=== PATIENT | male | born 1945 | race Caucasian/White ===

== ENCOUNTER 2019-07-27 07:00 | Inpatient (IN) ==
--- NOTE | 2019-07-12 10:50 | Anesthesiology Consultation ---
Date of Service July 12, 2019 Assessment & Plan (1) Encounter for pre-operative examination: Chart Review Chart Review: Acceptable Risk for Surgery (pending surgeon-ordered pcp clearance) and Patient seen in Pre Admission Testing Consults Requested medical Note sent to PCP for them to address patient's cardiac status and possible up dated testing prior to surgery at surgeon-ordered PCP clearance. Teaching & Discussion Instructed NPO after midnight before surgery, except medications with 15 cc of water. Medication instructions provided according to the PAT guidelines. History Surgery Operation Date: 07/27/19 07:45 Proposed Procedures p T11-L2, L4-S1 Decompression; T11-S1 Fusion; Possible Iliac Bolts, Spinal Cord Monitoring - Fidencio Christopher, Height/Weight Height: 5 ft 9 in Weight: 88 kg Allergies Allergy/AdvReac Type Severity Reaction Status Date / Time No Known Allergies Allergy Verified 07/07/19 08:57 Medications Home Medications Medication Instructions Recorded Confirmed Last Taken ascorbic acid (vitamin C) [Vitamin 500 mg PO QAM 07/07/19 07/07/19 Unknown C] aspirin [Aspirin Low Dose] 81 mg PO QPM 07/07/19 07/07/19 Unknown atenolol 25 mg PO QAM 07/07/19 07/07/19 Unknown cholecalciferol (vitamin D3) 400 unit PO QAM 07/07/19 07/07/19 Unknown [Vitamin D3] citalopram 20 mg PO QPM 07/07/19 07/07/19 Unknown hydrocodone-acetaminophen 1 tab PO Q6H PRN 07/07/19 07/07/19 Unknown ibuprofen 400 mg PO Q6H PRN 07/07/19 07/07/19 Unknown lutein 6 mg PO QAM 07/07/19 07/07/19 Unknown magnesium 250 mg PO QAM 07/07/19 07/07/19 Unknown omega 7-jdy-fwv-fish oil [Fish Oil] 1 cap PO QPM 07/07/19 07/07/19 Unknown omeprazole 20 mg PO QAM 07/07/19 07/07/19 Unknown simvastatin 20 mg PO PM 07/07/19 07/07/19 Unknown vitamin B complex 1 tab PO QAM 07/07/19 07/07/19 Unknown Past Medical History Medical History (Updated 07/15/19 @ 09:33 by Gael Myles) Anxiety CAD (coronary artery disease) [place] 1995 Depression GERD (gastroesophageal reflux disease) History of prostate cancer 2004, S/P PROSTATECTOMY 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 Hx of myocardial infarction 1995 - [facility] -ANGIOPLASTY. NO STENTS. NO FURTHER CARDIAC INTERVENTIONS. Hyperlipidemia Sleep apnea DOES NOT USE CPAP ANY LONGER, DID USE FOR MANY YEARS. PATIENT'S STATES HE DOES NOT SNORE AT ALL ANYMORE. Exercise / Class Metabolic Activity II 4-5 Yardwork/Stairs/Walk up hill (ACTIVELY WORKS AROUND HOME AND IN COMMUNITY, UP AND DOWN STAIRS MANY TIMES DAILY WITH NO CARDIOPULMONARY SYMPTOMS) Past Family History Family History Brother Family history of diabetes mellitus Sister Family history of diabetes mellitus Sister Family history of diabetes mellitus Mother Family history of diabetes mellitus Past Surgical History Surgical History History of back surgery X3 History of colonoscopy Hx of cervical spine surgery Hx of left cataract extraction Hx of prostatectomy Hx of right cataract extraction Past Anesthesia History No Hx of Anesthesia Complications and No Family Hx of Anesthesia Complications History of PONV No Hx of PONV and No Hx of Motion Sickness Social History Smoking Status: Former smoker Do You Dip or Chew Tobacco: Yes (1 CAN EVERY 2 DAYS. ADVISED NONE AM DOS.) Smoking End Date: QUIT 50YRS AGO Hx Alcohol Use: No Hx Substance Use: No Review of Systems Pt denies any recent chest pain, shortness of breath, palpitations, cough, fever or URI. Physical Exam Vital Signs BP: 145/71 P: 59bpm SPO2: 95% RA T: 98.2 F R: 12 ENMT Mouth: + dentures (upper and lower) and + edentulous Thyromental Distance: > or= 3.5 Finger Breadths (3.5) Mallampati Class: I Neck normal visual inspection; neck extension not limited Respiratory normal respiratory effort Auscultation: lungs clear to auscultation bilaterally Cardiovascular Rate/Rhythm: regular rate and regular rhythm Heart Sounds: no murmur Vessels: no carotid bruit Extremities: no edema Testing Laboratory Results 07/12/19 11:02 07/12/19 11:02 PT 10.7 Seconds (9.0-12.0) 07/12/19 11:02 INR 1.0 (0.9-1.1) 07/12/19 11:02 APTT 23.3 Seconds (21.0-31.0) 07/12/19 11:02 Urine Color Dark Yellow 07/12/19 Unknown Urine Appearance Clear (Clear) 07/12/19 Unknown Urine pH 5.5 (4.5-7.5) 07/12/19 Unknown Ur Specific [place] 1.027 (1.000-1.030) 07/12/19 Unknown Urine Protein Negative (Negative) 07/12/19 Unknown Urine Glucose (UA) Negative (Negative) 07/12/19 Unknown Urine Ketones Negative (Negative) 07/12/19 Unknown Urine Nitrite Negative (Negative) 07/12/19 Unknown Ur Leukocyte Esterase Negative (Negative) 07/12/19 Unknown Blood Type B Positive 07/12/19 11:02 Antibody Screen NEGATIVE 07/12/19 11:02 Electrocardiogram Date: 07/12/19 Findings: + SB @ (58bpm) ST elevation, consider early repolarization. *Pt had no cardiopulmonary complaints at [facility] and is very active on a daily basis without cardiopulmonary complaints. Chest X-Ray Date: 07/12/19 Findings: + NAD
--- NOTE | 2019-07-12 11:11 | PAT Medication Instructions ---
Medication Instructions Date of Service July 12, 2019 Home Medications ascorbic acid (vitamin C) 500 mg PO QAM aspirin [Aspirin Low Dose] 81 mg PO QPM atenolol 25 mg PO QAM cholecalciferol (vitamin D3) 400 unit PO QAM citalopram 20 mg PO QPM hydrocodone-acetaminophen 1 tab PO Q6H PRN ibuprofen 400 mg PO Q6H PRN lutein 6 mg PO QAM magnesium 250 mg PO QAM omega 7-jyj-wlj-fish oil [Fish Oil] 1 cap PO QPM omeprazole 20 mg PO QAM simvastatin 20 mg PO PM vitamin B complex 1 tab PO QAM ASK your surgeon for instructions aspirin [Aspirin Low Dose] 81 mg PO QPM ibuprofen 400 mg PO Q6H PRN STOP taking 2 weeks before surgery lutein 6 mg PO QAM omega 2-xqg-fhy-fish oil [Fish Oil] 1 cap PO QPM DO NOT take the morning of surgery ascorbic acid (vitamin C) 500 mg PO QAM cholecalciferol (vitamin D3) 400 unit PO QAM magnesium 250 mg PO QAM vitamin B complex 1 tab PO QAM Take morning of surgery With a small sip of water, OTHERWISE NOTHING TO EAT OR DRINK AFTER MIDNIGHT: atenolol 25 mg PO QAM hydrocodone-acetaminophen 1 tab PO Q6H PRN (if needed, may be taken up to four hours before surgery) omeprazole 20 mg PO QAM Take evening before surgery citalopram 20 mg PO QPM hydrocodone-acetaminophen 1 tab PO Q6H PRN (if needed) simvastatin 20 mg PO PM Other Notes If you have any questions please call us at [phone] or [phone] or [phone] or [phone]
--- NOTE | 2019-07-12 11:38 | XRay Report ---
XR chest Pre-admission PA/Lat CLINICAL HISTORY: 73 years-old Male presenting with preoperative assessment. TECHNIQUE: PA and lateral views of the chest were obtained. COMPARISON: 06/26/2015. FINDINGS: Cardiomediastinal silhouette normal. Lungs and pleural spaces clear. Anterior cervical fusion hardwar e, new from prior. Posterior lumbar fusion hardware, as on prior. Upper abdomen normal. IMPRESSION: 1. No acute cardiopulmonary disease. ACT 112: Negative or not required by law. Electronically signed by: Ba Flores M.D. 07/12/2019 11:36 AM
[2019-07-12 13:24] LABS: Basophils # (auto) 0.02 K/uL (0-0.2); Basophils % (auto) 0.4 %; Eosinophils # (auto) 0.11 K/uL (0-0.5); Hematocrit (blood only) 44.7 % (42-52); Hemoglobin 15.6 g/dL (14.0-18.0); Immature Granulocytes # (auto) 0.02 K/uL (0.00-0.02); Immature Granulocytes % (auto) 0.4 %; Lymphocytes # (auto) 1.65 K/uL (1.2-3.4); Lymphocytes % (auto) 30.2 %; Mean Corpuscular Hemoglobin 33.3 pg (25-34); Mean Corpuscular Hgb Conc 34.9 g/dL (32-36); Mean Corpuscular Volume 95.5 fL (80-100); Mean Platelet Volume 11.7 fL (7.4-10.4); Monocytes # (auto) 0.64 K/uL (0.11-0.59); Monocytes % (auto) 11.7 %; Neutrophils # (auto) 3.03 K/uL (1.4-6.5); Neutrophils % (auto) 55.3 %; Platelet Count 177 K/uL (130-400); RDW Coefficient of Variation 13.3 % (11.5-14.5); RDW Standard Deviation 45.5 fL (36.4-46.3); Red Blood Count 4.68 M/uL (4.7-6.1); White Blood Count 5.47 K/uL (4.8-10.8)
[2019-07-12 13:36] LABS: Appearance Urine Clear (Clear); Bilirubin Urine Negative (Negative); Blood Urine Negative (Negative); Color Urine Dark Yellow; Glucose Urine UA Negative (Negative); Ketones Urine Negative (Negative); Leukocyte Esterase Urine Negative (Negative); Nitrite Urine Negative (Negative); Protein Urine Negative (Negative); Specific Gravity Urine 1.027 (1.000-1.030); Urobilinogen Urine Negative (Negative); pH Urine 5.5 (4.5-7.5)
[2019-07-12 13:41] LABS: Calcium 9.3 mg/dl (8.5-10.1); Creatinine Clr Calc Pharmacy 78.2 ml/min; Est GFR (African American) 95.9; Est GFR (Non-African American) 82.7; Partial Thromboplastin Ratio 0.9; Partial Thromboplastin Time 23.3 Seconds (21.0-31.0); Potassium 4.9 mmol/L (3.5-5.1); Prothrombin Time 10.7 Seconds (9.0-12.0)
[~2019-07-27 07:00] MED LIST: ACETAMINOPHEN 500 MG TAB PO SCH; CEFAZOLIN 2000MG 2,000 MG/15 ML SYR IV SCH; CeleBREX 200 MG CAP PO SCH; GABAPENTIN 300 MG CAP PO SCH; LR 15ML/HR IV SCH
[2019-07-27] MEDS ORDERED: PROPOFOL IV EMULSION 10 MG/ML 20 ML VIAL IV ONE (08:48)
[2019-07-27] MEDS ORDERED: DEXAMETHASONE SOD INJ 4 MG/ML VIAL ONE (08:48)
[2019-07-27] MEDS ORDERED: ONDANSETRON INJ 2 MG/ML 2 ML VIAL ONE (08:48)
[2019-07-27] MEDS ORDERED: LIDOCAINE HCL 2% 2 ML VIAL/AMP(20MG/ML) INFIL ONE (08:48)
[2019-07-27] MEDS ORDERED: HYDROmorphone INJ 2 MG/ML SYR/VIAL ONE (08:49)
[2019-07-27] MEDS ORDERED: MIDAZOLAM HCL 1 MG/ML 2ML VIAL ONE (08:49)
[2019-07-27] MEDS ORDERED: fentaNYL citrate 100 MCG/2 ML VIAL ONE (08:49)
[2019-07-27] MEDS ORDERED: ATROPINE SULFATE 0.1 MG/ML 10ML SYR IV PRN (09:14)
[2019-07-27] MEDS ORDERED: PROMETHAZINE HCL 6.25 MG in SODIUM CHLORIDE 0.9% 50 ML IV PRN (09:14)
[2019-07-27] MEDS ORDERED: fentaNYL citrate 100 MCG/2 ML VIAL IV PRN (09:14)
[2019-07-27] MEDS ORDERED: ONDANSETRON INJ 2 MG/ML 2 ML VIAL IV PRN ×2 (09:14→14:19)
[2019-07-27] MEDS ORDERED: ePHEDrine sulfate 50 MG/ML AMP IV PRN (09:14)
[2019-07-27] MEDS ORDERED: HYDROmorphone INJ 2 MG/ML SYR/VIAL IV PRN (09:14)
--- NOTE | 2019-07-27 09:53 | History & Physical Bridge Note ---
Date of Service July 27, 2019 History & Physical Bridge Note I have examined the patient, reviewed the History & Physical and in the interval since the performance of the History & Physical I have noted the following changes of clinical significance: no changes noted
--- NOTE | 2019-07-27 09:54 | History & Physical Report ---
Date of Service July 27, 2019 Assessment & Plan (1) Spinal stenosis, lumbar region with neurogenic claudication: Decompression T11-L2, L4-S1, fusion T11-S1, possible iliac bolts. Present on Admission?: Yes History of Present Illness Chief Complaint: Back and leg pain Primary Care Provider: Leonardo Layton This is a 73-year-old male who presents with chronic persistent back and bilateral leg symptoms. After failing stents course of nonoperative care is here for surgical intervention. Allergies Allergy/AdvReac Type Severity Reaction Status Date / Time No Known Allergies Allergy Verified 07/27/19 07:52 Home Medications Home Medications Medication Instructions Recorded Confirmed Type ascorbic acid (vitamin C) [Vitamin 500 mg PO QAM 07/07/19 07/27/19 History C] aspirin [Aspirin Low Dose] 81 mg PO QPM 07/07/19 07/27/19 History atenolol 25 mg PO QAM 07/07/19 07/27/19 History cholecalciferol (vitamin D3) 400 unit PO QAM 07/07/19 07/27/19 History [Vitamin D3] citalopram 20 mg PO QPM 07/07/19 07/27/19 History hydrocodone-acetaminophen 1 tab PO Q6H PRN 07/07/19 07/27/19 History ibuprofen 400 mg PO Q6H PRN 07/07/19 07/27/19 History lutein 6 mg PO QAM 07/07/19 07/27/19 History magnesium 250 mg PO QAM 07/07/19 07/27/19 History omega 6-ofv-ouh-fish oil [Fish Oil] 1 cap PO QPM 07/07/19 07/27/19 History omeprazole 20 mg PO QAM 07/07/19 07/27/19 History simvastatin 20 mg PO PM 07/07/19 07/27/19 History vitamin B complex 1 tab PO QAM 07/07/19 07/27/19 History Past Med/Surg History Family History Brother Family history of diabetes mellitus Sister Family history of diabetes mellitus Sister Family history of diabetes mellitus Mother Family history of diabetes mellitus Social History Preferred Language: Stateless Communication Ability: Effective Beliefs That Will Affect Care: None Current Living Situation: Spouse Feels Safe at Home: Yes Safety Concerns: Feels Safe At This Time Smoking Status: Former smoker Do You Dip or Chew Tobacco: Yes (1 CAN EVERY 2 DAYS. ADVISED NONE AM DOS.) ; Smoking End Date: QUIT 50YRS AGO ; Second Hand Exposure: No ; Hx Alcohol Use: No Hx Substance Use: No Physical Exam Physical Exam: Patient is alert and oriented neurologically intact. Results & Data Vital Signs (Past 12 Hours) Vital Signs Temp Pulse Resp BP Pulse Ox 07/27/19 07:49 36.5 C 58 L 18 140/80 97
[2019-07-27] MEDS ORDERED: BACITRACIN INJ 50,000 UNIT VIAL ONE (10:10)
[2019-07-27] MEDS ORDERED: BUPIVACAINE/EPINEPHRINE 0.5% MPF 1:200,000 10 ML VIAL ONE (10:11)
[2019-07-27] MEDS ORDERED: ROCURONIUM BROMIDE 10 MG/ML 5 ML VIAL ONE (11:11)
[2019-07-27] MEDS ORDERED: GLYCOPYRROLATE 0.2 MG/ML VIAL ONE (11:11)
[2019-07-27] MEDS ORDERED: NEOSTIGMINE METHYLSULFATE 1 MG/ML 10ML VIAL ONE (11:11)
[2019-07-27] MEDS ORDERED: FLOSEAL HEMOSTATIC MATRIX 10ML TOP ONE (12:31)
--- NOTE | 2019-07-27 12:47 | Operative Report ---
Post Operative Report Pre & Post Diagnosis Operation Date: 07/27/19 09:35 Pre-Op Diagnosis: Lumbar spinal stenosis with neurogenic claudication. Post-Op Diagnosis: Lumbar spinal stenosis with neurogenic claudication. I identified the patient and participated in the time-out.: Yes Procedure Operation Date: 07/27/19 09:35 Actual Procedures #1 removal instrumentation L2-3. #2 expiration of fusion L2-3. #3 lumbar decompression with bilateral medial facetectomies foraminotomies T12-L1 L1-L2. #4 posterior spinal fusion T11-L2. #5 placed posterior segmental instrumentation T11-L3. #6 interbody fusion L1-2. #7 placement of peek cage 8 x 26 mm at L1-2. #8 placement locally harvested morselized autograft in the posterior lateral gutters. #9 placement infuse collagen sponge, master graft in the posterior gutters and ostial amp and interbody space. Surgeon Fidencio Christopher, Globe Changer Radha Milton Estimated Blood Loss 100 Findings Consistent with Post-Op Diagnosis Specimens None Indications This is a 73-year-old male the presents above-mentioned diagnosis after failing extensive course of nonoperative care is here for surgical intervention. Description of Procedure Patient was met with identified informed consent obtained. Patient was then taken to the operative suite underwent ablation placed in prone position on Jose table on top Samir frame. All bony prominences well-padded eyes inspected to ensure no external pressure placed upon the peer at this point the thoracolumbar spine was prepped and draped in a sterile fashion. Sharp dissection the assistance pericardial form down to and exposing the lamina and transverse processes of T11-T12 L1-L2 2 and L3 including instrumentation L2-L3 was performed. Then referred proceeded to move the hardware at L2 and L3 bilaterally explore the fusion mass noting it to be intact. Then performed complete laminectomy of L1 and L2 including bilateral medial facetectomies and foraminotomies from a caudal cephalad fashion addressing severe spinal stenosis. Pedicle screws were then placed in T11-T12 L1-L2 and L3 bilaterally with assistance of fluoroscopy the process margot placed. By way to transfer approach on the right complete discectomy of L1-2 was performed endplates curetted to subcortical bleeding bone and a 8 x 26 mm peek cage filled with osteo-bone graft tapped in position. The rods were then locked in final position bilaterally. This included a cross-link. The transverse processes of T11 T12-L1 and L2 were then burred to subcortical being bone. Infuse collagen sponge master graft and local autograft was placed in the posterior gutters. 15 round RESHMA drain inserted. The incision was then closed with 1 Vicryl in the fascia 2-0 Vicryl subcutaneously and 4 Monocryl for final skin closure. Steri-Strips dressings placed. Patient will continue to PACU stable disc. Please note Radha Milton present at the entire procedure involved the patient positioning complex portions of the surgery and final skin closure. Lastly spinal cord monitoring was utilized that procedure no changes noted. I attest to the content of the Intraoperative Record and any orders documented therein. Any exceptions are noted below.
--- NOTE | 2019-07-27 13:05 | Fluoroscopy Report ---
FL lumbar spine 2-3V CLINICAL HISTORY: 73 years-old Male presenting with T11-L2 L4-S1 DECOMPRESSION T11-S1 FUSION. TECHNIQUE: 4 fluoroscopic image(s) recorded as part of an intraoperative procedure. COMPARISON: None. FINDINGS/IMPRESSION: Posterior bilateral transpedicular screw and margot fixation of T11-L3 with interbody spacer at L1-2. No rmal anatomic alignment. Please see surgical report for further details. Fluoroscopy dosage (mGy): 13.25. Fluoroscopy time: 28.3 seconds. Number or time of high level fluoroscopy (HLF), digital spot, or digital subtraction images: 0. ACT 112: Negative or not required by law. Electronically signed by: Ba Flores M.D. 07/27/2019 1:03 PM
--- NOTE | 2019-07-27 13:45 | Anesthesiology Progress Note ---
Date of Service July 27, 2019 Anesthesia Post Procedure Vital Signs Vital Signs: Temp Pulse Pulse Resp BP Pulse Ox 07/27/19 13:35 59 L 12 109/65 96 07/27/19 13:25 60 14 115/65 94 07/27/19 13:15 63 14 117/72 96 07/27/19 13:06 36.3 C L 64 12 116/66 96 07/27/19 07:49 36.5 C 58 L 18 140/80 97 Transfer of Care Handoff Completed per policy Notes Mental Status: alert / awake / arousable Patient Amnestic to Procedure: Yes Nausea / Vomiting: adequately controlled Pain: adequately controlled Airway Patency, RR, SpO2: stable & adequate BP & HR: stable & adequate Hydration State: stable & adequate Anesthetic Complications: no major complications apparent
[2019-07-27] MEDS ORDERED: ONDANSETRON 4 MG OD TAB PO PRN (14:19)
[2019-07-27] MEDS ORDERED: NALOXONE HCL 0.4 MG/1 ML VIAL/CARP IV PRN (14:19)
[2019-07-27] MEDS ORDERED: SOD PHOSPHATE/SOD BIPHOSPHATE ENEMA 132 ML BTL PR PRN (14:19)
[2019-07-27] MEDS ORDERED: DO NOT ADMINISTER PNEUMOCOCCAL VACCINE PRN (14:19)
[2019-07-27] MEDS ORDERED: HYDROmorphone INJ 1 MG/ML SYRINGE IV PRN (14:19)
[2019-07-27] MEDS ORDERED: ACETAMINOPHEN 1,000 MG/100 ML VIAL IV PRN (14:19)
[2019-07-27] MEDS ORDERED: FAMOTIDINE 20 MG TAB PO PRN (14:19)
[2019-07-27] MEDS ORDERED: bisacodyL 10 MG SUPP PR PRN (14:19)
[2019-07-27] MEDS ORDERED: LORazepam 0.5 MG TAB PO PRN (14:19)
[2019-07-27] MEDS ORDERED: DO NOT ADMINISTER FLU VACCINE PRN (14:19)
[2019-07-27] MEDS ORDERED: METOCLOPRAMIDE HCL INJ 5 MG/ML 2 ML VIAL IV PRN (14:19)
[2019-07-27] MEDS ORDERED: ACETAMINOPHEN 500 MG TAB PO PRN (14:19)
[2019-07-27] MEDS ORDERED: OXYCODONE HCL IR 5 MG TAB (IMMEDIATE RELEASE) PO PRN (14:19)
[2019-07-27] MEDS ORDERED: LORazepam 0.5 MG/1 ML VIAL IV PRN (14:19)
[2019-07-27] MEDS ORDERED: HYDROmorphone INJ 0.5 MG/0.5 ML SYR IV PRN (14:19)
[2019-07-27] MEDS ORDERED: PROMETHAZINE HCL 12.5 MG in SODIUM CHLORIDE 0.9% 50 ML IV PRN (14:19)
[2019-07-27] MEDS ORDERED: TRAMADOL HCL 50 MG TABLET PO PRN (14:19)
[2019-07-27] MEDS ORDERED: MAGNESIUM HYDROXIDE SUSP 30 ML UDC PO PRN (14:19)
[2019-07-27] MEDS ORDERED: ALUMINUM/MAGNESIUM SUSP 30 ML UDC PO PRN (14:19)
--- NOTE | 2019-07-27 14:51 | History & Physical Report ---
Date of Service July 27, 2019 Assessment & Plan (1) Spinal stenosis, lumbar region with neurogenic claudication: S/P removal of hardware, lumbar decompression and fusion T11-L2 POD #0 Dr. Christopher EBL 100ml; RESHMA drain in place tolerated procedure well Pain/wound management per Ortho Activity and therapy as directed by Ortho Incentive spirometry encouraged and demonstrated, wean oxygen as able DVT prophylaxis per Ortho Monitor H&H (2) CAD (coronary artery disease): No active chest pain or shortness of breath Previous EKG and echo reviewed Continue ASA, statin, atenolol (3) Hyperlipidemia: Continue statin (4) History of prostate cancer: hx of prostatectomy Remission (5) GERD (gastroesophageal reflux disease): continue PPI (6) DVT prophylaxis: SCD/TEDS Disposition: per primary Follow up: PCP Dr. Layton at discharge Pt was seen and examined in collaboration with Dr. Ayala, please see addendum Starting 07/28/2019 pt will be under the care of Dr. Mckeon Thank you for this consultation. We will follow the patient with you during their hospital stay. You can reach a member of the [facility] [facility] Hospitalist Team 09/02 via pager @ [phone]. History of Present Illness Chief Complaint: Postop medical management Primary Care Provider: Leonardo Layton Mr. Marrero is a 73 yr old M who has significant PMH of CAD with history of angioplasty in , history of Guillan Colvin syndrome with residual left hand and leg weakness, depression, GERD, HLD, history of prostate cancer status post prostatectomy, RACHEL no longer on CPAP who presents to [facility] secondary to elective lumbar procedure by Dr. Christopher. He has had 3 prior lumbar surgeries and has again failed outpatient conservative management. Prior to surgery he had significant low back pain as well as radiation of pain to bilateral lower extremities, "causing my knee to buckle." Postoperatively he has been doing well and requesting food. Currently on oxygen and has been using incentive spirometer. Multiple family members at bedside including 2 sisters, [id number] and . Denies fever, chills, sweats, lightheadedness, dizzin ess, syncope, chest pain, shortness of breath, palpitations, cough, hemoptysis, nausea, vomiting, abdominal pain. Had bowel movement yesterday. No difficulty with urination prior to surgery. Of significance he does have CAD which is currently stable without angina. History of angioplasty back in the 90s. Currently on regimen of aspirin, atenolol and statin. History of Guillan Colvin syndrome approximately 4 years ago with residual left-sided weakness, but does not alter functional capacity. Depression is stable on citalopram. PCP is Dr. Layton and outpt records reviewed. Due to prior hx of CAD preop echocardiogram was performed which revealed normal EF. Allergies Allergy/AdvReac Type Severity Reaction Status Date / Time No Known Allergies Allergy Verified 07/27/19 07:52 Home Medications Home Medications Medication Instructions Recorded Confirmed Type ascorbic acid (vitamin C) [Vitamin 500 mg PO QAM 07/07/19 07/27/19 History C] aspirin [Aspirin Low Dose] 81 mg PO QPM 07/07/19 07/27/19 History atenolol 25 mg PO QAM 07/07/19 07/27/19 History cholecalciferol (vitamin D3) 400 unit PO QAM 07/07/19 07/27/19 History [Vitamin D3] citalopram 20 mg PO QPM 07/07/19 07/27/19 History hydrocodone-acetaminophen 1 tab PO Q6H PRN 07/07/19 07/27/19 History ibuprofen 400 mg PO Q6H PRN 07/07/19 07/27/19 History lutein 6 mg PO QAM 07/07/19 07/27/19 History magnesium 250 mg PO QAM 07/07/19 07/27/19 History omega 1-vld-scm-fish oil [Fish Oil] 1 cap PO QPM 07/07/19 07/27/19 History omeprazole 20 mg PO QAM 07/07/19 07/27/19 History simvastatin 20 mg PO PM 07/07/19 07/27/19 History vitamin B complex 1 tab PO QAM 07/07/19 07/27/19 History Past Med/Surg History Medical History Anxiety CAD (coronary artery disease) [place] 1995 Depression GERD (gastroesophageal reflux disease) History of prostate cancer 2004, S/P PROSTATECTOMY 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 MUCSLE WEAKNESS IN ARMS AND LEGS SINCE EPISODE. Hx of myocardial infarction 1995 - [facility] -ANGIOPLASTY. NO STENTS. NO FURTHER CARDIAC INTERVENTIONS. Hyperlipidemia Sleep apnea DOES NOT USE CPAP ANY LONGER, DID USE FOR MANY YEARS. PATIENT'S STATES HE DOES NOT SNORE AT ALL ANYMORE. Surgical History History of back surgery X3 History of colonoscopy Hx of cervical spine surgery Hx of left cataract extraction Hx of prostatectomy Hx of right cataract extraction Family History Brother Family history of diabetes mellitus Sister Family history of diabetes mellitus Sister Family history of diabetes mellitus Mother Family history of diabetes mellitus Social History Preferred Language: Luxembourgish Communication Ability: Effective Beliefs That Will Affect Care: None Current Living Situation: Spouse Feels Safe at Home: Yes Safety Concerns: Feels Safe At This Time Smoking Status: Former smoker Do You Dip or Chew Tobacco: Yes (1 CAN EVERY 2 DAYS. ADVISED NONE AM DOS.) ; Smoking End Date: QUIT 50YRS AGO ; Second Hand Exposure: No ; Hx Alcohol Use: No Hx Substance Use: No Review of Systems Review of Systems: All systems reviewed & are unremarkable except as noted in HPI & below Physical Exam Physical Exam: Constitutional: WD/WN, male, vitals as above, NAD, sitting up in bed, pleasant, conversing easily Head: Normocephalic, Atraumatic Eyes: PERRL, conjunctivae normal, anicteric sclerae ENMT: external ear and nose normal, oropharynx normal Neck: trachea midline, no thyromegaly normal visual inspection Respiratory: On O2 via NC, normal respiratory effort, lungs clear to auscultation, no wheeze, rales, rhonchi. Normal insp/exp effort, no accessory muscle use Cardiovascular: RRR, no murmur, no edema Vessels: no JVD or carotid bruit Chest: normal inspection of chest Abdomen: normal bowel sounds, soft, nontender, no hepatosplenomegaly Musculoskeletal: no cyanosis or clubbing, lumbar dressing CDI RESHMA drain in place Skin: no rashes, warm and dry normal turgor Neurologic: PERRL, EOMI, accommodation nl, no face palsy, no dysarthria CN's II-XI intact bilaterally and moves all extremities Psychiatric: A+Ox3, euthymic affect Lymphatic: no cervical or axillary lymphadenopathy : deferred Results & Data Vital Signs (Past 12 Hours) Vital Signs Temp Pulse Pulse Pulse Resp BP Pulse Ox 07/27/19 14:40 67 16 104/70 94 07/27/19 14:00 64 16 103/68 95 07/27/19 13:45 36.2 C L 64 12 113/70 95 07/27/19 13:35 59 L 12 109/65 96 07/27/19 13:25 60 14 115/65 94 07/27/19 13:15 63 14 117/72 96 07/27/19 13:06 36.3 C L 64 12 116/66 96 07/27/19 07:49 36.5 C 58 L 18 140/80 97 Laboratory Results Preop lab work revealed H&H 15.6 and 44.7, platelet 177, WBC 5K, sodium 142, K4.9, BUN 18, creatinine 1.91 Urinalysis negative Diagnostic Findings CXR: IMPRESSION: 1. No acute cardiopulmonary disease. Lumbar Spine Xray: FINDINGS/IMPRESSION: Posterior bilateral transpedicular screw and margot fixation of T11-L3 with interbody spacer at L1-2. Normal anatomic alignment. Medications Administered Ketorolac Tromethamine (Toradol) 15 mg IV Q6H KARLIE Stop: 07/28/19 09:01 Last Admin: 07/27/19 14:56 Dose: 15 mg Documented by: [id number] Discontinued Medications Acetaminophen (Tylenol) 1,000 mg PO PREOP KARLIE Stop: 07/27/19 18:00 Last Admin: 07/27/19 08:12 Dose: 1,000 mg Documented by: [id number] Bacitracin (Bacitracin) Confirm Administered Dose 50,000 units .ROUTE .STK-MED ONE Stop: 07/27/19 10:11 Last Admin: 07/27/19 12:31 Dose: 50,000 units Documented by: [id number] Bupivacaine HCl/Epinephrine Bitart (Sensorcaine/Epinephrine 0.5% Mpf 1:200,000) Confirm Administered Dose 30 ml .ROUTE .STK-MED ONE Stop: 07/27/19 10:12 Last Admin: 07/27/19 12:30 Dose: 30 ml Documented by: [id number] Celecoxib (Celebrex) 200 mg PO PREOP KARLIE Stop: 07/27/19 18:00 Last Admin: 07/27/19 08:12 Dose: 200 mg Documented by: [id number] Gabapentin (Neurontin) 300 mg PO PREOP KARLIE Stop: 07/27/19 18:00 Last Admin: 07/27/19 08:12 Dose: 300 mg Documented by: [id number] Lactated Ringer's (Lr) 1,000 mls @ 15 mls/hr IV .Q24H KARLIE Stop: 07/28/19 05:59 Last Infusion: 07/27/19 10:20 Dose: 0 mls/hr Documented by: [id number] Admin: 07/27/19 08:05 Dose: 15 mls/hr Documented by: [id number] Cefazolin Sodium (Ancef 2000mg) 2,000 mg in 15 mls @ 3.75 mls/min IV PREOP KARLIE; Protocol Stop: 07/27/19 18:00 Last Admin: 07/27/19 10:20 Dose: 3.75 mls/min Documented by: [id number] Miscellaneous (Floseal Hemostatic Matrix 10ml) 7 ml TOP ONCE ONE Stop: 07/27/19 12:32 Last Admin: 07/27/19 12:31 Dose: 7 ml Documented by: [id number] ECG Rate (beats per minute): 58 Rhythm: sinus bradycardia Code Status & VTE Plan Code Status Full Code VTE Prophylaxis Plan VTE Prophylaxis will be ordered: Yes Supervising Physician Co-Signing Physician Notes H&P template inadvertently used instead of Consultation template. Please refer to Consultation note for full documentation.
[2019-07-27] MEDS: KETOROLAC TROMETHAMINE 15 MG/ML VIAL IV SCH ×2 (14:56→20:30)
--- NOTE | 2019-07-27 15:32 | Consultation ---
Date of Consultation July 27, 2019 Assessment & Plan (1) Spinal stenosis, lumbar region with neurogenic claudication: S/P removal of hardware, lumbar decompression and fusion T11-L2 POD #0 Dr. Christopher EBL 100ml; RESHMA drain in place tolerated procedure well Pain/wound management per Ortho Activity and therapy as directed by Ortho Incentive spirometry encouraged and demonstrated, wean oxygen as able DVT prophylaxis per Ortho Monitor H&H (2) CAD (coronary artery disease): No active chest pain or shortness of breath Previous EKG and echo reviewed Continue ASA, statin, atenolol (3) Hyperlipidemia: Continue statin (4) History of prostate cancer: hx of prostatectomy Remission (5) GERD (gastroesophageal reflux disease): continue PPI (6) DVT prophylaxis: SCD/TEDS Disposition: per primary Follow up: PCP Dr. Layton at discharge Pt was seen and examined in collaboration with Dr. Ayala, please see addendum Starting 07/28/2019 pt will be under the care of Dr. Mckeon Thank you for this consultation. We will follow the patient with you during their hospital stay. You can reach a member of the [facility] Hospitalist Team 09/02 via pager @ [phone]. Supervising Physician Co-Signing Physician Notes HISTORY: Record reviewed. Patient interviewed and examined in their room. Care coordinated with Delmis Kearney PA-C. Please refer to her documentation for complete history. Briefly, 73 YO M with history of coronary artery disease, dyslipidemia, GERD, and other problems. Lumbar decompression/fusion performed today by Dr. Christopher. Doing well postoperatively. No chest pain, cough, SOB, nausea, vomiting. Pain well-controlled. EXAM: General- no distress Lungs- clear to auscultation; no respiratory distress Cardiovascular- RRR; no JVD; no pretibial edema Abdomen- + bowel sounds, soft, nontender Extremities- no cyanosis; no calf tenderness ; TEDS and SCDs applied Neuro- alert, oriented Skin- warm & dry DATA: Preop labs on 07/12/2019 unremarkable. Chest x-ray did not show any acute cardiopulmonary disease. EKG performed on 07/12/2019 demonstrated sinus bradycardia at 58/minute, early polarization, no acute changes. ASSESSMENT AND PLAN: Doing well after lumbar decompression/fusion. Cardiac status stable. Continue atenolol and statin. Resume aspirin postoperatively when okay from surgical perspective. Please refer to DENISE Kearney's documentation for discussion of other issues. Thank you for this consultation. We will follow the patient with you during their hospital stay. My cell # is [phone]. You can reach a member of the [facility] Medicine Team 09/02 via pager @ [phone]. History of Present Illness Requesting Physician: Dr. Christopher Reason for Consultation: Post op medical management Attending Physician: Fidencio Christopher, DO History of Present Illness Mr. 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 Christopher. He has had 3 prior lumbar surgeries and has again failed outpatient conservative management. Prior to surgery he had significant low back pain as well as radiation of pain to bilateral lower extremities, "causing my knee to buckle." Postoperatively he has been doing well and requesting food. Currently on oxygen and has been using incentive spirometer. Multiple family members at bedside including 2 sisters, [id number] and . Denies fever, chills, sweats, lightheadedness, dizziness, syncope, chest pain, shortness of breath, palpitations, cough, hemoptysis, nausea, vomiting, abdominal pain. Had bowel movement yesterday. No difficulty with urination prior to surgery. Of significance he does have CAD which is currently stable without angina. History of angioplasty back in the s. Currently on regimen of aspirin, atenolol and statin. History of Guillan Colvin syndrome approximately 4 years ago with residual left-sided weakness, but does not alter functional capacity. Depression is stable on citalopram. PCP is Dr. Layton and outpt records reviewed. Due to prior hx of CAD preop echocardiogram was performed which revealed normal EF. Allergies Allergy/AdvReac Type Severity Reaction Status Date / Time No Known Allergies Allergy Verified 07/27/19 07:52 Home Medications Home Medications Medication Instructions Recorded Confirmed Type ascorbic acid (vitamin C) [Vitamin 500 mg PO QAM 07/07/19 07/27/19 History C] aspirin [Aspirin Low Dose] 81 mg PO QPM 07/07/19 07/27/19 History atenolol 25 mg PO QAM 07/07/19 07/27/19 History cholecalciferol (vitamin D3) 400 unit PO QAM 07/07/19 07/27/19 History [Vitamin D3] citalopram 20 mg PO QPM 07/07/19 07/27/19 History hydrocodone-acetaminophen 1 tab PO Q6H PRN 07/07/19 07/27/19 History ibuprofen 400 mg PO Q6H PRN 07/07/19 07/27/19 History lutein 6 mg PO QAM 07/07/19 07/27/19 History magnesium 250 mg PO QAM 07/07/19 07/27/19 History omega 5-lqs-hje-fish oil [Fish Oil] 1 cap PO QPM 07/07/19 07/27/19 History omeprazole 20 mg PO QAM 07/07/19 07/27/19 History simvastatin 20 mg PO PM 07/07/19 07/27/19 History vitamin B complex 1 tab PO QAM 07/07/19 07/27/19 History Patient History Medical History Anxiety CAD (coronary artery disease) [place] 1995 Depression GERD (gastroesophageal reflux disease) History of prostate cancer 2004, S/P PROSTATECTOMY 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 MUCSLE WEAKNESS IN ARMS AND LEGS SINCE EPISODE. Hx of myocardial infarction 1995 - [facility] -ANGIOPLASTY. NO STENTS. NO FURTHER CARDIAC INTERVENTIONS. Hyperlipidemia Sleep apnea DOES NOT USE CPAP ANY LONGER, DID USE FOR MANY YEARS. PATIENT'S STATES HE DOES NOT SNORE AT ALL ANYMORE. Surgical History History of back surgery X3 History of colonoscopy Hx of cervical spine surgery Hx of left cataract extraction Hx of prostatectomy Hx of right cataract extraction Family History Brother Family history of diabetes mellitus Sister Family history of diabetes mellitus Sister Family history of diabetes mellitus Mother Family history of diabetes mellitus Social History Preferred Language: Chinese Communication Ability: Effective Beliefs That Will Affect Care: None Current Living Situation: Spouse Feels Safe at Home: Yes Safety Concerns: Feels Safe At This Time Smoking Status: Former smoker Do You Dip or Chew Tobacco: Yes (1 CAN EVERY 2 DAYS. ADVISED NONE AM DOS.) ; Smoking End Date: QUIT 50YRS AGO ; Second Hand Exposure: No ; Hx Alcohol Use: No Hx Substance Use: No Review of Systems Review of Systems: All systems reviewed & are unremarkable except as noted in HPI & below Physical Exam Physical Exam: Constitutional: WD/WN, male, vitals as above, NAD, sitting up in bed, pleasant, conversing easily Head: Normocephalic, Atraumatic Eyes: PERRL, conjunctivae normal, anicteric sclerae ENMT: external ear and nose normal, oropharynx normal Neck: trachea midline, no thyromegaly normal visual inspection Respiratory: On O2 via NC, normal respiratory effort, lungs clear to auscultation, no wheeze, rales, rhonchi. Normal insp/exp effort, no accessory muscle use Cardiovascular: RRR, no murmur, no edema Vessels: no JVD or carotid bruit Chest: normal inspection of chest Abdomen: normal bowel sounds, soft, nontender, no hepatosplenomegaly Musculoskeletal: no cyanosis or clubbing, lumbar dressing CDI RESHMA drain in place Skin: no rashes, warm and dry normal turgor Neurologic: PERRL, EOMI, accommodation nl, no face palsy, no dysarthria CN's II-XI intact bilaterally and moves all extremities Psychiatric: A+Ox3, euthymic affect Lymphatic: no cervical or axillary lymphadenopathy : deferred Results & Data Vital Signs (Past 12 Hours) Vital Signs Temp Pulse Pulse Pulse Resp BP Pulse Ox 07/27/19 15:15 36.8 C 68 16 116/67 96 07/27/19 14:40 67 16 104/70 94 07/27/19 14:00 64 16 103/68 95 07/27/19 13:45 36.2 C L 64 12 113/70 95 07/27/19 13:35 59 L 12 109/65 96 07/27/19 13:25 60 14 115/65 94 07/27/19 13:15 63 14 117/72 96 07/27/19 13:06 36.3 C L 64 12 116/66 96 07/27/19 07:49 36.5 C 58 L 18 140/80 97 Laboratory Results Preop lab work revealed H&H 15.6 and 44.7, platelet 177, WBC 5K, sodium 142, K4.9, BUN 18, creatinine 1.91 Urinalysis negative Diagnostic Findings CXR: IMPRESSION: 1. No acute cardiopulmonary disease. Lumbar Spine Xray: FINDINGS/IMPRESSION: Posterior bilateral transpedicular screw and margot fixation of T11-L3 with interbody spacer at L1-2. Normal anatomic alignment. Medications Administered Ketorolac Tromethamine (Toradol) 15 mg IV Q6H KARLIE Stop: 07/28/19 09:01 Last Admin: 07/27/19 14:56 Dose: 15 mg Documented by: [id number] Discontinued Medications Acetaminophen (Tylenol) 1,000 mg PO PREOP KARLIE Stop: 07/27/19 18:00 Last Admin: 07/27/19 08:12 Dose: 1,000 mg Documented by: [id number] Bacitracin (Bacitracin) Confirm Administered Dose 50,000 units .ROUTE .STK-MED ONE Stop: 07/27/19 10:11 Last Admin: 07/27/19 12:31 Dose: 50,000 units Documented by: [id number] Bupivacaine HCl/Epinephrine Bitart (Sensorcaine/Epinephrine 0.5% Mpf 1:200,000) Confirm Administered Dose 30 ml .ROUTE .STK-MED ONE Stop: 07/27/19 10:12 Last Admin: 07/27/19 12:30 Dose: 30 ml Documented by: [id number] Celecoxib (Celebrex) 200 mg PO PREOP KARLIE Stop: 07/27/19 18:00 Last Admin: 07/27/19 08:12 Dose: 200 mg Documented by: [id number] Gabapentin (Neurontin) 300 mg PO PREOP KARLIE Stop: 07/27/19 18:00 Last Admin: 07/27/19 08:12 Dose: 300 mg Documented by: [id number] Lactated Ringer's (Lr) 1,000 mls @ 15 mls/hr IV .Q24H KARLIE Stop: 07/28/19 05:59 Last Infusion: 07/27/19 10:20 Dose: 0 mls/hr Documented by: [id number] Admin: 07/27/19 08:05 Dose: 15 mls/hr Documented by: [id number] Cefazolin Sodium (Ancef 2000mg) 2,000 mg in 15 mls @ 3.75 mls/min IV PREOP KARLIE; Protocol Stop: 07/27/19 18:00 Last Admin: 07/27/19 10:20 Dose: 3.75 mls/min Documented by: [id number] Miscellaneous (Floseal Hemostatic Matrix 10ml) 7 ml TOP ONCE ONE Stop: 07/27/19 12:32 Last Admin: 07/27/19 12:31 Dose: 7 ml Documented by: [id number] ECG Rate (beats per minute): 58 Rhythm: sinus bradycardia
[2019-07-27] MEDS: CEFAZOLIN 2000MG 2,000 MG/15 ML SYR IV SCH (17:55)
[2019-07-27] MEDS: SODIUM CHLORIDE 0.9% 1000ML 1,000 ML IV SCH (19:45)
[2019-07-27] MEDS: DOCUSATE SODIUM/SENNA 50/8.6MG TAB PO SCH (20:29)
[2019-07-27] MEDS: ASPIRIN 81 MG ECTAB PO SCH (20:29)
[2019-07-27] MEDS: SIMVASTATIN 20 MG TAB PO SCH (20:29)
[2019-07-27] MEDS: CITALOPRAM 20 MG TAB PO SCH (20:29)
[2019-07-28] MEDS: KETOROLAC TROMETHAMINE 15 MG/ML VIAL IV SCH ×2 (01:58→07:56)
[2019-07-28] MEDS: CEFAZOLIN 2000MG 2,000 MG/15 ML SYR IV SCH (01:58)
[2019-07-28] MEDS: SODIUM CHLORIDE 0.9% 1000ML 1,000 ML IV SCH (03:39)
[2019-07-28] MEDS: POLYETHYLENE (MIRALAX) 17 GM PACK PO SCH ×4 (05:08→23:31)
[2019-07-28 05:52] LABS: Basophils # (auto) 0.01 K/uL (0-0.2); Basophils % (auto) 0.1 %; Eosinophils # (auto) 0.01 K/uL (0-0.5); Eosinophils % (auto) 0.1 %; Hemoglobin 12.7 g/dL (14.0-18.0); Immature Granulocytes # (auto) 0.04 K/uL (0.00-0.02); Immature Granulocytes % (auto) 0.3 %; Lymphocytes # (auto) 1.76 K/uL (1.2-3.4); Lymphocytes % (auto) 13.3 %; Mean Corpuscular Hemoglobin 33.2 pg (25-34); Mean Corpuscular Hgb Conc 34.3 g/dL (32-36); Mean Corpuscular Volume 96.6 fL (80-100); Mean Platelet Volume 11.3 fL (7.4-10.4); Monocytes # (auto) 1.14 K/uL (0.11-0.59); Monocytes % (auto) 8.6 %; Neutrophils % (auto) 77.6 %; Platelet Count 156 K/uL (130-400); RDW Coefficient of Variation 13.1 % (11.5-14.5); RDW Standard Deviation 45.3 fL (36.4-46.3); Red Blood Count 3.83 M/uL (4.7-6.1); White Blood Count 13.26 K/uL (4.8-10.8)
[2019-07-28 06:09] LABS: BUN Creatinine Ratio 14.1 (10-20); Calcium 8.3 mg/dl (8.5-10.1); Creatinine Clr Calc Pharmacy 61.4 ml/min; Est GFR (African American) 72.3; Est GFR (Non-African American) 62.3; Potassium 4.5 mmol/L (3.5-5.1)
[2019-07-28] MEDS: ATENOLOL 25 MG TABLET PO SCH (07:55)
[2019-07-28] MEDS: PANTOprazole 40 MG TAB PO SCH (07:55)
[2019-07-28] MEDS: VITAMIN B COMPLEX TAB PO SCH (07:56)
[2019-07-28] MEDS: ASCORBIC ACID 500 MG TAB PO SCH (07:56)
--- NOTE | 2019-07-28 08:45 | Hospitalist Progress Note ---
Date of Service July 28, 2019 Assessment & Plan (1) Spinal stenosis, lumbar region with neurogenic claudication: S/P removal of hardware, lumbar decompression and fusion T11-L2 POD #1 Dr. Christopher EBL 100ml; RESHMA drain 425ml output to date tolerated procedure well Pain/wound management per Ortho Activity and therapy as directed by Ortho Incentive spirometry encouraged and demonstrated, wean oxygen as able DVT prophylaxis per Ortho Monitor H&H (2) Hypotension: BP on lower side since 1900 last evening, ~90s/50s Asymptomatic. States his BP normally is on lower side. Atenolol held this morning 2/2 parameters Continue to monitor (3) CAD (coronary artery disease): No active chest pain or shortness of breath Previous EKG and echo reviewed Continue ASA, statin, atenolol (4) Hyperlipidemia: Continue statin (5) History of prostate cancer: Hx of prostatectomy Remission (6) GERD (gastroesophageal reflux disease): Continue PPI (7) DVT prophylaxis: SCD/TEDS Disposition: per primary Follow up: PCP Dr. Layton at discharge Patient seen in collaboration with Dr. Mckeon. Please see addendum. Thank you for this consultation. We will follow the patient with you during their hospital stay. You [facility] via pager @ [phone]. Supervising Physician Co-Signing Physician Notes I have examined the pt myself and coordinated care with Jud Landis PA-C, please refer to her note above for more details. Pt is a 73 y/o male well known to Dr. Christopher, [facility] as above who is s/p removal of hardware, lumbar decompression and fusion T11-L2 yesterday. Tolerated procedure well. Currently laying in bed, but w/o difficulty sits up and swings his legs over the edge of the bed and lets me examine him. Denies any pain, says previously he would have bilateral leg pain that has now resolved. RESHMA drain visualized, clean dressings applied to lower back. Lungs are clear to auscultation b/l w/o any wheezes, rhonchi, crackles. Heart sounds regular, no LE edema. Moves extremities spontaneously and w/o difficulty. Speech fluent, no facial asymmetry. Hgb decr., mild anemia, expected post. surg. blood loss anemia. Mildly hypotensive overnight and this AM, however seems to be completely asymptomatic. States that lower BP is not unusual for him. Denies any chest pain, headache, lightheadedness, shortness of breath, fatigue. As a matter of fact says that he is ready to go home. Denies any nausea, abd. pain, eats w/o diff., had BM this evening. Recommend to monitor BP, RESHMA output and H&H overnight. Brianne Mckeon MD Subjective Seen and examined in 305-1. Denies surgical site pain. Was ambulating the halls this morning without issue. Denies any distal pain or paresthesias to bilateral lower extremities. Tolerating diet well without any nausea, vomiting or abdominal pain. No chest pain or shortness of breath. Urinating on his own without issue. BP on lower side since last evening ~ 90s/50s but patient states this is close to his baseline. Denies lightheadedness, visual changes, chest pain or palpitations. Review of Systems Review of Systems: At least ten systems reviewed and negative except as noted in the HPI. Physical Exam Physical Exam: Physical Exam: General Appearance: WD/WN, vitals as above, NAD, lying in bed watching TV, pleasant, conversing easily Head: normocephalic, atraumatic Eyes: normal inspection, PERRL, conjunctivae normal, anicteric sclerae ENT: external ear and nose normal, oropharynx normal Neck: trachea midline, no thyromegaly, normal visual inspection Respiratory: lungs clear to auscultation, no wheeze, rales, rhonchi. Normal insp/exp effort, no accessory muscle use Cardiovascular: regular rate, rhythm, no murmur appreciated, normal peripheral pulses Chest: normal inspection of chest Abdomen/GI: normal bowel sounds, soft, nontender, no hepatosplenomegaly Extremities/Musculoskelatal: Spinal dressing clean, dry, intact. RESHMA drain visualized. No cyanosis or clubbing, extremities motor strength 5/5 Neurologic: PERRL, EOMI, accommodation nl, no face palsy, no dysarthria, CN's II-XI intact bilaterally and moves all extremities Psychiatric: A+Ox3, euthymic affect Skin: no rashes, normal color, warm/dry Results & Data Vital Signs (Past 12 Hours) Vital Signs Temp Pulse Resp BP Pulse Ox 07/28/19 06:56 36.8 C 65 18 95/55 L 95 07/28/19 03:18 36.8 C 66 18 90/49 L 93 07/27/19 23:10 36.9 C 66 17 94/55 L 93 Laboratory Results Short CBC 07/28/19 Range/Units 05:20 WBC 13.26 H (4.8-10.8) K/uL Hgb 12.7 L (14.0-18.0) g/dL Hct 37.0 L (42-52) % Plt Count 156 (130-400) K/uL BMP 07/28/19 05:20 Sodium 141 Potassium 4.5 Chloride 109 H Carbon Dioxide 29 BUN 16 Creatinine 1.15 Glucose 146 H Calcium 8.3 L
[2019-07-28] MEDS ORDERED: NON-FORMULARY MEDICATION (Magnesium 250 MG) PO SCH (09:00)
[2019-07-28] MEDS ORDERED: NON-FORMULARY MEDICATION (Lutein 6 MG) PO SCH (09:00)
--- NOTE | 2019-07-28 12:18 | Orthopedic Progress Note ---
Date of Service July 28, 2019 Assessment & Plan (1) Spinal stenosis, lumbar region with neurogenic claudication: At this time we will continue physical therapy advance his bowel regiment and hopefully discharge home in the next few days. Present on Admission?: Yes Subjective Back pain is controlled leg symptoms markedly improved. Physical Exam 2 Physical Exam: Patient has good strength testing appears comfortable. Results & Data Vital Signs (Past 12 Hours) Vital Signs Temp Pulse Resp BP Pulse Ox 07/28/19 11:49 36.7 C 67 16 103/66 93 07/28/19 06:56 36.8 C 65 18 95/55 L 95 07/28/19 03:18 36.8 C 66 18 90/49 L 93
[2019-07-28] MEDS: CITALOPRAM 20 MG TAB PO SCH (21:48)
[2019-07-28] MEDS: ASPIRIN 81 MG ECTAB PO SCH (21:48)
[2019-07-28] MEDS: DOCUSATE SODIUM/SENNA 50/8.6MG TAB PO SCH (21:48)
[2019-07-28] MEDS: SIMVASTATIN 20 MG TAB PO SCH (21:48)
[2019-07-29 05:41] LABS: Hematocrit (blood only) 38.3 % (42-52); Hemoglobin 13.5 g/dL (14.0-18.0); Mean Corpuscular Hemoglobin 33.9 pg (25-34); Mean Corpuscular Hgb Conc 35.2 g/dL (32-36); Mean Corpuscular Volume 96.2 fL (80-100); Platelet Count 146 K/uL (130-400); RDW Coefficient of Variation 13.2 % (11.5-14.5); RDW Standard Deviation 45.6 fL (36.4-46.3); Red Blood Count 3.98 M/uL (4.7-6.1); White Blood Count 10.75 K/uL (4.8-10.8)
[2019-07-29] MEDS: POLYETHYLENE (MIRALAX) 17 GM PACK PO SCH ×2 (05:48→12:44)
[2019-07-29 06:24] LABS: BUN Creatinine Ratio 16.2 (10-20); Calcium 8.4 mg/dl (8.5-10.1); Creatinine Clr Calc Pharmacy 77.5 ml/min; Est GFR (African American) 95.9; Est GFR (Non-African American) 82.7; Potassium 3.8 mmol/L (3.5-5.1)
[2019-07-29] MEDS: VITAMIN B COMPLEX TAB PO SCH (08:27)
[2019-07-29] MEDS: PANTOprazole 40 MG TAB PO SCH (08:27)
[2019-07-29] MEDS: ASCORBIC ACID 500 MG TAB PO SCH (08:27)
[2019-07-29] MEDS: ATENOLOL 25 MG TABLET PO SCH (09:03)
--- NOTE | 2019-08-01 09:25 | Discharge Summary ---
Date of Service August 01, 2019 Admission HPI Per Admitting Provider This is a 73 year old gentleman who presents with thoracolumbar stenosis. He has failed conservative treatment and presents for surgical intervention. Admission Exam (Per Admitting) Constitutional WD/WN, vitals as above Eyes normal visual martinez by confrontation ENMT external ear and nose normal, oropharynx normal Neck normal visual inspection Respiratory normal respiratory effort Cardiovascular Extremities: normal capillary refill Gastrointestinal (Abdomen) Inspection/Auscultation: abdomen normal to inspection Musculoskeletal no cyanosis or clubbing, extremities motor strength 5/5 Extremities: extremities normal to inspection and strength 5/5 throughout Skin no rashes, warm and dry Neurologic patellar DTR's 2+ bilat, sensation intact normal touch/pain/proprioception and moves all extremities Psychiatric A+Ox3, euthymic affect Discharge Data Consultations 07/27/19 14:19 Consult Case Management - Discharge Planning Routine Consult Hospitalist Routine Procedures Performed Operation Date: 07/27/19 09:35 Actual Procedures p T11-L2, L4-S1 Decompression; T11-S1 Fusion; use of Infuse, use of Osteoamp, peek cage at L1-L2, Spinal Cord Monitoring(Not Applicable) - Fidencio Christopher DO s hardware removal L2-L3(Not Applicable) - Fidencio Christopher DO Hospital Course (1) Spinal stenosis, lumbar region with neurogenic claudication: pt had an uncomplicated post operative course. Pain was well controlled. He made progress with physical therapy daily. lab values stable. He was discharged home on POD #2. Discharge Instructions ACTIVITY RECOMMENDATIONS: SELF CARE INSTRUCTIONS AFTER THORACIC/LUMBAR FUSIONS 1. You may walk to your tolerance. It is good exercise for your legs and back. Expect some back and intermittent leg aches and pains. 2. You may perform "counter-top" level activities (make a sandwich, elliott with a project, etc.). 3. No bending or lifting of more than 10 pounds or back twisting of any nature (roll like a log when turning in bed). 4. You may ride in a car for 20-30 minutes at a time. No driving until after your first visit with your doctor. 5. Frequent changes of position and restricting sitting to 30 minutes at a time will help limit the amount of back spasms and stiffness you may experience. 6. You may discontinue the use of ambulatory aids (cane, crutches, etc.) once your strength and confidence allow. 7. You may first officer and flight instructor the shower and let water strike your incision when you arrive home at least once daily. Do not take a tub bath, sit in a hot tub or go into a swimming pool until after your first recheck in the office. SPECIAL CARE INSTRUCTIONS: VERY IMPORTANT TO READ AND REVIEW A. Your surgical incision has been closed with a cosmetic suture under the skin that will dissolve in about 6 weeks. In 14 days, you can use a pair of clean scissors and cut the suture that is left outside of the skin at the ends of your incision. 1. The small skin tapes can be removed 7 days after surgery if they have not fallen off by that point. 2. You may keep the wound open to air as much as possible to promote healing after post-op day number 5 unless told otherwise by your doctor. 3. If you think the wound looks like it is becoming infected (redness or worsening drainage) and/or you are experiencing fever, chill or worsening back pain and muscle spasms, contact the office so that we may evaluate you as soon as possible. B. Complications are uncommon, but please contact us if you have any signs or symptoms of: 1. wound infection (fever higher than 102.5 degrees F, redness, separation of wound, drainage, or increasing pain from the incision) 2. blood clots in legs (pain, swelling, redness and warmth in legs) 3. urinary tract infection (fever higher than 102.5 degrees F, burning upon urination or increased frequency of urination) 4. nerve problems (inability to walk on your toes or heels, numbness, loss of bowel or bladder control) 5. any other symptoms that concern you C. Please call the office at if you have any concerns or questions about your operation or recovery. D. No smoking! Smoking drastically decreases the chance of a solid fusion. E. Do not take any anti-inflammatory medications (Indocin, Advil, Motrin, Aspirin, Naprosyn, etc.) as these may inhibit the chance of a solid fusion. Tylenol is okay to take for pain. MANAGING PAIN AFTER SPINAL SURGERY 1. Narcotic medication is intended for short-term use and will be provided for surgical pain. Surgical pain usually lasts for a period of 4-6 weeks. Narcotic medication includes Percocet, Vicodin, Darvocet, Tylenol #3 or Lortab. 2. Longer-term pain is more appropriately treated with non-narcotic medication such as Tylenol ES. 3. Muscle spasm is not appropriately treated with narcotics. Muscle relaxers such as Soma, Flexeril or Skelaxin can be used along with Tylenol ES. 4. Remember that we all live with some "aches and pains". This is not unusual or uncommon after an injury or as we get older. a. Back pain is expected and may include muscle spasms for 4 to 6 weeks after surgery. The pain should gradually improve. If the pain worsens for no apparent reason, please contact the office. b. Intermittent leg pain may also be experienced and should not be concerned about unless it worsens for no apparent reason. If so, please contact the office. 5. We will provide appropriate medication within the normal guidelines of their prescribed use. We will also be very cautious and aware of potential abuse and extended duration of patients' medication needs. a. Pain medications are for your comfort and to assist with sleep and rest so that the tissue can heal. They are not provided in order to return to normal activity and should not be used through the day. To do so or worsening pain at night can result from ongoing tissue damage and development of tolerance to the prescribed medicine. 6. Please allow 2-3 days to process refills. Prescriptions will not be mailed but must be picked up at the office. FOLLOW UP VISIT: Keep your scheduled follow-up appointment. Any questions, please call the office at . Supervising Physician Co-Signing Physician Notes Dr. Fidencio Christopher
== END 2019-07-29 12:55 | disposition home health service (06) | DRG 454 ==
LOC: ASU 07:00 → SUATTDRO 13:32 → 3E 13:32

== ENCOUNTER 2025-03-01 09:43 | Inpatient (IN) ==
--- NOTE | 2025-01-31 10:39 | PAT Medication Instructions ---
Medication Instructions Date of Service January 31, 2025 Home Medications ascorbic acid (vitamin C) 500 mg tablet (Vitamin C) 500 mg PO QAM aspirin 81 mg tablet,delayed release (Gen Low Dose Aspirin) 81 mg PO QPM atenolol 25 mg tablet 25 mg PO QAM citalopram 20 mg tablet 20 mg PO QPM magnesium 250 mg tablet 250 mg PO BID omega 5-myr-vgm-fish oil 1,000 mg (120 mg-180 mg) capsule (Fish Oil) 1 cap PO QPM omeprazole 20 mg tablet,delayed release 20 mg PO QAM simvastatin 20 mg tablet 20 mg PO QPM vitamin B complex 1 tab PO WK acetaminophen 500 mg tablet 1,000 mg PO TID PRN calcium 600 mg (as carbonate)-vitamin D3 5 mcg (200 unit) tablet 1 tab PO BID cholecalciferol (vitamin D3) 25 mcg (1,000 unit) tablet (Vitamin D3) 25 mcg PO QAM fluticasone propionate 50 mcg/actuation nasal spray,suspension 1 spray intranasal QAM ibandronate 150 mg tablet 150 mg PO MONTHLY lutein 20 mg tablet 20 mg PO QAM meloxicam 15 mg tablet 15 mg PO QAM ASK your surgeon for instructions meloxicam 15 mg tablet 15 mg PO QAM ASK your prescriber and surgeon aspirin 81 mg tablet,delayed release (Gen Low Dose Aspirin) 81 mg PO QPM STOP taking 2 weeks before surgery (or as soon as possible if surgery is within 2 weeks) omega 2-pqa-dxd-fish oil 1,000 mg (120 mg-180 mg) capsule (Fish Oil) 1 cap PO QPM lutein 20 mg tablet 20 mg PO QAM DO NOT take the morning of surgery ascorbic acid (vitamin C) 500 mg tablet (Vitamin C) 500 mg PO QAM magnesium 250 mg tablet 250 mg PO BID vitamin B complex 1 tab PO WK calcium 600 mg (as carbonate)-vitamin D3 5 mcg (200 unit) tablet 1 tab PO BID cholecalciferol (vitamin D3) 25 mcg (1,000 unit) tablet (Vitamin D3) 25 mcg PO QAM ibandronate 150 mg tablet 150 mg PO MONTHLY Take morning of surgery With a small sip of water, OTHERWISE NOTHING TO EAT OR DRINK AFTER MIDNIGHT: atenolol 25 mg tablet 25 mg PO QAM omeprazole 20 mg tablet,delayed release 20 mg PO QAM acetaminophen 500 mg tablet 1,000 mg PO TID PRN(if needed) fluticasone propionate 50 mcg/actuation nasal spray,suspension 1 spray intranasal QAM Take evening before surgery citalopram 20 mg tablet 20 mg PO QPM magnesium 250 mg tablet 250 mg PO BID simvastatin 20 mg tablet 20 mg PO QPM acetaminophen 500 mg tablet 1,000 mg PO TID PRN(if needed) calcium 600 mg (as carbonate)-vitamin D3 5 mcg (200 unit) tablet 1 tab PO BID Other Notes If you have any questions please call us at [phone] or [phone] or [phone] or [phone]
--- NOTE | 2025-02-06 13:13 | Anesthesiology Consultation ---
Date of Service February 06, 2025 Assessment & Plan (1) Encounter for pre-operative examination: Chart Review Chart Review: Acceptable Risk for Surgery (pending unconfirmed EKG and surgeon ordered PCP clearance ) and Patient seen in Pre Admission Testing - Awaiting confirmed EKG - Awaiting PCP clearance 02/10/25 (Dr Leonardo Almonte)- please fax preop testing - Discussed with Dr. Parnell- patient with remote hx of [place] with angioplasty in - no further cardiac issues. Had decent functional status up until two months ago (activity now limited due to back pain). Has PCP preop evaluation- no additional evaluation/testing needed as this time Per PAT appt on 02/06/25, no recent illness/disease exposures, illness related symptoms, or recent illness/disease positive tests. Will leave to surgeon's discretion if preop Covid testing needed T11-12, L4-S1 decompression, T11-S1 fusion with spinal cord monitoring 07/27/19= Done under [facility] with Grade 1 view with MAC #4. ETT #7.5. Atraumatic intubation with minimal extension. History Surgery Operation Date: 03/01/25 10:05 Proposed Procedures p L3-S1 Decompression and Fusion, Possible Hardware Removal T11-L3, with Spinal Cord Monitoring - Fidencio Christopher, Height/Weight Height: 5 ft 9 in Weight: 86.1 kg Allergies Allergy/AdvReac Type Severity Reaction Status Date / Time No Known Allergies Allergy Verified 01/30/25 09:01 Medications Home Medications Medication Instructions Recorded Confirmed Last Taken ascorbic acid (vitamin C) 500 mg 500 mg PO QAM 07/07/19 01/30/25 07/26/19 08:00 tablet (Vitamin C) aspirin 81 mg tablet,delayed 81 mg PO QPM 07/07/19 01/30/25 07/26/19 22:30 release (Gen Low Dose Aspirin) atenolol 25 mg tablet 25 mg PO QAM 07/07/19 01/30/25 07/27/19 05:30 citalopram 20 mg tablet 20 mg PO QPM 07/07/19 01/30/25 07/26/19 22:30 magnesium 250 mg tablet 250 mg PO BID 07/07/19 01/30/25 07/26/19 08:00 omega 5-apt-lxt-fish oil 1,000 mg 1 cap PO QPM 07/07/19 01/30/25 07/13/19 08:00 (120 mg-180 mg) capsule (Fish Oil) omeprazole 20 mg tablet,delayed 20 mg PO QAM 07/07/19 01/30/25 07/26/19 08:00 release simvastatin 20 mg tablet 20 mg PO QPM 07/07/19 01/30/25 07/26/19 22:30 vitamin B complex 1 tab PO WK 07/07/19 01/30/25 07/26/19 08:00 acetaminophen 500 mg tablet 1,000 mg PO TID PRN Pain 01/30/25 01/30/25 Unknown calcium 600 mg (as 1 tab PO BID 01/30/25 01/30/25 Unknown carbonate)-vitamin D3 5 mcg (200 unit) tablet cholecalciferol (vitamin D3) 25 25 mcg PO QAM 01/30/25 01/30/25 Unknown mcg (1,000 unit) tablet (Vitamin D3) fluticasone propionate 50 1 spray intranasal QAM 01/30/25 01/30/25 Unknown mcg/actuation nasal spray,suspension ibandronate 150 mg tablet 150 mg PO MONTHLY 01/30/25 01/30/25 Unknown lutein 20 mg tablet 20 mg PO QAM 01/30/25 01/30/25 Unknown meloxicam 15 mg tablet 15 mg PO QAM 01/30/25 01/30/25 Unknown Past Medical History Medical History (Updated 02/06/25 @ 16:21 by Dianne Rodriguez PA-C) Anxiety CAD (coronary artery disease) s/p angioplasty 1995 Depression GERD (gastroesophageal reflux disease) well controlled and stable History of prostate cancer (2004) s/p prostatectomy- no chemo or XRT [place] (hard of hearing) Bilateral hearing aids Hx of Guillain-[place] syndrome 2014, 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 Hx of myocardial infarction 1995 at [facility], angioplasty, no stents - no longer follows with Cardiology. *started on Atenolol after [place] - denies having hypertension* Hyperlipidemia Osteoporosis Sleep apnea no longer uses cpap ( reports patient does not snore anymore, has a bed that raises the head of bed and does well now) Spinal stenosis Exercise / Class Metabolic Activity III < 4 Walking/Shop/Light housework (no chest pain or SOB - with short distance/flat surface ambulation- uses walker due to increased back pain (x 2 months)) Past Family History Family History Brother Family history of diabetes mellitus Sister Family history of diabetes mellitus Sister Family history of diabetes mellitus Mother Family history of diabetes mellitus Other No family history of adverse response to anesthesia Past Surgical History Surgical History History of appendectomy History of cardiac cath 1995 at [facility], angioplasty, no stents - no longer follows with Cardiology. History of colonoscopy History of lumbar surgery 1985 [facility] Lumbar surgery 2001 in [place] (unsure of levels) 2003 in [place] (unsure of levels) 07/27/[address] Christopher T11-L2, L4-S1 Decompression, T11-S1 Fusion with peek cage at L1-L2 at [facility] Hx of cervical spine surgery ~2015 Dr. Christopher at [facility] -- ACDF (unsure of levels) reports having full ROM Hx of left cataract extraction Hx of prostatectomy (2004) s/p prostate cancer Hx of right cataract extraction Past Anesthesia History No Hx of Anesthesia Complications and No Family Hx of Anesthesia Complications History of PONV No Hx of PONV and No Hx of Motion Sickness Social History Smoking Status: Former smoker Do You Dip or Chew Tobacco: Yes (1 can/2 days (advised on npo policy)) Smoking End Date: ~ Hx Alcohol Use: No Hx Substance Use: No Review of Systems - Possible blood transfusion 2002 with back surgery in [place] (used own blood) Patient denies chest pain, shortness of breath, dyspnea on exertion, reflux, cough, wheezing, palpitations. No hx of seizures, stroke. No hx of blood clots. Physical Exam Vital Signs VITALS BP 127/80 P 62 TEMP 97.6 SP02 95% RESP 16 Constitutional no acute distress ENMT Mouth: + small oral opening; no TMJ clicking Thyromental Distance: > or= 3.5 Finger Breadths (3.5) Mallampati Class: I Top and bottom full dentures Neck + limited neck extension Respiratory normal respiratory effort; no respiratory distress Auscultation: lungs clear to auscultation bilaterally; no wheezes Cardiovascular Rate/Rhythm: regular rate and regular rhythm Heart Sounds: no murmur Vessels: no carotid bruit Musculoskeletal Spine: no pain with cervical ROM Extremities: extremities normal to inspection Psychiatric Orientation: alert Lab Results Anesthesia Preop Results Results Anesthesia Widget: WBC 7.37 K/ul (4.8-10.8) 02/06/25 Hgb 16.9 g/dl (14.0-18.0) 02/06/25 Hct 47.7 % (42.0-52.0) 02/06/25 Plt 227 K/uL (130-400) 02/06/25 Na 142 mmol/L (136-145) 02/06/25 K 4.5 mmol/L (3.5-5.1) 02/06/25 Cl 104 mmol/L (98-107) 02/06/25 CO2 34 mmol/L (21-32) H 02/06/25 BUN 16 mg/dl (6-23) 02/06/25 Creat 0.85 mg/dl (0.6-1.4) 02/06/25 Glucose Level 70 mg/dl (70-99(Fasting)) 02/06/25 PT 10.3 Seconds (9.0-12.0) 02/06/25 PTT 24 Seconds (21-31) 02/06/25 INR 0.9 (0.9-1.1) 02/06/25 Urine Color Dark Yellow 02/06/25 Urine Appearance Clear (Clear) 02/06/25 Urine pH 7.5 (4.5-7.5) 02/06/25 Urine Specific [place] 1.023 (1.000-1.030) 02/06/25 Urine Protein Negative (Negative) 02/06/25 Urine Glucose (UA) Negative (Negative) 02/06/25 Urine Ketones Trace (Negative) H 02/06/25 Urine Blood Negative (Negative) 02/06/25 Urine Nitrite Negative (Negative) 02/06/25 Urine Bilirubin Negative (Negative) 02/06/25 Urine Urobilinogen Negative (Negative) 02/06/25 Urine Leukocyte Esterase Negative (Negative) 02/06/25 Blood Type B Positive 02/06/25 Antibody Screen NEGATIVE 02/06/25 Testing Electrocardiogram Date: 02/06/25 SR with marked sinus arrhythmia at 61bpm unconfirmed Chest X-Ray Date: 02/06/25 Findings: + NAD Echocardiogram Date: 07/21/19 EF: 55-60% LV Function: normal RWMA: + none Other Findings: no LVH Valvular Disease: + no significant valvular disease
[2025-03-01] MEDS: ACETAMINOPHEN 500 MG TAB PO SCH (10:17)
[2025-03-01] MEDS: CeleBREX 200 MG CAP PO SCH (10:17)
[2025-03-01] MEDS: LR 60ML/HR IV SCH (10:17)
[2025-03-01] MEDS: LR 15ML/HR IV SCH (10:17)
[2025-03-01] MEDS: GABAPENTIN 300 MG CAP PO SCH (10:18)
[2025-03-01] MEDS ORDERED: ONDANSETRON INJ 2 MG/ML 2 ML VIAL ONE (10:56)
[2025-03-01] MEDS ORDERED: DEXAMETHASONE SOD INJ 4 MG/ML VIAL ONE (10:56)
[2025-03-01] MEDS ORDERED: PROPOFOL IV EMULSION 10 MG/ML 20 ML VIAL IV ONE (10:56)
[2025-03-01] MEDS ORDERED: LIDOCAINE 2% 2 ML VIAL/AMP(20MG/ML) INFIL ONE (10:56)
[2025-03-01] MEDS ORDERED: MIDAZOLAM HCL 1 MG/ML 2ML VIAL ONE (10:56)
[2025-03-01] MEDS ORDERED: HYDROmorphone INJ 1 MG/ML SYRINGE IV PRN ×2 (11:23→16:34)
[2025-03-01] MEDS ORDERED: ONDANSETRON INJ 2 MG/ML 2 ML VIAL IV PRN ×2 (11:23→16:34)
[2025-03-01] MEDS ORDERED: ATROPINE SULFATE 0.1 MG/ML 10ML SYR IV PRN (11:23)
--- NOTE | 2025-03-01 11:35 | History & Physical Bridge Note ---
Date of Service March 01, 2025 History & Physical Bridge Note I have examined the patient, reviewed the History & Physical and in the interval since the performance of the History & Physical I have noted the following changes of clinical significance: no changes noted
--- NOTE | 2025-03-01 11:36 | History & Physical Report ---
Date of Service March 01, 2025 Assessment & Plan (1) Multilevel lumbosacral spondylosis with radiculopathy: Plan: L3-S1 decompression and fusion, possible hardware removal T11-L3 History of Present Illness Chief Complaint: Back and bilateral leg pain Primary Care Provider: Leonardo Layton This is an 79-year-old male who presents with worsening back and bilateral leg pain after failing course of nonoperative care is here for surgical invention. Allergies Allergy/AdvReac Type Severity Reaction Status Date / Time No Known Allergies Allergy Verified 03/01/25 10:06 Home Medications Medication Instructions Recorded Confirmed Type ascorbic acid (vitamin C) 500 mg 500 mg PO QAM 07/07/19 03/01/25 History tablet (Vitamin C) aspirin 81 mg tablet,delayed 81 mg PO QPM 07/07/19 03/01/25 History release (Gen Low Dose Aspirin) atenolol 25 mg tablet 25 mg PO QAM 07/07/19 03/01/25 History citalopram 20 mg tablet 20 mg PO QPM 07/07/19 03/01/25 History magnesium 250 mg tablet 250 mg PO BID 07/07/19 03/01/25 History omega 8-pbd-jac-fish oil 1,000 mg 1 cap PO QPM 07/07/19 03/01/25 History (120 mg-180 mg) capsule (Fish Oil) omeprazole 20 mg tablet,delayed 20 mg PO QAM 07/07/19 03/01/25 History release simvastatin 20 mg tablet 20 mg PO QPM 07/07/19 03/01/25 History vitamin B complex 1 tab PO WK 07/07/19 03/01/25 History acetaminophen 500 mg tablet 1,000 mg PO TID PRN Pain 01/30/25 01/30/25 History calcium 600 mg (as 1 tab PO BID 01/30/25 03/01/25 History carbonate)-vitamin D3 5 mcg (200 unit) tablet cholecalciferol (vitamin D3) 25 25 mcg PO QAM 01/30/25 03/01/25 History mcg (1,000 unit) tablet (Vitamin D3) fluticasone propionate 50 1 spray intranasal QAM 01/30/25 03/01/25 History mcg/actuation nasal spray,suspension ibandronate 150 mg tablet 150 mg PO MONTHLY 01/30/25 03/01/25 History lutein 20 mg tablet 20 mg PO QAM 01/30/25 03/01/25 History meloxicam 15 mg tablet 15 mg PO QAM 01/30/25 03/01/25 History Past Med/Surg History Problem List (Updated 03/01/25 @ 11:36 by Fidencio Christopher DO) Multilevel lumbosacral spondylosis with radiculopathy Spinal stenosis, lumbar region with neurogenic claudication Encounter for pre-operative examination CAD (coronary artery disease) [place] 1996 History of prostate cancer 2004, S/P PROSTATECTOMY GERD (gastroesophageal reflux disease) Hyperlipidemia Prostate cancer (Acute) Cervical stenosis of spinal canal Medical History (Updated 03/01/25 @ 11:36 by Fidencio Christopher DO) HTN (hypertension) Per PCP records [place] (hard of hearing) Bilateral hearing aids Osteoporosis History of prostate cancer (2004) s/p prostatectomy- no chemo or XRT Hyperlipidemia Spinal stenosis CAD (coronary artery disease) s/p angioplasty 1995 GERD (gastroesophageal reflux disease) well controlled and stable Depression Anxiety Hx of Guillain-[place] syndrome 2014, 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 Hx of myocardial infarction 1995 at [facility], angioplasty, no stents - no longer follows with Cardiology. *started on Atenolol after [place] - denies having hypertension* Sleep apnea no longer uses cpap ( reports patient does not snore anymore, has a bed that raises the head of bed and does well now) Surgical History History of appendectomy History of cardiac cath 1995 at [facility], angioplasty, no stents - no longer follows with Cardiology. History of lumbar surgery 1985 [facility] Lumbar surgery 2001 in [place] (unsure of levels) 2003 in [place] (unsure of levels) 07/27/[address] Christopher T11-L2, L4-S1 Decompression, T11-S1 Fusion with peek cage at L1-L2 at [facility] Hx of prostatectomy (2004) s/p prostate cancer History of colonoscopy Hx of left cataract extraction Hx of right cataract extraction Hx of cervical spine surgery ~2015 Dr. Christopher at [facility] -- ACDF (unsure of levels) reports having full ROM Family History Brother Family history of diabetes mellitus Sister Family history of diabetes mellitus Sister Family history of diabetes mellitus Mother Family history of diabetes mellitus Other No family history of adverse response to anesthesia Social History Smoking Status: Former smoker Tobacco Type: Cigarettes and Smokeless Tobacco (Dip or Chew) Smoking End Date: ~; Second Hand Exposure: No; Do You Dip or Chew Tobacco: Yes (1 can/2 days (advised on npo policy)); Tobacco Cessation Education Requested by Patient: No Hx Alcohol Use: No Hx Substance Use: No Preferred Language: Chinese Communication Ability: Effective Pharmacy Associate Required: No Beliefs That Will Affect Care: None marital status: Current Living Situation: Spouse Other Information That Helps Us Care for You: No Feels Safe at Home: Yes Safety Concerns: Feels Safe At This Time Assistive Devices: Denture - Upper, Denture - Lower, Glasses, Hearing Aid - Bilateral, Raised Toilet Seat and Walker Assistive Devices Comment: shower chair Physical Exam Physical Exam: Patient is alert and oriented Heart regular rhythm Lungs clear Results & Data Results & Data Vital Signs (Past 12 Hours) Vital Signs Pulse Resp BP Pulse Ox O2 Del Method 03/01/25 10:13 57 L 18 145/79 H 98 Room Air
[2025-03-01] MEDS ORDERED: ROCURONIUM BROMIDE 10 MG/ML 5 ML VIAL IV ONE ×2 (12:26)
[2025-03-01] MEDS: BUPIVACAINE/EPINEPHRINE 0.25% 1:200,000 30 ML VIAL ONE (12:42)
[2025-03-01] MEDS ORDERED: HYDROmorphone INJ 2 MG/ML SYR/VIAL ONE (12:54)
[2025-03-01] MEDS ORDERED: SUGAMMADEX SODIUM 200 MG/2 ML VIAL IV ONE (13:04)
[2025-03-01] MEDS ORDERED: ePHEDrine sulfate 50 MG/5 ML SYR ONE (13:04)
[2025-03-01] MEDS ORDERED: GLYCOPYRROLATE 0.2 MG/ML VIAL ONE (13:38)
[2025-03-01] MEDS: FLOSEAL HEMOSTATIC MATRIX 10ML TOP ONE (14:59)
[2025-03-01] MEDS: ceFAZolin 330 MG/ML 1 GM VIAL ONE ×2 (15:00→16:36)
--- NOTE | 2025-03-01 15:14 | Fluoroscopy Report ---
FL lumbar spine 2-3V CLINICAL HISTORY: L3-S1 DECOMPRESSION/FUSION COMPARISON STUDY: None FLUOROSCOPY TIME: 28 seconds FLUOROSCOPY IMAGES: 3 EXPOSURE DOSE: 13 mGy FINDINGS: Fluoroscopy was provided for lower lumbar fusion. IMPRESSION: Intraoperative fluoroscopy. ACT 112: Negative or not required by law. Electronically signed by: Heath Westbrook M.D. 03/01/2025 3:13 PM
--- NOTE | 2025-03-01 15:23 | Operative Report ---
Post Operative Report Pre & Post Diagnosis Operation Date: 03/01/25 11:25 Pre-Op Diagnosis: #1 multilevel Lumbosacral Spondylosis with Radiculopathy #2 lumbar spondylolisthesis Post-Op Diagnosis: Same with failed fusion L2-L3 I identified the patient and participated in the time-out.: Yes Procedure Operation Date: 03/01/25 11:25 Actual Procedures #1 removal of L3 pedicle screw and margot. #2 revision decompression with bilateral medial facetectomies and foraminotomies L3-L4, L4-L5 and L5-S1. #3 posterior spinal fusion L2-S1. #4 placement of posterior instrumentation L4-S1 with connectors at L2. #5 interbody fusion L4-L5 L5-S1. #6 placement Spira 14 x 26 mm x 2 at L4-5 and 16 x 26 mm x 2 at L5-S1. #7 placement locally harvested morselized autograft and posterior gutters. #8 placement of Proteus combined with Koros in the posterior lateral gutters and os design in the interbody cages. #9 application of versa wrap over the exposed dura. Surgeon Fidencio Christopher, DO [employer] Machine Operator Radha Milton Estimated Blood Loss 350 Findings See Below Patient had evidence of failed fusion L2-L3. Specimens None none Indications This is an 79-year-old male who presents with above-mentioned diagnosis significantly course of nonoperative care is here for surgical invention. Description of Procedure Patient met with identified informed consent obtained. Patient was then taken to the operative suite underwent the patient placed in a prone position on the Jose table on top of the Samir frame. All bony prominences well-padded eyes inspected to ensure no external pressure placed upon them. This point the lumbar spine was prepped and draped in normal sterile fashion. Sharp dissection with the assistance of Bovie cautery from down to and exposing the instrumentation at L4-L3 and the remaining lamina and transverse processes of L4-5 and the sacral ala bilaterally. I then proceeded to remove the end Of the L3 pedicle screw and then using a cutting bur cut the distal aspect of the margot just above the pedicle screw of L3. The screws were obviously loose and removed without difficulty. Testing of the segment at L2-3 demonstrated instability and subsequently failed fusion. I then performed a revision complete laminectomy of L5 with bilateral male facetectomies and foraminotomies followed by complete revision laminectomy of L4 with bilateral medial facetectomies and foraminotomies and partial decompression of L3 with bilateral medial facet ectomies. Pedicle screws then placed in the L4-L5 and S1 levels bilaterally with the assistance of fluoroscopy and barrel connectors attached to the distal aspect of the existing margot below the L2 pedicle screw. Proper size rods were then contoured and placed. By way the transforaminal approach on the left discectomy of L5-S1 was performed endplates guided to subcortically bone and a 16 x 26 mm Spira cage tapped in position. Then proceeded to the right transforaminal region at L5-S1. Again the discectomy performed. Endplates guided to subcortically bone and a second 16 x 26 mm spiral cage tapped in position. Then proceeded L4-[address] of transfer approach on the right discectomy was performed endplates guided to subcortical bleeding bone and a 14 x 26 mm spiral cage tapped in position. Then proceeded to the left transforaminal region at L4-L5. Again discectomy performed. Endplates guided to subcortical bleeding bone and a second 14 x 26 mm spiral cage tapped into position. Please note all cages were packed with os design bone graft. The rods were then compressed locked in final position bilaterally. The transverse processes of L2 L3-L4-L5 and the sacral ala burred to subcortical bleeding bone. Proteus combined with Koros and local autograft placed in posterolateral gutters. First wrap placed of exposed dura. 15 round RESHMA drain inserted. The incision was then closed with 1 Vicryl the fascia 2-0 Vicryl subcutaneously and 4 Monocryl for final skin closure. Steri-Strips and sterile dressing placed. Patient waken taken to PACU stable condition. Please note Radha Milton was present at the entire procedure about the patient positioning complex portion of the surgery and final skin closure. I attest to the content of the Intraoperative Record and any orders documented therein. Any exceptions are noted below.
[2025-03-01] MEDS ORDERED: PHENYLEPHRINE HCL 10 MG/ML VIAL ONE (15:30)
--- NOTE | 2025-03-01 15:50 | Anesthesiology Progress Note ---
Date of Service March 01, 2025 Anesthesia Post Procedure Vital Signs Vital Signs: Temp Pulse Resp BP BP Pulse Ox O2 Del Method 03/01/25 15:45 14 120/61 97 Oxymask 03/01/25 15:35 16 122/77 100 Oxymask 03/01/25 15:25 36.6 C 18 117/65 97 Oxymask 03/01/25 10:13 57 L 18 145/79 H 98 Room Air O2 Flow Rate 03/01/25 15:45 9 03/01/25 15:35 9 03/01/25 15:25 9 03/01/25 10:13 Pain Intensity Lower Back: Pain Intensity: 5 Transfer of Care Handoff Completed per policy Notes Mental Status: alert / awake / arousable and participated in evaluation Patient Amnestic to Procedure: Yes Nausea / Vomiting: adequately controlled Pain: adequately controlled Airway Patency, RR, SpO2: stable & adequate BP & HR: stable & adequate Hydration State: stable & adequate Anesthetic Complications: no major complications apparent
[2025-03-01] MEDS ORDERED: NON-FORMULARY MEDICATION (Ibandronate 150 mg Tablet) PO SCH (16:34)
[2025-03-01] MEDS ORDERED: SOD PHOSPHATE/SOD BIPHOSPHATE ENEMA 132 ML BTL PR PRN (16:34)
[2025-03-01] MEDS ORDERED: ALUMINUM/MAGNESIUM SUSP 30 ML UDC PO PRN (16:34)
[2025-03-01] MEDS ORDERED: NALOXONE HCL 0.4 MG/1 ML VIAL/CARP IV PRN (16:34)
[2025-03-01] MEDS ORDERED: FAMOTIDINE 20 MG TAB PO PRN (16:34)
[2025-03-01] MEDS ORDERED: DO NOT ADMINISTER PNEUMOCOCCAL VACCINE PRN (16:34)
[2025-03-01] MEDS ORDERED: PROMETHAZINE 12.5 MG/50.5 ML BAG IV PRN (16:34)
[2025-03-01] MEDS ORDERED: ACETAMINOPHEN 1,000 MG/100 ML VIAL IV PRN (16:34)
[2025-03-01] MEDS ORDERED: MAGNESIUM HYDROXIDE SUSP 30 ML UDC PO PRN (16:34)
[2025-03-01] MEDS ORDERED: METOCLOPRAMIDE HCL INJ 5 MG/ML 2 ML VIAL IV PRN (16:34)
[2025-03-01] MEDS ORDERED: HYDROmorphone INJ 0.5 MG/0.5 ML SYR IV PRN (16:34)
[2025-03-01] MEDS ORDERED: ONDANSETRON 4 MG OD TAB PO PRN (16:34)
[2025-03-01] MEDS ORDERED: diphenhydrAMINE Capsule 25 MG CAP PO PRN (16:34)
[2025-03-01] MEDS ORDERED: LORazepam 0.5 MG TAB PO PRN (16:34)
[2025-03-01] MEDS ORDERED: DO NOT ADMINISTER FLU VACCINE PRN (16:34)
--- NOTE | 2025-03-01 17:25 | Consultation ---
Date of Consultation March 01, 2025 Assessment & Plan (1) Multilevel lumbosacral spondylosis with radiculopathy: (2) Spinal stenosis, lumbar region with neurogenic claudication: (3) CAD (coronary artery disease): (4) History of prostate cancer: (5) GERD (gastroesophageal reflux disease): (6) Hyperlipidemia: (7) Cervical stenosis of spinal canal: (8) Hx of Guillain-Pittsfield syndrome: (9) Sleep apnea: Plan 79 yo male with pmhx of CAD (in 1995), GERD, HLD, prostate cancer (dx 2005), hx of GBS who presents for lumbar revision, decompression, and other lumbar procedures. #Lumbar Spinal Decompression/Revision -POD day 0, technically complex procedure -350cc blood loss per op report -patient with no pain post op Plan: -incentive spirometer ordered -pain control per ortho, simplified meds to reduce polypharmacy -monitor creatinine, Hgb, leukocytosis post op -monitor for constipation, post op medical complications #GERD -continue protonix #HLD -continue statin I spent a total of 50 minutes in direct patient care, including [id number] time with the patient and/or family, reviewing medical records, ordering and reviewing diagnostic tests, and coordinating care with other healthcare providers. This time includes: history taking, physical examination, medical decision making, counseling, ECG interpretation, imaging interpretation, lab interpretation, orders, and education, excluding time spent in the performance of separately billed services. History of Present Illness Requesting Physician: Fidencio Christopher DO Reason for Consultation: -post operative management Attending Physician: Fidencio Christopher, DO History of Present Illness 79 yo male with pmhx of CAD (in 1995), GERD, HLD, prostate cancer (dx 2005), hx of GBS who presents for lumbar revision, decompression, and other lumbar procedures. OR course technically difficult per operative note, involved removal of screws, revisions and decompressions of prior fusion. Patient seen and examined at bedside. and sister present as well. Patient doing well post op, no pain. RESHMA drain with blood in it. Allergies Allergy/AdvReac Type Severity Reaction Status Date / Time No Known Allergies Allergy Verified 03/01/25 10:06 Home Medications Medication Instructions Recorded Confirmed Type ascorbic acid (vitamin C) 500 mg 500 mg PO QAM 07/07/19 03/01/25 History tablet (Vitamin C) aspirin 81 mg tablet,delayed 81 mg PO QPM 07/07/19 03/01/25 History release (Gen Low Dose Aspirin) atenolol 25 mg tablet 25 mg PO QAM 07/07/19 03/01/25 History citalopram 20 mg tablet 20 mg PO QPM 07/07/19 03/01/25 History magnesium 250 mg tablet 250 mg PO BID 07/07/19 03/01/25 History omega 8-ghz-fmv-fish oil 1,000 mg 1 cap PO QPM 07/07/19 03/01/25 History (120 mg-180 mg) capsule (Fish Oil) omeprazole 20 mg tablet,delayed 20 mg PO QAM 07/07/19 03/01/25 History release simvastatin 20 mg tablet 20 mg PO QPM 07/07/19 03/01/25 History vitamin B complex 1 tab PO WK 07/07/19 03/01/25 History acetaminophen 500 mg tablet 1,000 mg PO TID PRN Pain 01/30/25 01/30/25 History calcium 600 mg (as 1 tab PO BID 01/30/25 03/01/25 History carbonate)-vitamin D3 5 mcg (200 unit) tablet cholecalciferol (vitamin D3) 25 25 mcg PO QAM 01/30/25 03/01/25 History mcg (1,000 unit) tablet (Vitamin D3) fluticasone propionate 50 1 spray intranasal QAM 01/30/25 03/01/25 History mcg/actuation nasal spray,suspension ibandronate 150 mg tablet 150 mg PO MONTHLY 01/30/25 03/01/25 History lutein 20 mg tablet 20 mg PO QAM 01/30/25 03/01/25 History meloxicam 15 mg tablet 15 mg PO QAM 01/30/25 03/01/25 History Patient History Medical History (Updated 03/01/25 @ 11:36 by Fidencio Christopher DO) HTN (hypertension) Per PCP records [place] (hard of hearing) Bilateral hearing aids Osteoporosis History of prostate cancer (2004) s/p prostatectomy- no chemo or XRT Hyperlipidemia Spinal stenosis CAD (coronary artery disease) s/p angioplasty 1995 GERD (gastroesophageal reflux disease) well controlled and stable Depression Anxiety Hx of Guillain-Pittsfield syndrome 2014, muscle weakness in bilateral arms and legs, treated at [facility] (on life support for 4-5 days) then transferred to [facility] for rehab (~1-2 months) - at home currently and was doing well until most recent back injury. Hx of myocardial infarction 1995 at [facility] [place], angioplasty, no stents - no longer follows with Cardiology. *started on Atenolol after [place] - denies having hypertension* Sleep apnea no longer uses cpap ( reports patient does not snore anymore, has a bed that raises the head of bed and does well now) Surgical History History of appendectomy History of cardiac cath 1995 at [facility] [place] [place], angioplasty, no stents - no longer follows with Cardiology. History of lumbar surgery 1985 [facility] Lumbar surgery 2001 in [facility] (unsure of levels) 2003 in [facility] (unsure of levels) 07/27/[address] Chrsitopher T11-L2, L4-S1 Decompression, T11-S1 Fusion with peek cage at L1-L2 at [facility] Hx of prostatectomy (2004) s/p prostate cancer History of colonoscopy Hx of left cataract extraction Hx of right cataract extraction Hx of cervical spine surgery ~2015 Dr. Christopher at [facility] -- [facility] (unsure of levels) reports having full ROM Family History Brother Family history of diabetes mellitus Sister Family history of diabetes mellitus Sister Family history of diabetes mellitus Mother Family history of diabetes mellitus Other No family history of adverse response to anesthesia Social History Smoking Status: Former smoker Tobacco Type: Cigarettes and Smokeless Tobacco (Dip or Chew) Smoking End Date: ~; Second Hand Exposure: No; Do You Dip or Chew Tobacco: Yes (1 can/2 days (advised on npo policy)); Tobacco Cessation Education Requested by Patient: No Hx Alcohol Use: No Hx Substance Use: No Preferred Language: Malagasy Communication Ability: Effective Typesetting Supervisor Required: No Beliefs That Will Affect Care: None marital status: Current Living Situation: Spouse Other Information That Helps Us Care for You: No Feels Safe at Home: Yes Safety Concerns: Feels Safe At This Time Assistive Devices: Denture - Upper, Denture - Lower, Glasses, Hearing Aid - Bilateral, Raised Toilet Seat and Walker Assistive Devices Comment: shower chair Review of Systems Review of Systems: -negative unless listed above Physical Exam Physical Exam: Gen: A&O 3 NAD HEENT: NCAT, EOMI, not icteric. External ears normal. No rhinorrhea. Moist mucous membranes. Neck: Supple, full range of motion, no observable masses, No meningeal sign. Lungs: No Respiratory distress. CV: RRR, no edema. Abdomen: Soft, nondistended, No rebound tenderness. MSK: No joint swelling, no redness. RESHMA drain placed with blood as expected Skin: No rashes, petechiae, lesions. Normal color per patient. Neuro: Normal Gait, Grossly intact. Psych: Appropriate for situation. Results & Data Vital Signs (Past 12 Hours) Vital Signs Temp Pulse Pulse Resp BP BP Pulse Ox 03/01/25 17:04 36.3 C L 63 17 113/72 95 03/01/25 16:30 36.3 C L 80 18 115/72 92 03/01/25 16:15 13 115/76 93 03/01/25 16:00 10 L 107/74 93 03/01/25 15:55 36.6 C 11 L 118/68 99 03/01/25 15:45 14 120/61 97 03/01/25 15:35 16 122/77 100 03/01/25 15:25 36.6 C 18 117/65 97 03/01/25 10:13 57 L 18 145/79 H 98 O2 Del Method O2 Flow Rate 03/01/25 17:04 Room Air 03/01/25 16:30 Room Air 03/01/25 16:15 Room Air 03/01/25 16:00 Room Air 03/01/25 15:55 Oxymask 5 03/01/25 15:45 Oxymask 9 03/01/25 15:35 Oxymask 9 03/01/25 15:25 Oxymask 9 03/01/25 10:13 Room Air Medications Administered Acetaminophen (Acetaminophen 500 Mg Tab) 1,000 mg PO PREOP KARLIE Stop: 03/01/25 18:00 Last Admin: 03/01/25 10:17 Dose: 1,000 mg Documented By: KATRIN Celecoxib (Celebrex 200 Mg Cap) 200 mg PO PREOP KARLIE Stop: 03/01/25 18:00 Last Admin: 03/01/25 10:17 Dose: 200 mg Documented By: KATRIN Gabapentin (Gabapentin 300 Mg Cap) 300 mg PO PREOP KARLIE Stop: 03/01/25 18:00 Last Admin: 03/01/25 10:18 Dose: 300 mg Documented By: KATRIN Lactated Ringer's (Lr) 1,000 mls @ 15 mls/hr IV .Q24H KARLIE Stop: 03/02/25 05:59 Last Infusion: 03/01/25 11:55 Dose: Infused Documented By: Admin: 03/01/25 10:17 Dose: 15 mls/hr Documented By: KATRIN Lactated Ringer's (Lr) 1,000 mls @ 60 mls/hr IV .[id number] KARLIE Stop: 03/01/25 22:39 Last Admin: 03/01/25 10:17 Dose: Not Given Documented By: KATRIN Cefazolin Sodium (Ancef 2000mg) 2,000 mg in 15 mls @ 3.75 mls/min IV PREOP KARLIE; Protocol Stop: 03/01/25 18:00 Last Admin: 03/01/25 12:03 Dose: 3.75 mls/min Documented By: JAMAAL
[2025-03-01] MEDS: CALCIUM 600MG + VIT D 400 IU TAB PO SCH (21:00)
[2025-03-01] MEDS ORDERED: MAGNESIUM OXIDE 400 MG TAB PO SCH (21:00)
[2025-03-01] MEDS ORDERED: OMEGA-3 (PURIFIED FISH OIL) 1 GM CAP PO SCH (21:00)
[2025-03-01] MEDS: SIMVASTATIN 20 MG TAB PO SCH (21:00)
[2025-03-01] MEDS: ASPIRIN 81 MG ECTAB PO SCH (21:00)
[2025-03-01] MEDS: CITALOPRAM 20 MG TAB PO SCH (21:00)
[2025-03-01] MEDS: DOCUSATE SODIUM/SENNA 50/8.6MG TAB PO SCH (21:02)
[2025-03-02] MEDS: LACTATED RINGER'S 1,000 ML IV ONE ×2 (01:17→01:37)
[2025-03-02 02:09] LABS: Hematocrit (blood only) 35.4 % (42.0-52.0); Hemoglobin 12.4 g/dl (14.0-18.0); Immature Granulocytes # (auto) 0.08 K/uL (0.01-0.20); Immature Granulocytes % (auto) 0.6 %; Mean Corpuscular Hemoglobin 32.9 pg (25.0-34.0); Mean Corpuscular Volume 93.9 fL (80.0-100.0); Platelet Count 178 K/uL (130-400); RDW Standard Deviation 44.3 fL (36.4-46.3); Red Blood Count 3.77 M/uL (4.70-6.10); White Blood Count 14.27 K/ul (4.8-10.8)
[2025-03-02 02:27] LABS: Anion Gap 4.0 (3-11); Blood Urea Nitrogen 20.0 mg/dl (6-23); Calcium 8.2 mg/dl (8.6-10.3); Carbon Dioxide 28.0 mmol/L (21-32); Chloride 105.0 mmol/L (98-107); Creatinine Clr Calc Pharmacy 60.7 ml/min; Glucose 213.0 mg/dl (70-99(Fasting)); Potassium 4.3 mmol/L (3.5-5.1); Sodium 137.0 mmol/L (136-145)
[2025-03-02] MEDS: POLYETHYLENE (MIRALAX) 17 GM PACK PO SCH (06:23)
[2025-03-02] MEDS: dexAMETHasone 6 MG in SYRINGE 0 ML IV SCH (08:40)
[2025-03-02] MEDS: ACETAMINOPHEN 500 MG TAB PO PRN (08:40)
[2025-03-02] MEDS: CHOLECALCIFEROL 25 MCG (1000 UNITS) TAB PO SCH (08:41)
[2025-03-02] MEDS: ATENOLOL 25 MG TABLET PO SCH (08:41)
[2025-03-02] MEDS: FLUTICASONE PROPIONATE NA SPR 16 GM BTL SCH (08:41)
[2025-03-02] MEDS ORDERED: ASCORBIC ACID 500 MG TAB PO SCH (09:00)
--- NOTE | 2025-03-02 10:17 | Orthopedic Progress Note ---
Date of Service March 02, 2025 Assessment & Plan (1) Multilevel lumbosacral spondylosis with radiculopathy: Plan: Patient is can continue with physical therapy monitor his RESHMA output anticipate discharge to [facility] in the next day or so. Admission and Anticipated Discharge Date Admission Date: March 01, 2025 Subjective Back pain controlled leg pain improved Physical Exam Physical Exam: Patient is in the chair at the bedside. Is comfortable. Dissection strength testing. Results & Data Vital Signs (Past 12 Hours) Vital Signs Temp Pulse Resp BP Pulse Ox O2 Del Method O2 Flow Rate 03/02/25 07:46 36.7 C 75 18 129/74 97 Room Air 03/02/25 03:00 36.7 C 74 18 112/63 95 Nasal Cannula 2 03/01/25 23:00 36.8 C 69 18 96/53 L 93 Nasal Cannula 2
--- NOTE | 2025-03-02 11:40 | Hospitalist Progress Note ---
Date of Service March 02, 2025 Assessment & Plan (1) Multilevel lumbosacral spondylosis with radiculopathy: (2) Acute blood loss anemia: (3) HTN (hypertension): (4) Hyperlipidemia: (5) Hx of myocardial infarction: (6) GERD (gastroesophageal reflux disease): (7) Depression: Plan 79 year old male with PMH significant for history of guillain-barre syndrome, history of prostate cancer, history of [place], and multilevel lumbosacral spondylosis with radiculopathy who underwent L3-S1 decompression and fusion on 03/01/[address] Christopher. We have been consulted for post operative medical management. Multilevel lumbosacral spondylosis with radiculopathy POD#1 L3-S1 decompression and fusion on 03/01/[address] Christopher Activity level, pain control, DVT prophylaxis, bowel regimen, wound/drain care per primary team Encourage incentive spirometer PT/OT today Plan for dc to [facility] in 1-2 days Acute blood loss anemia Expected finding post-operatively EBL 350cc and RESHMA drain with 640cc output so far Preop Hgb 16.9-> 12.4 today Patient asymptomatic Monitor CBC Leukocytosis WBC 14K today Likely secondary to steroids Low suspicion of infection with no s/s Monitor CBC Hyperglycemia Glucose 213 today Likely steroid induced hyperglycemia Check BSG HS Monitor BMP If persistently elevated, consider SSI Hypertension Continue atenolol Hyperlipidemia Continue statin History of [place] Continue baby aspirin per Dr Christopher GERD Continue PPI Depression Continue citalopram DVT Prophylaxis: TEDs/SCDs per primary team Code Status: FULL CODE PCP: Leonardo Layton MD ([facility]) Disposition: anticipate dc to [facility] in 1-2 days Patient seen in collaboration with Dr Mckeon. Please see addendum. I spent a total of 50 minutes coordinating, documenting and providing care for this patient excluding time spent in the performance of separately billed services or time spent by another provider/QHP. Admission and Anticipated Discharge Date Admission Date: March 01, 2025 Supervising Physician Co-Signing Physician Notes Pt seen and examined by me, care coordinated w/ OSVALDO Recinos, pls refer to her note above for further detail. Pt seen sitting in chair in NAD. Reports feeling well, denies any significant pain, reports he has been ambulating in hallway, Wood removed and pt is voiding. Denies fever, chills, chest pain, shortness of breath. Denies abd. pain, n/v. Hgb 12.4 , down from 16.9. Cont. to monitor H&H and hemodynamic status. MD Linda Subjective Patient seen sitting in the chair Reports no pain or leg symptoms Walked with PT and had no pain Denies dizziness, chest pain, SOB, abdominal pain, N/V Review of Systems Review of Systems: All systems reviewed & are unremarkable except as noted in Subjective Physical Exam Physical Exam: General/Psych: WD/WN, sitting up in chair, NAD, conversing easily Head: normocephalic, atraumatic Eyes: normal inspection, PERRL, conjunctivae pink ENT: external ear and nose normal, oropharynx normal Neck: normal visual inspection, trachea midline Respiratory: normal respiratory effort, lungs clear to auscultation, no wheeze/rales/rhonchi, no accessory muscle use Cardiovascular: regular rate and rhythm, no murmur/rub/gallop, no JVD Extremities: no cyanosis or clubbing, normal peripheral pulses, no BLE edema, sensation intact BLE Abdomen/GI: normal bowel sounds, soft, nontender Neurologic/MSK: A+Ox3, motor strength 5/5, moves all extremities Skin: no rashes, normal color, warm and dry; island dressing c/d/i; RESHMA drain with sanguinous output Results & Data Results & Data Vital Signs (Past 12 Hours) Vital Signs Temp Pulse Resp BP Pulse Ox O2 Del Method O2 Flow Rate 03/02/25 07:46 36.7 C 75 18 129/74 97 Room Air 03/02/25 03:00 36.7 C 74 18 112/63 95 Nasal Cannula 2 Laboratory Results Short CBC 03/02/25 Range/Units 01:56 WBC 14.27 H (4.8-10.8) K/ul Hgb 12.4 L (14.0-18.0) g/dl Hct 35.4 L (42.0-52.0) % Plt Count 178 (130-400) K/uL BMP 03/02/25 01:56 Sodium 137 Potassium 4.3 Chloride 105 Carbon Dioxide 28 BUN 20 Creatinine 0.97 Glucose 213 H Calcium 8.2 L I have independently reviewed and interpreted patient's labs including CBC, BMP. Medications Administered Current Inpatient Medications Acetaminophen (Acetaminophen 500 Mg Tab) 1,000 mg PO Q8H PRN PRN Reason: MILD Pain (1,2,3) & Pre PT Stop: 03/31/25 16:33 Last Admin: 03/02/25 08:40 Dose: 1,000 mg Al Hydrox/Mg Hydrox/Simethicone (Aluminum/Magnesium Susp 30 Ml Udc) 30 ml PO Q6H PRN PRN Reason: Dyspepsia Stop: 03/31/25 16:33 Aspirin (Aspirin 81 Mg Ectab) 81 mg PO QPM [facility] Stop: 03/31/25 20:59 Last Admin: 03/01/25 21:00 Dose: 81 mg Atenolol (Atenolol 25 Mg Tablet) 25 mg PO [facility] Stop: 04/01/25 08:59 Last Admin: 03/02/25 08:41 Dose: 25 mg Bisacodyl (Bisacodyl 10 Mg Supp) 10 mg [place] DAILY PRN PRN Reason: Constipation Stop: 03/31/25 16:33 Calcium/Vitamin D (Calcium 600mg + Vit D 400 Iu Tab) 1 tab PO BID [facility] Stop: 03/31/25 20:59 Last Admin: 03/02/25 08:41 Dose: 1 tab Citalopram Hydrobromide (Citalopram 20 Mg Tab) 20 mg PO QPM [facility] Stop: 03/31/25 20:59 Last Admin: 03/01/25 21:00 Dose: 20 mg Famotidine (Famotidine 20 Mg Tab) 20 mg PO Q12H PRN PRN Reason: Dyspepsia Stop: 03/31/25 16:33 Fluticasone Propionate (Fluticasone Propionate Na Spr 16 Gm Btl) 1 sprays NA QAM [facility] Stop: 04/01/25 08:59 Last Admin: 03/02/25 08:41 Dose: 1 sprays Hydromorphone HCl (Hydromorphone Inj 0.5 Mg/0.5 Ml Syr) 0.5 mg IV Q3H PRN PRN Reason: MODERATE Pain(4,5,6)/Pre PT Stop: 03/15/25 16:33 Hydromorphone HCl (Hydromorphone Inj 1 Mg/Ml Syringe) 1 mg IV Q3H PRN PRN Reason: SEVERE Pain (7,8,9,10) Stop: 03/15/25 16:33 Hydroxyzine HCl (Hydroxyzine Hcl 25 Mg Tab) 25 mg PO Q8H PRN PRN Reason: Anxiety Stop: 03/31/25 16:33 Acetaminophen (Ofirmev) 1,000 mg in 100 mls @ 400 mls/hr IV Q8H PRN PRN Reason: MILD Pain (1,2,3) & Pre PT Stop: 03/02/25 16:34 Dexamethasone 6 mg/ Syringe 1.5 mls @ 1 mls/min IV DAILY KARLIE Stop: 03/04/25 09:02 Last Admin: 03/02/25 08:40 Dose: 1 mls/min Lactated Ringer's (Lr) 1,000 mls @ 75 mls/hr IV .[id number] ONE Stop: 03/02/25 14:36 Last Admin: 03/02/25 01:17 Dose: 75 mls/hr Influenza Virus Vaccine Quadrival (Do Not Administer Flu Vaccine) 1 each N/A PRN PRN PRN Reason: Notification Stop: 03/31/25 16:33 Naloxone HCl (Naloxone Hcl 0.4 Mg/1 Ml Vial/Carp) 0.1 mg IV Q5M PRN PRN Reason: Oversedation/Resp depression Stop: 03/31/25 16:33 Ondansetron HCl (Ondansetron Inj 2 Mg/Ml 2 Ml Vial) 4 mg IV Q6H PRN PRN Reason: Nausea &/or Vomiting Stop: 03/31/25 16:33 Ondansetron HCl (Ondansetron 4 Mg Od Tab) 4 mg PO Q6H PRN PRN Reason: Nausea Stop: 03/31/25 16:33 Oxycodone HCl (Oxycodone Hcl Ir 5 Mg Tab (Immediate Release)) 5 - 10 mg PO Q4H PRN PRN Reason: MOD/SEV Pain & Pre PT Stop: 03/15/25 16:33 Pantoprazole Sodium (Pantoprazole 40 Mg Tab) 40 mg PO QAM KARLIE Stop: 04/01/25 08:59 Last Admin: 03/02/25 08:41 Dose: 40 mg Pneumococcal Polyvalent Vaccine (Do Not Administer Pneumococcal Vaccine) 1 each N/A PRN PRN PRN Reason: Notification Stop: 03/31/25 16:33 Polyethylene Glycol (Polyethylene (Miralax) 17 Gm Pack) 17 gm PO Q6 KARLIE Stop: 04/01/25 05:59 Last Admin: 03/02/25 06:23 Dose: 17 gm Senna/Docusate Sodium (Docusate Sodium/Senna 50/8.6mg Tab) 2 tab PO HS KARLIE Stop: 03/31/25 20:59 Last Admin: 03/01/25 21:02 Dose: 2 tab Simvastatin (Simvastatin 20 Mg Tab) 20 mg PO QPM KARLIE Stop: 03/31/25 20:59 Last Admin: 03/01/25 21:00 Dose: 20 mg Vitamin D (Cholecalciferol 25 Mcg (1000 Units) Tab) 25 mcg PO QAM KARLIE Stop: 04/01/25 08:59 Last Admin: 03/02/25 08:41 Dose: 25 mcg
[2025-03-02 13:59] VITALS: O2SAT 94
[2025-03-03 07:13] LABS: Hematocrit (blood only) 31.9 % (42.0-52.0); Hemoglobin 11.2 g/dl (14.0-18.0); Mean Corpuscular Hemoglobin 33.2 pg (25.0-34.0); Mean Corpuscular Volume 94.7 fL (80.0-100.0); Platelet Count 153 K/uL (130-400); RDW Standard Deviation 44.8 fL (36.4-46.3); Red Blood Count 3.37 M/uL (4.70-6.10); White Blood Count 13.32 K/ul (4.8-10.8)
[2025-03-03 07:17] VITALS: BP 125/74; PULSE 63; RESP 16; TEMP 97.9
[2025-03-03 07:37] LABS: Anion Gap 4.0 (3-11); Blood Urea Nitrogen 19.0 mg/dl (6-23); Calcium 8.5 mg/dl (8.6-10.3); Carbon Dioxide 31.0 mmol/L (21-32); Chloride 107.0 mmol/L (98-107); Creatinine Clr Calc Pharmacy 64.0 ml/min; Glucose 136.0 mg/dl (70-99(Fasting)); Magnesium 2.0 mg/dl (1.7-2.4); Potassium 4.1 mmol/L (3.5-5.1); Sodium 142.0 mmol/L (136-145)
--- NOTE | 2025-03-03 09:43 | Hospitalist Progress Note ---
Date of Service March 03, 2025 Assessment & Plan (1) Multilevel lumbosacral spondylosis with radiculopathy: Plan: 79 year old male with PMH significant for history of guillain-barre syndrome, history of prostate cancer, history of [place], and multilevel lumbosacral spondylosis with radiculopathy who underwent L3-S1 decompression and fusion on 03/01/[address] Christopher. We have been consulted for post operative medical management. Multilevel lumbosacral spondylosis with radiculopathy POD#2 s/p L3-S1 decompression and fusion on 03/01/[address] Christopher Activity level, Pain controlled, rating 4-5/10 with acetaminophen only Continue DVT prophylaxis, bowel regimen-> Miralax Q6H, Colace/Senna HS Wound/drain care per primary team Encourage incentive spirometer- adherent to use while awake, clear and full breath sounds BL PT/OT today- safe to return home with HH assist/spouse assist; multiple admissions for rehab following back surgeries in past-> [facility] can accept patient if need be Acute blood loss anemia Expected finding post-operatively EBL 350cc and RESHMA drain, now with serosang drainage and output decreasing Preop Hgb 16.9-> 11.2 today; asymptomatic. Will continue to trend CBC as no indication for transfusion at this time; will need to follow labs OP Leukocytosis WBC trending down , now 13 today Likely secondary to steroids Low suspicion of infection with no s/s Continue to trend CBC Hyperglycemia Glucose trending down, now 136 today No need for SSI while inpatient at this time No history of diabetes; Likely steroid induced hyperglycemia Check BSG HS Monitor BMP Hypertension BP stable, 125/74 this morning Continue atenolol per home routine Hyperlipidemia Continue statin per home routine History of [place] Continue baby aspirin per Dr Christopher GERD Continue PPI Depression Continue citalopram DVT Prophylaxis: TEDs/SCDs per primary team Code Status: FULL CODE PCP: Leonardo Layton MD ([facility]) Disposition: anticipate dc to [facility] in 1-2 days Patient seen in collaboration with Dr Mckeon. Please see addendum. I spent a total of 30 minutes coordinating, documenting and providing care for this patient excluding time spent in the performance of separately billed services or time spent by another provider/QHP. (2) Acute blood loss anemia: (3) HTN (hypertension): (4) Hyperlipidemia: (5) Hx of myocardial infarction: (6) GERD (gastroesophageal reflux disease): (7) Depression: Admission and Anticipated Discharge Date Admission Date: March 01, 2025 Supervising Physician Co-Signing Physician Notes Pt seen and examined by me, care coordinated w/ OSVALDO William, pls refer to her note above for further detail. Pt seen sitting in chair in NAD. Reports feeling well, denies any significant pain, reports he has been ambulating in hallway, Wood removed and pt is voiding. Denies fever, chills, chest pain, shortness of breath. Denies abd. pain, n/v. Hgb 12.4 yesterday and 11.2 today , pre-op 16.9. Pt is hemodynamically stable, doing well. Likely to be discharged from the hospital today. MD Linda Subjective Patient seen and examined at bedside. He was lying in bed, in good spirits, and reporting feeling well and ready to go home. Reporting 4-5/10 lower back pain with no radicular symptoms. He says acetaminophen is helping to control his pain and comfortable with current pain threshold. Tolerating diet, oral fluids, and urinating well. No bowel movement since surgery. He reports using IS as directed. Denies lightheadedness, dizziness, numbness, tingling, headache, nausea, vomiting. Review of Systems Review of Systems: All systems reviewed & are unremarkable except as noted in Subjective Physical Exam Physical Exam: VITALS: Reviewed. WEIGHT/BMI reviewed. GEN: Healthy appearing, well-developed, NAD. PSYCH: Good Judgment. AOx3. Normal memory, mood, and affect. HEENT -Head: NC/AT; -Eyes: PERRL, EOMI. No discharge or redn ess; -Ears: External ears are normal. Normal TMs. -Nose: Normal nares. -Mouth and throat: MMM. Normal gums, muc jeremy, palate,. Good dentition. NECK: Supple, with no masses. CV: RRR, no m/r/g. LUNGS: CTAB, no w/r/c. ABD: Soft, NT/ND, Hyperactive BS, no masses or organomegaly. : N/A SKIN: Warm, well perfused. No skin rashes or abnormal lesions. Lumbar dressing C/D/I MSK: No deformities, DANIELS extremities against resistance EXT: No clubbing, cyanosis, or edema. NEURO: CN II-XII grossly intact. 4/5 muscle strength BLE and normal tone. No focal deficits. Results & Data Results & Data Vital Signs (Past 12 Hours) Vital Signs Temp Pulse Resp BP Pulse Ox O2 Del Method 03/03/25 07:16 36.6 C 63 16 125/74 94 Room Air 03/02/25 22:52 36.5 C 62 18 126/67 94 Room Air Laboratory Results Short CBC 03/03/25 Range/Units 06:51 WBC 13.32 H (4.8-10.8) K/ul Hgb 11.2 L (14.0-18.0) g/dl Hct 31.9 L (42.0-52.0) % Plt Count 153 (130-400) K/uL BMP 03/03/25 06:51 Sodium 142 Potassium 4.1 Chloride 107 Carbon Dioxide 31 BUN 19 Creatinine 0.92 Glucose 136 H Calcium 8.5 L
--- NOTE | 2025-03-03 09:59 | Discharge Summary ---
Date of Service March 03, 2025 Admission HPI Per Admitting Provider This is an 79-year-old male who presents with worsening back and bilateral leg pain after failing course of nonoperative care is here for surgical invention. Principal Diagnosis Lumbar spondylosis with radiculopathy Discharge Data Allergies Allergy/AdvReac Type Severity Reaction Status Date / Time No Known Allergies Allergy Verified 03/01/25 10:06 Consultations 03/01/25 16:34 Consult Hospitalist Routine Procedures Performed Operation Date: 03/01/25 11:25 Actual Procedures p L3-S1 Decompression and Fusion, (Not Applicable) - Fidencio Christopher DO s Hardware Removal L3(Not Applicable) - Fidencio Christopher DO Ordered Studies 03/01/25 11:25 FL lumbar spine 2-3V Routine Hospital Course (1) Multilevel lumbosacral spondylosis with radiculopathy: Patient underwent multilevel lumbar depression fusion tolerated as well as taken to orthopedic for postoperative. Postop day progressed appropriate. Marked improvement of his leg pain. Strength improved. Tolerating physical therapy. Subsidy discharged to rehab. Discharge orders instructions found the chart for further review. We will maintain his RESHMA drain today for removal Thursday. Total Time Total Time Spent Total Time Spent (In Minutes): 20 minutes Discharge Plan Discharge Items Patient Disposition: Transfer Inpatient Rehab Fac Reason For Visit: Spondylolisthesis Lumbar Region, Spinal Stenosis o Discharge Diagnosis: Lumbar spondylosis with radiculopathy Activity: As commented below Non-emergency contact: Primary Care Provider Call non-emergency contact if: you have any medication questions Follow-up/Referrals: Leonardo Layton [Primary Care Provider] - Diet: Regular Addtl Attending Provider Instructions: ACTIVITY RECOMMENDATIONS: SELF CARE INSTRUCTIONS AFTER THORACIC/LUMBAR FUSIONS 1. You may walk to your tolerance. It is good exercise for your legs and back. Expect some back and intermittent leg aches and pains. 2. You may perform "counter-top" level activities (make a sandwich, elliott with a project, etc.). 3. No bending or lifting of more than 10 pounds or back twisting of any nature (roll like a log when turning in bed). 4. You may ride in a car for 20-30 minutes at a time. No driving until after your first visit with your doctor. 5. Frequent changes of position and restricting sitting to 30 minutes at a time will help limit the amount of back spasms and stiffness you may experience. 6. You may discontinue the use of ambulatory aids (cane, crutches, etc.) once your strength and confidence allow. 7. You may custom home installer the shower and let water strike your incision when you arrive home at least once daily. Do not take a tub bath, sit in a hot tub or go into a swimming pool until after your first recheck in the office. 8. You may resume previous diet. SPECIAL CARE INSTRUCTIONS: VERY IMPORTANT TO READ AND REVIEW A. Your surgical incision has been closed with a cosmetic suture under the skin that will dissolve in about 6 weeks. In 14 days, you can use a pair of clean scissors and cut the suture that is left outside of the skin at the ends of your incision. 1. The small skin tapes can be removed 7 days after surgery if they have not fallen off by that point. 2. You may keep the wound open to air as much as possible to promote healing after post-op day number 5 unless told otherwise by your doctor. 3. If you think the wound looks like it is becoming infected (redness or worsening drainage) and/or you are experiencing fever, chill or worsening back pain and muscle spasms, contact the office so that we may evaluate you as soon as possible. B. Complications are uncommon, but please contact us if you have any signs or symptoms of: 1. wound infection (fever higher than 102.5 degrees F, redness, separation of wound, drainage, or increasing pain from the incision) 2. blood clots in legs (pain, swelling, redness and warmth in legs) 3. urinary tract infection (fever higher than 102.5 degrees F, burning upon urination or increased frequency of urination) 4. nerve problems (inability to walk on your toes or heels, numbness, loss of bowel or bladder control) 5. any other symptoms that concern you C. Please call the office at if you have any concerns or questions about your operation or recovery. D. No smoking! Smoking drastically decreases the chance of a solid fusion. E. Do not take any anti-inflammatory medications (Indocin, Advil, Motrin, Aspirin, Naprosyn, etc.) as these may inhibit the chance of a solid fusion. Tylenol is okay to take for pain. MANAGING PAIN AFTER SPINAL SURGERY 1. Narcotic medication is intended for short-term use and will be provided for surgical pain. Surgical pain usually lasts for a period of 4-6 weeks. Narcotic medication includes Percocet, Vicodin, Darvocet, Tylenol #3 or Lortab. 2. Longer-term pain is more appropriately treated with non-narcotic medication such as Tylenol ES. 3. Muscle spasm is not appropriately treated with narcotics. Muscle relaxers such as Soma, Flexeril or Skelaxin can be used along with Tylenol ES. 4. Remember that we all live with some "aches and pains". This is not unusual or uncommon after an injury or as we get older. a. Back pain is expected and may include muscle spasms for 4 to 6 weeks after surgery. The pain should gradually improve. If the pain worsens for no apparent reason, please contact the office. b. Intermittent leg pain may also be experienced and should not be concerned about unless it worsens for no apparent reason. If so, please contact the office. 5. We will provide appropriate medication within the normal guidelines of their prescribed use. We will also be very cautious and aware of potential abuse and extended duration of patients' medication needs. a. Pain medications are for your comfort and to assist with sleep and rest so that the tissue can heal. They are not provided in order to return to normal activity and should not be used through the day. To do so or worsening pain at night can result from ongoing tissue damage and development of tolerance to the prescribed medicine. 6. Please allow 2-3 days to process refills. Prescriptions will not be mailed but must be picked up at the office. FOLLOW UP VISIT: Keep your scheduled follow-up appointment. Any questions, please call the office at . Addtl Interventional Physician Provider Instructions: Please change dressing discontinue drain tomorrow. Pending Studies at Discharge: No Stand-Alone Forms: My [facility] Skilled Items Patient informed of condition?: Yes DNR: No Discharge Level of Care: Acute rehab Communicable Disease: No Discharge Prognosis: Improving Lines: None Urinary Catheter: No Medications and DC Order Prescriptions: New tramadol 50 mg tablet 50 mg PO Q6H PRN (Reason: pain, moderate) Qty: 30 0RF oxycodone 5 mg tablet 5 mg PO Q6H PRN (Reason: pain) Qty: 30 0RF Continued atenolol 25 mg Tablet 25 mg PO QAM aspirin [Gen Low Dose Aspirin] 81 mg Tablet,Delayed Release (Dr/Ec) 81 mg PO QPM citalopram 20 mg Tablet 20 mg PO QPM ascorbic acid (vitamin C) [Vitamin C] 500 mg Tablet 500 mg PO QAM simvastatin 20 mg Tablet 20 mg PO QPM vitamin B complex Tablet 1 tab PO WK magnesium 250 mg Tablet 250 mg PO BID omeprazole 20 mg Tablet,Delayed Release (Dr/Ec) 20 mg PO QAM omega [id number] oil [Fish Oil] 1,000 mg (120 mg-180 mg) Capsule 1 cap PO QPM cholecalciferol (vitamin D3) [Vitamin D3] 25 mcg (1,000 unit) Tablet 25 mcg PO QAM lutein 20 mg Tablet 20 mg PO QAM calcium carbonate-vitamin D3 [Calcium + D] 600 mg-5 mcg (200 unit) Tablet 1 tab PO BID meloxicam 15 mg Tablet 15 mg PO QAM ibandronate 150 mg Tablet 150 mg PO MONTHLY Patient Comments: takes the last Thursday in the month fluticasone propionate 50 mcg/actuation [place],Suspension 1 spray INTRANASAL QAM Rx Instructions: administer into each nostril acetaminophen 500 mg Tablet 1,000 mg PO TID PRN (Reason: Pain) Patient Comments: has not taken cetirizine 10 mg Tablet 10 mg PO DAILY PRN (Reason: allergies) Discharge Orders: Discharge Order (Routine); Ordered 03/03/25 Ordered By: Fidencio Christopher Admission Data Admit Date/Time: 03/01/25 15:27 Attending Provider: Fidencio Christopher Admit Provider: Fidencio Christopher Primary Care Provider: Leonardo Layton Other Providers: Josee Harrell; [facility]
[2025-03-08] MEDS ORDERED: VITAMIN B COMPLEX TAB PO SCH (09:00)
== END 2025-03-03 13:10 | DRG 427 ==
LOC: ASU 09:43 → 3E 15:27

== ENCOUNTER 2025-03-10 16:15 | Inpatient (IN) ==
[2025-03-10 16:44] LABS: Hematocrit (blood only) 28.5 % (42.0-52.0); Hemoglobin 9.8 g/dl (14.0-18.0); Immature Granulocytes # (auto) 0.15 K/uL (0.01-0.20); Immature Granulocytes % (auto) 1.5 %; Mean Corpuscular Hemoglobin 32.7 pg (25.0-34.0); Mean Corpuscular Volume 95.0 fL (80.0-100.0); Platelet Count 136 K/uL (130-400); RDW Standard Deviation 47.5 fL (36.4-46.3); Red Blood Count 3.00 M/uL (4.70-6.10); White Blood Count 10.12 K/ul (4.8-10.8)
--- NOTE | 2025-03-10 16:45 | Emergency Department Note ---
Impression & Plan Sepsis, Hypotension, Confusion, Fever, Fall, Fracture of lumbar spine, Anemia, History of lumbar surgery ED Provider Note NAME: HARSH LUU AGE: 79 SEX: M : 1945 ARRIVES VIA: Ambulance INFORMANT: [Patient][EMS, ] ED PROVIDER(S): [Sriram Amador MD] Patient first seen by me at 1631 CHIEF COMPLAINT: Fever, fall HISTORY OF PRESENT ILLNESS: The patient is an 79-year-old male who had lumbar surgery with fusion performed last week. He left the hospital 1 week ago. He has been in [facility]. He was doing well up until yesterday morning when he fell. He had a fever yesterday and today, was complaining of back pain and leg pain. He had a fever, he was confused. He was sent for evaluation. Patient did have an outpatient chest x-ray done yesterday, as per his , this did not show pneumonia. Today, he had a lumbar spine CT that showed some new fractures from his fall as well as a fluid collection in the surgical bed. Because of the confusion, the fever, the fall, he was sent for evaluation. En route, he was given IV Tylenol. The patient currently has no complaints. He only has pain in his back and legs when he tries to stand. He has not had cough, no urinary complaints, no abdominal pain. No rash. PMHx/PSHx/Social Hx: See Below PHYSICAL EXAM: Primary Survey Airway: Intact Breathing: Breath sounds equal bilaterally. No respiratory distress Circulation: Skin warm, capillary refill less than 2 seconds Disability: Pupils equal and reactive to light Motor Function: Moves all extremities. Sensory: No deficits Secondary Survey GEN: Well developed and well-nourished HEAD: Normocephalic, atraumatic EYES: Pupils round and reactive to light, conjunctiva clear, extraocular movements intact ENT: No fluid in external acoustic canals, nares patent, oropharynx clear NECK: Midline trachea, no cervical spine tenderness HEART: Mildly tachycardic, regular rhythm. LUNGS: Clear to auscultation bilaterally CHEST: Chest wall non-tender, no bruising/deformity ABD: No contusions, soft, non-tender, no distention PELVIS: Stable to rock BACK: No step offs or deformities, T-L spine non tender. The patient's surgical wound appears without signs of infection. There is no erythema or discharge. There is some older appearing contusion seen. EXT: Moving all extremities well, no gross deformities NEURO: No focal motor deficits, no sensory deficits. Some confusion noted. DIFFERENTIAL DIAGNOSIS: Sepsis or bacteremia, UTI, viral illness, pneumonia, surgical site infection, intracranial injury, spinal injury, among others. EMERGENCY DEPARTMENT PROCEDURES: C-spine was cleared clinically at 1635, during my initial evaluation. MEDICAL DECISION MAKING: There is no leukocytosis. Anemia is seen with a hemoglobin of 9.8. There is a normal platelet count. No bandemia. INR slightly high at 1.2. Sodium and magnesium are both slightly low. No renal failure. Urinalysis does not show findings of infection. Respiratory bio fire was negative. There is no concerning liver enzyme elevation. Chest x-ray does not show pneumonia or CHF. Brain CT shows no acute bleed or mass effect. CT imaging of the lumbar spine performed earlier today does show some subtle fractures, none appear acutely surgical. These fractures should heal with conservative management. There was a fluid collection seen at the surgical site. On exam, the patient was somewhat confused, he was awake, he was maintaining his own airway. He was febrile but had received Tylenol just prior to arrival. He was hypotensive. The patient was aggressively managed. He did meet criteria for sepsis. Patient received 2750 cc of IV saline. This should meet criteria for 30 cc/kg of saline per sepsis protocol based on the actual body weight. He received IV cefepime and IV vancomycin. He was given IV magnesium. With the IV saline hydration, the patient's blood pressure improved. He was not in need of pressor therapy. At this point, the patient likely has a surgical site infection given the lack of any other source for his fever and hypotension. I did speak with Dr. Christopher of spinal surgery. I spoke with the on-call hospitalist. The patient is going to be admitted for IV hydration, IV antibiotic therapy and likely, surgical intervention tomorrow morning. I spoke with the patient and the . I did speak with case management. Prior/Outside records/notes reviewed: Today's EMS notes describing his presentation and transport to this hospital. ECG per my interpretation: Indication was possible sepsis. The ECG shows a normal sinus rhythm with a rate of 90. There is no ST elevation, no PVCs. QTc is 437. Continuous Cardiac Monitoring per my interpretation: An order was placed for continuous cardiac monitoring. The monitor shows a rate of 88 with normal sinus rhythm. Imaging/x-ray results per my interpretation: Chest x-ray shows a poor inspiratory effort, no pneumonia or CHF. Chronic Medical/Social conditions affecting care: Advanced age, recent lumbar surgery, currently at [facility]. Care/Management discussed with: Spinal surgery-Dr. Christopher. The on-call hospitalist. Level of care consideration(s): After review of the information above and other included data: --I believe the patient requires escalation of care to admission Critical Care Note: I have personally spent 41 minutes of critical care time in the direct management of this patient. This includes bedside care, interpretation of diagnostic studies, and testing, discussion with consultants, patient, and family members, and other required patient management activities. This 41 minutes is in excess of all separately billable procedures. DISPOSITION: Admission Past Med/Surg History Problem List (Updated 03/11/25 @ 12:40 by Sriram Amador MD) History of lumbar surgery (Acute) Anemia (Acute) Fracture of lumbar spine (Acute) Fall (Acute) Fever (Acute) Confusion (Acute) Hypotension (Acute) Sepsis (Acute) Sepsis Acute blood loss anemia Multilevel lumbosacral spondylosis with radiculopathy Medical History Hyperlipidemia GERD (gastroesophageal reflux disease) Cervical stenosis of spinal canal Prostate cancer History of prostate cancer 2004, S/P PROSTATECTOMY CAD (coronary artery disease) MS 1995 Encounter for pre-operative examination Spinal stenosis, lumbar region with neurogenic claudication HTN (hypertension) Per PCP records [facility] [place] (hard of hearing) Bilateral hearing aids Osteoporosis History of prostate cancer (2004) s/p prostatectomy- no chemo or XRT Hyperlipidemia Spinal stenosis CAD (coronary artery disease) s/p angioplasty 1995 GERD (gastroesophageal reflux disease) well controlled and stable Depression Anxiety Hx of Guillain-Phoenix syndrome 2014, 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 Hx of myocardial infarction 1995 at [facility], angioplasty, no stents - no longer follows with Cardiology. *started on Atenolol after MS - denies having hypertension* Sleep apnea no longer uses cpap ( reports patient does not snore anymore, has a bed that raises the head of bed and does well now) Surgical History History of appendectomy History of cardiac cath 1995 at [facility], angioplasty, no stents - no longer follows with Cardiology. History of lumbar surgery 1985 [facility] Lumbar surgery 2001 in [place] (unsure of levels) 2003 in [place] (unsure of levels) 07/27/[address] Christopher T11-L2, L4-S1 Decompression, T11-S1 Fusion with peek cage at L1-L2 at [facility] Hx of prostatectomy (2004) s/p prostate cancer History of colonoscopy Hx of left cataract extraction Hx of right cataract extraction Hx of cervical spine surgery ~2015 Dr. Christopher at [facility] -- ACDF (unsure of levels) reports having full ROM Family History Brother Family history of diabetes mellitus Sister Family history of diabetes mellitus Sister Family history of diabetes mellitus Mother Family history of diabetes mellitus Other No family history of adverse response to anesthesia Social History Smoking Status: Former smoker Tobacco Type: Smokeless Tobacco (Dip or Chew) Second Hand Exposure: No; Do You Dip or Chew Tobacco: Yes (1 can/2 days.); Tobacco Cessation Education Requested by Patient: No Hx Alcohol Use: No Hx Substance Use: No Preferred Language: Singaporean Communication Ability: Effective [place] Required: No Beliefs That Will Affect Care: None marital status: Current Living Situation: Spouse Other Information That Helps Us Care for You: No Feels Safe at Home: Yes Safety Concerns: Feels Safe At This Time Assistive Devices: Denture - Upper, Denture - Lower, Glasses, Hearing Aid - Bilateral, Raised Toilet Seat and Walker Allergies Allergies Allergy/AdvReac Type Severity Reaction Status Date / Time No Known Allergies Allergy Verified 03/10/25 20:17 Home Meds Home Medications Medication Instructions Recorded Confirmed ascorbic acid (vitamin C) 500 mg 500 mg PO QAM 07/07/19 03/10/25 tablet (Vitamin C) aspirin 81 mg tablet,delayed 81 mg PO QPM 07/07/19 03/10/25 release (Gen Low Dose Aspirin) atenolol 25 mg tablet 25 mg PO QAM 07/07/19 03/10/25 citalopram 20 mg tablet 20 mg PO QPM 07/07/19 03/10/25 magnesium 250 mg tablet 250 mg PO BID 07/07/19 03/10/25 omega 9-gli-cda-fish oil 1,000 mg 1 cap PO QPM 07/07/19 03/10/25 (120 mg-180 mg) capsule (Fish Oil) omeprazole 20 mg tablet,delayed 20 mg PO QAM 07/07/19 03/10/25 release simvastatin 20 mg tablet 20 mg PO QPM 07/07/19 03/10/25 vitamin B complex 1 tab PO WK 07/07/19 03/10/25 acetaminophen 500 mg tablet 1,000 mg PO TID PRN Pain 01/30/25 03/10/25 calcium 600 mg (as 1 tab PO BID 01/30/25 03/10/25 carbonate)-vitamin D3 5 mcg (200 unit) tablet cholecalciferol (vitamin D3) 25 25 mcg PO QAM 01/30/25 03/10/25 mcg (1,000 unit) tablet (Vitamin D3) fluticasone propionate 50 1 spray intranasal QAM 01/30/25 03/10/25 mcg/actuation nasal spray,suspension ibandronate 150 mg tablet 150 mg PO MONTHLY 01/30/25 03/10/25 lutein 20 mg tablet 20 mg PO QAM 01/30/25 03/10/25 meloxicam 15 mg tablet 15 mg PO QAM 01/30/25 03/10/25 cetirizine 10 mg tablet 10 mg PO DAILY PRN allergies 03/02/25 03/10/25 Previous Rx's Medication Instructions Recorded oxycodone 5 mg tablet 5 mg PO Q6H PRN pain #30 tabs 03/02/25 tramadol 50 mg tablet 50 mg PO Q6H PRN pain, moderate 03/02/25 #30 tabs Results & Data (ED) Vital Signs Vital Signs - 24 hr 03/10/25 16:41 03/10/25 16:54 03/10/25 17:10 Temperature 39.6 C H Temperature Source Oral Pulse Rate 92 H 90 86 Pulse Rate from SpO2 Sensor 90 Respiratory Rate 20 19 Blood Pressure 97/53 L Blood Pressure Mean 67 Pulse Oximetry 93 94 Oxygen Delivery Method Room Air Sepsis Recent Fever Within 48 Hours Yes Sepsis New/Unexplained Change in Mental Status Yes Sepsis Action Taken by Nursing Physician Notified 03/10/25 17:15 Temperature Temperature Source Pulse Rate 86 Pulse Rate from SpO2 Sensor 86 Respiratory Rate 19 Blood Pressure Blood Pressure Mean Pulse Oximetry 94 Oxygen Delivery Method Sepsis Recent Fever Within 48 Hours Sepsis New/Unexplained Change in Mental Status Sepsis Action Taken by Alf Medications Current Medication List: was personally reviewed by me Laboratory Data Attestation: I reviewed the patient's lab results. 03/11/25 11:52 03/11/25 11:52 Lab Results 03/10/25 03/10/25 Range/Units 16:32 16:45 WBC 10.12 (4.8-10.8) K/ul RBC 3.00 L (4.70-6.10) M/uL Hgb 9.8 L (14.0-18.0) g/dl Hct 28.5 L (42.0-52.0) % MCV 95.0 (80.0-100.0) fL MCH 32.7 (25.0-34.0) pg MCHC 34.4 (32.0-36.0) g/dL RDW Std Deviation 47.5 H (36.4-46.3) fL RDW Coeff of Loretta 13.5 (11.5-14.5) % Plt Count 136 (130-400) K/uL MPV 11.2 (9.4-12.4) fL Immature Gran % (Auto) 1.5 % Neut % (Auto) 82.2 % Lymph % (Auto) 7.3 % [place] % (Auto) 8.2 % Eos % (Auto) 0.4 % Baso % (Auto) 0.4 % Neut # (Auto) 8.32 H (1.40-6.50) K/uL Lymph # (Auto) 0.74 L (1.20-3.40) K/uL [place] # (Auto) 0.83 H (0.11-0.59) K/uL Eos # (Auto) 0.04 (0.00-0.50) K/uL Baso # (Auto) 0.04 (0.00-0.20) K/uL Immature Gran # (Auto) 0.15 (0.01-0.20) K/uL PT 12.4 H (9.0-12.0) Seconds INR 1.2 H (0.9-1.1) APTT 27 (21-31) Seconds PTT Ratio 1.0 Sodium 131 L (136-145) mmol/L Potassium 4.2 (3.5-5.1) mmol/L Chloride 102 (98-107) mmol/L Carbon Dioxide 24 (21-32) mmol/L Anion Gap 5 (3-11) BUN 23 (6-23) mg/dl Creatinine 1.11 (0.6-1.4) mg/dl Est Cr Clr Drug Dosing 59.2 ml/min eGFR 67.13 BUN/Creatinine Ratio 20.7 H (10-20) Glucose 132 H (70-99(Fasting)) mg/dl Lactate 1.2 (0.4-2.0) mmol/L Calcium 8.2 L (8.6-10.3) mg/dl Magnesium 1.5 L (1.7-2.4) mg/dl Total Bilirubin 0.4 (0.2-1.0) mg/dl Direct Bilirubin 0.1 (0-0.2) mg/dl AST 23 (13-39) U/L ALT 17 (7-52) U/L Alkaline Phosphatase 52 (34-104) U/L Troponin I High Sens 12.7 (0-20) pg/ml Total Protein 5.3 L (6.0-8.3) gm/dl Albumin 2.8 L (3.4-5.0) gm/dl Procalcitonin 5.52 H (0-0.5) ng/ml Administered Medications Citalopram Hydrobromide (Citalopram 20 Mg Tab) 20 mg PO QPM [facility] Stop: 04/09/25 20:59 Last Admin: 03/10/25 21:58 Dose: 20 mg Documented By: RES Fluticasone Propionate (Fluticasone Propionate Na Spr 16 Gm Btl) 1 sprays NA QAM [facility] Stop: 04/10/25 08:59 Last Admin: 03/11/25 11:32 Dose: Not Given Documented By: wnt Cefepime HCl (Maxipime 2000mg) 2,000 mg in 20 mls @ 5 mls/min IV Q12H KARLIE; Protocol Stop: 03/13/25 05:59 Last Admin: 03/11/25 05:37 Dose: 5 mls/min Documented By: JULIA Vancomycin HCl 750 mg/ Sodium (Chloride) 265 mls @ 200 mls/hr IV Q12H [facility] Stop: 04/22/25 08:29 Last Admin: 03/11/25 11:31 Dose: 200 mls/hr Documented By: diana Magnesium Oxide (Magnesium Oxide 400 Mg Tab) 400 mg PO DAILY [facility] Stop: 04/10/25 08:59 Last Admin: 03/11/25 11:32 Dose: Not Given Documented By: diana Multivitamins/Minerals (Cerovite Adv Formula Tab) 1 tab PO QAM [facility] Stop: 04/10/25 08:59 Last Admin: 03/11/25 11:32 Dose: Not Given Documented By: diana Oxycodone HCl (Oxycodone Hcl Ir 5 Mg Tab (Immediate Release)) 5 - 10 mg PO Q4H PRN PRN Reason: mod to severe pain Stop: 03/24/25 20:53 Last Admin: 03/11/25 07:25 Dose: 10 mg Documented By: ADAM Pantoprazole Sodium (Pantoprazole 40 Mg Tab) 40 mg PO DAILY [facility] Stop: 04/10/25 08:59 Last Admin: 03/11/25 11:32 Dose: Not Given Documented By: diana Simvastatin (Simvastatin 20 Mg Tab) 20 mg PO QPM [facility] Stop: 04/09/25 20:59 Last Admin: 03/10/25 21:58 Dose: 20 mg Documented By: JULIA Discontinued Medications Albuterol (Albut/Ipratrop 3mg/0.5mg Neb 3 Ml Vial) 3 ml NEB NOW STA; Protocol Stop: 03/11/25 10:16 Last Admin: 03/11/25 10:17 Dose: 3 ml Documented By: KEVIN Albuterol (Albut/Ipratrop 3mg/0.5mg Neb 3 Ml Vial) 3 ml NEB NOW STA; Protocol Stop: 03/11/25 10:07 Last Admin: 03/11/25 10:53 Dose: Not Given Documented By: ELIF Bupivacaine HCl/Epinephrine Bitart (Bupivacaine/Epinephrine 0.25% 1:200,000 30 Ml Vial) Confirm Administered Dose 30 ml .ROUTE .STK-MED ONE Stop: 03/11/25 08:18 Last Admin: 03/11/25 09:02 Dose: 20 ml Documented By: GMB Cefazolin Sodium (Cefazolin 330 Mg/Ml 1 Gm Vial) Confirm Administered Dose 990 mg .ROUTE .STK-MED ONE Stop: 03/11/25 08:18 Last Admin: 03/11/25 09:02 Dose: 990 mg Documented By: GMB Gentamicin Sulfate (Gentamicin Sulfate 40 Mg/Ml 2 Ml Vial) Confirm Administered Dose 240 mg .ROUTE .STK-MED ONE Stop: 03/11/25 08:17 Last Admin: 03/11/25 09:02 Dose: 240 mg Documented By: GMB Sodium Chloride (Nss) 1,000 mls @ 999 mls/hr IV .Q1H1M KARLIE Stop: 03/10/25 17:30 Last Infusion: 03/10/25 19:57 Dose: Infused Documented By: Admin: 03/10/25 17:41 Dose: 999 mls/hr Documented By: NRB Cefepime HCl (Maxipime 2000mg) 2,000 mg in 20 mls @ 5 mls/min IV NOW STA; Protocol Stop: 03/10/25 16:31 Last Admin: 03/10/25 17:39 Dose: 5 mls/min Documented By: NRB Magnesium Sulfate/Dextrose (Magnesium Sulfate / D5w) 1 gm in 100 mls @ 100 mls/hr IV NOW STA Stop: 03/10/25 18:04 Last Infusion: 03/10/25 19:56 Dose: Infused Documented By: Admin: 03/10/25 17:40 Dose: 100 mls/hr Documented By: NRB Sodium Chloride (Nss) 1,000 mls @ 999 mls/hr IV .Q1H1M ONE Stop: 03/10/25 18:15 Last Infusion: 03/10/25 19:56 Dose: Infused Documented By: Admin: 03/10/25 17:39 Dose: 999 mls/hr Documented By: NRB Vancomycin HCl 2,250 mg/ (Sodium Chloride) 545 mls @ 200 mls/hr IV NOW STA Stop: 03/10/25 20:00 Last Infusion: 03/10/25 21:14 Dose: Infused Documented By: Admin: 03/10/25 18:05 Dose: 200 mls/hr Documented By: NRB Sodium Chloride (Nss) 500 mls @ 999 mls/hr IV .Q31M ONE Stop: 03/10/25 18:58 Last Infusion: 03/10/25 21:14 Dose: Infused Documented By: Admin: 03/10/25 18:44 Dose: 999 mls/hr Documented By: NURIA Sodium Chloride (Nss) 250 mls @ 999 mls/hr IV .Q16M ONE Stop: 03/10/25 18:43 Last Infusion: 03/10/25 21:14 Dose: Infused Documented By: Admin: 03/10/25 19:56 Dose: 999 mls/hr Documented By: NURIA Lactated Ringer's (Lr) 1,000 mls @ 75 mls/hr IV .[id number] KARLIE Stop: 03/11/25 08:00 Last Infusion: 03/11/25 11:01 Dose: Infused Documented By: Admin: 03/10/25 20:54 Dose: 75 mls/hr Documented By: JULIA Imaging Data Radiologist's Impression: Chest X-Ray 03/10/25 16:28 Chest radiograph, one view History: Sepsis Comparison: 01/07/2025 Findings: Single AP view of the chest performed. No focal consolidation or pleural effusion. No pneumothorax. The cardiomediastinal silhouette is within normal limits. Normal pulmonary vascularity. No evidence for lymphadenopathy. No visualized bony or soft tissue abnormality. Impression: Normal chest radiograph Electronically signed by Alfonso Ray 03-10-2025 5:[address] 03/10/25 16:42 CT head without contrast History: Trauma Comparison: None Technique: Using multidetector thin collimation helical acquisition technique, axial, coronal and sagittal CT images from the skull base to the vertex were obtained without intravenous contrast. Dose reduction techniques were achieved by using automatic exposure control and/or adjustment of mA and/or kV according to patient size and/or use of iterative reconstruction technique. Findings: No intracranial hemorrhage, mass-effect, or midline shift. The ventricles are proportionate to the cerebral sulci. The hebert to white matter differentiation of the cerebral hemispheres is preserved. The basal cisterns are patent. The visualized paranasal sinuses are clear. Mastoid air cells are clear. Impression: No acute intracranial pathology. Electronically signed by Alfonso Ray 03-10-2025 5:14 PM Patient: HARSH LUU Admit Date: 03/10/25 MR#: [id number] Address1: [address] Acct ID:[id number] Address2: [address] Date: 1945 [facility] Zip: [place] [address] Age: 79 Location: CT Sex: M Room/Bed: Att Phy: Gadiel Marte, Diagnosis: FALL, FEVER, POST SURGERY Yara Phy: Leonardo Layton M.D. Service Date: 03/10/25 [facility] Phy: Interpreting Phy: Rajinder Siddiqi MDAdmit Phy: Ordering Phy: Gadiel Marte DO cc: ~ LUMBAR SPINE CT WITH CONTRAST CLINICAL HISTORY: FALL, FEVER, POST SURGERY COMPARISON STUDY: Lumbar spine fluoroscopic images March 01, 2025. TECHNIQUE: Axial images of the lumbar spine were obtained following intravenous injection of 93 cc of Optiray 320 IV. Sagittal and coronal reformats were viewed as well as maximal intensity projections on an independent 3-D workstation. A dose lowering technique was utilized adhering to the principles of ALARA. FINDINGS: For purposes of numbering on this exam, the L5-S1 disc space is assigned to axial image 345 of 424. Extensive postoperative findings within the spine are noted. A fusion extends from T11 through S1. There are bilateral pedicle screws at the T11, T12, L1, L2, L4, L5 and S1 levels with interconnecting rods. The L3 screws have been removed. Discectomies and interbody spacer placement at the L1-L2, L4-L5 and L5-S1 levels is noted. There is an acute appearing mildly displaced fracture along the superior endplate of S1. Fracture adjacent to the bilateral S1 screws is noted. There is also an acute appearing fracture of the left transverse process and pedicle of L5. No additional fractures are identified. Mild paravertebral stranding is noted. Evaluation of the central canal and neural foramen is significantly compromised given CT technique and artifact from the surgical hardware. A gas and fluid containing laminectomy bed fluid collection extends from the L2-L3 to through L5 levels and measures approximately 7.4 x 4.2 x 3.7 cm. IMPRESSION: 1. Extensive postoperative findings within the spine, as described above. Hardware intact. No unexpected radiopaque foreign bodies. 2. Acute appearing fractures along the superior endplate of S1. Fractures are adjacent to the bilateral S1 pedicle screws with lucency adjacent to the screws. 3. Acute appearing nondisplaced fracture of the left transverse process and left pedicle of L5. 4. Gas and fluid collection within the laminectomy bed fluid collection which extends from the L2-L3-L5 levels, measuring approximately 7.4 x 4.2 x 3.7 cm. This is indeterminate although not unexpected in the early postoperative setting and favors a seroma. However, sterility cannot be assessed by CT. Nondiagnostic evaluation of the central canal and neural foramen given CT technique and artifact from hardware. Discharge Plan Visit Data Chief Complaint: Fall Stated Complaint: Fall ED Provider: Sriram Amador Discharge Problem: Sepsis, Hypotension, Confusion, Fever, Fall, Fracture of lumbar spine, Anemia, History of lumbar surgery Patient Disposition: Admitted As Inpatient Condition: Serious Discharge Instructions Interventions: ED Discharge Assessment Last Done: 03/10/25 20:17 Discharge Problem: Sepsis Qualifiers: Sepsis type: sepsis due to unspecified organism Sepsis acute organ dysfunction status: without acute organ dysfunction Qualified Code(s): A41.9 - Sepsis, unspecified organism Hypotension Qualifiers: Hypotension type: unspecified hypotension type Qualified Code(s): I95.9 - Hypotension, unspecified Fever Qualifiers: Fever type: unspecified Qualified Code(s): R50.9 - Fever, unspecified Fall Qualifiers: Encounter type: initial encounter Qualified Code(s): W19.XXXA - Unspecified fall, initial encounter Fracture of lumbar spine Qualifiers: Encounter type: initial encounter Lumbar vertebra fracture level: unspecified lumbar vertebra Fracture type: closed Fracture morphology: unspecified fracture morphology Qualified Code(s): S32.009A - Unspecified fracture of unspecified lumbar vertebra, initial encounter for closed fracture Anemia Qualifiers: Anemia type: unspecified type Qualified Code(s): D64.9 - Anemia, unspecified
[2025-03-10 17:02] LABS: Alanine Aminotransferase 17.0 U/L (7-52); Alkaline Phosphatase 52.0 U/L (34-104); Anion Gap 5.0 (3-11); Bilirubin,Total 0.4 mg/dl (0.2-1.0); Blood Urea Nitrogen 23.0 mg/dl (6-23); Calcium 8.2 mg/dl (8.6-10.3); Carbon Dioxide 24.0 mmol/L (21-32); Chloride 102.0 mmol/L (98-107); Creatinine Clr Calc Pharmacy 59.2 ml/min; Glucose 132.0 mg/dl (70-99(Fasting)); Magnesium 1.5 mg/dl (1.7-2.4); Potassium 4.2 mmol/L (3.5-5.1); Sodium 131.0 mmol/L (136-145); Total Protein 5.3 gm/dl (6.0-8.3)
--- NOTE | 2025-03-10 17:04 | XRay Report ---
Chest radiograph, one view History: Sepsis Comparison: 01/07/2025 Findings: Single AP view of the chest performed. No focal consolidation or pleural effusion. No pneumothorax. The cardiomediastinal silhouette is within normal limits. Normal pulmonary vascularity. No evidence for lymphadenopathy. No visualized bony or soft tissue abnormality. Impression: Normal chest radiograph Electronically signed by Alfonso Ray 03-10-2025 5:04 PM
[2025-03-10 17:11] LABS: INR 1.2 (0.9-1.1); Partial Thromboplastin Time 27 Seconds (21-31); Prothrombin Time 12.4 Seconds (9.0-12.0)
--- NOTE | 2025-03-10 17:15 | CT Scan Report ---
CT head without contrast History: Trauma Comparison: None Technique: Using multidetector thin collimation helical acquisition technique, axial, coronal and sagittal CT images from the skull base to the vertex were obtained without intravenous contrast. Dose reduction techniques were achieved by using automatic exposure control and/or adjustment of mA and/or kV according to patient size and/or use of iterative reconstruction technique. Findings: No intracranial hemorrhage, mass-effect, or midline shift. The ventricles are proportionate to the cerebral sulci. The hebert to white matter differentiation of the cerebral hemispheres is preserved. The basal cisterns are patent. The visualized paranasal sinuses are clear. Mastoid air cells are clear. Impression: No acute intracranial pathology. Electronically signed by Alfonso Ray 03-10-2025 5:14 PM
--- NOTE | 2025-03-10 17:28 | History & Physical Report ---
Date of Service March 10, 2025 Assessment & Plan (1) Multilevel lumbosacral spondylosis with radiculopathy: Plan: CAT scan lumbar spine does demonstrate evidence of a sacral fracture and fluid collection lumbar spine. In light of his fever and no other obvious source I would like to perform an irrigation by my lumbar spine first thing in the morning. We may also have to address the sacral fracture with further surgery including iliac bolts. This most likely would be timed at a later date until we have eradicated any evidence of infection. History of Present Illness Chief Complaint: Back pain status post fall with fevers Primary Care Provider: Leonardo Calin This is a 79-year-old male well-known to the status post revision decompression and fusion. He had been doing very well at rehab. Unfortunately he had a fall yesterday. Since that time he has had fevers. He is somewhat disoriented. He has worsening back pain with ambulation. He is comfortable at rest. This is a marked dramatic change from his previous status. At this time he denies any back pain numbness or tingling. Allergies Allergy/AdvReac Type Severity Reaction Status Date / Time No Known Allergies Allergy Verified 03/01/25 10:06 Home Medications Medication Instructions Recorded Confirmed Type ascorbic acid (vitamin C) 500 mg 500 mg PO QAM 07/07/19 03/01/25 History tablet (Vitamin C) aspirin 81 mg tablet,delayed 81 mg PO QPM 07/07/19 03/01/25 History release (Gen Low Dose Aspirin) atenolol 25 mg tablet 25 mg PO QAM 07/07/19 03/01/25 History citalopram 20 mg tablet 20 mg PO QPM 07/07/19 03/01/25 History magnesium 250 mg tablet 250 mg PO BID 07/07/19 03/01/25 History omega 2-ftw-foo-fish oil 1,000 mg 1 cap PO QPM 07/07/19 03/01/25 History (120 mg-180 mg) capsule (Fish Oil) omeprazole 20 mg tablet,delayed 20 mg PO QAM 07/07/19 03/01/25 History release simvastatin 20 mg tablet 20 mg PO QPM 07/07/19 03/01/25 History vitamin B complex 1 tab PO WK 07/07/19 03/01/25 History acetaminophen 500 mg tablet 1,000 mg PO TID PRN Pain 01/30/25 01/30/25 History calcium 600 mg (as 1 tab PO BID 01/30/25 03/01/25 History carbonate)-vitamin D3 5 mcg (200 unit) tablet cholecalciferol (vitamin D3) 25 25 mcg PO QAM 01/30/25 03/01/25 History mcg (1,000 unit) tablet (Vitamin D3) fluticasone propionate 50 1 spray intranasal QAM 01/30/25 03/01/25 History mcg/actuation nasal spray,suspension ibandronate 150 mg tablet 150 mg PO MONTHLY 01/30/25 03/01/25 History lutein 20 mg tablet 20 mg PO QAM 01/30/25 03/01/25 History meloxicam 15 mg tablet 15 mg PO QAM 01/30/25 03/01/25 History cetirizine 10 mg tablet 10 mg PO DAILY PRN allergies 03/02/25 03/02/25 History oxycodone 5 mg tablet 5 mg PO Q6H PRN pain #30 tabs 03/02/25 Rx tramadol 50 mg tablet 50 mg PO Q6H PRN pain, moderate 03/02/25 Rx #30 tabs Past Med/Surg History Problem List (Updated 03/09/25 @ 00:07 by Background Daemon) Acute blood loss anemia Multilevel lumbosacral spondylosis with radiculopathy Medical History (Updated 03/09/25 @ 00:07 by Background Daemon) Hyperlipidemia GERD (gastroesophageal reflux disease) Cervical stenosis of spinal canal Prostate cancer History of prostate cancer 2004, S/P PROSTATECTOMY CAD (coronary artery disease) [place] 1995 Encounter for pre-operative examination Spinal stenosis, lumbar region with neurogenic claudication HTN (hypertension) Per PCP records [place] (hard of hearing) Bilateral hearing aids Osteoporosis History of prostate cancer (2004) s/p prostatectomy- no chemo or XRT Hyperlipidemia Spinal stenosis CAD (coronary artery disease) s/p angioplasty 1995 GERD (gastroesophageal reflux disease) well controlled and stable Depression Anxiety Hx of Guillain-[place] syndrome 2014, 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 Hx of myocardial infarction [address] [facility], angioplasty, no stents - no longer follows with Cardiology. *started on Atenolol after [place] - denies having hypertension* Sleep apnea no longer uses cpap ( reports patient does not snore anymore, has a bed that raises the head of bed and does well now) Surgical History History of appendectomy History of cardiac cath [address] [facility], angioplasty, no stents - no longer follows with Cardiology. History of lumbar surgery 1985 [facility] Lumbar surgery 2001 in [place] (unsure of levels) 2003 in [place] (unsure of levels) 07/27/[address] Christopher T11-L2, L4-S1 Decompression, T11-S1 Fusion with peek cage at L1-L2 at [facility] Hx of prostatectomy (2004) s/p prostate cancer History of colonoscopy Hx of left cataract extraction Hx of right cataract extraction Hx of cervical spine surgery ~2015 Dr. Christopher at [facility] -- ACDF (unsure of levels) reports having full ROM Family History Brother Family history of diabetes mellitus Sister Family history of diabetes mellitus Sister Family history of diabetes mellitus Mother Family history of diabetes mellitus Other No family history of adverse response to anesthesia Social History Smoking Status: Never smoker Tobacco Type: Cigarettes and Smokeless Tobacco (Dip or Chew) Second Hand Exposure: No; Do You Dip or Chew Tobacco: Yes (1 can/2 days (advised on npo policy)); Hx Alcohol Use: No Hx Substance Use: No Preferred Language: Somali Communication Ability: Effective Dopster Required: No Beliefs That Will Affect Care: None marital status: Current Living Situation: Spouse Feels Safe at Home: Yes Assistive Devices: Cane, Raised Toilet Seat and Walker Physical Exam Physical Exam: On exam incision is intact. No erythema no drainage. He has excellent strength detailed testing beneficial dorsiflexion quadriceps. Sensory is intact. He is somewhat disoriented. He is cooperative. Results & Data Results & Data Vital Signs (Past 12 Hours) Vital Signs Temp Pulse Resp BP Pulse Ox O2 Del Method 03/10/25 17:10 86 03/10/25 16:41 39.6 C H 92 H 20 97/53 L 93 Room Air Code Status & VTE Plan VTE Prophylaxis Plan VTE Prophylaxis will be ordered: Yes
[2025-03-10] MEDS: CEFEPIME 2000MG 2,000 MG/20 ML SYR IV STA (17:39)
[2025-03-10] MEDS: SODIUM CHLORIDE 0.9% 1,000 ML IV ONE (17:39)
[2025-03-10] MEDS: MAGNESIUM SULFATE / D5W 1 GM/100 ML BAG IV STA (17:40)
[2025-03-10] MEDS: SODIUM CHLORIDE 0.9% 1,000 ML IV SCH (17:41)
[2025-03-10] MEDS: VANCOMYCIN HCL 2,250 MG in SODIUM CHLORIDE 0.9% 500 ML IV STA (18:05)
[2025-03-10 18:11] LABS: Chlamydia pneumoniae PCR Not Detected (NotDetected); Coronavirus 229E PCR Not Detected (NotDetected); Coronavirus CoV-2 (COVID19)PCR Not Detected (NotDetected); Coronavirus HKU1 PCR Not Detected (NotDetected); Coronavirus NL63 PCR Not Detected (NotDetected); Coronavirus OC43PCR Not Detected (NotDetected); Human Metapneumovirus PCR Not Detected (NotDetected); Parainfluenza Virus 1 PCR Not Detected (NotDetected); Parainfluenza Virus 2 PCR Not Detected (NotDetected); Parainfluenza Virus 3 PCR Not Detected (NotDetected); Parainfluenza Virus 4 PCR Not Detected (NotDetected); Respiratory Syncytial VirusPCR Not Detected (NotDetected); Rhinovirus/Enterovirus PCR Not Detected (NotDetected)
--- NOTE | 2025-03-10 18:11 | Consultation ---
Date of Consultation March 10, 2025 Assessment & Plan (1) Sepsis: Plan 79M s/p L3-S1 decompression and fusion on 03/01/[address] Christopher who presents with fever and a fall yesterday #Sepsis -Qualifies as sepsis with hypotension, fever, AMS -qSOFA 2, making sepsis likely -Source likely abscess at laminectomy bed of L2-L5 -No other nidus of infection identified with ROS, labs or imaging Plan -Continue empiric abx with vanc/cefepime -Hold home atenolol -For OR tomorrow -F/u on blood and OR cultures -May need to involve ID pending results #Anemia -Post op course c/b acute blood loss anemia last admission -Hgb 9.8 today, was 11.2 -No s/s acute blood loss at this time -Recheck Hgb in AM #HTN -Hold BB #CAD -Hold ASA #HLD -Statin #Depression -Continue SSRI thank for you this interesting consult History of Present Illness Requesting Physician: Dr Christopher Reason for Consultation: medical management History of Present Illness Mr. Marrero is a pleasant 79M s/p L3-S1 decompression and fusion on 03/01/[address] Christopher. His post op course was complicated by acute blood loss anemia. he was not transfused. He was discharged to [facility] on 03/03. He was doing well with therapy until he fell yesterday. He has been febrile since yesterday as well. Temp as high as 103. He was brought in for evaluation by facility. In the ED BP was low at 97/53. sepsis protocol was initiated and was given IVF boluses and cefepime and vanc. lacate was normal. BP normalized with IVF. Currently patient feels well and has no complaints. Denies CP palp dyspnea cough wheezing abd pain nvd dysuria polyuria skin lesions CT in ED showed acute S1 and L5 fractures along with new fluid collection at L2- L5 Allergies Allergy/AdvReac Type Severity Reaction Status Date / Time No Known Allergies Allergy Verified 03/01/25 10:06 Home Medications Medication Instructions Recorded Confirmed Type ascorbic acid (vitamin C) 500 mg 500 mg PO QAM 07/07/19 03/01/25 History tablet (Vitamin C) aspirin 81 mg tablet,delayed 81 mg PO QPM 07/07/19 03/01/25 History release (Gen Low Dose Aspirin) atenolol 25 mg tablet 25 mg PO QAM 07/07/19 03/01/25 History citalopram 20 mg tablet 20 mg PO QPM 07/07/19 03/01/25 History magnesium 250 mg tablet 250 mg PO BID 07/07/19 03/01/25 History omega 0-drc-bth-fish oil 1,000 mg 1 cap PO QPM 07/07/19 03/01/25 History (120 mg-180 mg) capsule (Fish Oil) omeprazole 20 mg tablet,delayed 20 mg PO QAM 07/07/19 03/01/25 History release simvastatin 20 mg tablet 20 mg PO QPM 07/07/19 03/01/25 History vitamin B complex 1 tab PO WK 07/07/19 03/01/25 History acetaminophen 500 mg tablet 1,000 mg PO TID PRN Pain 01/30/25 01/30/25 History calcium 600 mg (as 1 tab PO BID 01/30/25 03/01/25 History carbonate)-vitamin D3 5 mcg (200 unit) tablet cholecalciferol (vitamin D3) 25 25 mcg PO QAM 01/30/25 03/01/25 History mcg (1,000 unit) tablet (Vitamin D3) fluticasone propionate 50 1 spray intranasal QAM 01/30/25 03/01/25 History mcg/actuation nasal spray,suspension ibandronate 150 mg tablet 150 mg PO MONTHLY 01/30/25 03/01/25 History lutein 20 mg tablet 20 mg PO QAM 01/30/25 03/01/25 History meloxicam 15 mg tablet 15 mg PO QAM 01/30/25 03/01/25 History cetirizine 10 mg tablet 10 mg PO DAILY PRN allergies 03/02/25 03/02/25 History oxycodone 5 mg tablet 5 mg PO Q6H PRN pain #30 tabs 03/02/25 Rx tramadol 50 mg tablet 50 mg PO Q6H PRN pain, moderate 03/02/25 Rx #30 tabs Patient History Medical History Hyperlipidemia GERD (gastroesophageal reflux disease) Cervical stenosis of spinal canal Prostate cancer History of prostate cancer 2004, S/P PROSTATECTOMY CAD (coronary artery disease) [place] 1995 Encounter for pre-operative examination Spinal stenosis, lumbar region with neurogenic claudication HTN (hypertension) Per PCP records [place] (hard of hearing) Bilateral hearing aids Osteoporosis History of prostate cancer (2004) s/p prostatectomy- no chemo or XRT Hyperlipidemia Spinal stenosis CAD (coronary artery disease) s/p angioplasty 1995 GERD (gastroesophageal reflux disease) well controlled and stable Depression Anxiety Hx of Guillain-[place] syndrome 2014, 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 Hx of myocardial infarction 1995 at [facility], angioplasty, no stents - no longer follows with Cardiology. *started on Atenolol after [place] - denies having hypertension* Sleep apnea no longer uses cpap ( reports patient does not snore anymore, has a bed that raises the head of bed and does well now) Surgical History History of appendectomy History of cardiac cath 1995 at [facility], angioplasty, no stents - no longer follows with Cardiology. History of lumbar surgery 1985 [facility] Lumbar surgery 2001 in [place] (unsure of levels) 2004 in [place] (unsure of levels) 07/27/[address] Christopher T11-L2, L4-S1 Decompression, T11-S1 Fusion with peek cage at L1-L2 at [facility] Hx of prostatectomy (2004) s/p prostate cancer History of colonoscopy Hx of left cataract extraction Hx of right cataract extraction Hx of cervical spine surgery ~2015 Dr. Chirstopher at [facility] -- ACDF (unsure of levels) reports having full ROM Family History Brother Family history of diabetes mellitus Sister Family history of diabetes mellitus Sister Family history of diabetes mellitus Mother Family history of diabetes mellitus Other No family history of adverse response to anesthesia Social History Smoking Status: Never smoker Tobacco Type: Cigarettes and Smokeless Tobacco (Dip or Chew) Second Hand Exposure: No; Do You Dip or Chew Tobacco: Yes (1 can/2 days (advised on npo policy)); Hx Alcohol Use: No Hx Substance Use: No Preferred Language: Palestinian Communication Ability: Effective Residential Worker Required: No Beliefs That Will Affect Care: None marital status: Current Living Situation: Spouse Feels Safe at Home: Yes Assistive Devices: Cane, Raised Toilet Seat and Walker Review of Systems Review of Systems: 14 point ROS negative unless stated in H PI Physical Exam Physical Exam: Vitals and labs reviewed General: Well appearing, NAD HEENT: EOMI, PERRLA Neck: Supple Cardiac: RRR no rubs gallops or murmurs Lungs: CTA no rhonchi wheezing or rales Abd: S NT ND BS positive : Deffered MSK: Full ROM. No obvious deformities Ext: No Edema cyanosis Skin: Warm, Dry Neuro: AOx3 No focal deficits. Psych: Normal Mood Results & Data Vital Signs (Past 12 Hours) Vital Signs Temp Pulse Resp BP Pulse Ox O2 Del Method 03/10/25 17:48 89 23 110/53 L 03/10/25 17:15 86 19 94 03/10/25 17:10 86 03/10/25 16:54 90 19 94 03/10/25 16:41 39.6 C H 92 H 20 97/53 L 93 Room Air Laboratory Results Abnormal lab results 03/10/25 Range/Units 16:32 RBC 3.00 L (4.70-6.10) M/uL Hgb 9.8 L (14.0-18.0) g/dl Hct 28.5 L (42.0-52.0) % RDW Std Deviation 47.5 H (36.4-46.3) fL Neut # (Auto) 8.32 H (1.40-6.50) K/uL Lymph # (Auto) 0.74 L (1.20-3.40) K/uL [place] # (Auto) 0.83 H (0.11-0.59) K/uL PT 12.4 H (9.0-12.0) Seconds INR 1.2 H (0.9-1.1) Sodium 131 L (136-145) mmol/L BUN/Creatinine Ratio 20.7 H (10-20) Glucose 132 H (70-99(Fasting)) mg/dl Calcium 8.2 L (8.6-10.3) mg/dl Magnesium 1.5 L (1.7-2.4) mg/dl Total Protein 5.3 L (6.0-8.3) gm/dl Albumin 2.8 L (3.4-5.0) gm/dl Procalcitonin 5.52 H (0-0.5) ng/ml Diagnostic Findings Chest X-Ray 03/10/25 16:28 Chest radiograph, one view History: Sepsis Comparison: 01/07/2025 Findings: Single AP view of the chest performed. No focal consolidation or pleural effusion. No pneumothorax. The cardiomediastinal silhouette is within normal limits. Normal pulmonary vascularity. No evidence for lymphadenopathy. No visualized bony or soft tissue abnormality. Impression: Normal chest radiograph Electronically signed by Alfonso Ray 03-10-2025 5:[address] 03/10/25 16:42 CT head without contrast History: Trauma Comparison: None Technique: Using multidetector thin collimation helical acquisition technique, axial, coronal and sagittal CT images from the skull base to the vertex were obtained without intravenous contrast. Dose reduction techniques were achieved by using automatic exposure control and/or adjustment of mA and/or kV according to patient size and/or use of iterative reconstruction technique. Findings: No intracranial hemorrhage, mass-effect, or midline shift. The ventricles are proportionate to the cerebral sulci. The hebert to white matter differentiation of the cerebral hemispheres is preserved. The basal cisterns are patent. The visualized paranasal sinuses are clear. Mastoid air cells are clear. Impression: No acute intracranial pathology. Electronically signed by Alfonso Ray 03-10-2025 5:14 PM
[2025-03-10 18:39] LABS: Appearance Urine Clear (Clear); Glucose Urine UA Negative (Negative)
[2025-03-10] MEDS: SODIUM CHLORIDE 0.9% 500 ML IV ONE (18:44)
[2025-03-10] MEDS: SODIUM CHLORIDE 0.9% 250 ML IV ONE (19:56)
[2025-03-10] MEDS ORDERED: NALOXONE HCL 0.4 MG/1 ML VIAL/CARP IV PRN (20:54)
[2025-03-10] MEDS: LACTATED RINGER'S 1,000 ML IV SCH (20:54)
[2025-03-10] MEDS ORDERED: ONDANSETRON INJ 2 MG/ML 2 ML VIAL IV PRN (20:54)
[2025-03-10] MEDS ORDERED: HYDROmorphone INJ 0.5 MG/0.5 ML SYR IV PRN (20:54)
[2025-03-10] MEDS ORDERED: PROMETHAZINE 12.5 MG/50.5 ML BAG IV PRN (20:54)
[2025-03-10] MEDS ORDERED: ACETAMINOPHEN 1,000 MG/100 ML VIAL IV PRN (20:54)
[2025-03-10] MEDS ORDERED: ONDANSETRON 4 MG OD TAB PO PRN (20:54)
[2025-03-10] MEDS ORDERED: METOCLOPRAMIDE HCL INJ 5 MG/ML 2 ML VIAL IV PRN (20:54)
[2025-03-10] MEDS ORDERED: HYDROmorphone INJ 1 MG/ML SYRINGE IV PRN (20:54)
[2025-03-10] MEDS: SIMVASTATIN 20 MG TAB PO SCH (21:58)
[2025-03-10] MEDS: CITALOPRAM 20 MG TAB PO SCH (21:58)
[2025-03-11] MEDS: CEFEPIME 2000MG 2,000 MG/20 ML SYR IV SCH (05:37)
--- NOTE | 2025-03-11 06:19 | Electrocardiogram Report ---
Test Reason : Blood Pressure : */* mmHG Vent. Rate : 90 BPM Atrial Rate : 90 BPM P-R Int : 130 ms QRS Dur : 76 ms QT Int : 358 ms P-R-T Axes : -9 40 32 degrees QTcB Int : 437 ms Normal sinus rhythm Normal ECG When compared with ECG of 06-Feb-2025 13:50, No significant change was found Confirmed by Mikal Hearn ([id number]) on 03/11/2025 6:19:22 AM Referred By: [facility] Confirmed By: Mikal Hearn
[2025-03-11] MEDS ORDERED: ONDANSETRON INJ 2 MG/ML 2 ML VIAL ONE (07:23)
[2025-03-11] MEDS ORDERED: DEXAMETHASONE SOD INJ 4 MG/ML VIAL ONE (07:23)
[2025-03-11] MEDS ORDERED: MIDAZOLAM HCL 1 MG/ML 2ML VIAL ONE (07:23)
[2025-03-11] MEDS ORDERED: GLYCOPYRROLATE 0.2 MG/ML VIAL ONE (07:23)
[2025-03-11] MEDS ORDERED: ROCURONIUM BROMIDE 10 MG/ML 5 ML VIAL IV ONE ×2 (07:23→08:56)
[2025-03-11] MEDS ORDERED: PROPOFOL IV EMULSION 10 MG/ML 20 ML VIAL IV ONE (07:23)
[2025-03-11] MEDS ORDERED: NEOSTIGMINE METHYLSULFATE 1 MG/ML 10ML VIAL ONE (07:23)
[2025-03-11] MEDS ORDERED: LIDOCAINE 2% 2 ML VIAL/AMP(20MG/ML) INFIL ONE (07:23)
--- NOTE | 2025-03-11 07:59 | Anesthesiology Consultation ---
Date of Service March 11, 2025 Assessment & Plan ASA ASA3 Proposed Anesthesia Anesthesia Type: General Risk / Benefits Reviewed With: PT / POA / Parent / Guardian, Accepts Plan and Informed Consent Obtained History Surgery Operation Date: 03/11/25 11:00 Proposed Procedures p Incision and Drainage Lumbar - Fidencio Christopher DO Height/Weight Height: 5 ft 9 in Weight: 89.7 kg Allergies Allergy/AdvReac Type Severity Reaction Status Date / Time No Known Allergies Allergy Verified 03/10/25 20:17 Medications Home Medications Medication Instructions Recorded Confirmed Last Taken ascorbic acid (vitamin C) 500 mg 500 mg PO QAM 07/07/19 03/10/25 03/10/25 08:00 tablet (Vitamin C) aspirin 81 mg tablet,delayed 81 mg PO QPM 07/07/19 03/10/25 03/09/25 20:00 release (Gen Low Dose Aspirin) atenolol 25 mg tablet 25 mg PO QAM 07/07/19 03/10/25 03/10/25 08:00 citalopram 20 mg tablet 20 mg PO QPM 07/07/19 03/10/25 03/09/25 20:00 magnesium 250 mg tablet 250 mg PO BID 07/07/19 03/10/25 03/09/25 20:00 omega 5-rgk-gxq-fish oil 1,000 mg 1 cap PO QPM 07/07/19 03/10/25 02/20/25 08:00 (120 mg-180 mg) capsule (Fish Oil) omeprazole 20 mg tablet,delayed 20 mg PO QAM 07/07/19 03/10/25 03/09/25 08:00 release simvastatin 20 mg tablet 20 mg PO QPM 07/07/19 03/10/25 03/09/25 20:00 vitamin B complex 1 tab PO WK 07/07/19 03/10/25 02/24/25 08:00 acetaminophen 500 mg tablet 1,000 mg PO TID PRN Pain 01/30/25 03/10/25 Unknown calcium 600 mg (as 1 tab PO BID 01/30/25 03/10/25 03/10/25 20:00 carbonate)-vitamin D3 5 mcg (200 unit) tablet cholecalciferol (vitamin D3) 25 25 mcg PO QAM 01/30/25 03/10/25 03/10/25 08:00 mcg (1,000 unit) tablet (Vitamin D3) fluticasone propionate 50 1 spray intranasal QA 01/30/25 03/10/25 03/09/25 09:00 mcg/actuation nasal spray,suspension ibandronate 150 mg tablet 150 mg PO MONTHLY 01/30/25 03/10/25 02/11/25 08:00 lutein 20 mg tablet 20 mg PO [facility] 01/30/25 03/10/25 03/10/25 08:00 meloxicam 15 mg tablet 15 mg PO QA 01/30/25 03/10/25 03/10/25 08:00 cetirizine 10 mg tablet 10 mg PO DAILY PRN allergies 03/02/25 03/10/25 Unknown oxycodone 5 mg tablet 5 mg PO Q6H PRN pain #30 tabs 03/02/25 03/10/25 Unknown tramadol 50 mg tablet 50 mg PO Q6H PRN pain, moderate 03/02/25 03/10/25 Unknown #30 tabs Active Medications Generic Name Dose Route Start Last Admin Trade Name Freq PRN Reason Stop Dose Admin Citalopram Hydrobromide 20 mg 03/10/25 21:00 03/10/25 21:58 Citalopram 20 Mg Tab PO 04/09/25 20:59 20 mg QPM KARLIE Administration Lactated Ringer's 1,000 mls @ 75 mls/hr 03/10/25 20:54 03/10/25 20:54 Lr IV 03/11/25 08:00 75 mls/hr .[id number] KARLIE Administration Cefepime HCl 2,000 mg in 20 mls @ 5 mls/min 03/11/25 06:00 03/11/25 05:37 Maxipime 2000mg IV 03/13/25 05:59 5 mls/min Q12H KARLIE Administration Protocol Oxycodone HCl 5 - 10 mg 03/10/25 20:54 03/11/25 07:25 Oxycodone Hcl Ir 5 Mg Tab (Immediate Release) PO 03/24/25 20:53 10 mg Q4H PRN Administration mod to severe pain Simvastatin 20 mg 03/10/25 21:00 03/10/25 21:58 Simvastatin 20 Mg Tab PO 04/09/25 20:59 20 mg QPM KARLIE Administration NPO Date Last Intake of Fluids: 03/10/25 Time Last Intake of Fluids: 23:59 Date Last Intake of Solids: 03/10/25 Time Last Intake of Solids: 23:59 Past Medical History Medical History Hyperlipidemia GERD (gastroesophageal reflux disease) Cervical stenosis of spinal canal Prostate cancer History of prostate cancer 2004, S/P PROSTATECTOMY CAD (coronary artery disease) [place] 1995 Encounter for pre-operative examination Spinal stenosis, lumbar region with neurogenic claudication HTN (hypertension) Per PCP records [place] (hard of hearing) Bilateral hearing aids Osteoporosis History of prostate cancer (2004) s/p prostatectomy- no chemo or XRT Hyperlipidemia Spinal stenosis CAD (coronary artery disease) s/p angioplasty 1995 GERD (gastroesophageal reflux disease) well controlled and stable Depression Anxiety Hx of Guillain-[place] syndrome 2014, 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 Hx of myocardial infarction 1995 at [facility], angioplasty, no stents - no longer follows with Cardiology. *started on Atenolol after OR - denies having hypertension* Sleep apnea no longer uses cpap ( reports patient does not snore anymore, has a bed that raises the head of bed and does well now) Exercise / Class Metabolic Activity II 4-5 Yardwork/Stairs/Walk up hill Past Family History Family History Brother Family history of diabetes mellitus Sister Family history of diabetes mellitus Sister Family history of diabetes mellitus Mother Family history of diabetes mellitus Other No family history of adverse response to anesthesia Past Surgical History Surgical History History of appendectomy History of cardiac cath 1995 at [facility], angioplasty, no stents - no longer follows with Cardiology. History of lumbar surgery 1985 [facility] Lumbar surgery 2001 in [place] (unsure of levels) 2003 in [place] (unsure of levels) 07/27/[address] Christopher T11-L2, L4-S1 Decompression, T11-S1 Fusion with peek cage at L1-L2 at [facility] Hx of prostatectomy (2005) s/p prostate cancer History of colonoscopy Hx of left cataract extraction Hx of right cataract extraction Hx of cervical spine surgery ~2016 Dr. Christopher at [facility] -- ACDF (unsure of levels) reports having full ROM Past Anesthesia History No Hx of Anesthesia Complications and No Family Hx of Anesthesia Complications History of PONV No Hx of PONV and No Hx of Motion Sickness Social History Smoking Status: Former smoker Do You Dip or Chew Tobacco: Yes (1 can/2 days.) Hx Alcohol Use: No Hx Substance Use: No substance use type: does not use Review of Systems denies fever/cough/ colds/ chest pain/ SOB/ RACHEL denies RACHEL Physical Exam Vital Signs Last Vital Signs Temp 37.2 C 03/11/25 07:18 Pulse 91 H 03/11/25 07:18 Resp 18 03/11/25 07:18 BP 111/57 L 03/11/25 07:18 Pulse Ox 94 03/11/25 07:18 O2 Del Method Room Air 03/11/25 07:18 ENMT Mouth: + edentulous; no TMJ abnormality and no dentition abnormality Thyromental Distance: > or= 3.5 Finger Breadths Mallampati Class: III Neck neck extension not limited Respiratory normal respiratory effort; no respiratory distress Auscultation: lungs clear to auscultation bilaterally Cardiovascular Rate/Rhythm: regular rate and regular rhythm Neurologic moves all extremities Psychiatric Orientation: alert and oriented x 3 Testing Laboratory Results 03/10/25 16:32 03/10/25 16:32 PT 12.4 Seconds (9.0-12.0) H 03/10/25 16:32 INR 1.2 (0.9-1.1) H 03/10/25 16:32 APTT 27 Seconds (21-31) 03/10/25 16:32 Urine Color Yellow 03/10/25 18:21 Urine Appearance Clear (Clear) 03/10/25 18:21 Urine pH 6.0 (4.5-7.5) 03/10/25 18:21 Ur Specific [place] 1.034 (1.000-1.030) H 03/10/25 18:21 Urine Protein Negative (Negative) 03/10/25 18:21 Urine Glucose (UA) Negative (Negative) 03/10/25 18:21 Urine Ketones Negative (Negative) 03/10/25 18:21 Urine Nitrite Negative (Negative) 03/10/25 18:21 Ur Leukocyte Esterase Negative (Negative) 03/10/25 18:21
[2025-03-11] MEDS ORDERED: VANCOMYCIN CONSULT ACTIVE PRN (08:00)
--- NOTE | 2025-03-11 08:18 | History & Physical Bridge Note ---
Date of Service March 11, 2025 History & Physical Bridge Note I have examined the patient, reviewed the History & Physical and in the interval since the performance of the History & Physical I have noted the following changes of clinical significance: no changes noted Irrigation debridement lumbar spine
[2025-03-11] MEDS ORDERED: SUGAMMADEX SODIUM 200 MG/2 ML VIAL IV ONE (08:40)
[2025-03-11] MEDS ORDERED: ALBUTEROL HFA 8 GM INHALER INH ONE (09:00)
[2025-03-11] MEDS: ceFAZolin 330 MG/ML 1 GM VIAL ONE (09:02)
[2025-03-11] MEDS: BUPIVACAINE/EPINEPHRINE 0.25% 1:200,000 30 ML VIAL ONE (09:02)
[2025-03-11] MEDS: GENTAMICIN SULFATE 40 MG/ML 2 ML VIAL ONE (09:02)
--- NOTE | 2025-03-11 09:05 | Operative Report ---
Post Operative Report Pre & Post Diagnosis Operation Date: 03/11/25 11:00 Pre-Op Diagnosis: Lumbar seroma Post-Op Diagnosis: Lumbar epidural abscess I identified the patient and participated in the time-out.: Yes Procedure Operation Date: 03/11/25 11:00 Actual Procedures #1 irrigation debridement lumbar spine. #2 placement of Stimulan beads impregna beatriz with vancomycin and gentamicin Surgeon Fidencio Christopher, Channel Marketing Program Manager Yovanny Godwin Estimated Blood Loss 50 Findings Consistent with Post-Op Diagnosis Specimens Cultures of the epidural space Indications This is an 79-year-old male well-known to ok status post revision decompression fusion. He presents with fevers and increased back pain. CAT scan demonstrates evidence of a new sacral fracture. Subsequent recommended urgent irrigation about the lumbar spine. Description of Procedure Patient was met with identified informed consent obtained. Patient was then taken to the operative suite underwent the patient placed in a prone position just table atop the Samir frame. All bony prominences well-padded eyes in spected to ensure no external precipice spinal. This point lumbar spine is prepped and draped in sterile fashion. Utilizing the previous incision site sharp dissection was performed down to and exposing the fascial layer. The fascia was released and evidence of significant cloudy fluid in the epidural space was noted. Combination of breakdown products of blood and evidence of purulence. Several liters of antibiotic solution were then irrigated throughout the incision. Debridement of any tissue that was compromised. I then placed 10 cc of Stimulan beads impregnated with gentamicin and vancomycin. 2 RESHMA drains were inserted. The incision was then closed with subcutaneous Vicryl and 4 Monocryl for final closure. Steri-Strips and sterile dressing placed. Patient waken taken to PACU stable condition. Please note Yovanny florentino was present at the entire procedure and on the patient positioning complex course of the surgery and final skin closure. I attest to the content of the Intraoperative Record and any orders documented therein. Any exceptions are noted below.
--- NOTE | 2025-03-11 10:03 | Pharmacy Report ---
Pharmacy PK ABX Note - Date of Service March 11, 2025 - Assessment and Plan Assessment 79 year old M receiving Vancomycin and Cefepime for treatment of epidural abscess. * Day #2 of antimicrobial therapy. * Fever improved. Updated labs pending for today. * OR back and blood cultures pending. Plan Vancomycin * Loading dose: 2250 mg IV x 1 * Maintenance dose: 750 mg IV every 12 hours * Regimen is predicted to achieve target AUC/MAIA of 400-600 mg/L.hr * Random level ordered for: 03/12/25 Pharmacy will continue to follow and will adjust dose/frequency as necessary. Thank you. Pharmacy has transitioned to AUC monitoring for vancomycin. AUC/MAIA is the p referred PK/PD target and is associated with decreased risk of nephrotoxicity compared to traditional trough targets.
[2025-03-11] MEDS: ALBUT/IPRATROP 3MG/0.5MG NEB 3 ML VIAL NEB STA ×2 (10:17→10:53)
--- NOTE | 2025-03-11 10:25 | Anesthesiology Progress Note ---
Date of Service March 11, 2025 Anesthesia Post Procedure Vital Signs Vital Signs: Temp Pulse Pulse Pulse Resp BP BP 03/11/25 10:14 80 20 03/11/25 10:05 80 18 127/80 03/11/25 09:55 84 24 131/73 03/11/25 09:45 82 20 126/80 03/11/25 09:35 36.4 C L 89 14 106/66 03/11/25 07:18 37.2 C 91 H 18 03/10/25 20:25 36.8 C 89 16 03/10/25 20:25 03/10/25 18:51 86 27 H 03/10/25 18:41 86 19 03/10/25 18:30 03/10/25 18:27 107/59 L 03/10/25 18:27 107/59 L 03/10/25 18:22 03/10/25 18:22 87 20 03/10/25 18:21 88 21 03/10/25 18:19 85/59 L 03/10/25 18:19 85/59 L 03/10/25 18:18 86 25 H 03/10/25 18:00 37.3 C 89 18 03/10/25 17:48 89 23 110/53 L 03/10/25 17:15 86 19 03/10/25 17:10 86 03/10/25 16:54 90 19 03/10/25 16:41 39.6 C H 92 H 20 97/53 L BP Pulse Ox Pulse Ox O2 Del Method O2 Del Method O2 Flow Rate 03/11/25 10:14 99 Oxymask 10 03/11/25 10:05 98 Oxymask 6 03/11/25 09:55 99 Oxymask 6 03/11/25 09:45 98 Oxymask 8 03/11/25 09:35 94 Oxymask 10 03/11/25 07:18 111/57 L 94 Room Air 03/10/25 20:25 104/63 96 Room Air 03/10/25 20:25 96 Room Air 03/10/25 18:51 94 03/10/25 18:41 119/69 96 Room Air 03/10/25 18:30 107/59 L 03/10/25 18:27 03/10/25 18:27 03/10/25 18:22 96 Room Air 03/10/25 18:22 85/59 L 96 Room Air 03/10/25 18:21 97 03/10/25 18:19 03/10/25 18:19 03/10/25 18:18 96 03/10/25 18:00 85 L 03/10/25 17:48 03/10/25 17:15 94 03/10/25 17:10 03/10/25 16:54 94 03/10/25 16:41 93 Room Air Pain Intensity Bilateral Lower Back: Pain Intensity: 7 Transfer of Care Handoff Completed per policy Notes Mental Status: alert / awake / arousable and participated in evaluation Patient Amnestic to Procedure: Yes Nausea / Vomiting: adequately controlled Pain: adequately controlled Airway Patency, RR, SpO2: stable & adequate BP & HR: stable & adequate Hydration State: stable & adequate Anesthetic Complications: no major complications apparent and Pt Satisfied with anesthetic care Notes: pt was wheezing post op so given duoneb
[2025-03-11] MEDS: VANCOMYCIN 750 MG in SODIUM CHLORIDE 0.9% 250 ML IV SCH (11:31)
[2025-03-11] MEDS: CEROVITE ADV FORMULA TAB PO SCH (11:32)
[2025-03-11] MEDS: MAGNESIUM OXIDE 400 MG TAB PO SCH (11:32)
[2025-03-11] MEDS: FLUTICASONE PROPIONATE NA SPR 16 GM BTL SCH (11:32)
[2025-03-11 12:13] LABS: Hematocrit (blood only) 24.7 % (42.0-52.0); Hemoglobin 8.8 g/dl (14.0-18.0); Immature Granulocytes # (auto) 0.08 K/uL (0.01-0.20); Immature Granulocytes % (auto) 0.8 %; Mean Corpuscular Hemoglobin 34.1 pg (25.0-34.0); Mean Corpuscular Volume 95.7 fL (80.0-100.0); Platelet Count 132 K/uL (130-400); RDW Standard Deviation 47.2 fL (36.4-46.3); Red Blood Count 2.58 M/uL (4.70-6.10); White Blood Count 10.63 K/ul (4.8-10.8)
[2025-03-11 12:24] LABS: Alanine Aminotransferase 16.0 U/L (7-52); Albumin Globulin Ratio 1.0 (0.9-2); Alkaline Phosphatase 49.0 U/L (34-104); Anion Gap 4.0 (3-11); Bilirubin,Total 0.5 mg/dl (0.2-1.0); Blood Urea Nitrogen 16.0 mg/dl (6-23); Calcium 7.9 mg/dl (8.6-10.3); Carbon Dioxide 24.0 mmol/L (21-32); Chloride 105.0 mmol/L (98-107); Creatinine Clr Calc Pharmacy 76.8 ml/min; Globulin 2.5 gm/dl (2.5-4.0); Glucose 135.0 mg/dl (70-99(Fasting)); Magnesium 1.9 mg/dl (1.7-2.4); Potassium 4.0 mmol/L (3.5-5.1); Sodium 133.0 mmol/L (136-145); Total Protein 5.1 gm/dl (6.0-8.3)
--- NOTE | 2025-03-11 15:14 | Hospitalist Progress Note ---
Date of Service March 11, 2025 Assessment & Plan (1) Sepsis: Plan 79M s/p L3-S1 decompression and fusion on 03/01/[address] Christopher who presents with fever and a fall yesterday #Sepsis possible infected fluid collection L2-L5 Status post L3-S1 decompression fusion 03/01/2025 -Qualifies as sepsis with hypotension, fever, AMS -qSOFA 2, making sepsis likely -Source likely abscess at laminectomy bed of L2-L5 -No other nidus of infection identified with ROS, labs or imaging 03/11 Afebrile, no leukocytosis status post irrigation debridement lumbar spine, placement of stimulant beads with vancomycin and gentamicin today by Dr. Christopher - Stable overall postoperatively Blood pressure on the lower side, continue IV fluids - drainage culture: Pending continue with empiric vancomycin plus cefepime Plan -Continue empiric abx with vanc/cefepime -Hold home atenolol -For OR tomorrow -F/u on blood and OR cultures -May need to involve ID pending results #Anemia -Post op course c/b acute blood loss anemia last admission -Hgb 9.8 today, was 11.2 -No s/s acute blood loss at this time -Recheck Hgb in AM 03/11 Hemoglobin 9.8, currently 8.8 Repeat hemoglobin at 1800 #HTN - resume atenolol but decrease dose to 12.5 mg p.o. daily Continue IV fluids #CAD -Hold ASA Until hemostasis stable per orthopedic service #HLD -Statin #Depression -Continue SSRI plan of care discussed with patient and his son, in detail and at length all questions answered they are understanding, agreeable, comfortable with the plan of care Admission and Anticipated Discharge Date Admission Date: March 10, 2025 Subjective seen resting in bed, sitting up, patient's son and grandson at the bedside visiting Awake and alert, oriented x 3, not in distress States he feels fine overall Minimal discomfort over the surgical site No chest pain, shortness of breath, palpitations, dizziness denies cough, abdominal pain, problems with urination No other new symptoms Review of Systems Review of Systems: all noted and negative except for above Physical Exam Physical Exam: General- oriented x 3, not in distress, speaks in sentences with no effort or accessory muscle use Eyes- anicteric Neck- no JVD Lungs- clear breath sounds bilaterally, no rales/wheezes Heart- normal rate, regular rhythm; no murmurs Abdomen- normal bowel sounds, nondistended, soft, nontender Extremities- no pretibial edema, no calf tenderness Neuro- alert, oriented x 3; no gross focal neurologic deficits Skin- warm & dry Results & Data Results & Data Vital Signs (Past 12 Hours) Vital Signs Temp Pulse Pulse Pulse Resp BP BP 03/11/25 13:45 36.3 C L 76 18 113/66 03/11/25 11:39 37.4 C 72 18 102/68 03/11/25 11:24 36.3 C L 75 18 98/63 L 03/11/25 10:40 36.6 C 83 18 100/64 03/11/25 10:25 75 16 115/65 03/11/25 10:15 37.1 C 81 20 101/60 03/11/25 10:14 80 20 03/11/25 10:05 80 18 127/80 03/11/25 09:55 84 24 131/73 03/11/25 09:45 82 20 126/80 03/11/25 09:35 36.4 C L 89 14 106/66 03/11/25 07:18 37.2 C 91 H 18 111/57 L Pulse Ox O2 Del Method O2 Flow Rate 03/11/25 13:45 97 Nasal Cannula 3 03/11/25 11:39 97 Nasal Cannula 03/11/25 11:24 97 Nasal Cannula 3 03/11/25 10:40 97 Nasal Cannula 3 03/11/25 10:25 96 Nasal Cannula 3 03/11/25 10:15 98 Nasal Cannula 3 03/11/25 10:14 99 Oxymask 10 03/11/25 10:05 98 Oxymask 6 03/11/25 09:55 99 Oxymask 6 03/11/25 09:45 98 Oxymask 8 03/11/25 09:35 94 Oxymask 10 03/11/25 07:18 94 Room Air all noted and reviewed including below
[2025-03-11] MEDS: SODIUM CHLORIDE 0.9% 1,000 ML IV SCH (16:17)
[2025-03-11] MEDS: ADVANCED PROBIOTIC 625 MG CAPSULE PO SCH (16:59)
[2025-03-11] MEDS ORDERED: MAGNESIUM HYDROXIDE SUSP 30 ML UDC PO PRN (18:57)
[2025-03-11 19:34] LABS: Hematocrit (blood only) 26.0 % (42.0-52.0); Hemoglobin 9.0 g/dl (14.0-18.0)
[2025-03-12] MEDS: ACETAMINOPHEN 500 MG TAB PO PRN (02:23)
[2025-03-12 05:10] LABS: Hematocrit (blood only) 25.4 % (42.0-52.0); Hemoglobin 8.6 g/dl (14.0-18.0); Immature Granulocytes # (auto) 0.08 K/uL (0.01-0.20); Immature Granulocytes % (auto) 0.9 %; Mean Corpuscular Hemoglobin 32.2 pg (25.0-34.0); Mean Corpuscular Volume 95.1 fL (80.0-100.0); Platelet Count 136 K/uL (130-400); RDW Standard Deviation 46.7 fL (36.4-46.3); Red Blood Count 2.67 M/uL (4.70-6.10); White Blood Count 8.47 K/ul (4.8-10.8)
[2025-03-12 05:24] LABS: Alanine Aminotransferase 17.0 U/L (7-52); Albumin Globulin Ratio 1.2 (0.9-2); Alkaline Phosphatase 52.0 U/L (34-104); Anion Gap 4.0 (3-11); Bilirubin,Total 0.4 mg/dl (0.2-1.0); Blood Urea Nitrogen 14.0 mg/dl (6-23); Calcium 7.8 mg/dl (8.6-10.3); Carbon Dioxide 23.0 mmol/L (21-32); Chloride 107.0 mmol/L (98-107); Creatinine Clr Calc Pharmacy 79.6 ml/min; Globulin 2.2 gm/dl (2.5-4.0); Glucose 118.0 mg/dl (70-99(Fasting)); Magnesium 1.9 mg/dl (1.7-2.4); Potassium 3.9 mmol/L (3.5-5.1); Sodium 134.0 mmol/L (136-145); Total Protein 4.8 gm/dl (6.0-8.3)
--- NOTE | 2025-03-12 08:36 | Orthopedic Progress Note ---
Date of Service March 12, 2025 Assessment & Plan (1) Fracture of lumbar spine: Plan: Patient is stable postop day #1 status post I&D of the seroma but she may have been infected. Continue to await for culture results. Continue empiric antibiotics at this time as well. Will continue with GI DVT prophylaxis and pain control measures. He does realize there may be a second procedure for either another washout and/or adjustment of the hardware. Admission and Anticipated Discharge Date Admission Date: March 10, 2025 Subjective Patient was seen bedside in room 384. His son was with him this morning. He states he is doing pretty well. His pain is well-controlled. He is not having any pain going down the legs. He is tolerating p.o. He denies any other numbness, tingling, or paresthesias. Physical Exam Physical Exam: On exam he moves his extremities to gravity. His abdomen soft nontender his calves are supple and nontender. Both RESHMA drains are in place and holding suction. RESHMA drain 1 is placed out 30 cc on the last recording and 30 on the previous. RESHMA tube was placed out 70 cc on last recording and 60 on the previous. His dressing is clean dry and intact. Results & Data Vital Signs (Past 12 Hours) Vital Signs Temp Pulse Resp BP Pulse Ox O2 Del Method 03/12/25 07:44 36.6 C 104 H 18 103/64 96 Room Air 03/12/25 06:04 108/69 03/12/25 04:10 36.8 C 78 18 96/58 L 94 Room Air 03/11/25 22:42 37.1 C 82 18 105/62 96 Room Air 03/11/25 21:02 Room Air (1) Fracture of lumbar spine Encounter type: initial encounter Fracture morphology: unspecified fracture morphology Fracture type: closed Lumbar vertebra fracture level: unspecified lumbar vertebra Qualified Code(s): S32.009A - Unspecified fracture of unspecified lumbar vertebra, initial encounter for closed fracture
[2025-03-12] MEDS: ATENOLOL 25 MG TABLET PO SCH (09:07)
[2025-03-12] MEDS: POLYETHYLENE (MIRALAX) 17 GM PACK PO SCH (09:22)
--- NOTE | 2025-03-12 10:20 | Pharmacy Report ---
Pharmacy PK ABX Note - Date of Service March 12, 2025 - Assessment and Plan Assessment 03/12: * Day #3 of Vancomycin and Cefepime for treatment of lumbar spine abscess. * Vanc level is low today so will increase dose. * Afebrile x 24 hours. No leukocytosis. SCr improving toward baseline. * Lower back OR cultures are growing Strep dysgalactiae, sensitivities pending. ID consulted. 03/11: 79 year old M receiving Vancomycin and Cefepime for treatment of epidural abscess. * Day #2 of antimicrobial therapy. * Fever improved. Updated labs pending for today. * OR back and blood cultures pending. Plan Vancomycin * Current regimen: 750 mg IV every 12 hours * Random level obtained 03/12/25 resulted as 10.2 mcg/mL. This is subtherapeutic. * Change to 1000 mg IV every 12 hours. Predicted AUC at steady state: 473 mg/L.hr * Will repeat level in the next 48-72 hours if therapy is continued and/or change in patient clinical status Pharmacy will continue to follow and will adjust dose/frequency as necessary. Thank you. Pharmacy has transitioned to AUC monitoring for vancomycin. AUC/MAIA is the preferred PK/PD target and is associated with decreased risk of nephrotoxicity compared to traditional trough targets.
--- NOTE | 2025-03-12 12:22 | XRay Report ---
SINGLE VIEW CHEST CLINICAL HISTORY: Wheezing. Cough FINDINGS: An AP, portable, upright chest radiograph is compared to study dated 03/10/2025. The heart i s enlarged. There is pulmonary vascular congestion. Mild scarring/atelectasis is noted at the lung ba ses. Airspace opacities are noted at the left lung base. No large pleural effusion or pneumothorax is seen. The skeletal structures are osteopenic. The bony thorax is grossly intact. Fusion hardware is seen in the lower cervical spine. There is also fusion hardware at the thoracolumbar junction. IMPRESSION: 1. Cardiomegaly with pulmonary vascular congestion. Radiographic follow-up to resolution is recommend ed. 2. Mild left basilar opacities likely represent atelectasis. Correlate clinically. ACT 112: Negative or not required by law. Electronically signed by: Sriram Jones M.D. 03/12/2025 12:20 PM
[2025-03-12] MEDS: 4.5GM X1 IV STA (12:49)
[2025-03-12] MEDS: ACETAMINOPHEN 500 MG TAB PO SCH (13:01)
--- NOTE | 2025-03-12 17:23 | Hospitalist Progress Note ---
Date of Service March 12, 2025 Assessment & Plan (1) Sepsis: Plan 79M s/p L3-S1 decompression and fusion on 03/01/[address] Christopher who presents with fever and a fall yesterday #Sepsis possible infected fluid collection L2-L5 Status post L3-S1 decompression fusion 03/01/2025 -Qualifies as sepsis with hypotension, fever, AMS -qSOFA 2, making sepsis likely -Source likely abscess at laminectomy bed of L2-L5 -No other nidus of infection identified with ROS, labs or imaging 03/11 Afebrile, no leukocytosis status post irrigation debridement lumbar spine, placement of stimulant beads with vancomycin and gentamicin today by Dr. Christopher - Stable overall postoperatively Blood pressure on the lower side, continue IV fluids - drainage culture: Pending continue with empiric vancomycin plus cefepime 03/12 patient reporting cough today Chest x-ray showing possible pulmonary vascular congestion, no signs of pneumonia Currently on room air, no signs of distress, blood pressure on the lower side Will hold off on Lasix for now and reevaluate DC IV fluids Check echocardiogram Patient seems to be having confusion today Add Tylenol 1 g every 8 hours in hopes of reducing narcotic requirements For pain control Change cefepime to Zosyn continue delirium prevention strategies Plan -Continue empiric abx with vanc/cefepime ID consulted = #Anemia -Post op course c/b acute blood loss anemia last admission -Hgb 9.8 today, was 11.2 -No s/s acute blood loss at this time Hg 8.6 monitor closely #HTN - resume atenolol but decrease dose to 12.5 mg p.o. daily Continue IV fluids #CAD - Hold ASA until hemostasis stable per orthopedic service #HLD - Statin #Depression -Continue SSRI plan of care discussed with patient and his son, in detail and at length all questions answered they are understanding, agreeable, comfortable with the plan of care Admission and Anticipated Discharge Date Admission Date: March 10, 2025 Subjective seen resting in bed, comfortable, not in distress On room air, patient's at the bedside visiting Oriented x 2, occasionally confused Reports cough, nonproductive today No shortness of breath, fevers or chills Denies significant back pain, leg weakness or numbness No other new symptoms Review of Systems Review of Systems: all noted and negative except for above Physical Exam Physical Exam: General- oriented x 2, mild confusion, not in distress, speaks in sentences with no effort or accessory muscle use Eyes- anicteric Neck- no JVD Lungs- clear breath sounds bilaterally, no crackles or wheezing Heart- normal rate, regular rhythm; no murmurs Abdomen- normal bowel sounds, nondistended, soft, nontender Extremities- no pretibial edema, no calf tenderness Neuro- alert, oriented x 3; no gross focal neurologic deficits Skin- warm & dry Results & Data Results & Data Vital Signs (Past 12 Hours) Vital Signs Temp Pulse Resp BP Pulse Ox O2 Del Method 03/12/25 15:26 37.5 C 99 H 18 98/61 L 94 Room Air 03/12/25 14:57 Room Air 03/12/25 07:44 36.6 C 104 H 18 103/64 96 Room Air 03/12/25 06:04 108/69
[2025-03-12] MEDS: PIPERACILLIN/TAZOBACTAM 4.5 GM/100 ML BAG IV SCH (18:01)
[2025-03-12] MEDS: VANCOMYCIN HCL 1,000 MG in SODIUM CHLORIDE 0.9% 250 ML IV SCH (22:22)
[2025-03-13 06:58] LABS: Hematocrit (blood only) 26.5 % (42.0-52.0); Hemoglobin 9.3 g/dl (14.0-18.0); Immature Granulocytes # (auto) 0.07 K/uL (0.01-0.20); Immature Granulocytes % (auto) 1.0 %; Mean Corpuscular Hemoglobin 33.1 pg (25.0-34.0); Mean Corpuscular Volume 94.3 fL (80.0-100.0); Platelet Count 172 K/uL (130-400); RDW Standard Deviation 45.6 fL (36.4-46.3); Red Blood Count 2.81 M/uL (4.70-6.10); White Blood Count 6.89 K/ul (4.8-10.8)
[2025-03-13 07:32] LABS: Alanine Aminotransferase 27.0 U/L (7-52); Albumin Globulin Ratio 1.0 (0.9-2); Alkaline Phosphatase 68.0 U/L (34-104); Anion Gap 3.0 (3-11); Bilirubin,Total 0.5 mg/dl (0.2-1.0); Blood Urea Nitrogen 11.0 mg/dl (6-23); Calcium 8.3 mg/dl (8.6-10.3); Carbon Dioxide 29.0 mmol/L (21-32); Chloride 107.0 mmol/L (98-107); Creatinine Clr Calc Pharmacy 79.6 ml/min; Globulin 2.4 gm/dl (2.5-4.0); Glucose 131.0 mg/dl (70-99(Fasting)); Magnesium 1.9 mg/dl (1.7-2.4); Potassium 3.7 mmol/L (3.5-5.1); Sodium 139.0 mmol/L (136-145); Total Protein 4.9 gm/dl (6.0-8.3)
--- NOTE | 2025-03-13 11:24 | Orthopedic Progress Note ---
Date of Service March 13, 2025 Assessment & Plan (1) Sepsis: Plan: Assessment status post evacuation of lumbar epidural abscess. Plan at this time we will initiate physical therapy tomorrow see how he tolerates ambulation and weightbearing. Maintain the RESHMA drains. Await guidance from infectious disease. At this point we may consider repeat I&D if necessary. Admission and Anticipated Discharge Date Admission Date: March 10, 2025 Subjective Patient is in the chair at the bedside. He is comfortable. Denies any significant back or leg pain. He has required Tylenol and 1 oxycodone for pain control. He tolerated transfers from bed to chair. Physical Exam Physical Exam: On exam he does appear comfortable. Discussed active testing. RESHMA drain is functioning. Results & Data Vital Signs (Past 12 Hours) Vital Signs Temp Pulse Resp BP Pulse Ox O2 Del Method 03/13/25 07:40 36.6 C 97 H 18 122/80 95 Room Air 03/13/25 06:05 88 95 Room Air (1) Sepsis Sepsis acute organ dysfunction status: without acute organ dysfunction Sepsis type: sepsis due to unspecified organism Qualified Code(s): A41.9 - Sepsis, unspecified organism
--- NOTE | 2025-03-13 17:14 | Infectious Disease Consult ---
Date of Service March 13, 2025 Telehealth Information I performed this visit using a real-time telehealth connection between my location and the patients location ([facility]). After connecting through interactive tele-video, patient was identified by name and date of and/or wristband check.Patient (or authorized healthcare traveling representative) was informed that this was a telemedicine visit and it was being conducted confidentially over secure lines. My office door was closed and no o ne else was present in the room with me.Patient (or authorized healthcare traveling representative) provided consent to proceed with the visit, expressed an understanding of privacy and security of the telemedicine visit, and gave permission to have a hospital traveling representative in the room in order to assist with the visit and to conduct portions of the visit, as needed. I informed the patient (or authorized healthcare traveling representative) that I reviewed their record and presented the opportunity for them to ask any questions regarding the visit today. The patient agreed to participate. Assessment & Plan (1) History of lumbar surgery: Plan: Once the patient's cultures finalize, we should be able to de-escalate to either IV penicillin or ceftriaxone (depending on the patient's ultimate disposition and whether he is able to get multiple daily doses of ABX) provided that no other organisms grow from cultures. After a 6-8 week course of IV ABX, he will need termite control service representative (indefinite) PO suppression. Will follow up final OR plans with Ortho Spine. History of Present Illness History of Present Illness The patient was admitted fever (in the context of a recent spinal fusion). The patient was seen by [facility] and they took the patient for I&D (03/11). OR cultures grew Strep dysgalactiae. The patient reports now other new symptoms.. Allergies Allergy/AdvReac Type Severity Reaction Status Date / Time No Known Allergies Allergy Verified 03/10/25 20:17 Home Medications Medication Instructions Recorded Confirmed Type ascorbic acid (vitamin C) 500 mg 500 mg PO QAM 07/07/19 03/10/25 History tablet (Vitamin C) aspirin 81 mg tablet,delayed 81 mg PO QPM 07/07/19 03/10/25 History release (Gen Low Dose Aspirin) atenolol 25 mg tablet 25 mg PO QAM 07/07/19 03/10/25 History citalopram 20 mg tablet 20 mg PO QPM 07/07/19 03/10/25 History magnesium 250 mg tablet 250 mg PO BID 07/07/19 03/10/25 History omega 6-cjd-izv-fish oil 1,000 mg 1 cap PO QPM 07/07/19 03/10/25 History (120 mg-180 mg) capsule (Fish Oil) omeprazole 20 mg tablet,delayed 20 mg PO QAM 07/07/19 03/10/25 History release simvastatin 20 mg tablet 20 mg PO QPM 07/07/19 03/10/25 History vitamin B complex 1 tab PO WK 07/07/19 03/10/25 History acetaminophen 500 mg tablet 1,000 mg PO TID PRN Pain 01/30/25 03/10/25 History calcium 600 mg (as 1 tab PO BID 01/30/25 03/10/25 History carbonate)-vitamin D3 5 mcg (200 unit) tablet cholecalciferol (vitamin D3) 25 25 mcg PO QAM 01/30/25 03/10/25 History mcg (1,000 unit) tablet (Vitamin D3) fluticasone propionate 50 1 spray intranasal QAM 01/30/25 03/10/25 History mcg/actuation nasal spray,suspension ibandronate 150 mg tablet 150 mg PO MONTHLY 01/30/25 03/10/25 History lutein 20 mg tablet 20 mg PO QAM 01/30/25 03/10/25 History meloxicam 15 mg tablet 15 mg PO QAM 01/30/25 03/10/25 History cetirizine 10 mg tablet 10 mg PO DAILY PRN allergies 03/02/25 03/10/25 History oxycodone 5 mg tablet 5 mg PO Q6H PRN pain #30 tabs 03/02/25 03/10/25 Rx tramadol 50 mg tablet 50 mg PO Q6H PRN pain, moderate 03/02/25 03/10/25 Rx #30 tabs Patient History Medical History Hyperlipidemia GERD (gastroesophageal reflux disease) Cervical stenosis of spinal canal Prostate cancer History of prostate cancer 2004, S/P PROSTATECTOMY CAD (coronary artery disease) [place] 1995 Encounter for pre-operative examination Spinal stenosis, lumbar region with neurogenic claudication HTN (hypertension) Per PCP records [place] (hard of hearing) Bilateral hearing aids Osteoporosis History of prostate cancer (2004) s/p prostatectomy- no chemo or XRT Hyperlipidemia Spinal stenosis CAD (coronary artery disease) s/p angioplasty 1995 GERD (gastroesophageal reflux disease) well controlled and stable Depression Anxiety Hx of Guillain-[place] syndrome 2014, 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 Hx of myocardial infarction 1995 at [facility], angioplasty, no stents - no longer follows with Cardiology. *started on Atenolol after [place] - denies having hypertension* Sleep apnea no longer uses cpap ( reports patient does not snore anymore, has a bed that raises the head of bed and does well now) Surgical History History of appendectomy History of cardiac cath 1995 at [facility], angioplasty, no stents - no longer follows with Cardiology. History of lumbar surgery 1985 [facility] Lumbar surgery 2001 in [place] (unsure of levels) 2003 in [place] (unsure of levels) 07/27/[address] Christopher T11-L2, L4-S1 Decompression, T11-S1 Fusion with peek cage at L1-L2 at [facility] Hx of prostatectomy (2004) s/p prostate cancer History of colonoscopy Hx of left cataract extraction Hx of right cataract extraction Hx of cervical spine surgery ~2015 Dr. Christopher at [facility] -- ACDF (unsure of levels) reports having full ROM Family History Brother Family history of diabetes mellitus Sister Family history of diabetes mellitus Sister Family history of diabetes mellitus Mother Family history of diabetes mellitus Other No family history of adverse response to anesthesia Social History Smoking Status: Former smoker Tobacco Type: Smokeless Tobacco (Dip or Chew) Second Hand Exposure: No; Do You Dip or Chew Tobacco: Yes (1 can/2 days.); Tobacco Cessation Education Requested by Patient: No Hx Alcohol Use: No Hx Substance Use: No Preferred Language: Haitian Communication Ability: Effective Locomotive Mechanic Required: No Beliefs That Will Affect Care: None marital status: Current Living Situation: Spouse Other Information That Helps Us Care for You: No Feels Safe at Home: Yes Safety Concerns: Feels Safe At This Time Assistive Devices: Cane, Raised Toilet Seat and Walker Review of Systems As reviewed in HPI; a complete ROS was otherwise negative Physical Exam Vitals: see EMR Exam limited due to constraints of telemedicine Gen/Constitutional: appears at stated age, NAD, nontoxic Head: AT, NC Eyes: sclera anicteric, no conjunctival injection ENT: MMM, trachea midline Card: appears to be well-perfused Resp: not tachypneic, nml effort, symmetric chest rise, no accessory muscle use Derm: no visible diaphoresis, no visible rash, no visible jaundice Results & Data Vital Signs (Past 12 Hours) Vital Signs Temp Pulse Resp BP Pulse Ox O2 Del Method 03/13/25 14:18 36.6 C 86 18 117/67 94 Room Air 03/13/25 08:30 Room Air 03/13/25 07:40 36.6 C 97 H 18 122/80 95 Room Air 03/13/25 06:05 88 95 Room Air Laboratory Results SEE EMR Diagnostic Findings [facility] [address] [facility], [place] [address] / Director: Yasmin Olivares M.D. Clinical Laboratory Report Name: HARSH LUU Acct: [id number] Status: ADM IN : 1945 [facility] Date: 03/10/25 Age: 79 Sex: M Dis Date: Loc: Medical/Surgical/Ortho 3 [place] Rm/Bed: N382-2 Spec: [id number] Collected: 03/11/25 Received: 03/11/[address]: Fidencio [email or web address] Source: Back,Lower OV Order: Ordered: Aer/Candy Cult/Sm Comments: Comment lumbar epidural space Procedure Result Verified Site Gram Stain Final 03/11/25-1405 Gram Stain Result Many WBCs Seen Few Gram Positive Cocci Aero/Candy Cult Preliminary 03/13/25-0653 Organism 1 Streptococcus dysgalactiae Quantity Moderate Sens Sensitivities to Follow This isolate is presumed to be resistant to Clindamycin based on detection of ICR, as determined by testing clindamycin in combination with erythromycin S dysgal RX M.I.C. --- --------- Ampicillin S <=0.06 Cefepime S <=0.25 Cefotaxime S <=0.25 Ceftriaxone S <=0.25 Chloramphenicol S 4 Clindamycin R <=0.06 Erythromycin R >0.5 Levofloxacin S <=0.25 Penicillin S <=0.03 Tetracycline S <=0.5 Vancomycin S 0.5 S = SENSITIVE I = INTERMEDIATE R = RESISTANT Name: HARSH LUU : 1945 PAGE 1 Printed: 03/13/25 1519 END OF REPORT
--- NOTE | 2025-03-13 18:55 | Hospitalist Progress Note ---
Date of Service March 13, 2025 Assessment & Plan (1) Sepsis: Plan 79M s/p L3-S1 decompression and fusion on 03/01/[address] Christopher who presents with fever and a fall yesterday #Sepsis possible infected fluid collection L2-L5 Status post L3-S1 decompression fusion 03/01/2025 -Qualifies as sepsis with hypotension, fever, AMS -qSOFA 2, making sepsis likely -Source likely abscess at laminectomy bed of L2-L5 -No other nidus of infection identified with ROS, labs or imaging 03/11 Afebrile, no leukocytosis status post irrigation debridement lumbar spine, placement of stimulant beads with vancomycin and gentamicin today by Dr. Christopher - Stable overall postoperatively Blood pressure on the lower side, continue IV fluids - drainage culture: Pending continue with empiric vancomycin plus cefepime 03/12 patient reporting cough today Chest x-ray showing possible pulmonary vascular congestion, no signs of pneumonia Currently on room air, no signs of distress, blood pressure on the lower side Will hold off on Lasix for now and reevaluate DC IV fluids Check echocardiogram Patient seems to be having confusion today Add Tylenol 1 g every 8 hours in hopes of reducing narcotic requirements For pain control Change cefepime to Zosyn continue delirium prevention strategies 03/13 Confusion resolving Avoid narcotics Drainage culture showing strep dysgalactiae DC vancomycin, continue Zosyn ID consulted appears to be euvolemic today #Anemia -Post op course c/b acute blood loss anemia last admission -Hgb 9.8 today, was 11.2 -No s/s acute blood loss at this time Hg 8.6--> 9.3 anemia panel tomorrow #HTN - resume atenolol but decrease dose to 12.5 mg p.o. daily Continue IV fluids #CAD - Hold ASA until hemostasis stable per orthopedic service #HLD - Statin #Depression -Continue SSRI plan of care discussed with patient and family, in detail and at length all questions answered they are understanding, agreeable, comfortable with the plan of care Admission and Anticipated Discharge Date Admission Date: March 10, 2025 Subjective seen resting in bed side chair, sleeping but easily awakened Patient is more alert, awake, oriented x 2 to 3-week, answering more questions appropriatelyAnd more quickly States he feels okay overall Minimal back discomfort Dry cough is less, no shortness of breath, chest pain, palpitations, dizziness No other new symptom patient's and son at the bedside, agree that patient is significantly less confused today Review of Systems Review of Systems: all noted and negative except for above Physical Exam Physical Exam: General- oriented x 2-3, not in distress, speaks in sentences with no effort or accessory muscle use Eyes- anicteric Neck- no JVD Lungs- clear breath sounds bilaterally, no rales/wheezes Heart- normal rate, regular rhythm; no murmurs Abdomen- normal bowel sounds, nondistended, soft, nontender Extremities- no pretibial edema, no calf tenderness Neuro- alert, oriented x 2-3; no gross focal neurologic deficits Skin- warm & dry Results & Data Results & Data Vital Signs (Past 12 Hours) Vital Signs Temp Pulse Resp BP Pulse Ox O2 Del Method 03/13/25 14:18 36.6 C 86 18 117/67 94 Room Air 03/13/25 08:30 Room Air 03/13/25 07:40 36.6 C 97 H 18 122/80 95 Room Air all noted and reviewed including below
[2025-03-14 08:09] LABS: Hematocrit (blood only) 30.5 % (42.0-52.0); Hemoglobin 10.4 g/dl (14.0-18.0); Immature Granulocytes # (auto) 0.12 K/uL (0.01-0.20); Immature Granulocytes % (auto) 1.3 %; Mean Corpuscular Hemoglobin 32.3 pg (25.0-34.0); Mean Corpuscular Volume 94.7 fL (80.0-100.0); Platelet Count 218 K/uL (130-400); RDW Standard Deviation 47.2 fL (36.4-46.3); Red Blood Count 3.22 M/uL (4.70-6.10); White Blood Count 9.11 K/ul (4.8-10.8)
[2025-03-14 08:26] LABS: Alanine Aminotransferase 25.0 U/L (7-52); Albumin Globulin Ratio 1.0 (0.9-2); Alkaline Phosphatase 80.0 U/L (34-104); Anion Gap 5.0 (3-11); Bilirubin,Total 0.6 mg/dl (0.2-1.0); Blood Urea Nitrogen 9.0 mg/dl (6-23); Calcium 8.8 mg/dl (8.6-10.3); Carbon Dioxide 32.0 mmol/L (21-32); Chloride 102.0 mmol/L (98-107); Creatinine Clr Calc Pharmacy 84.7 ml/min; Globulin 2.8 gm/dl (2.5-4.0); Glucose 126.0 mg/dl (70-99(Fasting)); Iron 17.0 mcg/dl (35-175); Magnesium 1.9 mg/dl (1.7-2.4); Potassium 3.6 mmol/L (3.5-5.1); Sodium 139.0 mmol/L (136-145); Total Protein 5.6 gm/dl (6.0-8.3); Transferrin 142.0 mg/dl (200-360)
[2025-03-14 08:45] LABS: Ferritin 237.1 ng/ml (8-388)
[2025-03-14 08:54] LABS: Folate (Folic Acid),Ser orPlas 18.1 ng/ml (>5.38)
[2025-03-14 08:55] LABS: Vitamin B12 736.0 pg/ml (180-914)
--- NOTE | 2025-03-14 12:41 | Orthopedic Progress Note ---
Date of Service March 14, 2025 Assessment & Plan (1) Multilevel lumbosacral spondylosis with radiculopathy: Plan: At this time we will initiate physical therapy. Will assess his function and ability to ambulate. Still possibility of repeat I&D. Admission and Anticipated Discharge Date Admission Date: March 10, 2025 Subjective Back pain controlled leg pain improved. He tolerated bed to chair yesterday. Physical Exam Physical Exam: Patient is currently in bed. He is comfortable. Good strength testing. Results & Data Vital Signs (Past 12 Hours) Vital Signs Temp Pulse Resp BP Pulse Ox O2 Del Method 03/14/25 08:30 Room Air 03/14/25 07:09 36.8 C 107 H 20 115/74 95 Room Air
[2025-03-14] MEDS: IPRATROPIUM BROMIDE NEB SOLN 0.02% 0.5MG/2.5ML VIAL NEB PRN (13:20)
[2025-03-14] MEDS: LEVALBUTEROL 1.25 MG/3 ML NEB NEB PRN (13:20)
--- NOTE | 2025-03-14 18:22 | Hospitalist Progress Note ---
Date of Service March 14, 2025 Assessment & Plan (1) Sepsis: Plan 79M s/p L3-S1 decompression and fusion on 03/01/[address] Christopher who presents with fever and a fall yesterday #Sepsis possible infected fluid collection L2-L5 Status post L3-S1 decompression fusion 03/01/2025 -Qualifies as sepsis with hypotension, fever, AMS -qSOFA 2, making sepsis likely -Source likely abscess at laminectomy bed of L2-L5 -No other nidus of infection identified with ROS, labs or imaging 03/11 status post irrigation debridement lumbar spine, placement of stimulant beads with vancomycin and gentamicin today by Dr. Christopher - Stable overall postoperatively 03/12 patient reporting cough today Chest x-ray showing possible pulmonary vascular congestion, no signs of pneumonia Currently on room air, no signs of distress, blood pressure on the lower side Will hold off on Lasix for now and reevaluate DC IV fluids Check echocardiogram: EF 55 to 60%, mild concentric LVH, no regional wall motion abnormalities, poorly visualized valvular anatomy without significant stenosis or regurgitation Patient seems to be having confusion today Add Tylenol 1 g every 8 hours in hopes of reducing narcotic requirements For pain control Change cefepime to Zosyn continue delirium prevention strategies 03/14 Confusion resolved Avoid narcotics Drainage culture showing strep dysgalactiae DC vancomycin, continue Zosyn ID consulted- as per Dr. Martinez, await final blood cultures, if nothing else is growing aside from Streptococcus, transition patient to ceftriaxone 2 g IV daily for 8 weeks then patient will need oral antibiotics for suppression indefinitely PICC line ordered placed #Anemia -Post op course c/b acute blood loss anemia last admission -Hgb 9.8 today, was 11.2 -No s/s acute blood loss at this time Hg 8.6--> 9.3 - iron level 17 IV iron ordered, after which please order p.o. iron supplement #HTN - resume atenolol but decrease dose to 12.5 mg p.o. daily Continue IV fluids #CAD - Hold ASA until hemostasis stable per orthopedic service--> please discuss with Dr. Christopher #HLD - Statin #Depression -Continue SSRI plan of care discussed with patient and family, in detail and at length all questions answered they are understanding, agreeable, comfortable with the plan of care Admission and Anticipated Discharge Date Admission Date: March 10, 2025 Subjective seen resting in bed, comfortable states he feels fine overall oriented X 3, answering questions appropriately back pain well-controlled No shortness of breath, cough, chest pain No other new symptoms Review of Systems Review of Systems: all noted and negative except for above Physical Exam Physical Exam: General- oriented x 3, not in distress, speaks in sentences with no effort or accessory muscle use Eyes- anicteric Neck- no JVD Lungs- clear breath sounds bilaterally, no rales/wheezes Heart- normal rate, regular rhythm; no murmurs Abdomen- normal bowel sounds, nondistended, soft, nontender Extremities- no pretibial edema, no calf tenderness Neuro- alert, oriented x 3; no gross focal neurologic deficits Skin- warm & dry Results & Data Results & Data Vital Signs (Past 12 Hours) Vital Signs Temp Pulse Resp BP Pulse Ox O2 Del Method 03/14/25 15:10 36.7 C 79 18 108/67 95 Room Air 03/14/25 13:22 66 18 97 Room Air 03/14/25 08:30 Room Air 03/14/25 07:09 36.8 C 107 H 20 115/74 95 Room Air all noted and reviewed including below
[2025-03-14] MEDS: IRON SUCROSE 300 MG in SODIUM CHLORIDE 0.9% 250 ML IV ONE (22:33)
--- NOTE | 2025-03-15 08:51 | Hospitalist Progress Note ---
Date of Service March 15, 2025 Assessment & Plan (1) Sepsis: Plan 79 M s/p L3-S1 decompression and fusion on 03/01/[address] Christopher who presents with fever and a fall #Sepsis possible infected fluid collection L2-L5 Status post L3-S1 decompression fusion 03/01/2025 -Qualifies as sepsis with hypotension, fever, AMS -qSOFA 2, making sepsis likely -Source likely abscess at laminectomy bed of L2-L5 -No other nidus of infection identified with ROS, labs or imaging 03/11 status post irrigation debridement lumbar spine, placement of stimulant beads with vancomycin and gentamicin today by Dr. Christopher - Stable overall postoperatively 03/12 patient reporting cough today Chest x-ray showing possible pulmonary vascular congestion, no signs of pneumonia Currently on room air, no signs of distress, blood pressure on the lower side Will hold off on Lasix for now and reevaluate DC IV fluids Check echocardiogram: EF 55 to 60%, mild concentric LVH, no regional wall motion abnormalities, poorly visualized valvular anatomy without significant stenosis or regurgitation Patient seems to be having confusion today Add Tylenol 1 g every 8 hours in hopes of reducing narcotic requirements For pain control Change cefepime to Zosyn continue delirium prevention strategies 03/14 Confusion resolved Avoid narcotics Drainage culture showing strep dysgalactiae DC vancomycin, continue Zosyn ID consulted- as per Dr. Martinez, await final blood cultures, if nothing else is growing aside from Streptococcus, transition patient to ceftriaxone 2 g IV daily for 8 weeks then patient will need oral antibiotics for suppression indefinitely PICC line ordered placed 03/15 Pt is alert and oriented, overall doing well. No new complaints. #Anemia -Post op course c/b acute blood loss anemia last admission -Hgb 9.8, was 11.2 -No s/s acute blood loss at this time Hg 8.6--> 9.3 - iron level 17 received IV iron, will need p.o. iron supplement #HTN - resumed atenolol but decreased dose to 12.5 mg p.o. daily Continue IV fluids #CAD - Hold ASA until hemostasis stable per orthopedic service--> please discuss with Dr. Christopher #HLD - Statin #Depression -Continue SSRI Admission and Anticipated Discharge Date Admission Date: March 10, 2025 Subjective Pt seen in follow up of med consult, s/p spinal surgery w/ Dr. Christopher - s/p I&D on 03/11/2025 Pt's son present at the bedside and updated Pt seen resting in bed, comfortable, in NAD states he feels well overall oriented X 3, answering questions appropriately back pain well-controlled No fever, chills, shortness of breath, cough, chest pain No other new symptoms Review of Systems Review of Systems: All systems reviewed & are unremarkable except as noted in Subjective Physical Exam Physical Exam: General- oriented x 3, not in distress, speaks in sentences with no effort or accessory muscle use Eyes- anicteric Neck- no JVD Lungs- clear breath sounds bilaterally, no rales/wheezes Heart- normal rate, regular rhythm; no murmurs Abdomen- normal bowel sounds, nondistended, soft, nontender Extremities- no pretibial edema, no calf tenderness, moves extremities Neuro- alert, oriented x 3; no gross focal neurologic deficits Skin- warm & dry Results & Data Results & Data Vital Signs (Past 12 Hours) Vital Signs Temp Pulse Resp BP Pulse Ox O2 Del Method 03/15/25 07:58 36.6 C 80 19 132/82 91 Room Air 03/14/25 22:39 71 18 96 Room Air 03/14/25 22:23 37.3 C 72 17 122/68 92 Room Air Laboratory Results 03/14/25 Range/Units 07:37 Vitamin B12 736 (180-914) pg/ml Folate 18.10 (>5.38) ng/ml Medications Administered Current Inpatient Medications Acetaminophen (Acetaminophen 500 Mg Tab) 1,000 mg PO Q8H [facility] Stop: 04/11/25 11:59 Last Admin: 03/15/25 04:14 Dose: 1,000 mg Atenolol (Atenolol 25 Mg Tablet) 12.5 mg PO QAM KARLIE Stop: 04/11/25 08:59 Last Admin: 03/15/25 08:35 Dose: 12.5 mg Citalopram Hydrobromide (Citalopram 20 Mg Tab) 20 mg PO QPM KARLIE Stop: 04/09/25 20:59 Last Admin: 03/14/25 20:40 Dose: 20 mg Fluticasone Propionate (Fluticasone Propionate Na Spr 16 Gm Btl) 1 sprays NA QAM KARLIE Stop: 04/10/25 08:59 Last Admin: 03/15/25 08:36 Dose: 1 sprays Hydromorphone HCl (Hydromorphone Inj 0.5 Mg/0.5 Ml Syr) 0.5 mg IV Q3H PRN PRN Reason: MOD pain (scale 4-6) & Pre PT Stop: 03/24/25 20:53 Hydromorphone HCl (Hydromorphone Inj 1 Mg/Ml Syringe) 1 mg IV Q3H PRN PRN Reason: severe pain (scale 7-10) Stop: 03/24/25 20:53 Promethazine HCl (Phenergan) 12.5 mg in 50.5 mls @ 202 mls/hr IV Q6H PRN PRN Reason: Nausea And Vomiting Stop: 04/09/25 20:53 Piperacillin Sod/Tazobactam Sod (Zosyn) 4.5 gm in 100 mls @ 25 mls/hr IV Q8H KARLIE; Protocol Stop: 04/23/25 17:59 Last Infusion: 03/15/25 06:27 Dose: Infused Ipratropium L[place] (Ipratropium [place] Neb Soln 0.02% 0.5mg/2.5ml Vial) 0.5 mg NEB Q4H PRN PRN Reason: sob/wheezing Stop: 04/11/25 11:29 Last Admin: 03/14/25 13:20 Dose: 0.5 mg Lactobacillus Acidophilus (Advanced Probiotic 625 Mg Capsule) 1,250 mg PO DAILY [facility] Stop: 04/10/25 08:59 Last Admin: 03/15/25 08:35 Dose: 1,250 mg Levalbuterol HCl (Levalbuterol 1.25 Mg/3 Ml Neb) 1.25 mg NEB Q4H PRN PRN Reason: Shortness Of Breath Or Wheezing Stop: 04/11/25 11:18 Last Admin: 03/14/25 22:41 Dose: 1.25 mg Magnesium Hydroxide (Magnesium Hydroxide Susp 30 Ml Udc) 30 ml PO Q6H PRN PRN Reason: Constipation Stop: 04/10/25 18:56 Magnesium Oxide (Magnesium Oxide 400 Mg Tab) 400 mg PO DAILY KARLIE Stop: 04/10/25 08:59 Last Admin: 03/15/25 08:35 Dose: 400 mg Metoclopramide HCl (Metoclopramide Hcl Inj 5 Mg/Ml 2 Ml Vial) 10 mg IV Q6H PRN PRN Reason: Nausea &/or Vomiting Stop: 04/09/25 20:53 Multivitamins/Minerals (Cerovite Adv Formula Tab) 1 tab PO QAM KARLIE Stop: 04/10/25 08:59 Last Admin: 03/15/25 08:35 Dose: 1 tab Naloxone HCl (Naloxone Hcl 0.4 Mg/1 Ml Vial/Carp) 0.1 mg IV Q5M PRN PRN Reason: Oversedation/respiratory dep Stop: 04/09/25 20:53 Ondansetron HCl (Ondansetron Inj 2 Mg/Ml 2 Ml Vial) 4 mg IV Q6H PRN PRN Reason: Nausea &/or Vomiting Stop: 04/09/25 20:53 Ondansetron HCl (Ondansetron 4 Mg Od Tab) 4 mg PO Q6H PRN PRN Reason: Nausea Stop: 04/09/25 20:53 Oxycodone HCl (Oxycodone Hcl Ir 5 Mg Tab (Immediate Release)) 5 - 10 mg PO Q4H PRN PRN Reason: mod to severe pain Stop: 03/24/25 20:53 Last Admin: 03/14/25 08:27 Dose: 5 mg Pantoprazole Sodium (Pantoprazole 40 Mg Tab) 40 mg PO DAILY KARLIE Stop: 04/10/25 08:59 Last Admin: 03/15/25 08:35 Dose: 40 mg Polyethylene Glycol (Polyethylene (Miralax) 17 Gm Pack) 17 gm PO DAILY KARLIE Stop: 04/11/25 08:59 Last Admin: 03/14/25 09:24 Dose: Not Given Simvastatin (Simvastatin 20 Mg Tab) 20 mg PO QPM KARLIE Stop: 04/09/25 20:59 Last Admin: 03/14/25 20:40 Dose: 20 mg
[2025-03-15 10:31] LABS: Hematocrit (blood only) 30.5 % (42.0-52.0); Hemoglobin 10.1 g/dl (14.0-18.0); Immature Granulocytes # (auto) 0.23 K/uL (0.01-0.20); Immature Granulocytes % (auto) 2.2 %; Mean Corpuscular Hemoglobin 32.3 pg (25.0-34.0); Mean Corpuscular Volume 97.4 fL (80.0-100.0); Platelet Count 277 K/uL (130-400); RDW Standard Deviation 48.7 fL (36.4-46.3); Red Blood Count 3.13 M/uL (4.70-6.10); White Blood Count 10.47 K/ul (4.8-10.8)
[2025-03-15 10:47] LABS: Alanine Aminotransferase 29.0 U/L (7-52); Albumin Globulin Ratio 1.0 (0.9-2); Alkaline Phosphatase 82.0 U/L (34-104); Anion Gap 4.0 (3-11); Bilirubin,Total 0.5 mg/dl (0.2-1.0); Blood Urea Nitrogen 9.0 mg/dl (6-23); Calcium 9.1 mg/dl (8.6-10.3); Carbon Dioxide 33.0 mmol/L (21-32); Chloride 102.0 mmol/L (98-107); Creatinine Clr Calc Pharmacy 84.7 ml/min; Globulin 2.9 gm/dl (2.5-4.0); Glucose 139.0 mg/dl (70-99(Fasting)); Magnesium 2.1 mg/dl (1.7-2.4); Potassium 4.1 mmol/L (3.5-5.1); Sodium 139.0 mmol/L (136-145); Total Protein 5.8 gm/dl (6.0-8.3)
--- NOTE | 2025-03-15 10:59 | Orthopedic Progress Note ---
Date of Service March 15, 2025 Assessment & Plan (1) Fracture of lumbar spine: Plan: At this time he seems to be tolerating therapy therapy very well. I am hoping to avoid a revision procedure. Will continue to monitor his progress and hopefully discharge to rehab Thursday. Admission and Anticipated Discharge Date Admission Date: March 10, 2025 Subjective Patient's back pain is controlled. He is having some difficulty with left leg pain during ambulation. He notes weakness to the lower extremities. Physical Exam Physical Exam: On exam he is in bed at this time. Has good strength testing while in bed. Results & Data Vital Signs (Past 12 Hours) Vital Signs Temp Pulse Resp BP Pulse Ox O2 Del Method 03/15/25 07:58 36.6 C 80 19 132/82 91 Room Air (1) Fracture of lumbar spine Encounter type: initial encounter Fracture morphology: unspecified fracture morphology Fracture type: closed Lumbar vertebra fracture level: unspecified lumbar vertebra Qualified Code(s): S32.009A - Unspecified fracture of unspecified lumbar vertebra, initial encounter for closed fracture
[2025-03-16 07:10] LABS: Hematocrit (blood only) 31.3 % (42.0-52.0); Hemoglobin 10.3 g/dl (14.0-18.0); Mean Corpuscular Hemoglobin 32.0 pg (25.0-34.0); Mean Corpuscular Volume 97.2 fL (80.0-100.0); Platelet Count 307 K/uL (130-400); RDW Standard Deviation 48.7 fL (36.4-46.3); Red Blood Count 3.22 M/uL (4.70-6.10); White Blood Count 10.40 K/ul (4.8-10.8)
[2025-03-16 07:30] LABS: Anion Gap 6.0 (3-11); Blood Urea Nitrogen 9.0 mg/dl (6-23); Calcium 9.0 mg/dl (8.6-10.3); Carbon Dioxide 30.0 mmol/L (21-32); Chloride 102.0 mmol/L (98-107); Creatinine Clr Calc Pharmacy 79.6 ml/min; Glucose 129.0 mg/dl (70-99(Fasting)); Magnesium 2.2 mg/dl (1.7-2.4); Potassium 3.6 mmol/L (3.5-5.1); Sodium 138.0 mmol/L (136-145)
--- NOTE | 2025-03-16 10:29 | Orthopedic Progress Note ---
Date of Service March 16, 2025 Assessment & Plan (1) Fracture of lumbar spine: Plan: He will continue with physical therapy. Hopefully PICC line is placed today and we can get him [facility]. Maintain RESHMA drains drains x 2 today. Currently there are no further plans for surgical intervention. Back pain is controlled. Admission and Anticipated Discharge Date Admission Date: March 10, 2025 Subjective Hi is status post I&D lumbar spine. RESHMA drain #1 output is 20 cc. RESHMA drain output #2 is 40 cc last shift. He still awaiting PICC line. He is ambulating around the hallways with the assistance of the walker. Back pain is controlled. Its mostly when he changes positions. Leg pain also improved. Review of Systems Review of Systems: All systems reviewed & are unremarkable except as noted in HPI & below Physical Exam Physical Exam: He is seen in conjunction with Dr. Christopher and his family Alert and oriented x 3 he is walking around the room with a walker and the therapist No acute distress Dressings clean dry and intact with functioning RESHMA drains x 2 Strength unchanged bilateral lower extremities Results & Data Vital Signs (Past 12 Hours) Vital Signs Temp Pulse Resp BP Pulse Ox O2 Del Method 03/16/25 07:29 36.5 C 85 16 155/79 H 92 Room Air 03/15/25 23:19 37.3 C 67 16 142/76 H 93 Room Air (1) Fracture of lumbar spine Encounter type: initial encounter Fracture morphology: unspecified fracture morphology Fracture type: closed Lumbar vertebra fracture level: unspecified lumbar vertebra Qualified Code(s): S32.009A - Unspecified fracture of u nspecified lumbar vertebra, initial encounter for closed fracture
--- NOTE | 2025-03-16 12:15 | Hospitalist Progress Note ---
Date of Service March 16, 2025 Assessment & Plan (1) Sepsis: Plan 79 M s/p L3-S1 decompression and fusion on 03/01/[address] Christopher who presents with fever and a fall #Sepsis possible infected fluid collection L2-L5 Status post L3-S1 decompression fusion 03/01/2025 -Qualifies as sepsis with hypotension, fever, AMS -qSOFA 2, making sepsis likely -Source likely abscess at laminectomy bed of L2-L5 -No other nidus of infection identified with ROS, labs or imaging 03/11 status post irrigation debridement lumbar spine, placement of stimulant beads with vancomycin and gentamicin today by Dr. Christopher - Stable overall postoperatively 03/12 patient reporting cough today Chest x-ray showing possible pulmonary vascular congestion, no signs of pneumonia Currently on room air, no signs of distress, blood pressure on the lower side Will hold off on Lasix for now and reevaluate DC IV fluids Check echocardiogram: EF 55 to 60%, mild concentric LVH, no regional wall motion abnormalities, poorly visualized valvular anatomy without significant stenosis or regurgitation Patient seems to be having confusion today Add Tylenol 1 g every 8 hours in hopes of reducing narcotic requirements For pain control Change cefepime to Zosyn continue delirium prevention strategies 03/14 Confusion resolved Avoid narcotics Drainage culture showing strep dysgalactiae DC vancomycin, continue Zosyn ID consulted- as per Dr. Martinez, await final blood cultures, if nothing else is growing aside from Streptococcus, transition patient to ceftriaxone 2 g IV daily for 8 weeks then patient will need oral antibiotics for suppression indefinitely PICC line ordered placed 03/15 Pt is alert and oriented, overall doing well. No new complaints. 03/16 Reportedly pt was pulling on IVs at night. Plan to place PICC line tmrw. Pt may needs mitts at rehab to prevent from pulling the line at night. Discussed w/ ID today - plan for ceftriaxone 2 g daily for 6 weeks then amoxicillin 500 mg PO TID for life #Anemia -Post op course c/b acute blood loss anemia last admission -Hgb 9.8, was 11.2 -No s/s acute blood loss at this time Hg 8.6--> 9.3 - iron level 17 received IV iron, will need p.o. iron supplement #HTN - resumed atenolol to 25 mg p.o. daily #CAD - Hold ASA until hemostasis stable per orthopedic service--> as per Dr. Christopher #HLD - Statin #Depression -Continue SSRI Admission and Anticipated Discharge Date Admission Date: March 10, 2025 Subjective Pt seen in follow up of med consult, s/p spinal surgery w/ Dr. Christopher - s/p I&D on 03/11/2025 Pt's present at the bedside - reports pt was pulling on his IVs at night so they want to wait with PICC line placement until ready for DC. I discussed this with IV team and confirmed they plan to place PICC tomorrow. Pt may need mitts at rehab to prevent from pulling on IV at night. Pt seen resting in bed, comfortable, in NAD states he feels well overall answering questions appropriately back pain well-controlled No fever, chills, shortness of breath, cough, chest pain No other new symptoms Discussed with ID final recommendations for DC Review of Systems Review of Systems: All systems reviewed & are unremarkable except as noted in Subjective Physical Exam Physical Exam: General- oriented x 3, not in distress, speaks in sentences with no effort or accessory muscle use Eyes- anicteric Neck- no JVD Lungs- clear breath sounds bilaterally, no rales/wheezes Heart- normal rate, regular rhythm; no murmurs Abdomen- normal bowel sounds, nondistended, soft, nontender Extremities- no pretibial edema, no calf tenderness, moves extremities Neuro- alert, oriented x 3; no gross focal neurologic deficits Skin- warm & dry Results & Data Results & Data Vital Signs (Past 12 Hours) Vital Signs Temp Pulse Resp BP Pulse Ox O2 Del Method O2 Flow Rate 03/16/25 11:10 65 16 151/85 H 91 Nasal Cannula 2 03/16/25 07:29 36.5 C 85 16 155/79 H 92 Room Air Laboratory Results 03/16/25 Range/Units 06:44 WBC 10.40 (4.8-10.8) K/ul RBC 3.22 L (4.70-6.10) M/uL Hgb 10.3 L (14.0-18.0) g/dl Hct 31.3 L (42.0-52.0) % MCV 97.2 (80.0-100.0) fL MCH 32.0 (25.0-34.0) pg MCHC 32.9 (32.0-36.0) g/dL RDW Std Deviation 48.7 H (36.4-46.3) fL RDW Coeff of Loretta 13.7 (11.5-14.5) % Plt Count 307 (130-400) K/uL MPV 10.3 (9.4-12.4) fL Sodium 138 (136-145) mmol/L Potassium 3.6 (3.5-5.1) mmol/L Chloride 102 (98-107) mmol/L Carbon Dioxide 30 (21-32) mmol/L Anion Gap 6 (3-11) BUN 9 (6-23) mg/dl Creatinine 0.82 (0.6-1.4) mg/dl Est Cr Clr Drug Dosing 79.6 ml/min eGFR 88.80 BUN/Creatinine Ratio 11.0 (10-20) Glucose 129 H (70-99(Fasting)) mg/dl Calcium 9.0 (8.6-10.3) mg/dl Phosphorus 2.7 (2.5-4.9) mg/dl Magnesium 2.2 (1.7-2.4) mg/dl Medications Administered Current Inpatient Medications Acetaminophen (Acetaminophen 500 Mg Tab) 1,000 mg PO Q8H [facility] Stop: 04/11/25 11:59 Last Admin: 03/16/25 12:02 Dose: 1,000 mg Atenolol (Atenolol 25 Mg Tablet) 12.5 mg PO QAM [facility] Stop: 04/11/25 08:59 Last Admin: 03/16/25 08:58 Dose: 12.5 mg Citalopram Hydrobromide (Citalopram 20 Mg Tab) 20 mg PO QPM [facility] Stop: 04/09/25 20:59 Last Admin: 03/15/25 20:17 Dose: 20 mg Fluticasone Propionate (Fluticasone Propionate Na Spr 16 Gm Btl) 1 sprays NA QAM [facility] Stop: 04/10/25 08:59 Last Admin: 03/16/25 08:57 Dose: 1 sprays Hydromorphone HCl (Hydromorphone Inj 0.5 Mg/0.5 Ml Syr) 0.5 mg IV Q3H PRN PRN Reason: MOD pain (scale 4-6) & Pre PT Stop: 03/24/25 20:53 Hydromorphone HCl (Hydromorphone Inj 1 Mg/Ml Syringe) 1 mg IV Q3H PRN PRN Reason: severe pain (scale 7-10) Stop: 03/24/25 20:53 Promethazine HCl (Phenergan) 12.5 mg in 50.5 mls @ 202 mls/hr IV Q6H PRN PRN Reason: Nausea And Vomiting Stop: 04/09/25 20:53 Piperacillin Sod/Tazobactam Sod (Zosyn) 4.5 gm in 100 mls @ 25 mls/hr IV Q8H [facility]; Protocol Stop: 04/23/25 17:59 Last Admin: 03/16/25 09:34 Dose: 25 mls/hr Ipratropium [place] (Ipratropium [place] Neb Soln 0.02% 0.5mg/2.5ml Vial) 0.5 mg NEB Q4H PRN PRN Reason: sob/wheezing Stop: 04/11/25 11:29 Last Admin: 03/14/25 13:20 Dose: 0.5 mg Lactobacillus Acidophilus (Advanced Probiotic 625 Mg Capsule) 1,250 mg PO DAILY [facility] Stop: 04/10/25 08:59 Last Admin: 03/16/25 08:57 Dose: 1,250 mg Levalbuterol HCl (Levalbuterol 1.25 Mg/3 Ml Neb) 1.25 mg NEB Q4H PRN PRN Reason: Shortness Of Breath Or Wheezing Stop: 04/11/25 11:18 Last Admin: 03/14/25 22:41 Dose: 1.25 mg Magnesium Hydroxide (Magnesium Hydroxide Susp 30 Ml Udc) 30 ml PO Q6H PRN PRN Reason: Constipation Stop: 04/10/25 18:56 Magnesium Oxide (Magnesium Oxide 400 Mg Tab) 400 mg PO DAILY [facility] Stop: 04/10/25 08:59 Last Admin: 03/16/25 08:57 Dose: 400 mg Metoclopramide HCl (Metoclopramide Hcl Inj 5 Mg/Ml 2 Ml Vial) 10 mg IV Q6H PRN PRN Reason: Nausea &/or Vomiting Stop: 04/09/25 20:53 Multivitamins/Minerals (Cerovite Adv Formula Tab) 1 tab PO QAM [facility] Stop: 04/10/25 08:59 Last Admin: 03/16/25 08:57 Dose: 1 tab Naloxone HCl (Naloxone Hcl 0.4 Mg/1 Ml Vial/Carp) 0.1 mg IV Q5M PRN PRN Reason: Oversedation/respiratory dep Stop: 04/09/25 20:53 Ondansetron HCl (Ondansetron Inj 2 Mg/Ml 2 Ml Vial) 4 mg IV Q6H PRN PRN Reason: Nausea &/or Vomiting Stop: 04/09/25 20:53 Ondansetron HCl (Ondansetron 4 Mg Od Tab) 4 mg PO Q6H PRN PRN Reason: Nausea Stop: 04/09/25 20:53 Oxycodone HCl (Oxycodone Hcl Ir 5 Mg Tab (Immediate Release)) 5 - 10 mg PO Q4H PRN PRN Reason: mod to severe pain Stop: 03/24/25 20:53 Last Admin: 03/14/25 08:27 Dose: 5 mg Pantoprazole Sodium (Pantoprazole 40 Mg Tab) 40 mg PO DAILY [facility] Stop: 04/10/25 08:59 Last Admin: 03/16/25 08:57 Dose: 40 mg Polyethylene Glycol (Polyethylene (Miralax) 17 Gm Pack) 17 gm PO DAILY [facility] Stop: 04/11/25 08:59 Last Admin: 03/16/25 08:56 Dose: Not Given Simvastatin (Simvastatin 20 Mg Tab) 20 mg PO QPM [facility] Stop: 04/09/25 20:59 Last Admin: 03/15/25 20:17 Dose: 20 mg
[2025-03-16] MEDS: POTASSIUM CHLORIDE CRTAB 20 MEQ TABCR PO STA (15:50)
[2025-03-16] MEDS: ATENOLOL 25 MG TABLET PO STA (15:50)
[2025-03-16] MEDS: cefTRIAXone SODIUM 2,000 MG/50 ML BAG IV SCH (21:13)
--- NOTE | 2025-03-17 08:18 | Hospitalist Progress Note ---
Date of Service March 17, 2025 Assessment & Plan (1) Sepsis: Plan 79 M s/p L3-S1 decompression and fusion on 03/01/[address] Christopher who presents with fever and a fall #Sepsis possible infected fluid collection L2-L5 Status post L3-S1 decompression fusion 03/01/2025 -Qualifies as sepsis with hypotension, fever, AMS -qSOFA 2, making sepsis likely -Source likely abscess at laminectomy bed of L2-L5 -No other nidus of infection identified with ROS, labs or imaging 03/11 status post irrigation debridement lumbar spine, placement of stimulant beads with vancomycin and gentamicin today by Dr. Christopher - Stable overall postoperatively 03/12 patient reporting cough today Chest x-ray showing possible pulmonary vascular congestion, no signs of pneumonia Currently on room air, no signs of distress, blood pressure on the lower side Will hold off on Lasix for now and reevaluate DC IV fluids Check echocardiogram: EF 55 to 60%, mild concentric LVH, no regional wall motion abnormalities, poorly visualized valvular anatomy without significant stenosis or regurgitation Patient seems to be having confusion today Add Tylenol 1 g every 8 hours in hopes of reducing narcotic requirements For pain control Change cefepime to Zosyn continue delirium prevention strategies 03/14 Confusion resolved Avoid narcotics Drainage culture showing strep dysgalactiae DC vancomycin, continue Zosyn ID consulted- as per Dr. Martinez, await final blood cultures, if nothing else is growing aside from Streptococcus, transition patient to ceftriaxone 2 g IV daily for 8 weeks then patient will need oral antibiotics for suppression indefinitely PICC line ordered placed 03/15 Pt is alert and oriented, overall doing well. No new complaints. 03/16 Reportedly pt was pulling on IVs at night. Plan to place PICC line tmrw. Pt may needs mitts at rehab to prevent from pulling the line at night. Discussed w/ ID today - plan for ceftriaxone 2 g daily for 6 weeks then amoxicillin 500 mg PO TID for life 03/17 PICC line placed. Pt continues to have some hip pain. Discussed w/ Dr. Christopher - plans to observe today, likely to DC tmrw. #Anemia -Post op course c/b acute blood loss anemia last admission -Hgb 9.8, was 11.2 -No s/s acute blood loss at this time Hg 8.6--> 9.3 - iron level 17 received IV iron, will need p.o. iron supplement - Current Hgb 10.3 #HTN - resumed atenolol to 25 mg p.o. daily #CAD - Hold ASA until hemostasis stable per orthopedic service--> as per Dr. Christopher #HLD - Statin #Depression -Continue SSRI Admission and Anticipated Discharge Date Admission Date: March 10, 2025 Subjective Pt seen in follow up of med consult, s/p spinal surgery w/ Dr. Christopher - s/p I&D on 03/11/202503/16 - Pt's present at the bedside - reports pt was pulling on his IVs at night so they want to wait with PICC line placement until ready for DC. I discussed this with IV team and confirmed they plan to place PICC tomorrow. Pt may need mitts at rehab to prevent from pulling on IV at night. Pt seen resting in bed, comfortable, in NAD states he feels well overall answering questions appropriately back pain well-controlled No fever, chills, shortness of breath, cough, chest pain No other new symptoms Discussed with ID final recommendations for DC 03/17 Pt had PICC line placed this AM. NO overall changes in his status. However continues to have hip pain. Discussed w/ pt's and Dr. Christopher over the phone - plan to hold on DC for today, likely tmrw. Review of Systems Review of Systems: All systems reviewed & are unremarkable except as noted in Subjective Physical Exam Physical Exam: General- oriented x 3, not in distress, speaks in sentences with no effort or accessory muscle use Eyes- anicteric Neck- no JVD Lungs- clear breath sounds bilaterally, no rales/wheezes Heart- normal rate, regular rhythm; no murmurs Abdomen- normal bowel sounds, nondistended, soft, nontender Extremities- no pretibial edema, no calf tenderness, moves extremities Neuro- alert, oriented x 3; no gross focal neurologic deficits Skin- warm & dry Results & Data Results & Data Vital Signs (Past 12 Hours) Vital Signs Temp Pulse Resp BP Pulse Ox O2 Del Method 03/16/25 22:40 37.0 C 76 16 138/75 94 Room Air Laboratory Results 03/17/25 Range/Units 10:56 WBC 9.62 (4.8-10.8) K/ul RBC 3.25 L (4.70-6.10) M/uL Hgb 10.3 L (14.0-18.0) g/dl Hct 31.5 L (42.0-52.0) % MCV 96.9 (80.0-100.0) fL MCH 31.7 (25.0-34.0) pg MCHC 32.7 (32.0-36.0) g/dL RDW Std Deviation 48.3 H (36.4-46.3) fL RDW Coeff of Loretta 13.8 (11.5-14.5) % Plt Count 361 (130-400) K/uL MPV 10.0 (9.4-12.4) fL Sodium 137 (136-145) mmol/L Potassium 4.0 (3.5-5.1) mmol/L Chloride 103 (98-107) mmol/L Carbon Dioxide 29 (21-32) mmol/L Anion Gap 5 (3-11) BUN 15 (6-23) mg/dl Creatinine 0.74 (0.6-1.4) mg/dl Est Cr Clr Drug Dosing 88.2 ml/min eGFR 91.60 BUN/Creatinine Ratio 20.3 H (10-20) Glucose 158 H (70-99(Fasting)) mg/dl Calcium 8.9 (8.6-10.3) mg/dl Phosphorus 2.0 L (2.5-4.9) mg/dl Magnesium 2.1 (1.7-2.4) mg/dl Medications Administered Current Inpatient Medications Acetaminophen (Acetaminophen 500 Mg Tab) 1,000 mg PO Q8H [facility] Stop: 04/11/25 11:59 Last Admin: 03/17/25 05:42 Dose: Not Given Atenolol (Atenolol 25 Mg Tablet) 25 mg PO QAM [facility] Stop: 04/16/25 08:59 Citalopram Hydrobromide (Citalopram 20 Mg Tab) 20 mg PO QPM [facility] Stop: 04/09/25 20:59 Last Admin: 03/16/25 21:11 Dose: 20 mg Fluticasone Propionate (Fluticasone Propionate Na Spr 16 Gm Btl) 1 sprays NA QAM [facility] Stop: 04/10/25 08:59 Last Admin: 03/16/25 08:57 Dose: 1 sprays Hydromorphone HCl (Hydromorphone Inj 0.5 Mg/0.5 Ml Syr) 0.5 mg IV Q3H PRN PRN Reason: MOD pain (scale 4-6) & Pre PT Stop: 03/24/25 20:53 Hydromorphone HCl (Hydromorphone Inj 1 Mg/Ml Syringe) 1 mg IV Q3H PRN PRN Reason: severe pain (scale 7-10) Stop: 03/24/25 20:53 Promethazine HCl (Phenergan) 12.5 mg in 50.5 mls @ 202 mls/hr IV Q6H PRN PRN Reason: Nausea And Vomiting Stop: 04/09/25 20:53 Ceftriaxone Sodium (Rocephin) 2,000 mg in 50 mls @ 100 mls/hr IV Q24H [facility] Stop: 04/27/25 19:59 Last Infusion: 03/16/25 21:45 Dose: Infused Ipratropium [place] (Ipratropium [place] Neb Soln 0.02% 0.5mg/2.5ml Vial) 0.5 mg NEB Q4H PRN PRN Reason: sob/wheezing Stop: 04/11/25 11:29 Last Admin: 03/14/25 13:20 Dose: 0.5 mg Lactobacillus Acidophilus (Advanced Probiotic 625 Mg Capsule) 1,250 mg PO DAILY [facility] Stop: 04/10/25 08:59 Last Admin: 03/16/25 08:57 Dose: 1,250 mg Levalbuterol HCl (Levalbuterol 1.25 Mg/3 Ml Neb) 1.25 mg NEB Q4H PRN PRN Reason: Shortness Of Breath Or Wheezing Stop: 04/11/25 11:18 Last Admin: 03/14/25 22:41 Dose: 1.25 mg Magnesium Hydroxide (Magnesium Hydroxide Susp 30 Ml Udc) 30 ml PO Q6H PRN PRN Reason: Constipation Stop: 04/10/25 18:56 Magnesium Oxide (Magnesium Oxide 400 Mg Tab) 400 mg PO DAILY [facility] Stop: 04/10/25 08:59 Last Admin: 03/16/25 08:57 Dose: 400 mg Metoclopramide HCl (Metoclopramide Hcl Inj 5 Mg/Ml 2 Ml Vial) 10 mg IV Q6H PRN PRN Reason: Nausea &/or Vomiting Stop: 04/09/25 20:53 Multivitamins/Minerals (Cerovite Adv Formula Tab) 1 tab PO QAM [facility] Stop: 04/10/25 08:59 Last Admin: 03/16/25 08:57 Dose: 1 tab Naloxone HCl (Naloxone Hcl 0.4 Mg/1 Ml Vial/Carp) 0.1 mg IV Q5M PRN PRN Reason: Oversedation/respiratory dep Stop: 04/09/25 20:53 Ondansetron HCl (Ondansetron Inj 2 Mg/Ml 2 Ml Vial) 4 mg IV Q6H PRN PRN Reason: Nausea &/or Vomiting Stop: 04/09/25 20:53 Ondansetron HCl (Ondansetron 4 Mg Od Tab) 4 mg PO Q6H PRN PRN Reason: Nausea Stop: 04/09/25 20:53 Oxycodone HCl (Oxycodone Hcl Ir 5 Mg Tab (Immediate Release)) 5 - 10 mg PO Q4H PRN PRN Reason: mod to severe pain Stop: 03/24/25 20:53 Last Admin: 03/14/25 08:27 Dose: 5 mg Pantoprazole Sodium (Pantoprazole 40 Mg Tab) 40 mg PO DAILY [facility] Stop: 04/10/25 08:59 Last Admin: 03/16/25 08:57 Dose: 40 mg Polyethylene Glycol (Polyethylene (Miralax) 17 Gm Pack) 17 gm PO DAILY [facility] Stop: 04/11/25 08:59 Last Admin: 03/17/25 07:41 Dose: Not Given Simvastatin (Simvastatin 20 Mg Tab) 20 mg PO QPM [facility] Stop: 04/09/25 20:59 Last Admin: 03/16/25 21:12 Dose: 20 mg
[2025-03-17] MEDS: ATENOLOL 25 MG TABLET PO SCH (08:46)
--- NOTE | 2025-03-17 09:02 | Orthopedic Progress Note ---
Date of Service March 17, 2025 Assessment & Plan (1) Fracture of lumbar spine: Plan: At this time we will continue physical therapy monitor his RESHMA output. His PICC line will be placed today. Be a candidate for transition to rehab when medically stable. Admission and Anticipated Discharge Date Admission Date: March 10, 2025 Subjective Patient complaining of some left upper buttock pain. Denies any clear radicular complaints. Has been tolerating physical therapy. Physical Exam 2 Physical Exam: Patient is now in bed. He does have tenderness palpation of the left upper glutes just proximal to the greater trochanter. No IT band tenderness. He has good strength testing otherwise. Results & Data Vital Signs (Past 12 Hours) Vital Signs Temp Pulse Resp BP Pulse Ox O2 Del Method 03/17/25 08:32 36.8 C 95 H 18 149/73 H 93 Room Air 03/16/25 22:40 37.0 C 76 16 138/75 94 Room Air (1) Fracture of lumbar spine Encounter type: initial encounter Fracture morphology: unspecified fracture morphology Fracture type: closed Lumbar vertebra fracture level: unspecified lumbar vertebra Qualified Code(s): S32.009A - Unspecified fracture of unspecified lumbar vertebra, initial encounter for closed fracture
[2025-03-17 11:27] LABS: Hematocrit (blood only) 31.5 % (42.0-52.0); Hemoglobin 10.3 g/dl (14.0-18.0); Mean Corpuscular Hemoglobin 31.7 pg (25.0-34.0); Mean Corpuscular Volume 96.9 fL (80.0-100.0); Platelet Count 361 K/uL (130-400); RDW Standard Deviation 48.3 fL (36.4-46.3); Red Blood Count 3.25 M/uL (4.70-6.10); White Blood Count 9.62 K/ul (4.8-10.8)
[2025-03-17 11:44] LABS: Anion Gap 5.0 (3-11); Blood Urea Nitrogen 15.0 mg/dl (6-23); Calcium 8.9 mg/dl (8.6-10.3); Carbon Dioxide 29.0 mmol/L (21-32); Chloride 103.0 mmol/L (98-107); Creatinine Clr Calc Pharmacy 88.2 ml/min; Glucose 158.0 mg/dl (70-99(Fasting)); Magnesium 2.1 mg/dl (1.7-2.4); Potassium 4.0 mmol/L (3.5-5.1); Sodium 137.0 mmol/L (136-145)
[2025-03-17] MEDS: MELATONIN 3 MG TAB PO PRN (23:27)
[2025-03-18 07:35] LABS: Hematocrit (blood only) 30.6 % (42.0-52.0); Hemoglobin 10.4 g/dl (14.0-18.0); Mean Corpuscular Hemoglobin 32.5 pg (25.0-34.0); Mean Corpuscular Volume 95.6 fL (80.0-100.0); Platelet Count 330 K/uL (130-400); RDW Standard Deviation 46.9 fL (36.4-46.3); Red Blood Count 3.20 M/uL (4.70-6.10); White Blood Count 8.11 K/ul (4.8-10.8)
[2025-03-18 08:01] LABS: Anion Gap 6.0 (3-11); Blood Urea Nitrogen 13.0 mg/dl (6-23); Calcium 8.8 mg/dl (8.6-10.3); Carbon Dioxide 28.0 mmol/L (21-32); Chloride 102.0 mmol/L (98-107); Creatinine Clr Calc Pharmacy 98.9 ml/min; Glucose 152.0 mg/dl (70-99(Fasting)); Magnesium 2.0 mg/dl (1.7-2.4); Potassium 3.7 mmol/L (3.5-5.1); Sodium 136.0 mmol/L (136-145)
--- NOTE | 2025-03-18 08:43 | Orthopedic Progress Note ---
Date of Service March 18, 2025 Assessment & Plan (1) Multilevel lumbosacral spondylosis with radiculopathy: Plan: He is status post I&D lumbar spine with left greater trochanter bursitis. I have ordered some IV steroids to help with his bursitis. DC his drains today. Continue with ambulation. Continue with IV antibiotic protocol. Hold discharge today. Admission and Anticipated Discharge Date Admission Date: March 10, 2025 Subjective Hi is status post I&D lumbar spine. This morning he is having an increase in left hip pain. He had this yesterday. He states is constant. It is not radicular. RESHMA drain output #1 is 20 cc. RESHMA drain output #2 is 20 cc. H&H are 10.4 and 30.6 respectively. Yesterday in physical therapy ambulate 120 feet. He is currently has his PICC line in and he is on ceftriaxone 2 g a day. Review of Systems Review of Systems: All systems reviewed & are unremarkable except as noted in HPI & below Physical Exam Physical Exam: He seen in conjunction with his He is in no acute distress He is point tender with reproducible pain over the left greater trochanter bursa region Negative logrolling bilaterally Results & Data Vital Signs (Past 12 Hours) Vital Signs Temp Pulse Pulse Resp BP Pulse Ox O2 Del Method 03/18/25 07:31 36.6 C 75 18 110/75 91 Room Air 03/17/25 23:39 36.7 C 73 16 142/73 H 95 Room Air
[2025-03-18] MEDS: POTASSIUM CHLORIDE CRTAB 20 MEQ TABCR PO STA (09:34)
--- NOTE | 2025-03-18 10:13 | Hospitalist Progress Note ---
Date of Service March 18, 2025 Assessment & Plan (1) Sepsis: Plan 79 M s/p L3-S1 decompression and fusion on 03/01/[address] Christopher who presents with fever and a fall #Sepsis possible infected fluid collection L2-L5 Status post L3-S1 decompression fusion 03/01/2025 -Qualifies as sepsis with hypotension, fever, AMS -qSOFA 2, making sepsis likely -Source likely abscess at laminectomy bed of L2-L5 -No other nidus of infection identified with ROS, labs or imaging 03/11 status post irrigation debridement lumbar spine, placement of stimulant beads with vancomycin and gentamicin today by Dr. Christopher - Stable overall postoperatively 03/12 patient reporting cough today Chest x-ray showing possible pulmonary vascular congestion, no signs of pneumonia Currently on room air, no signs of distress, blood pressure on the lower side Will hold off on Lasix for now and reevaluate DC IV fluids Check echocardiogram: EF 55 to 60%, mild concentric LVH, no regional wall motion abnormalities, poorly visualized valvular anatomy without significant stenosis or regurgitation Patient seems to be having confusion today Add Tylenol 1 g every 8 hours in hopes of reducing narcotic requirements For pain control Change cefepime to Zosyn continue delirium prevention strategies 03/14 Confusion resolved Avoid narcotics Drainage culture showing strep dysgalactiae DC vancomycin, continue Zosyn ID consulted- as per Dr. Martinez, await final blood cultures, if nothing else is growing aside from Streptococcus, transition patient to ceftriaxone 2 g IV daily for 8 weeks then patient will need oral antibiotics for suppression indefinitely PICC line ordered placed 03/15 Pt is alert and oriented, overall doing well. No new complaints. 03/16 Reportedly pt was pulling on IVs at night. Plan to place PICC line tmrw. Pt may needs mitts at rehab to prevent from pulling the line at night. Discussed w/ ID today - plan for ceftriaxone 2 g daily for 6 weeks then amoxicillin 500 mg PO TID for life 03/17 PICC line placed. Pt continues to have some hip pain. Discussed w/ Dr. Christopher - plans to observe today, likely to DC tmrw. 03/18 Pt cont. to have left hip pain, per orthopedics likely bursitis - plan to hold DC for now #Anemia -Post op course c/b acute blood loss anemia last admission -Hgb 9.8, was 11.2 -No s/s acute blood loss at this time Hg 8.6--> 9.3 - iron level 17 received IV iron, will need p.o. iron supplement - Current Hgb 10.3 #HTN - resumed atenolol to 25 mg p.o. daily #CAD - Hold ASA until hemostasis stable per orthopedic service--> as per Dr. Christopher #HLD - Statin #Depression -Continue SSRI Admission and Anticipated Discharge Date Admission Date: March 10, 2025 Subjective Pt seen in follow up of med consult, s/p spinal surgery w/ Dr. Christopher - s/p I&D on 03/11/202503/16 - Pt's present at the bedside - reports pt was pulling on his IVs at night so they want to wait with PICC line placement until ready for DC. I discussed this with IV team and confirmed they plan to place PICC tomorrow. Pt may need mitts at rehab to prevent from pulling on IV at night. 03/17 Pt had PICC line placed this AM. NO overall changes in his status. However continues to have hip pain. Discussed w/ pt's and Dr. Christopher over the phone - plan to hold on DC for today, likely tmrw. 03/18 Pt continues to have Left hip pain, per orthopedics likely bursitis - per and pt - they were told no DC today Pt seen resting in bed, comfortable, in NAD states he feels well overall, except for hip pain answering questions appropriately back pain well-controlled No fever, chills, shortness of breath, cough, chest pain No other new symptoms Review of Systems Review of Systems: All systems reviewed & are unremarkable except as noted in Subjective Physical Exam Physical Exam: General- oriented x 3, not in distress, speaks in sentences with no effort or accessory muscle use Eyes- anicteric Neck- no JVD Lungs- clear breath sounds bilaterally, no rales/wheezes Heart- normal rate, regular rhythm; no murmurs Abdomen- normal bowel sounds, nondistended, soft, nontender Extremities- no pretibial edema, no calf tenderness, moves extremities (left hip tender to palpation laterally) Neuro- alert, oriented x 3; no gross focal neurologic deficits Skin- warm & dry Results & Data Results & Data Vital Signs (Past 12 Hours) Vital Signs Temp Pulse Pulse Resp BP Pulse Ox O2 Del Method 03/18/25 07:31 36.6 C 75 18 110/75 91 Room Air 03/17/25 23:39 36.7 C 73 16 142/73 H 95 Room Air Laboratory Results 03/18/25 03/17/25 Range/Units 07:21 10:56 WBC 8.11 9.62 (4.8-10.8) K/ul RBC 3.20 L 3.25 L (4.70-6.10) M/uL Hgb 10.4 L 10.3 L (14.0-18.0) g/dl Hct 30.6 L 31.5 L (42.0-52.0) % MCV 95.6 96.9 (80.0-100.0) fL MCH 32.5 31.7 (25.0-34.0) pg MCHC 34.0 32.7 (32.0-36.0) g/dL RDW Std Deviation 46.9 H 48.3 H (36.4-46.3) fL RDW Coeff of Loretta 13.5 13.8 (11.5-14.5) % Plt Count 330 361 (130-400) K/uL MPV 9.9 10.0 (9.4-12.4) fL Sodium 136 137 (136-145) mmol/L Potassium 3.7 4.0 (3.5-5.1) mmol/L Chloride 102 103 (98-107) mmol/L Carbon Dioxide 28 29 (21-32) mmol/L Anion Gap 6 5 (3-11) BUN 13 15 (6-23) mg/dl Creatinine 0.66 0.74 (0.6-1.4) mg/dl Est Cr Clr Drug Dosing 98.9 88.2 ml/min eGFR 94.82 91.60 BUN/Creatinine Ratio 19.7 20.3 H (10-20) Glucose 152 H 158 H (70-99(Fasting)) mg/dl Calcium 8.8 8.9 (8.6-10.3) mg/dl Phosphorus 2.4 L 2.0 L (2.5-4.9) mg/dl Magnesium 2.0 2.1 (1.7-2.4) mg/dl Medications Administered Current Inpatient Medications Acetaminophen (Acetaminophen 500 Mg Tab) 1,000 mg PO Q8H [facility] Stop: 04/11/25 11:59 Last Admin: 03/18/25 04:04 Dose: 1,000 mg Atenolol (Atenolol 25 Mg Tablet) 25 mg PO QAM [facility] Stop: 04/16/25 08:59 Last Admin: 03/18/25 09:23 Dose: 25 mg Citalopram Hydrobromide (Citalopram 20 Mg Tab) 20 mg PO QPM [facility] Stop: 04/09/25 20:59 Last Admin: 03/17/25 20:03 Dose: 20 mg Fluticasone Propionate (Fluticasone Propionate Na Spr 16 Gm Btl) 1 sprays NA QAM [facility] Stop: 04/10/25 08:59 Last Admin: 03/18/25 09:23 Dose: 1 sprays Heparin Sodium (Beef Lung) (Heparin 10 Unit/Ml 5 Ml Flush) 5 ml FLUSH PRN PRN PRN Reason: Flush Stop: 04/16/25 09:23 Last Admin: 03/17/25 10:58 Dose: 5 ml Hydromorphone HCl (Hydromorphone Inj 0.5 Mg/0.5 Ml Syr) 0.5 mg IV Q3H PRN PRN Reason: MOD pain (scale 4-6) & Pre PT Stop: 03/24/25 20:53 Hydromorphone HCl (Hydromorphone Inj 1 Mg/Ml Syringe) 1 mg IV Q3H PRN PRN Reason: severe pain (scale 7-10) Stop: 03/24/25 20:53 Promethazine HCl (Phenergan) 12.5 mg in 50.5 mls @ 202 mls/hr IV Q6H PRN PRN Reason: Nausea And Vomiting Stop: 04/09/25 20:53 Ceftriaxone Sodium (Rocephin) 2,000 mg in 50 mls @ 100 mls/hr IV Q24H [facility] Stop: 04/27/25 19:59 Last Infusion: 03/17/25 20:00 Dose: Infused Dexamethasone 8 mg/ Syringe 2 mls @ 1 mls/min IV Q8 [facility] Stop: 04/17/25 13:59 Ipratropium [place] (Ipratropium [place] Neb Soln 0.02% 0.5mg/2.5ml Vial) 0.5 mg NEB Q4H PRN PRN Reason: sob/wheezing Stop: 04/11/25 11:29 Last Admin: 03/14/25 13:20 Dose: 0.5 mg Lactobacillus Acidophilus (Advanced Probiotic 625 Mg Capsule) 1,250 mg PO DAILY [facility] Stop: 04/10/25 08:59 Last Admin: 03/18/25 09:23 Dose: 1,250 mg Levalbuterol HCl (Levalbuterol 1.25 Mg/3 Ml Neb) 1.25 mg NEB Q4H PRN PRN Reason: Shortness Of Breath Or Wheezing Stop: 04/11/25 11:18 Last Admin: 03/14/25 22:41 Dose: 1.25 mg Magnesium Hydroxide (Magnesium Hydroxide Susp 30 Ml Udc) 30 ml PO Q6H PRN PRN Reason: Constipation Stop: 04/10/25 18:56 Magnesium Oxide (Magnesium Oxide 400 Mg Tab) 400 mg PO DAILY KARLIE Stop: 04/10/25 08:59 Last Admin: 03/18/25 09:23 Dose: 400 mg Melatonin (Melatonin 3 Mg Tab) 3 mg PO HS PRN PRN Reason: Sleep Stop: 04/16/25 22:54 Last Admin: 03/17/25 23:27 Dose: 3 mg Metoclopramide HCl (Metoclopramide Hcl Inj 5 Mg/Ml 2 Ml Vial) 10 mg IV Q6H PRN PRN Reason: Nausea &/or Vomiting Stop: 04/09/25 20:53 Multivitamins/Minerals (Cerovite Adv Formula Tab) 1 tab PO QAM [facility] Stop: 04/10/25 08:59 Last Admin: 03/18/25 09:23 Dose: 1 tab Naloxone HCl (Naloxone Hcl 0.4 Mg/1 Ml Vial/Carp) 0.1 mg IV Q5M PRN PRN Reason: Oversedation/respiratory dep Stop: 04/09/25 20:53 Ondansetron HCl (Ondansetron Inj 2 Mg/Ml 2 Ml Vial) 4 mg IV Q6H PRN PRN Reason: Nausea &/or Vomiting Stop: 04/09/25 20:53 Ondansetron HCl (Ondansetron 4 Mg Od Tab) 4 mg PO Q6H PRN PRN Reason: Nausea Stop: 04/09/25 20:53 Oxycodone HCl (Oxycodone Hcl Ir 5 Mg Tab (Immediate Release)) 5 - 10 mg PO Q4H PRN PRN Reason: mod to severe pain Stop: 03/24/25 20:53 Last Admin: 03/18/25 07:18 Dose: 10 mg Pantoprazole Sodium (Pantoprazole 40 Mg Tab) 40 mg PO DAILY [facility]LIE Stop: 04/10/25 08:59 Last Admin: 03/18/25 09:23 Dose: 40 mg Polyethylene Glycol (Polyethylene (Miralax) 17 Gm Pack) 17 gm PO DAILY [facility] Stop: 04/11/25 08:59 Last Admin: 03/18/25 09:34 Dose: 17 gm Simvastatin (Simvastatin 20 Mg Tab) 20 mg PO QPM [facility] Stop: 04/09/25 20:59 Last Admin: 03/17/25 20:03 Dose: 20 mg
[2025-03-18] MEDS: dexAMETHasone 8 MG in SYRINGE 0 ML IV SCH (13:55)
[2025-03-18 22:42] VITALS: RESP 18; TEMP 97.5
[2025-03-19 07:25] LABS: Hematocrit (blood only) 31.5 % (42.0-52.0); Hemoglobin 10.7 g/dl (14.0-18.0); Mean Corpuscular Hemoglobin 32.2 pg (25.0-34.0); Mean Corpuscular Volume 94.9 fL (80.0-100.0); Platelet Count 322 K/uL (130-400); RDW Standard Deviation 45.9 fL (36.4-46.3); Red Blood Count 3.32 M/uL (4.70-6.10); White Blood Count 6.78 K/ul (4.8-10.8)
[2025-03-19 07:49] LABS: Anion Gap 6.0 (3-11); Blood Urea Nitrogen 16.0 mg/dl (6-23); Calcium 9.1 mg/dl (8.6-10.3); Carbon Dioxide 29.0 mmol/L (21-32); Chloride 101.0 mmol/L (98-107); Creatinine Clr Calc Pharmacy 118.6 ml/min; Glucose 181.0 mg/dl (70-99(Fasting)); Magnesium 2.1 mg/dl (1.7-2.4); Potassium 3.9 mmol/L (3.5-5.1); Sodium 136.0 mmol/L (136-145)
[2025-03-19 08:11] VITALS: BP 156/78; O2SAT 95
[2025-03-19 10:40] VITALS: PULSE 78
--- NOTE | 2025-03-24 09:50 | Discharge Summary ---
Date of Service March 24, 2025 Admission HPI Per Admitting Provider This is a 79-year-old male well-known to the status post revision decompression and fusion. He had been doing very well at rehab. Unfortunately he had a fall yesterday. Since that time he has had fevers. He is somewhat disoriented. He has worsening back pain with ambulation. He is comfortable at rest. This is a marked dramatic change from his previous status. At this time he denies any back pain numbness or tingling. Discharge Data Consultations 03/10/25 17:13 ED Decision to Admit Stat 03/10/25 17:51 Consult Hospitalist Stat 03/10/25 20:54 Consult Internal Medicine Routine 03/12/25 08:18 Consult Infectious Diseases Routine Procedures Performed Operation Date: 03/11/25 11:00 Actual Procedures p Incision and Drainage Lumbar with Insertion of Stimulan Beads(Not Applicable) - Fidencio Christopher [facility] Hospital Course (1) Multilevel lumbosacral spondylosis with radiculopathy: Patient presented to the emergency room on 03/10/2025. He was status post revision lumbar decompression and fusion. He was in rehab at the time and had a fall. He started becoming confused and increasing pain. CT scan was performed in the emergency room revealing sacral fractures and a large collection of fluid. He was taken to the operating on 03/11/2025 and undergoing irrigation debridement. Cultures were taken at the time of surgery which came back positive for bacteria. He was admitted and had infectious disease consult. He is placed on IV and oral antibiotics. He was seen by physical therapy for ambulation and gait training. He is placed on GI DVT prophylaxis and pain control measures. His confusion is cleared and his temperature remained stable hemodynamically he was stable. On 03/19/2025 he was transferred back to rehabilitation for continued care. He was to follow-up with our office approximately 2 weeks from his procedure. He may perform restorative rehab but should not have repetitive bending lifting and twisting. The dressings were to be changed once daily until there is no drainage once there is no drainage he may go without the dressing. He was to follow-up with infectious disease as well.
== END 2025-03-19 11:14 | DRG 907 ==
LOC: ED 16:15 → 3N 17:25

== ENCOUNTER 2025-03-31 17:20 | Inpatient (IN) ==
[2025-03-31] MEDS: ONDANSETRON INJ 2 MG/ML 2 ML VIAL IV STA (18:13)
[2025-03-31] MEDS: MoRPHine SULFATE 2 MG/ML CARP IV STA (18:13)
[2025-03-31 18:14] LABS: Hematocrit (blood only) 34.0 % (42.0-52.0); Hemoglobin 11.5 g/dl (14.0-18.0); Immature Granulocytes # (auto) 0.04 K/uL (0.01-0.20); Immature Granulocytes % (auto) 0.5 %; Mean Corpuscular Hemoglobin 31.9 pg (25.0-34.0); Mean Corpuscular Volume 94.4 fL (80.0-100.0); Platelet Count 242 K/uL (130-400); RDW Standard Deviation 44.3 fL (36.4-46.3); Red Blood Count 3.60 M/uL (4.70-6.10); White Blood Count 8.65 K/ul (4.8-10.8)
[2025-03-31 18:27] LABS: Alanine Aminotransferase 28 U/L (7-52); Albumin Globulin Ratio 0.9 (0.9-2); Alkaline Phosphatase 94 U/L (34-104); Anion Gap 6 (3-11); Bilirubin,Total 0.3 mg/dl (0.2-1.0); Blood Urea Nitrogen 13 mg/dl (6-23); Calcium 8.7 mg/dl (8.6-10.3); Carbon Dioxide 30 mmol/L (21-32); Chloride 99 mmol/L (98-107); Globulin 3.4 gm/dl (2.5-4.0); Glucose 125 mg/dl (70-99(Fasting)); Potassium 4.5 mmol/L (3.5-5.1); Sodium 135 mmol/L (136-145); Total Protein 6.4 gm/dl (6.0-8.3)
--- NOTE | 2025-03-31 18:56 | Emergency Department Note ---
Impression & Plan Intractable back pain ED Provider Note CHIEF COMPLAINT: Intractable back pain HISTORY OF PRESENTING ILLNESS: Patient is an 79-year-old male presents to the emergency department today for intractable back. He has a history of L3-S1 decompression fusion on 03/01/2025 and sent to [facility] rehab. On 12/08/2024 he had a fall was noted to have a fever. He then went underwent irrigation and debridement of the lumbar spine. He then went back to [facility] and was discharged home. Over the past several days he has been unable to ambulate and has had severe intractable lumbar back pain that is more prominent in the left buttocks. He denies any loss of bowel or bladder function. He does report some numbness and tingling to the bilateral lower extremities. He currently is living at home with his who is unable to assist him in getting up therefore called 911 and for had him brought in by ambulance. Patient denies chest pain, sob, breathing difficulties, abdominal pain, headache, fevers/chills, blood in stool or urine, any recent illness, or any recent travel. REVIEW OF SYSTEMS: See HPI for pertinent positives and pertinent negatives. ALLERGIES: See below MEDICATIONS: See below PAST MEDICAL HISTORY: See below PHYSICAL EXAM: VITALS: Vitals are noted on the nurse's note and reviewed by myself. GENERAL: Non toxic, in no acute distress, non-diaphoretic. SKIN: No rashes, erythema, open areas. Capillary refill <2 sec. EYES: PERRLA. EOMI. Conjunctivae without injection, sclerae without icterus. HEART: Regular rate and rhythm without murmurs gallops or rubs. LUNGS: Clear to auscultation bilaterally without wheezes, rales or rhonchi. No retractions or accessory muscle use. ABDOMEN: Positive bowel sounds x 4. Normal tympanic percussion. Soft, nontender to palpation. MUSCULOSKELETAL: Range of motion is intact to the bilateral lower extremities but difficult due to pain. Strength 3/5 no gross musculoskeletal defects. NEURO: Sensation is intact. Bilateral pedal pulses 3/5. Patient was alert and oriented. No focal neurological deficits. DIFFERENTIAL DIAGNOSIS: Differential diagnosis includes fracture, subluxation, cauda equina syndrome, cord compression, disc herniation, muscle spasm, lumbar strain, epidural abscess, discitis, malignancy, transverse myelitis, urinary tract infection, colitis, diverticulitis, kidney stone, among others. ED COURSE AND MEDICAL DECISION MAKING: HISTORY FROM INDEPENDENT HISTORIAN: History was provided by the patient and his who is a secondary historian. MONITOR: Continuous group exercise manager: Order was placed for continuous group exercise manager. Patient was placed on the group exercise manager and continuous pulse ox. Patient was noted to be in normal sinus rhythm at an initial rate of 80 bpm per my interpretation. INTERPRETATION OF LABS: I interpreted the labs with full lab results as below in the lab section of this note. Laboratory results pertinent to the emergent complaint are discussed in the MDM section below. The patient was advised to follow up with their PCP and/or specialist(s) for further outpatient monitoring and management of any abnormal results. INTERPRETATION OF IMAGING: Imaging studies were interpreted by myself and read by radiology as per the imaging section of this note. The patient was advised to follow up with their PCP and/or specialist(s) for further outpatient management of any non-emergent abnormal findings. CHRONIC MEDICAL/SOCIAL CONDITIONS AFFECTING CARE: No social concerns were identified as barriers to patients care. CONSULTATIONS: I had a meaningful discussion about this patient with Dr. Calles who agrees with my assessment and the treatment plan. I also consulted with Dr. Christopher who performed the patient's previous procedures. He will plan to see the patient as an inpatient. I also consulted with the hospitalist Dr. Sahu who accepts the patient for admission. SUMMARY: I examined the patient for complaints of lumbar back pain to the left buttocks and into the leg. A physical exam and history were performed. Nursing notes, EMR, and medication list were personally reviewed. CBC showed no leukocytosis. Mild anemia with a hemoglobin of 11.5 which appears to be baseline for the patient. No thrombocytopenia. CMP showed no emergent findings with a sodium of 135, carbon dioxide of 33, glucose of 118. I consulted with Dr. Christopher as he had performed his previous procedures. Dr. Christopher recommends an MRI of the lumbar spine and he will plan to see the patient as an inpatient. Patient was given morphine 2 mg and Zofran 4 mg in the emergency department with some improvement in pain and discomfort. I spoke with Dr. Sahu for admission to the hospital. The patient was accepted. Care was transferred at this time. The patient is to have close outpatient follow-up with a recheck of their symptoms. To return to the ER sooner for any significantly changing or worsening symptoms. The patient was educated on the treatment plan and the discharge instructions. The patient was discharged home in stable condition and verbalized understanding of all discharge instructions and treatment plan. DIAGNOSIS: Lumbar back pain TREATMENT PLAN/DISCHARGE INSTRUCTIONS: Admit to hospitalist services. The chart was completed utilizing [employer] Speech voice recognition software.Grammatical errors, random word insertions, pronoun errors, and incomplete sentences are an occasional consequence of this system due to software limitations, ambient noise, and hardware issues.Any formal questions or concerns about the content, text, or information contained within the body of this dictation should be directly addressed to the physician for clarification. Past Med/Surg History Problem List (Updated 04/02/25 @ 21:40 by OSVALDO Oshea) Intractable back pain (Acute) Lumbar radiculopathy Intractable back pain History of lumbar surgery (Acute) Anemia (Acute) Fracture of lumbar spine (Acute) Fall (Acute) Fever (Acute) Confusion (Acute) Hypotension (Acute) Sepsis (Acute) Sepsis Acute blood loss anemia Multilevel lumbosacral spondylosis with radiculopathy Medical History Hyperlipidemia GERD (gastroesophageal reflux disease) Cervical stenosis of spinal canal Prostate cancer History of prostate cancer 2004, S/P PROSTATECTOMY CAD (coronary artery disease) CT 1995 Encounter for pre-operative examination Spinal stenosis, lumbar region with neurogenic claudication HTN (hypertension) Per PCP records [place] (hard of hearing) Bilateral hearing aids Osteoporosis History of prostate cancer (2004) s/p prostatectomy- no chemo or XRT Hyperlipidemia Spinal stenosis CAD (coronary artery disease) s/p angioplasty 1995 GERD (gastroesophageal reflux disease) well controlled and stable Depression Anxiety Hx of Guillain-[place] syndrome 2014, 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 Hx of myocardial infarction 1995 at [facility], angioplasty, no stents - no longer follows with Cardiology. *started on Atenolol after CT - denies having hypertension* Sleep apnea no longer uses cpap ( reports patient does not snore anymore, has a bed that raises the head of bed and does well now) Surgical History History of appendectomy History of cardiac cath 1995 at [facility], angioplasty, no stents - no longer follows with Cardiology. History of lumbar surgery 1985 [facility] Lumbar surgery 2001 in [place] (unsure of levels) 2003 in [place] (unsure of levels) 07/27/[address] Christopher T11-L2, L4-S1 Decompression, T11-S1 Fusion with peek cage at L1-L2 at [facility] Hx of prostatectomy (2004) s/p prostate cancer History of colonoscopy Hx of left cataract extraction Hx of right cataract extraction Hx of cervical spine surgery ~2015 Dr. Christopher at [facility] -- ACDF (unsure of levels) reports having full ROM Family History Brother Family history of diabetes mellitus Sister Family history of diabetes mellitus Sister Family history of diabetes mellitus Mother Family history of diabetes mellitus Other No family history of adverse response to anesthesia Social History Smoking Status: Never smoker Tobacco Type: Smokeless Tobacco (Dip or Chew) Second Hand Exposure: No; Do You Dip or Chew Tobacco: Yes (1 can/2 days.); Tobacco Cessation Education Requested by Patient: No Hx Alcohol Use: No Hx Substance Use: No Preferred Language: Turkmen Communication Ability: Effective Kennel Attendant Required: No Beliefs That Will Affect Care: None marital status: Current Living Situation: Spouse Other Information That Helps Us Care for You: No Feels Safe at Home: Yes Safety Concerns: Feels Safe At This Time Assistive Devices: Cane, Denture - Upper, Denture - Lower, Glasses, Hearing Aid - Bilateral, Hospital Bed, Raised Toilet Seat and Walker Allergies Allergies Allergy/AdvReac Type Severity Reaction Status Date / Time No Known Allergies Allergy Verified 03/10/25 20:17 Home Meds Home Medications Medication Instructions Recorded Confirmed ascorbic acid (vitamin C) 500 mg 500 mg PO QAM 07/07/19 03/10/25 tablet (Vitamin C) aspirin 81 mg tablet,delayed 81 mg PO QPM 07/07/19 03/10/25 release (Gen Low Dose Aspirin) atenolol 25 mg tablet 25 mg PO QAM 07/07/19 03/10/25 citalopram 20 mg tablet 20 mg PO QPM 07/07/19 03/10/25 magnesium 250 mg tablet 250 mg PO BID 07/07/19 03/10/25 omega 0-exi-sak-fish oil 1,000 mg 1 cap PO QPM 07/07/19 03/10/25 (120 mg-180 mg) capsule (Fish Oil) omeprazole 20 mg tablet,delayed 20 mg PO QAM 07/07/19 03/10/25 release simvastatin 20 mg tablet 20 mg PO QPM 07/07/19 03/10/25 vitamin B complex 1 tab PO WK 07/07/19 03/10/25 acetaminophen 500 mg tablet 1,000 mg PO TID PRN Pain 01/30/25 03/10/25 calcium 600 mg (as 1 tab PO BID 01/30/25 03/10/25 carbonate)-vitamin D3 5 mcg (200 unit) tablet cholecalciferol (vitamin D3) 25 25 mcg PO QAM 01/30/25 03/10/25 mcg (1,000 unit) tablet (Vitamin D3) fluticasone propionate 50 1 spray intranasal QA 01/30/25 03/10/25 mcg/actuation nasal spray,suspension ibandronate 150 mg tablet 150 mg PO MONTHLY 01/30/25 03/10/25 lutein 20 mg tablet 20 mg PO QAM 01/30/25 03/10/25 meloxicam 15 mg tablet 15 mg PO QAM 01/30/25 03/10/25 cetirizine 10 mg tablet 10 mg PO DAILY PRN allergies 03/02/25 03/10/25 Previous Rx's Medication Instructions Recorded oxycodone 5 mg tablet 5 mg PO Q6H PRN pain #30 tabs 03/02/25 tramadol 50 mg tablet 50 mg PO Q6H PRN pain, moderate 03/02/25 #30 tabs ceftriaxone 2 gram intravenous 2 g IV DAILY 6 weeks 03/17/25 solution Results & Data (ED) Vital Signs Vital Signs - 24 hr 03/31/25 17:23 03/31/25 18:37 Temperature 36.8 C Temperature Source Temporal Artery Scan Pulse Rate 78 82 Respiratory Rate 20 Blood Pressure 114/70 Blood Pressure Mean 84 Pulse Oximetry 95 Oxygen Delivery Method Room Air Sepsis Recent Fever Within 48 Hours No Sepsis New/Unexplained Change in Mental Status N/A Sepsis Action Taken by Nursing No Action Required Laboratory Data 04/01/25 06:15 04/02/25 06:35 Lab Results 03/31/25 Range/Units 17:38 WBC 8.65 (4.8-10.8) K/ul RBC 3.60 L (4.70-6.10) M/uL Hgb 11.5 L (14.0-18.0) g/dl Hct 34.0 L (42.0-52.0) % MCV 94.4 (80.0-100.0) fL MCH 31.9 (25.0-34.0) pg MCHC 33.8 (32.0-36.0) g/dL RDW Std Deviation 44.3 (36.4-46.3) fL RDW Coeff of Loretta 12.9 (11.5-14.5) % Plt Count 242 (130-400) K/uL MPV 10.4 (9.4-12.4) fL Immature Gran % (Auto) 0.5 % Neut % (Auto) 67.5 % Lymph % (Auto) 16.8 % [place] % (Auto) 12.1 % Eos % (Auto) 2.4 % Baso % (Auto) 0.7 % Neut # (Auto) 5.84 (1.40-6.50) K/uL Lymph # (Auto) 1.45 (1.20-3.40) K/uL [place] # (Auto) 1.05 H (0.11-0.59) K/uL Eos # (Auto) 0.21 (0.00-0.50) K/uL Baso # (Auto) 0.06 (0.00-0.20) K/uL Immature Gran # (Auto) 0.04 (0.01-0.20) K/uL Sodium 135 L (136-145) mmol/L Potassium 4.5 (3.5-5.1) mmol/L Chloride 99 (98-107) mmol/L Carbon Dioxide 30 (21-32) mmol/L Anion Gap 6 (3-11) BUN 13 (6-23) mg/dl Creatinine 0.67 (0.6-1.4) mg/dl Est Cr Clr Drug Dosing Not Reportable eGFR 94.39 BUN/Creatinine Ratio 19.4 (10-20) Glucose 125 H (70-99(Fasting)) mg/dl Calcium 8.7 (8.6-10.3) mg/dl Total Bilirubin 0.3 (0.2-1.0) mg/dl AST 25 (13-39) U/L ALT 28 (7-52) U/L Alkaline Phosphatase 94 (34-104) U/L Total Protein 6.4 (6.0-8.3) gm/dl Albumin 3.0 L (3.4-5.0) gm/dl Globulin 3.4 (2.5-4.0) gm/dl Albumin/Globulin Ratio 0.9 (0.9-2) Administered Medications Acetaminophen (Acetaminophen 500 Mg Tab) 1,000 mg PO TID PRN PRN Reason: Pain Stop: 04/30/25 21:52 Last Admin: 04/01/25 07:53 Dose: 1,000 mg Documented By: kyle Ascorbic Acid (Ascorbic Acid 500 Mg Tab) 500 mg PO [facility] Stop: 05/01/25 08:59 Last Admin: 04/02/25 07:40 Dose: 500 mg Documented By: kyle Admin: 04/01/25 07:50 Dose: 500 mg Documented By: kyle Aspirin (Aspirin 81 Mg Ectab) 81 mg PO QPM [facility] Stop: 04/30/25 21:52 Last Admin: 04/02/25 21:05 Dose: 81 mg Documented By: Admin: 04/01/25 20:46 Dose: 81 mg Documented By: Admin: 03/31/25 23:13 Dose: 81 mg Documented By: JULIA Atenolol (Atenolol 25 Mg Tablet) 25 mg PO [facility] Stop: 05/01/25 08:59 Last Admin: 04/02/25 07:40 Dose: 25 mg Documented By: kyle Admin: 04/01/25 07:49 Dose: 25 mg Documented By: kyle Calcium/Vitamin D (Calcium 600mg + Vit D 400 Iu Tab) 1 tab PO BID [facility] Stop: 04/30/25 21:59 Last Admin: 04/02/25 21:05 Dose: 1 tab Documented By: Admin: 04/02/25 07:40 Dose: 1 tab Documented By: kyle Admin: 04/01/25 20:46 Dose: 1 tab Documented By: Admin: 04/01/25 07:49 Dose: 1 tab Documented By: kyle Admin: 03/31/25 23:14 Dose: 1 tab Documented By: JULIA Citalopram Hydrobromide (Citalopram 20 Mg Tab) 20 mg PO QPM [facility] Stop: 04/30/25 21:52 Last Admin: 04/02/25 21:05 Dose: 20 mg Documented By: Admin: 04/01/25 20:46 Dose: 20 mg Documented By: Admin: 03/31/25 23:14 Dose: 20 mg Documented By: JULIA Fish Oil ([place]-3 (Purified Fish Oil) 1 Gm Cap) 1 cap PO QPM K[facility]LIE Stop: 04/30/25 21:59 Last Admin: 04/02/25 21:06 Dose: 1 cap Documented By: Admin: 04/01/25 20:46 Dose: 1 cap Documented By: Admin: 03/31/25 23:14 Dose: 1 cap Documented By: JULIA Fluticasone Propionate (Fluticasone Propionate Na Spr 16 Gm Btl) 1 sprays NA QAM [facility]IE Stop: 05/01/25 08:59 Last Admin: 04/02/25 07:39 Dose: 1 sprays Documented By: kyle Admin: 04/01/25 07:50 Dose: 1 sprays Documented By: kyle Heparin Sodium (Porcine) (Heparin Sod 5,000 Unit/0.5 Ml Vial) 5,000 units SQ Q12 [facility] Stop: 04/30/25 20:59 Last Admin: 04/02/25 21:06 Dose: 5,000 units Documented By: Admin: 04/02/25 07:43 Dose: Not Given Documented By: kyle Admin: 04/01/25 20:46 Dose: 5,000 units Documented By: Admin: 04/01/25 07:47 Dose: 5,000 units Documented By: kyle Admin: 03/31/25 23:13 Dose: 5,000 units Documented By: JULIA Hydromorphone HCl (Hydromorphone Inj 0.5 Mg/0.5 Ml Syr) 0.5 mg IV Q6H PRN PRN Reason: Pain Stop: 04/14/25 19:24 Last Admin: 04/02/25 17:02 Dose: 0.5 mg Documented By: kyle Admin: 04/01/25 12:45 Dose: 0.5 mg Documented By: MIGUE Ceftriaxone Sodium (Rocephin) 2,000 mg in 50 mls @ 100 mls/hr IV Q24H [facility] Stop: 05/13/25 08:59 Last Infusion: 04/02/25 08:22 Dose: Infused Documented By: Admin: 04/02/25 07:43 Dose: 100 mls/hr Documented By: kyle Infusion: 04/01/25 09:48 Dose: Infused Documented By: kyle Admin: 04/01/25 09:05 Dose: 100 mls/hr Documented By: kyle Magnesium Oxide (Magnesium Oxide 400 Mg Tab) 400 mg PO BID [facility]IE Stop: 04/30/25 21:59 Last Admin: 04/02/25 21:06 Dose: 400 mg Documented By: Admin: 04/02/25 07:40 Dose: 400 mg Documented By: kyle Admin: 04/01/25 20:47 Dose: 400 mg Documented By: Admin: 04/01/25 07:48 Dose: 400 mg Documented By: kyle Admin: 03/31/25 23:14 Dose: 400 mg Documented By: JULIA Oxycodone HCl (Oxycodone Hcl Ir 5 Mg Tab (Immediate Release)) 5 mg PO Q6H PRN PRN Reason: pain Stop: 04/14/25 21:52 Last Admin: 04/02/25 12:47 Dose: 5 mg Documented By: Admin: 04/01/25 08:00 Dose: 5 mg Documented By: kyle Pantoprazole Sodium (Pantoprazole 40 Mg Tab) 40 mg PO QAM [facility]IE Stop: 05/01/25 08:59 Last Admin: 04/02/25 07:40 Dose: 40 mg Documented By: kyle Admin: 04/01/25 07:49 Dose: 40 mg Documented By: kyle Simvastatin (Simvastatin 20 Mg Tab) 20 mg PO QPM [facility]IE Stop: 04/30/25 21:52 Last Admin: 04/02/25 21:06 Dose: 20 mg Documented By: Admin: 04/01/25 20:47 Dose: 20 mg Documented By: Admin: 03/31/25 23:14 Dose: 20 mg Documented By: JULIA Vitamin D (Cholecalciferol 25 Mcg (1000 Units) Tab) 25 mcg PO QAM [facility]IE Stop: 05/01/25 08:59 Last Admin: 04/02/25 07:40 Dose: 25 mcg Documented By: kyle Admin: 04/01/25 07:49 Dose: 25 mcg Documented By: kyle Discontinued Medications Gadobutrol (Gadobutrol 10ml Vial) 8 ml IV ONCE ONE Stop: 03/31/25 21:04 Last Admin: 03/31/25 21:03 Dose: 8 ml Documented By: JOSHUA Ceftriaxone Sodium (Rocephin) 2,000 mg in 50 mls @ 100 mls/hr IV NOW STA Stop: 03/31/25 19:56 Last Admin: 03/31/25 20:46 Dose: Not Given Documented By: BAILEY Miscellaneous (Patient's Height &/Or Weight Needed) 1 each N/A Q2H STA Stop: 03/31/25 19:47 Last Admin: 03/31/25 19:59 Dose: 1 each Documented By: BAILEY Morphine Sulfate (Morphine Sulfate 2 Mg/Ml [place]) 2 mg IV NOW STA Stop: 03/31/25 18:03 Last Admin: 03/31/25 18:13 Dose: 2 mg Documented By: LETTY Ondansetron HCl (Ondansetron Inj 2 Mg/Ml 2 Ml Vial) 4 mg IV NOW STA Stop: 03/31/25 18:03 Last Admin: 03/31/25 18:13 Dose: 4 mg Documented By: LETTY Discharge Plan Visit Data Chief Complaint: Leg Injury/Pain ED Provider: Karson Calles ED Midlevel Provider: La Nena Hinds Discharge Problem: Intractable back pain Patient Disposition: Admitted As Inpatient Condition: Good Discharge Instructions Interventions: ED Discharge Assessment Last Done: 03/31/25 21:20
--- NOTE | 2025-03-31 19:25 | History & Physical Report ---
Date of Service March 31, 2025 Assessment & Plan (1) Intractable back pain: Plan: History of L3-S1 decompression fusion on followed by a fall and fever on with sacral fracture and collection Underwent irrigation and debridement lumbar spine on 12 March and aspirate noted to have infection since then he has been on intravenous ceftriaxone 2 g daily to be continued for 8 weeks Came back to the emergency room with increasing back pain and left radiculopathy and difficulty in ambulation Awaiting MRI and of the lumbar spine and evaluation by orthospine Adequate pain medications have been prescribed and antibiotic will be continued Status post I&D lumbar epidural abscess on 03/11/2025 Gram stain and culture revealed Streptococcus dysgalactiae ID consultation was taken and he has been on intravenous ceftriaxone 2 g IV daily since then which will be continued for a total of 8 weeks (2) Lumbar radiculopathy: Plan: As above (3) History of lumbar surgery: (4) Fracture of lumbar spine: (5) CAD (coronary artery disease): Plan: No cardiac symptoms and will continue current medications (6) Hyperlipidemia: Plan: Continue statin (7) GERD (gastroesophageal reflux disease): Plan: Continue PPI and no issues (8) HTN (hypertension): Plan: Blood pressure is controlled DVT prophylaxis Subcu heparin CODE STATUS Full History of Present Illness Chief Complaint: Increasing back pain with left lower extremity radiculopathy Primary Care Provider: Leonardo Layton He is a-year-old male with significant past medical history of status post L3-S1 decompression fusion on of last month and was discharged to inpatient rehab facility on of last month. He has had fever and a fall on 10 March and was brought back to emergency room. He was noted to have sacral fracture and collection of fluid. The fluid was drained on 11 March and underwent irrigation with debridement. Subsequent culture came back positive and he was sent on intravenous ceftriaxone 2 g daily to be continued for 8 weeks in total. He went back to rehab facility on of previous month and from there he went home. He has been complaining of increasing pain for the last day or 2 with radiculopathy involving the left lower extremity and getting weakness in the left lower extremity as well. The ER physician did contact Dr. Christopher and was advised to get an MRI and he will be evaluated later on. He denies any fever and/or chills and denies any other significant symptoms. Takes time to any kind of Allergies Allergy/AdvReac Type Severity Reaction Status Date / Time No Known Allergies Allergy Verified 03/10/25 20:17 Home Medications Medication Instructions Recorded Confirmed Type ascorbic acid (vitamin C) 500 mg 500 mg PO QAM 07/07/19 03/10/25 History tablet (Vitamin C) aspirin 81 mg tablet,delayed 81 mg PO QPM 07/07/19 03/10/25 History release (Gen Low Dose Aspirin) atenolol 25 mg tablet 25 mg PO QAM 07/07/19 03/10/25 History citalopram 20 mg tablet 20 mg PO QPM 07/07/19 03/10/25 History magnesium 250 mg tablet 250 mg PO BID 07/07/19 03/10/25 History omega 2-tjl-cwy-fish oil 1,000 mg 1 cap PO QPM 07/07/19 03/10/25 History (120 mg-180 mg) capsule (Fish Oil) omeprazole 20 mg tablet,delayed 20 mg PO QAM 07/07/19 03/10/25 History release simvastatin 20 mg tablet 20 mg PO QPM 07/07/19 03/10/25 History vitamin B complex 1 tab PO WK 07/07/19 03/10/25 History acetaminophen 500 mg tablet 1,000 mg PO TID PRN Pain 01/30/25 03/10/25 History calcium 600 mg (as 1 tab PO BID 01/30/25 03/10/25 History carbonate)-vitamin D3 5 mcg (200 unit) tablet cholecalciferol (vitamin D3) 25 25 mcg PO QAM 01/30/25 03/10/25 History mcg (1,000 unit) tablet (Vitamin D3) fluticasone propionate 50 1 spray intranasal QAM 01/30/25 03/10/25 History mcg/actuation nasal spray,suspension ibandronate 150 mg tablet 150 mg PO MONTHLY 01/30/25 03/10/25 History lutein 20 mg tablet 20 mg PO QAM 01/30/25 03/10/25 History meloxicam 15 mg tablet 15 mg PO QAM 01/30/25 03/10/25 History cetirizine 10 mg tablet 10 mg PO DAILY PRN allergies 03/02/25 03/10/25 History oxycodone 5 mg tablet 5 mg PO Q6H PRN pain #30 tabs 03/02/25 03/10/25 Rx tramadol 50 mg tablet 50 mg PO Q6H PRN pain, moderate 03/02/25 03/10/25 Rx #30 tabs ceftriaxone 2 gram intravenous 2 g IV DAILY 6 weeks 03/17/25 Rx solution Past Med/Surg History Problem List (Updated 03/31/25 @ 19:24 by Melchor Sahu MD) Lumbar radiculopathy Intractable back pain History of lumbar surgery (Acute) Anemia (Acute) Fracture of lumbar spine (Acute) Fall (Acute) Fever (Acute) Confusion (Acute) Hypotension (Acute) Sepsis (Acute) Sepsis Acute blood loss anemia Multilevel lumbosacral spondylosis with radiculopathy Medical History Hyperlipidemia GERD (gastroesophageal reflux disease) Cervical stenosis of spinal canal Prostate cancer History of prostate cancer 2004, S/P PROSTATECTOMY CAD (coronary artery disease) [place] 1995 Encounter for pre-operative examination Spinal stenosis, lumbar region with neurogenic claudication HTN (hypertension) Per PCP records [place] (hard of hearing) Bilateral hearing aids Osteoporosis History of prostate cancer (2004) s/p prostatectomy- no chemo or XRT Hyperlipidemia Spinal stenosis CAD (coronary artery disease) s/p angioplasty 1995 GERD (gastroesophageal reflux disease) well controlled and stable Depression Anxiety Hx of Guillain-[place] syndrome 2014, 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 Hx of myocardial infarction 1995 at [facility], angioplasty, no stents - no longer follows with Cardiology. *started on Atenolol after [place] - denies having hypertension* Sleep apnea no longer uses cpap ( reports patient does not snore anymore, has a bed that raises the head of bed and does well now) Surgical History History of appendectomy History of cardiac cath 1995 at [facility], angioplasty, no stents - no longer follows with Cardiology. History of lumbar surgery 1985 [facility] Lumbar surgery 2001 in [place] (unsure of levels) 2003 in [place] (unsure of levels) 07/27/[address] Christopher T11-L2, L4-S1 Decompression, T11-S1 Fusion with peek cage at L1-L2 at [facility] Hx of prostatectomy (2004) s/p prostate cancer History of colonoscopy Hx of left cataract extraction Hx of right cataract extraction Hx of cervical spine surgery ~2015 Dr. Christopher at [facility] -- ACDF (unsure of levels) reports having full ROM Family History Brother Family history of diabetes mellitus Sister Family history of diabetes mellitus Sister Family history of diabetes mellitus Mother Family history of diabetes mellitus Other No family history of adverse response to anesthesia Social History Smoking Status: Never smoker Tobacco Type: Smokeless Tobacco (Dip or Chew) Second Hand Exposure: No; Do You Dip or Chew Tobacco: Yes (1 can/2 days.); Hx Alcohol Use: No Hx Substance Use: No Preferred Language: Frisian Communication Ability: Effective Chief Green Officer Required: No Beliefs That Will Affect Care: None marital status: Current Living Situation: Spouse Feels Safe at Home: Yes Assistive Devices: Cane, Raised Toilet Seat and Walker Review of Systems Review of Systems: All systems reviewed and are unremarkable except as noted below Physical Exam Physical Exam: Lying in bed with some discomfort in the back Constitutional: well developed, well nourished and + ill appearing Eyes: PERRL, conjunctivae normal, anicteric sclerae ENMT: external ear and nose normal, oropharynx normal Neck: trachea midline, no thyromegaly Respiratory: no respiratory distress Auscultation: lungs clear to ausculta tion bilaterally Cardiovascular: Rate/Rhythm: regular rate and regular rhythm; not tachycardic Heart Sounds: normal S1 and normal S2; no murmur Extremities: no edema Gastrointestinal (Abdomen): Inspection/Auscultation: normal bowel sounds; abdomen not distended Percussion/Palpation: abdomen soft; abdomen nontender Musculoskeletal: No acute arthritis involving the joint. Localized tenderness noted at the lower lumbar spine spinal movement was painful and straight leg raising painful especially on the left side with radiation of pain down to the legs Neurologic: normal touch/pain/proprioception, moves all extremities and + focal motor deficit Lymphatic: no cervical or axillary lymphadenopathy Results & Data Results & Data Vital Signs (Past 12 Hours) Vital Signs Temp Pulse Resp BP Pulse Ox O2 Del Method 03/31/25 18:37 82 03/31/25 17:23 36.8 C 78 20 114/70 95 Room Air Laboratory Results Short CBC 03/31/25 Range/Units 17:38 WBC 8.65 (4.8-10.8) K/ul Hgb 11.5 L (14.0-18.0) g/dl Hct 34.0 L (42.0-52.0) % Plt Count 242 (130-400) K/uL BMP 03/31/25 17:38 Sodium 135 L Potassium 4.5 Chloride 99 Carbon Dioxide 30 BUN 13 Creatinine 0.67 Glucose 125 H Calcium 8.7 Liver Function 03/31/25 Range/Units 17:38 Total Bilirubin 0.3 (0.2-1.0) mg/dl AST 25 (13-39) U/L ALT 28 (7-52) U/L Alkaline Phosphatase 94 (34-104) U/L Albumin 3.0 L (3.4-5.0) gm/dl Code Status & VTE Plan VTE Prophylaxis Plan VTE Prophylaxis will be ordered: Yes (4) Fracture of lumbar spine Encounter type: initial encounter Fracture morphology: unspecified fracture morphology Fracture type: closed Lumbar vertebra fracture level: unspecified lumbar vertebra Qualified Code(s): S32.009A - Unspecified fracture of unspecified lumbar vertebra, initial encounter for closed fracture
--- NOTE | 2025-03-31 19:41 | XRay Report ---
Clinical History: MRI clearance Technique: 5 views of the orbits are submitted for review. Findings: No definite sinus opacification is seen. No fracture is evident. No focal osseous lesion is identified. There are no radiopaque foreign bodies. Impression: No visible foreign body. No contraindication to MRI is seen Electronically signed by Bari Murphy 03-31-2025 7:41 PM
[2025-03-31] MEDS: Patient's HEIGHT &/or WEIGHT Needed STA (19:59)
[2025-03-31] MEDS: cefTRIAXone SODIUM 2,000 MG/50 ML BAG IV STA (20:46)
[2025-03-31] MEDS: GADOBUTROL 10ML VIAL IV ONE (21:03)
[2025-03-31] MEDS ORDERED: NON-FORMULARY MEDICATION (Vitamin B Complex Tablet) PO SCH (21:53)
[2025-03-31] MEDS: HEPARIN SOD 5,000 UNIT/0.5 ML VIAL SQ SCH (23:13)
[2025-03-31] MEDS: ASPIRIN 81 MG ECTAB PO SCH (23:13)
[2025-03-31] MEDS: MAGNESIUM OXIDE 400 MG TAB PO SCH (23:14)
[2025-03-31] MEDS: CITALOPRAM 20 MG TAB PO SCH (23:14)
[2025-03-31] MEDS: OMEGA-3 (PURIFIED FISH OIL) 1 GM CAP PO SCH (23:14)
[2025-03-31] MEDS: CALCIUM 600MG + VIT D 400 IU TAB PO SCH (23:14)
[2025-03-31] MEDS: SIMVASTATIN 20 MG TAB PO SCH (23:14)
--- NOTE | 2025-04-01 00:11 | Magnetic Resonance Report ---
Exam(s): MRI L SPINE W/WO Contrast IV Amt: 8ml gadavist EXAM: MR Lumbar Spine Without and With Intravenous Contrast CLINICAL HISTORY: lumbar back pain, unable to ambulate. TECHNIQUE: Magnetic resonance images of the lumbar spine without and with intravenous contrast in multiple planes. CONTRAST: Patient received 8ml gadavist of IV contrast COMPARISON: CT lumbar spine 03/10/2025. FINDINGS: Redemonstrated extensive postoperative changes throughout the lower thoracic and lumbar spine. Metal artifact from bilateral pedicle screws from T11 through L2 and L 5 through S1, each side transfixed by posterior paraspinal fixation margot. There is a defect in the bilateral posterior lamina of L3 consistent with a removed pedicle screw. Posterior laminectomy defects from L1 through L5 are noted. Previously described acute fractures through the superior endplate of S1 and adjacent to the bilateral S1 pedicles are better evaluated on prior CT due to artifact on the MRI. Redemonstrated posterior paraspinal fluid collection spanning L2 through S1 surrounding the posterolateral aspects of the pedicle screws overall measuring 11.3 cm superior inferior by 3.9 cm anterior- posterior by 9.4 cm medial-lateral. There surrounding enhancement in the posterior paraspinal musculature along the andujar of the fluid collection. There is no significant mass effect on the posterior aspect of the thecal sac above the level of L3-4. At L4 and L5 there is moderate effacement of the thecal sac with narrowing. There is asymmetric extension of the fluid along the medial aspect of the S1 screw effacing the right lateral aspect of the thecal sac with lateral recess and possibly L5-S1 neural foraminal stenosis, not well visualized due to artifact. There is no otherwise no definite abnormal enhancement within the thecal sac. There is no enhancement of the descending nerve roots to suggest arachnoiditis. Conus medullaris is unremarkable. There is maintenance of height of the vertebral bodies. There is no subluxation. There is edema and enhancement in the S1 vertebral body consistent with fracture and postoperative changes seen CT. There is no definite changes to indicated discitis or osteomyelitis although there is significant metal artifact. There is a bone graft surgical defect in the left ischium. IMPRESSION: Extensive postoperative changes as described above, including a prominent posterior paraspinal peripherally enhancing fluid collection with mass effect and partial effacement of the thecal sac at L5 and S1 with canal and probable asymmetric right neural foraminal stenosis. An infected postoperative collection can not be excluded. Electronically signed by: Yovanny Keller M.D. 04/01/25 00:10 AM
[2025-04-01 07:16] LABS: Hematocrit (blood only) 33.9 % (42.0-52.0); Hemoglobin 11.4 g/dl (14.0-18.0); Immature Granulocytes # (auto) 0.04 K/uL (0.01-0.20); Immature Granulocytes % (auto) 0.5 %; Mean Corpuscular Hemoglobin 31.9 pg (25.0-34.0); Mean Corpuscular Volume 95.0 fL (80.0-100.0); Platelet Count 247 K/uL (130-400); RDW Standard Deviation 44.8 fL (36.4-46.3); Red Blood Count 3.57 M/uL (4.70-6.10); White Blood Count 7.81 K/ul (4.8-10.8)
[2025-04-01 07:42] LABS: Anion Gap 4.0 (3-11); Blood Urea Nitrogen 11.0 mg/dl (6-23); Calcium 8.9 mg/dl (8.6-10.3); Carbon Dioxide 33.0 mmol/L (21-32); Chloride 98.0 mmol/L (98-107); Creatinine Clr Calc Pharmacy 92.1 ml/min; Glucose 118.0 mg/dl (70-99(Fasting)); Potassium 4.0 mmol/L (3.5-5.1); Sodium 135.0 mmol/L (136-145)
[2025-04-01] MEDS: CHOLECALCIFEROL 25 MCG (1000 UNITS) TAB PO SCH (07:49)
[2025-04-01] MEDS: ATENOLOL 25 MG TABLET PO SCH (07:49)
[2025-04-01] MEDS: ASCORBIC ACID 500 MG TAB PO SCH (07:50)
[2025-04-01] MEDS: FLUTICASONE PROPIONATE NA SPR 16 GM BTL SCH (07:50)
[2025-04-01] MEDS: ACETAMINOPHEN 500 MG TAB PO PRN (07:53)
--- NOTE | 2025-04-01 08:31 | Consultation ---
Date of Consultation April 01, 2025 Assessment & Plan (1) Lumbar radiculopathy: I have reviewed his MRI from last evening. It appears that there has been another fluid accumulation causing compression on the thecal sac most severely at the L5-S1 level and to a lesser degree L4-5. This would explain his decline over the past 24 hours and his lower extremity symptoms. I will review with Dr. Christopher. Most likely will need another I&D lumbar spine to evacuate this fluid collection and decompress the thecal sac. Will make him n.p.o. after midnight in case this is tomorrow versus Thursday. History of Present Illness Attending Physician: Eugenio Florez MD History of Present Illness Harsh is an 79-year-old gentleman well-known to us. On March 01, 2025 he u nderwent an L3-S1 decompression and fusion by Dr. Christopher. He was discharged to SNF on March 03. Unfortunately he had a fall on March 10 which resulted in a sacral fracture. Also found to have a large fluid collection upon presentation so he went to the OR again for an I&D on March 11. Still on ceftriaxone 2 g for 8 weeks because of these findings. He then was discharged to SNF on March 19. He presents back to the emergency room yesterday after being home. He has had a decline over the past day or 2 with significant lumbar spasms and pain rating down both legs. Left leg is worse than right. He was Ambulating with a walker at home. Denies any fevers or chills. Allergies Allergy/AdvReac Type Severity Reaction Status Date / Time No Known Allergies Allergy Verified 03/10/25 20:17 Home Medications Medication Instructions Recorded Confirmed Type ascorbic acid (vitamin C) 500 mg 500 mg PO QAM 07/07/19 03/10/25 History tablet (Vitamin C) aspirin 81 mg tablet,delayed 81 mg PO QPM 07/07/19 03/10/25 History release (Gen Low Dose Aspirin) atenolol 25 mg tablet 25 mg PO QAM 07/07/19 03/10/25 History citalopram 20 mg tablet 20 mg PO QPM 07/07/19 03/10/25 History magnesium 250 mg tablet 250 mg PO BID 07/07/19 03/10/25 History omega 8-stk-hye-fish oil 1,000 mg 1 cap PO QPM 07/07/19 03/10/25 History (120 mg-180 mg) capsule (Fish Oil) omeprazole 20 mg tablet,delayed 20 mg PO QAM 07/07/19 03/10/25 History release simvastatin 20 mg tablet 20 mg PO QPM 07/07/19 03/10/25 History vitamin B complex 1 tab PO WK 07/07/19 03/10/25 History acetaminophen 500 mg tablet 1,000 mg PO TID PRN Pain 01/30/25 03/10/25 History calcium 600 mg (as 1 tab PO BID 01/30/25 03/10/25 History carbonate)-vitamin D3 5 mcg (200 unit) tablet cholecalciferol (vitamin D3) 25 25 mcg PO QAM 01/30/25 03/10/25 History mcg (1,000 unit) tablet (Vitamin D3) fluticasone propionate 50 1 spray intranasal QAM 01/30/25 03/10/25 History mcg/actuation nasal spray,suspension ibandronate 150 mg tablet 150 mg PO MONTHLY 01/30/25 03/10/25 History lutein 20 mg tablet 20 mg PO QAM 01/30/25 03/10/25 History meloxicam 15 mg tablet 15 mg PO QAM 01/30/25 03/10/25 History cetirizine 10 mg tablet 10 mg PO DAILY PRN allergies 03/02/25 03/10/25 History oxycodone 5 mg tablet 5 mg PO Q6H PRN pain #30 tabs 03/02/25 03/10/25 Rx tramadol 50 mg tablet 50 mg PO Q6H PRN pain, moderate 03/02/25 03/10/25 Rx #30 tabs ceftriaxone 2 gram intravenous 2 g IV DAILY 6 weeks 03/17/25 Rx solution Patient History Medical History Hyperlipidemia GERD (gastroesophageal reflux disease) Cervical stenosis of spinal canal Prostate cancer History of prostate cancer 2004, S/P PROSTATECTOMY CAD (coronary artery disease) 1995 Encounter for pre-operative examination Spinal stenosis, lumbar region with neurogenic claudication HTN (hypertension) Per PCP records [place] (hard of hearing) Bilateral hearing aids Osteoporosis History of prostate cancer (2004) s/p prostatectomy- no chemo or XRT Hyperlipidemia Spinal stenosis CAD (coronary artery disease) s/p angioplasty 1995 GERD (gastroesophageal reflux disease) well controlled and stable Depression Anxiety Hx of Guillain-[place] syndrome 2015, 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 Hx of myocardial infarction 1995 at [facility], angioplasty, no stents - no longer follows with Cardiology. *started on Atenolol after [place] - denies having hypertension* Sleep apnea no longer uses cpap ( reports patient does not snore anymore, has a bed that raises the head of bed and does well now) Surgical History History of appendectomy History of cardiac cath 1995 at [facility], angioplasty, no stents - no longer follows with Cardiology. History of lumbar surgery 1985 [facility] Lumbar surgery 2001 in [place] (unsure of levels) 2003 in [place] (unsure of levels) 07/27/[address] Christopher T11-L2, L4-S1 Decompression, T11-S1 Fusion with peek cage at L1-L2 at [facility] Hx of prostatectomy (2004) s/p prostate cancer History of colonoscopy Hx of left cataract extraction Hx of right cataract extraction Hx of cervical spine surgery ~2015 Dr. Christopher at [facility] -- ACDF (unsure of levels) reports having full ROM Family History Brother Family history of diabetes mellitus Sister Family history of diabetes mellitus Sister Family history of diabetes mellitus Mother Family history of diabetes mellitus Other No family history of adverse response to anesthesia Social History Smoking Status: Never smoker Tobacco Type: Smokeless Tobacco (Dip or Chew) Second Hand Exposure: No; Do You Dip or Chew Tobacco: Yes (1 can/2 days.); Tobacco Cessation Education Requested by Patient: No Hx Alcohol Use: No Hx Substance Use: No Preferred Language: Occitan Communication Ability: Effective Health Information Systems Technician Required: No Beliefs That Will Affect Care: None marital status: Current Living Situation: Spouse Other Information That Helps Us Care for You: No Feels Safe at Home: Yes Safety Concerns: Feels Safe At This Time Assistive Devices: Cane, Denture - Upper, Denture - Lower, Glasses, Hearing Aid - Bilateral, Hospital Bed, Raised Toilet Seat and Walker Review of Systems Review of Systems: All systems reviewed & are unremarkable except as noted in HPI & below Physical Exam Physical Exam: He is laying in bed comfortable and cooperative Negative logrolling bilateral lower extremities He has 4+/5 left quadricep, hamstring, plantarflexion Strength intact right lower extremity Results & Data Vital Signs (Past 12 Hours) Vital Signs Temp Pulse Pulse Resp BP BP Pulse Ox 04/01/25 07:49 36.5 C 86 18 133/77 94 04/01/25 07:14 89 04/01/25 04:26 36.7 C 77 20 124/73 92 03/31/25 21:50 80 03/31/25 21:50 37.5 C 71 16 144/78 H 92 03/31/25 21:20 84 22 122/64 92 O2 Del Method 04/01/25 07:49 Room Air 04/01/25 07:14 04/01/25 04:26 Room Air 03/31/25 21:50 03/31/25 21:50 Room Air 03/31/25 21:20 Room Air Diagnostic Findings [facility], [place] [phone] Magnetic Resonance Report Patient: HARSH LUU Admit Date: 03/31/25 MR#: [id number] Address1: [address] [place] [address] Acct ID:[id number] Address2: [address] Date: 1945 [facility] Zip: [place] [address] Age: 79 Location: 2N Sex: M [facility] Att Phy: Melchor Sahu MD Diagnosis: INTRACTABLE BACK PAIN Yara Phy: Leonardo Layton M.D. Service Date: 03/31/25 Fam Phy: Interpreting Phy: Yovanny León Phy: Melchor Sahu MD Ordering Phy: La Nena Hinds CRNP cc: ~ Exam(s): MRI L SPINE W/WO Contrast IV Amt: 8ml gadavist EXAM: MR Lumbar Spine Without and With Intravenous Contrast CLINICAL HISTORY: lumbar back pain, unable to ambulate. TECHNIQUE: Magnetic resonance images of the lumbar spine without and with intravenous contrast in multiple planes. CONTRAST: Patient received 8ml gadavist of IV contrast COMPARISON: CT lumbar spine 03/10/2025. FINDINGS: Redemonstrated extensive postoperative changes throughout the lower thoracic and lumbar spine. Metal artifact from bilateral pedicle screws from T11 through L2 and L 5 through S1, each side transfixed by posterior paraspinal fixation margot. There is a defect in the bilateral posterior lamina of L3 consistent with a removed pedicle screw. Posterior laminectomy defects from L1 through L5 are noted. Previously described acute fractures through the superior endplate of S1 and adjacent to the bilateral S1 pedicles are better evaluated on prior CT due to artifact on the MRI. Redemonstrated posterior paraspinal fluid collection spanning L2 through S1 surrounding the posterolateral aspects of the pedicle screws overall measuring 11.3 cm superior inferior by 3.9 cm anterior- posterior by 9.4 cm medial-lateral. There surrounding enhancement in the posterior paraspinal musculature along the andujar of the fluid collection. There is no significant mass effect on the posterior aspect of the thecal sac above the level of L3-4. At L4 and L5 there is moderate effacement of the thecal sac with narrowing. There is asymmetric extension of the fluid along the medial aspect of the S1 screw effacing the right lateral aspect of the thecal sac with lateral recess and possibly L5-S1 neural foraminal stenosis, not well visualized due to artifact. There is no otherwise no definite abnormal enhancement within the thecal sac. There is no enhancement of the descending nerve roots to suggest arachnoiditis. Conus medullaris is unremarkable. There is maintenance of height of the vertebral bodies. There is no subluxation. There is edema and enhancement in the S1 vertebral body consistent with fracture and postoperative changes seen CT. There is no definite changes to indicated discitis or osteomyelitis although there is significant metal artifact. There is a bone graft surgical defect in the left ischium. IMPRESSION: Extensive postoperative changes as described above, including a prominent posterior paraspinal peripherally enhancing fluid collection with mass effect and partial effacement of the thecal sac at L5 and S1 with canal and probable asymmetric right neural foraminal stenosis. An infected postoperative collection can not be excluded. Electronically signed by: Yovanny Keller M.D. 04/01/25 00:10 AM Dictated: 04/01/25 0010 Transcribed: 04/01/25 0010
[2025-04-01] MEDS: cefTRIAXone SODIUM 2,000 MG/50 ML BAG IV SCH (09:05)
[2025-04-01] MEDS ORDERED: cefTRIAXone SODIUM 2,000 MG/50 ML BAG IV SCH ×2 (10:00→19:30)
[2025-04-01] MEDS: HYDROmorphone INJ 0.5 MG/0.5 ML SYR IV PRN (12:45)
--- NOTE | 2025-04-01 14:25 | Hospitalist Progress Note ---
Date of Service April 01, 2025 Assessment & Plan (1) Intractable back pain: Plan: History of L3-S1 decompression fusion on followed by a fall and fever on with sacral fracture and collection Underwent irrigation and debridement lumbar spine on 12 March and aspirate noted to have infection since then he has been on intravenous ceftriaxone 2 g daily to be continued for 8 weeks Came back to the emergency room with increasing back pain and left radiculopathy and difficulty in ambulation Lumbar radiculopathy H/O lumbar decompression, fusion surgery --S/P I&D lumbar epidural abscess on 03/11/2025 --Lumbar Spine MRI:Extensive postoperative changes as described above, including a prominent posterior paraspinal peripherally enhancing fluid collection with mass effect and partial effacement of the thecal sac at L5 and S1 with canal and probable asymmetric right neural foraminal stenosis. An infected postoperative collection can not be excluded. --Prior intraoperative cultures grew Streptococcus dysgalactiae -- Evaluated by infectious disease last admission, advised to continue Rocephin 2 g daily for 6-8 weeks and then amoxicillin 500 mg 3 times a day for life for chronic suppressive therapy Appreciate orthopedic spine input May need repeat I&D Pain control as needed Fall precautions Will request PT OT evaluation when appropriate (2) Lumbar radiculopathy: Plan: As above (3) History of lumbar surgery: (4) Fracture of lumbar spine: (5) CAD (coronary artery disease): Plan: Denies any anginal symptoms Continue aspirin, atenolol, simvastatin (6) Hyperlipidemia: Plan: Continue statin (7) GERD (gastroesophageal reflux disease): Plan: Continue Protonix (8) HTN (hypertension): Plan: Blood pressure stable Continue home medications Monitor DVT Px: Heparin SQ CODE STATUS Full code Disposition PT OT prior to discharge Admission and Anticipated Discharge Date Admission Date: March 31, 2025 Subjective Patient is seen and examined at bedside States having lower back pain at surgical site radiating down his legs Also reports intermittent spasms which are better today Denies any chest pain, dyspnea, nausea, vomiting, abdominal pain Review of Systems Review of Systems: All systems reviewed & are unremarkable except as noted in Subjective Physical Exam Physical Exam: Physical Exam: Vitals signs as noted above General Appearance:Moderately built and nourished, no apparent distress, elderly Head: normocephalic, Atraumatic Eyes: normal inspection, EOMI Neck: supple, Trachea midline Respiratory/Chest: Normal breath sounds, CTA, No accessory muscle use Cardiovascular: S1, S2, No murmur Abdomen/GI:Soft, Non tender, Bowel sounds present Extremities/Musculoskeletal:normal inspection, no edema Back: Surgical site Neurologic/Psych:AAOX3, grossly no focal neurological deficits, decreased hearing Skin: normal color, warm Results & Data Results & Data Vital Signs (Past 12 Hours) Vital Signs Temp Pulse Pulse Resp BP Pulse Ox O2 Del Method 04/01/25 11:32 36.6 C 65 16 124/70 96 Room Air 04/01/25 07:49 36.5 C 86 18 133/77 94 Room Air 04/01/25 07:14 89 04/01/25 04:26 36.7 C 77 20 124/73 92 Room Air Laboratory Results Short CBC 03/31/25 04/01/25 Range/Units 17:38 06:15 WBC 8.65 7.81 (4.8-10.8) K/ul Hgb 11.5 L 11.4 L (14.0-18.0) g/dl Hct 34.0 L 33.9 L (42.0-52.0) % Plt Count 242 247 (130-400) K/uL BMP 03/31/25 04/01/25 17:38 06:15 Sodium 135 L 135 L Potassium 4.5 4.0 Chloride 99 98 Carbon Dioxide 30 33 H BUN 13 11 Creatinine 0.67 0.64 Glucose 125 H 118 H Calcium 8.7 8.9 Liver Function 03/31/25 Range/Units 17:38 Total Bilirubin 0.3 (0.2-1.0) mg/dl AST 25 (13-39) U/L ALT 28 (7-52) U/L Alkaline Phosphatase 94 (34-104) U/L Albumin 3.0 L (3.4-5.0) gm/dl (4) Fracture of lumbar spine Encounter type: initial encounter Fracture morphology: unspecified fracture morphology Fracture type: closed Lumbar vertebra fracture level: unspecified lumbar vertebra Qualified Code(s): S32.009A - Unspecified fracture of unspecified lumbar vertebra, initial encounter for closed fracture
[2025-04-02 08:10] LABS: Anion Gap 6.0 (3-11); Blood Urea Nitrogen 11.0 mg/dl (6-23); Calcium 9.0 mg/dl (8.6-10.3); Carbon Dioxide 33.0 mmol/L (21-32); Chloride 96.0 mmol/L (98-107); Creatinine Clr Calc Pharmacy 86.0 ml/min; Glucose 131.0 mg/dl (70-99(Fasting)); Potassium 4.0 mmol/L (3.5-5.1); Sodium 135.0 mmol/L (136-145)
[2025-04-02] MEDS ORDERED: POLYETHYLENE (MIRALAX) 17 GM PACK PO PRN (09:32)
--- NOTE | 2025-04-02 09:39 | Orthopedic Progress Note ---
Date of Service April 02, 2025 Assessment & Plan (1) Lumbar radiculopathy: Plan: At this time I am going to allow him to eat today. N.p.o. after midnight for evacuation of the seroma tomorrow. I will also obtain a CAT scan for further assessment of the sacral fracture. Admission and Anticipated Discharge Date Admission Date: March 31, 2025 Subjective Patient feels his leg symptoms have improved. Pain medicine is helping him. Physical Exam Physical Exam: On exam is currently bed. Appears comfortable. Is distracted testing lower extremities. Sensory intact. Results & Data Vital Signs (Past 12 Hours) Vital Signs Temp Pulse Pulse Resp BP Pulse Ox O2 Del Method 04/02/25 08:13 36.7 C 80 17 111/69 95 Room Air 04/02/25 07:00 87 04/02/25 02:51 37.1 C 84 18 125/72 93 Room Air 04/01/25 23:13 37.3 C 75 16 118/66 94 Room Air
--- NOTE | 2025-04-02 13:11 | CT Scan Report ---
CT lumbar spine wo con CLINICAL HISTORY: sacral fx COMPARISON STUDY: MRI of 03/31/[address] of 03/10/2025 FINDINGS: There is posterior metallic fusion and laminectomy from T11 through S1. There are interbody devices at L4-5 and L5-S1. Stable hardware tracks at L3. Stable mild grade 1 anterolisthesis of L4 o n 5. Otherwise normal alignment. There is an acute to subacute appearing fracture at the superior endplate of S1 with mild height loss . No other fracture seen at the lumbar spine. There is lucency around the S1 pedicle screws. No other hardware complication seen. There is a posterior fluid collection with peripheral calcification extending from L2 through S1 lilia uring 10 cm transverse by 4 cm AP by 11 cm craniocaudad, increased in size compared to the prior CT b ut the prior gas within the collection has resolved. No evidence of osteomyelitis seen. IMPRESSION: 1. Acute to subacute superior endplate fracture at S1 with mild height loss. Mild lucency adjacent to the S1 pedicle screws could be due to the fracture or mild loosening. No other hardware complication is seen. 2. Posterior soft tissue fluid collection with peripheral calcification as described. 3. Otherwise as described. ACT 112: Negative or not required by law. Electronically signed by: Heath Westbrook M.D. 04/02/2025 1:09 PM
--- NOTE | 2025-04-02 13:36 | Hospitalist Progress Note ---
Date of Service April 02, 2025 Assessment & Plan (1) Intractable back pain: Plan: History of L3-S1 decompression fusion on followed by a fall and fever on with sacral fracture and collection Underwent irrigation and debridement lumbar spine on 12 March and aspirate noted to have infection since then he has been on intravenous ceftriaxone 2 g daily to be continued for 8 weeks Came back to the emergency room with increasing back pain and left radiculopathy and difficulty in ambulation Lumbar radiculopathy H/O lumbar decompression, fusion surgery --S/P I&D lumbar epidural abscess on 03/11/2025 --Lumbar Spine MRI:Extensive postoperative changes as described above, including a prominent posterior paraspinal peripherally enhancing fluid collection with mass effect and partial effacement of the thecal sac at L5 and S1 with canal and probable asymmetric right neural foraminal stenosis. An infected postoperative collection can not be excluded. --Prior intraoperative cultures grew Streptococcus dysgalactiae -- Evaluated by infectious disease last admission, advised to continue Rocephin 2 g daily for 6-8 weeks and then amoxicillin 500 mg 3 times a day for life for chronic suppressive therapy Appreciate orthopedic spine input Pain control as needed Fall precautions Will request PT OT evaluation when appropriate N.p.o. after midnight for seroma evacuation tomorrow (2) Lumbar radiculopathy: Plan: As above (3) History of lumbar surgery: (4) Fracture of lumbar spine: (5) CAD (coronary artery disease): Plan: Denies any anginal symptoms Continue aspirin, atenolol, simvastatin (6) Hyperlipidemia: Plan: Continue statin (7) GERD (gastroesophageal reflux disease): Plan: Continue Protonix (8) HTN (hypertension): Plan: Blood pressure relatively low Continue home medications with holding parameters Monitor DVT Px: Heparin SQ CODE STATUS Full code Disposition PT OT prior to discharge Admission and Anticipated Discharge Date Admission Date: March 31, 2025 Subjective Patient is seen and examined at bedside Lower back pain is better today Offers no new complaints today Denies any chest pain, dyspnea, nausea, vomiting, abdominal pain Review of Systems Review of Systems: All systems reviewed & are unremarkable except as noted in Subjective Physical Exam Physical Exam: Physical Exam: Vitals signs as noted above General Appearance:Moderately built and nourished, no apparent distress, elderly Head: normocephalic, Atraumatic Eyes: normal inspection, EOMI Neck: supple, Trachea midline Respiratory/Chest: Normal breath sounds, CTA, No accessory muscle use Cardiovascular: S1, S2, No murmur Abdomen/GI:Soft, Non tender, Bowel sounds present Extremities/Musculoskeletal:normal inspection, no edema Back: Surgical site Neurologic/Psych:AAOX3, grossly no focal neurological deficits, decreased hearing Skin: normal color, warm Results & Data Results & Data Vital Signs (Past 12 Hours) Vital Signs Temp Pulse Pulse Resp BP Pulse Ox O2 Del Method 04/02/25 11:08 36.8 C 75 19 94/65 L 96 Room Air 04/02/25 08:13 36.7 C 80 17 111/69 95 Room Air 04/02/25 07:00 87 04/02/25 02:51 37.1 C 84 18 125/72 93 Room Air Laboratory Results [facility] 04/02/25 06:35 Sodium 135 L Potassium 4.0 Chloride 96 L Carbon Dioxide 33 H BUN 11 Creatinine 0.68 Glucose 131 H Calcium 9.0 (4) Fracture of lumbar spine Encounter type: initial encounter Fracture morphology: unspecified fracture morphology Fracture type: closed Lumbar vertebra fracture level: unspecified lumbar vertebra Qualified Code(s): S32.009A - Unspecified fracture of unspecified lumbar vertebra, initial encounter for closed fracture
[2025-04-02] MEDS ORDERED: HEPARIN 100 UNIT/ML 5ML FLUSH FLUSH PRN (22:27)
[2025-04-03 06:56] LABS: Hematocrit (blood only) 35.2 % (42.0-52.0); Hemoglobin 11.9 g/dl (14.0-18.0); Mean Corpuscular Hemoglobin 31.5 pg (25.0-34.0); Mean Corpuscular Volume 93.1 fL (80.0-100.0); Platelet Count 226 K/uL (130-400); RDW Standard Deviation 42.7 fL (36.4-46.3); Red Blood Count 3.78 M/uL (4.70-6.10); White Blood Count 8.14 K/ul (4.8-10.8)
[2025-04-03 07:18] LABS: Anion Gap 6.0 (3-11); Blood Urea Nitrogen 13.0 mg/dl (6-23); Calcium 9.0 mg/dl (8.6-10.3); Carbon Dioxide 33.0 mmol/L (21-32); Chloride 95.0 mmol/L (98-107); Creatinine Clr Calc Pharmacy 86.0 ml/min; Glucose 133.0 mg/dl (70-99(Fasting)); Potassium 3.8 mmol/L (3.5-5.1); Sodium 134.0 mmol/L (136-145)
[2025-04-03] MEDS: ACETAMINOPHEN 1,000 MG/100 ML VIAL IV STA (09:43)
[2025-04-03] MEDS ORDERED: ONDANSETRON INJ 2 MG/ML 2 ML VIAL ONE (14:12)
[2025-04-03] MEDS ORDERED: PROPOFOL IV EMULSION 10 MG/ML 20 ML VIAL IV ONE (14:12)
[2025-04-03] MEDS ORDERED: ROCURONIUM BROMIDE 10 MG/ML 5 ML VIAL IV ONE (14:12)
[2025-04-03] MEDS ORDERED: DEXAMETHASONE SOD INJ 4 MG/ML VIAL ONE (14:12)
[2025-04-03] MEDS ORDERED: LIDOCAINE 2% 2 ML VIAL/AMP(20MG/ML) INFIL ONE (14:14)
--- NOTE | 2025-04-03 15:04 | Anesthesiology Consultation ---
Date of Service April 03, 2025 Assessment & Plan Chart Review Chart Review: Acceptable Risk for Surgery Consults Requested none ASA ASA3 Proposed Anesthesia Anesthesia Type: General Risk / Benefits Reviewed With: PT / POA / Parent / Guardian, Accepts Plan and Informed Consent Obtained History Surgery Operation Date: 04/03/25 08:10 Proposed Procedures p Incision and Drainage Lumbar Spine - Fidencio Christopher DO Height/Weight Height: 5 ft 9 in Weight: 70.2 kg Allergies Allergy/AdvReac Type Severity Reaction Status Date / Time No Known Allergies Allergy Verified 03/10/25 20:17 Medications Home Medications Medication Instructions Recorded Confirmed Last Taken ascorbic acid (vitamin C) 500 mg 500 mg PO QAM 07/07/19 03/10/25 03/10/25 08:00 tablet (Vitamin C) aspirin 81 mg tablet,delayed 81 mg PO QPM 07/07/19 03/10/25 03/09/25 20:00 release (Gen Low Dose Aspirin) atenolol 25 mg tablet 25 mg PO QAM 07/07/19 03/10/25 03/10/25 08:00 citalopram 20 mg tablet 20 mg PO QPM 07/07/19 03/10/25 03/09/25 20:00 magnesium 250 mg tablet 250 mg PO BID 07/07/19 03/10/25 03/09/25 20:00 omega 3-zpc-vno-fish oil 1,000 mg 1 cap PO QPM 07/07/19 03/10/25 02/20/25 08:00 (120 mg-180 mg) capsule (Fish Oil) omeprazole 20 mg tablet,delayed 20 mg PO QAM 07/07/19 03/10/25 03/09/25 08:00 release simvastatin 20 mg tablet 20 mg PO QPM 07/07/19 03/10/25 03/09/25 20:00 vitamin B complex 1 tab PO WK 07/07/19 03/10/25 02/24/25 08:00 acetaminophen 500 mg tablet 1,000 mg PO TID PRN Pain 01/30/25 03/10/25 Unknown calcium 600 mg (as 1 tab PO BID 01/30/25 03/10/25 03/10/25 20:00 carbonate)-vitamin D3 5 mcg (200 unit) tablet cholecalciferol (vitamin D3) 25 25 mcg PO QAM 01/30/25 03/10/25 03/10/25 08:00 mcg (1,000 unit) tablet (Vitamin D3) fluticasone propionate 50 1 spray intranasal [facility] 01/30/25 03/10/25 03/09/25 09:00 mcg/actuation nasal spray,suspension ibandronate 150 mg tablet 150 mg PO MONTHLY 01/30/25 03/10/25 02/11/25 08:00 lutein 20 mg tablet 20 mg PO QA 01/30/25 03/10/25 03/10/25 08:00 meloxicam 15 mg tablet 15 mg PO QA 01/30/25 03/10/25 03/10/25 08:00 cetirizine 10 mg tablet 10 mg PO DAILY PRN allergies 03/02/25 03/10/25 Unknown oxycodone 5 mg tablet 5 mg PO Q6H PRN pain #30 tabs 03/02/25 03/10/25 Unknown tramadol 50 mg tablet 50 mg PO Q6H PRN pain, moderate 03/02/25 03/10/25 Unknown #30 tabs ceftriaxone 2 gram intravenous 2 g IV DAILY 6 weeks 03/17/25 Unknown solution Active Medications Generic Name Dose Route Start Last Admin Trade Name Freq PRN Reason Stop Dose Admin Ascorbic Acid 500 mg 04/01/25 09:00 04/03/25 09:56 Ascorbic Acid 500 Mg Tab PO 05/01/25 08:59 Not Given QAM KARLIE Aspirin 81 mg 03/31/25 21:53 04/02/25 21:05 Aspirin 81 Mg Ectab PO 04/30/25 21:52 81 mg QPM KARLIE Administration Atenolol 25 mg 04/01/25 09:00 04/03/25 07:46 Atenolol 25 Mg Tablet PO 05/01/25 08:59 25 mg QAM KARLIE Administration Calcium/Vitamin D 1 tab 03/31/25 22:00 04/03/25 09:56 Calcium 600mg + Vit D 400 Iu Tab PO 04/30/25 21:59 Not Given BID KARLIE Citalopram Hydrobromide 20 mg 03/31/25 21:53 04/02/25 21:05 Citalopram 20 Mg Tab PO 04/30/25 21:52 20 mg QPM KARLIE Administration Fish Oil 1 cap 03/31/25 22:00 04/02/25 21:06 [place]-3 (Purified Fish Oil) 1 Gm Cap PO 04/30/25 21:59 1 cap QPM KARLIE Administration Fluticasone Propionate 1 sprays 04/01/25 09:00 04/03/25 09:21 Fluticasone Propionate Na Spr 16 Gm Btl NA 05/01/25 08:59 1 sprays QAM KARLIE Administration Heparin Sodium (Beef Lung) 5 ml 04/02/25 22:49 04/02/25 23:07 Heparin 10 Unit/Ml 5 Ml Flush FLUSH 05/02/25 22:48 5 ml PRN PRN Administration Flush Heparin Sodium (Porcine) 5,000 units 03/31/25 21:00 04/03/25 09:56 Heparin Sod 5,000 Unit/0.5 Ml Vial SQ 04/30/25 20:59 Not Given Q12 KARLIE Hydromorphone HCl 0.5 mg 03/31/25 19:25 04/03/25 08:05 Hydromorphone Inj 0.5 Mg/0.5 Ml Syr IV 04/14/25 19:24 0.5 mg Q6H PRN Administration Pain Ceftriaxone Sodium 2,000 mg in 50 mls @ 100 mls/hr 04/01/25 09:00 04/03/25 09:21 Rocephin IV 05/13/25 08:59 Infused Q24H KARLIE Infusion Magnesium Oxide 400 mg 03/31/25 22:00 04/03/25 09:56 Magnesium Oxide 400 Mg Tab PO 04/30/25 21:59 Not Given BID KARLIE Oxycodone HCl 5 mg 03/31/25 21:53 04/02/25 12:47 Oxycodone Hcl Ir 5 Mg Tab (Immediate Release) PO 04/14/25 21:52 5 mg Q6H PRN Administration pain Pantoprazole Sodium 40 mg 04/01/25 09:00 04/03/25 09:56 Pantoprazole 40 Mg Tab PO 05/01/25 08:59 Not Given QAM KARLIE Simvastatin 20 mg 03/31/25 21:53 04/02/25 21:06 Simvastatin 20 Mg Tab PO 04/30/25 21:52 20 mg QPM KARLIE Administration Vitamin D 25 mcg 04/01/25 09:00 04/03/25 09:56 Cholecalciferol 25 Mcg (1000 Units) Tab PO 05/01/25 08:59 Not Given QAM KARLIE NPO Date Last Intake of Fluids: 04/01/25 Time Last Intake of Fluids: 23:59 Date Last Intake of Solids: 04/01/25 Time Last Intake of Solids: 23:59 Past Medical History Medical History Hyperlipidemia GERD (gastroesophageal reflux disease) Cervical stenosis of spinal canal Prostate cancer History of prostate cancer 2004, S/P PROSTATECTOMY CAD (coronary artery disease) [place] 1995 Encounter for pre-operative examination Spinal stenosis, lumbar region with neurogenic claudication HTN (hypertension) Per PCP records [place] (hard of hearing) Bilateral hearing aids Osteoporosis History of prostate cancer (2004) s/p prostatectomy- no chemo or XRT Hyperlipidemia Spinal stenosis CAD (coronary artery disease) s/p angioplasty 1995 GERD (gastroesophageal reflux disease) well controlled and stable Depression Anxiety Hx of Guillain-Sciota syndrome 2014, 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 Hx of myocardial infarction 1995 at [facility], angioplasty, no stents - no longer follows with Cardiology. *started on Atenolol after [place] - denies having hypertension* Sleep apnea no longer uses cpap ( reports patient does not snore anymore, has a bed that raises the head of bed and does well now) Exercise / Class Metabolic Activity II 4-5 Yardwork/Stairs/Walk up hill Past Family History Family History Brother Family history of diabetes mellitus Sister Family history of diabetes mellitus Sister Family history of diabetes mellitus Mother Family history of diabetes mellitus Other No family history of adverse response to anesthesia Past Surgical History Surgical History History of appendectomy History of cardiac cath 1995 at [facility], angioplasty, no stents - no longer follows with Cardiology. History of lumbar surgery 1985 [facility] Lumbar surgery 2001 in [place] (unsure of levels) 2003 in [place] (unsure of levels) 07/27/[address] Christopher T11-L2, L4-S1 Decompression, T11-S1 Fusion with peek cage at L1-L2 at [facility] Hx of prostatectomy (2004) s/p prostate cancer History of colonoscopy Hx of left cataract extraction Hx of right cataract extraction Hx of cervical spine surgery ~2015 Dr. Christopher at [facility] -- ACDF (unsure of levels) reports having full ROM Past Anesthesia History No Hx of Anesthesia Complications and No Family Hx of Anesthesia Complications History of PONV No Hx of PONV and No Hx of Motion Sickness Social History Smoking Status: Never smoker Do You Dip or Chew Tobacco: Yes (1 can/2 days.) Hx Alcohol Use: No Hx Substance Use: No substance use type: does not use Physical Exam Vital Signs Last Vital Signs Temp 37.2 C 04/03/25 15:02 Pulse 69 04/03/25 15:02 Resp 20 04/03/25 15:02 BP 131/77 04/03/25 15:02 Pulse Ox 92 04/03/25 15:02 O2 Del Method Room Air 04/03/25 15:02 ENMT Mouth: + edentulous; no TMJ abnormality Thyromental Distance: > or= 3.5 Finger Breadths Mallampati Class: III Neck normal visual inspection and trachea midline; neck extension not limited Respiratory normal respiratory effort Auscultation: lungs clear to auscultation bilaterally Cardiovascular Rate/Rhythm: regular rate and regular rhythm Heart Sounds: no murmur Musculoskeletal Spine: normal cervical ROM Extremities: full ROM of extremities Neurologic moves all extremities Psychiatric Orientation: alert and oriented x 3 Testing Laboratory Results 04/03/25 06:05 04/03/25 06:05 Electrocardiogram Date: 03/10/25 Findings: + NSR @ (90bpm) Chest X-Ray Date: 03/10/25 Findings: + NAD Echocardiogram Date: 03/13/25 EF: 55-60% LV Function: normal RWMA: + none Valvular Disease: + no significant valvular disease mild concen LVH
--- NOTE | 2025-04-03 15:04 | History & Physical Bridge Note ---
Date of Service April 03, 2025 History & Physical Bridge Note I have examined the patient, reviewed the History & Physical and in the interval since the performance of the History & Physical I have noted the following changes of clinical significance: no changes noted Irrigation and debridement lumbar spine
[2025-04-03] MEDS ORDERED: MEPERIDINE HCL 25 MG/ML CARP/VIAL IV PRN (15:05)
[2025-04-03] MEDS ORDERED: ALBUTEROL 0.083% NEBU SOLN 3 ML VIAL INH PRN (15:05)
[2025-04-03] MEDS ORDERED: ATROPINE SULFATE 0.1 MG/ML 10ML SYR IV PRN (15:05)
[2025-04-03] MEDS ORDERED: PHENYLEPHRINE 100MCG/ML 5ML SYR ONE (15:35)
[2025-04-03] MEDS: BUPIVACAINE/EPINEPHRINE 0.25% 1:200,000 30 ML VIAL ONE (15:48)
[2025-04-03] MEDS ORDERED: PHENYLEPHRINE HCL 10 MG/ML VIAL ONE (15:57)
[2025-04-03] MEDS ORDERED: GLYCOPYRROLATE 0.2 MG/ML VIAL ONE (15:59)
[2025-04-03] MEDS ORDERED: NEOSTIGMINE METHYLSULFATE 1 MG/ML 10ML VIAL ONE (15:59)
--- NOTE | 2025-04-03 16:05 | Operative Report ---
Post Operative Report Pre & Post Diagnosis Operation Date: 04/03/25 08:10 Pre-Op diagnosis: Epidural seroma Postop diagnosis: Epidural seroma I identified the patient and participated in the time-out.: Yes Procedure Operation Date: 04/03/25 08:10 Irrigation debridement lumbar spine Surgeon Fidencio Christopher DO [employer] Radha Milton Estimated Blood Loss 20 Findings See Below Fluid consistent with breakdown products of hematoma. There is no evidence of gross purulence. Cultures were obtained. Specimens Cultures of the lumbar epidural space Indications This is a 79-year-old male who presents with worsening back pain. MRI demonstrates evidence significant fluid collection with thecal encroachment. States he is here for irrigation and debridement. Description of Procedure Patient was met with identified informed consent obtained. Patient was then taken to the operative suite underwent and patient placed in a prone position on the Jose table atop the Samir frame. All bony prominences well-padded eyes inspected to ensure no external pressure placed upon them. This point the lumbar spine was prepped and draped normal sterile fashion. Sharp dissection was performed down to the fascial layer. The fascia was released and evidence of significant fluid under pressure was noted. It was sanguinous in nature. No evidence of gross purulence identified. Cultures were obtained. Several liters of antibiotic solution were then irrigated throughout the incision. Tissue looks quite healthy after completion of irrigation and debridement of all loose tissue. Inspection of the hardware did demonstrate evidence of some loosening of the S1 pedicle screws. 15 round RESHMA drain was inserted. The incision was then closed with 1 Vicryl fascia 2-0 Vicryl subcutaneously and 4 Monocryl for final skin closure. Steri-Strips sterile dressing placed. Patient waken taken PACU stable condition. Please note Radha Milton was present out the entire procedure and while the patient positioning complex portion of the surgery and final skin closure. I attest to the content of the Intraoperative Record and any orders documented therein. Any exceptions are noted below.
[2025-04-03] MEDS: ceFAZolin 330 MG/ML 1 GM VIAL ONE (16:28)
[2025-04-03] MEDS: GENTAMICIN SULFATE 40 MG/ML 2 ML VIAL ONE (16:30)
[2025-04-03] MEDS: ONDANSETRON INJ 2 MG/ML 2 ML VIAL IV PRN (16:32)
--- NOTE | 2025-04-03 16:40 | Hospitalist Progress Note ---
Date of Service April 03, 2025 Assessment & Plan (1) Intractable back pain: (2) Lumbar radiculopathy: (3) History of lumbar surgery: (4) Fracture of lumbar spine: (5) CAD (coronary artery disease): (6) Hyperlipidemia: (7) GERD (gastroesophageal reflux disease): (8) HTN (hypertension): Plan: Mr. Marrero is an 79 year old male with PMH significant for history of guillain-barre syndrome, history of prostate cancer, history of NM, and multilevel lumbosacral spondylosis with radiculopathy who underwent L3-S1 decompression and fusion on 03/01/2025 c/b postoperative abscess s/p ID [id number], admitted with fall and worsening back pain. Imaging revealed acute superior endplate fracture of S1 as well as posterior fluid collection. #Fluid collection #Acute S1 fracture # Lumbar radiculopathy s/p recent L3-S1 decompression fusion 03/01 #s/p I&D epidural abscess on 03.11 Gram stain and culture revealed Streptococcus dysgalactiae continued on intravenous ceftriaxone 2 g daily to be continued total 8 weeks (~may 06) Came back to the emergency room with increasing back pain and left radiculopathy and difficulty in ambulation Awaiting MRI and of the lumbar spine and evaluation by orthospine Adequate pain medications have been prescribed and antibiotic will be continued s/p I& D on 04/03 Operative report reviewed: no purulence noted, loosening of s1 pedicle screws, RESHMA drain placed, fluid under pressure noted s/p dissection into fascial layer Follow cultruess continue CTX PT/OT when able #CAD Anesthesiology: <[address] elevation, perhaps 2/2 lead placement versus periop hypotension continue atenolol No cardiac symptoms monitor on tele #Hyperlipidemia: Continue statin and asa #GERD (gastroesophageal reflux disease): Continue PPI and no issues #HTN (hypertension): Blood pressure is controlled DVT prophylaxis Subcu heparin held 2/2 procedure, SCDs ordered CODE STATUS Full Admission and Anticipated Discharge Date Admission Date: March 31, 2025 Subjective evaluated preoperatively, reports of left back pain and spasms Denies chest pain or other acute concerns, anxious for procedure today Physical Exam Constitutional: WD/WN, vitals as above Respiratory: normal respiratory effort, lungs clear to auscultation Cardiovascular: RRR, no murmur, no edema Neurologic: PERRL, EOMI, accommodation nl, no face palsy, no dysarthria Results & Data Results & Data Vital Signs (Past 12 Hours) Vital Signs Temp Pulse Pulse Resp BP Pulse Ox O2 Del Method 04/03/25 15:02 37.2 C 69 20 131/77 92 Room Air 04/03/25 13:41 67 04/03/25 09:49 Room Air 04/03/25 07:56 36.8 C 74 16 136/75 92 Room Air 04/03/25 07:00 77 Laboratory Results Short CBC 04/03/25 Range/Units 06:05 WBC 8.14 (4.8-10.8) K/ul Hgb 11.9 L (14.0-18.0) g/dl Hct 35.2 L (42.0-52.0) % Plt Count 226 (130-400) K/uL BMP 04/03/25 06:05 Sodium 134 L Potassium 3.8 Chloride 95 L Carbon Dioxide 33 H BUN 13 Creatinine 0.68 Glucose 133 H Calcium 9.0 Medications Administered Home Medications Medication Instructions Recorded Confirmed Last Taken ascorbic acid (vitamin C) 500 mg 500 mg PO QAM 07/07/19 03/10/25 03/10/25 08:00 tablet (Vitamin C) aspirin 81 mg tablet,delayed 81 mg PO QPM 07/07/19 03/10/25 03/09/25 20:00 release (Gen Low Dose Aspirin) atenolol 25 mg tablet 25 mg PO QAM 07/07/19 03/10/25 03/10/25 08:00 citalopram 20 mg tablet 20 mg PO QPM 07/07/19 03/10/25 03/09/25 20:00 magnesium 250 mg tablet 250 mg PO BID 07/07/19 03/10/25 03/09/25 20:00 omega 9-rke-cys-fish oil 1,000 mg 1 cap PO QPM 07/07/19 03/10/25 02/20/25 08:00 (120 mg-180 mg) capsule (Fish Oil) omeprazole 20 mg tablet,delayed 20 mg PO QAM 07/07/19 03/10/25 03/09/25 08:00 release simvastatin 20 mg tablet 20 mg PO QPM 07/07/19 03/10/25 03/09/25 20:00 vitamin B complex 1 tab PO WK 12/19/19 08/22/25 08/08/25 08:00 acetaminophen 500 mg tablet 1,000 mg PO TID PRN Pain 01/30/25 03/10/25 Unknown calcium 600 mg (as 1 tab PO BID 01/30/25 03/10/25 03/10/25 20:00 carbonate)-vitamin D3 5 mcg (200 unit) tablet cholecalciferol (vitamin D3) 25 25 mcg PO QAM 01/30/25 03/10/25 03/10/25 08:00 mcg (1,000 unit) tablet (Vitamin D3) fluticasone propionate 50 1 spray intranasal QA 01/30/25 03/10/25 03/09/25 09:00 mcg/actuation nasal spray,suspension ibandronate 150 mg tablet 150 mg PO MONTHLY 01/30/25 03/10/25 02/11/25 08:00 lutein 20 mg tablet 20 mg PO QA 01/30/25 03/10/25 03/10/25 08:00 meloxicam 15 mg tablet 15 mg PO [facility] 01/30/25 03/10/25 03/10/25 08:00 cetirizine 10 mg tablet 10 mg PO DAILY PRN allergies 03/02/25 03/10/25 Unknown oxycodone 5 mg tablet 5 mg PO Q6H PRN pain #30 tabs 03/02/25 03/10/25 Unknown tramadol 50 mg tablet 50 mg PO Q6H PRN pain, moderate 03/02/25 03/10/25 Unknown #30 tabs ceftriaxone 2 gram intravenous 2 g IV DAILY 6 weeks 03/17/25 Unknown solution Active Medications Generic Name Dose Route Start Last Admin Trade Name Niravq PRN Reason Stop Dose Admin Ascorbic Acid 500 mg 04/01/25 09:00 04/03/25 09:56 Ascorbic Acid 500 Mg Tab PO 05/01/25 08:59 [facility] [place] 81 mg 03/31/25 21:53 04/02/25 21:05 Aspirin 81 Mg Ectab PO 04/30/25 21:52 81 mg QPM KARLIE Administration Atenolol 25 mg 04/01/25 09:00 04/03/25 07:46 Atenolol 25 Mg Tablet PO 05/01/25 08:59 25 mg QAM [facility] Administration Calcium/Vitamin D 1 tab 03/31/25 22:00 04/03/25 09:56 Calcium 600mg + Vit D 400 Iu Tab PO 04/30/25 21:59 Not Given BID KARLIE Citalopram Hydrobromide 20 mg 03/31/25 21:53 04/02/25 21:05 Citalopram 20 Mg Tab PO 04/30/25 21:52 20 mg QPM KARLIE Administration Fentanyl Citrate 25 mcg 04/03/25 15:05 04/03/25 16:32 Fentanyl Citrate Pf 100 Mcg/2 Ml Vial IV 04/03/25 23:05 25 mcg Q5M PRN Administration PACU Use Only-Pain Fish Oil 1 cap 03/31/25 22:00 04/02/25 21:06 [place]-3 (Purified Fish Oil) 1 Gm Cap PO 04/30/25 21:59 1 cap QPM KARLIE Administration Fluticasone Propionate 1 sprays 04/01/25 09:00 04/03/25 09:21 Fluticasone Propionate Na Spr 16 Gm Btl NA 05/01/25 08:59 1 sprays QAM KARLIE Administration Heparin Sodium (Beef Lung) 5 ml 04/02/25 22:49 04/02/25 23:07 Heparin 10 Unit/Ml 5 Ml Flush FLUSH 05/02/25 22:48 5 ml PRN PRN Administration Flush Heparin Sodium (Porcine) 5,000 units 03/31/25 21:00 04/03/25 09:56 Heparin Sod 5,000 Unit/0.5 Ml Vial SQ 04/30/25 20:59 Not Given Q12 KARLIE Hydromorphone HCl 0.5 mg 03/31/25 19:25 04/03/25 08:05 Hydromorphone Inj 0.5 Mg/0.5 Ml Syr IV 04/14/25 19:24 0.5 mg Q6H PRN Administration Pain Ceftriaxone Sodium 2,000 mg in 50 mls @ 100 mls/hr 04/01/25 09:00 04/03/25 09:21 Rocephin IV 05/13/25 08:59 Infused Q24H KARLIE Infusion Magnesium Oxide 400 mg 03/31/25 22:00 04/03/25 09:56 Magnesium Oxide 400 Mg Tab PO 04/30/25 21:59 Not Given BID [facility] Ondansetron HCl 4 mg 04/03/25 15:05 04/03/25 16:32 Ondansetron Inj 2 Mg/Ml 2 Ml Vial IV 04/03/25 23:06 4 mg ONCE PRN Administration PACU Use Only-Nausea/Vomiting Oxycodone HCl 5 mg 03/31/25 21:53 04/02/25 12:47 Oxycodone Hcl Ir 5 Mg Tab (Immediate Release) PO 04/14/25 21:52 5 mg Q6H PRN Administration pain Pantoprazole Sodium 40 mg 04/01/25 09:00 04/03/25 09:56 Pantoprazole 40 Mg Tab PO 05/01/25 08:59 Not Given QAM KARLIE Simvastatin 20 mg 03/31/25 21:53 04/02/25 21:06 Simvastatin 20 Mg Tab PO 04/30/25 21:52 20 mg QPM KARLIE Administration Vitamin D 25 mcg 04/01/25 09:00 04/03/25 09:56 Cholecalciferol 25 Mcg (1000 Units) Tab PO 05/01/25 08:59 Not Given QAM KARLIE (4) Fracture of lumbar spine Encounter type: initial encounter Fracture morphology: unspecified fracture morphology Fracture type: closed Lumbar vertebra fracture level: unspecified lumbar vertebra Qualified Code(s): S32.009A - Unspecified fracture of unspecified lumbar vertebra, initial encounter for closed fracture
--- NOTE | 2025-04-03 16:42 | Communication Note ---
Date of Service: April 03, 2025 Called by RN FIRST ASSIST for possible [address] elevation 1.5 mm. Difficult to assess on 3-lead EKG during the course of the procedure. Unable to tell if motion or positioning involved, however elevation spontaneously resolved. Twelve-lead EKG taken in PACU does not show ST elevation. Patient denies chest pain or shortness of breath. Discussed with surgeon about pt staying on a monitored bed. Discussed with hospitalist. Do not feel further workup necessary currently but inpatient team will monitor.
[2025-04-03] MEDS: HYDROmorphone INJ 1 MG/ML SYRINGE IV PRN (16:55)
--- NOTE | 2025-04-03 17:17 | Anesthesiology Progress Note ---
Date of Service April 03, 2025 Anesthesia Post Procedure Vital Signs Vital Signs: Temp Pulse Pulse Pulse Resp BP Pulse Ox 04/03/25 17:10 36.9 C 90 15 128/90 96 04/03/25 17:00 94 H 22 156/118 H 95 04/03/25 16:50 93 H 18 174/90 H 97 04/03/25 16:40 94 H 21 170/96 H 94 04/03/25 16:30 100 H 22 172/107 H 95 04/03/25 16:20 36.2 C L 101 H 21 166/92 H 100 04/03/25 15:02 37.2 C 69 20 131/77 92 04/03/25 13:41 67 04/03/25 09:49 04/03/25 07:56 36.8 C 74 16 136/75 92 04/03/25 07:00 77 04/03/25 03:43 36.8 C 75 20 125/78 95 04/02/25 22:32 36.7 C 74 20 122/70 94 04/02/25 22:04 84 04/02/25 19:28 36.7 C 84 18 125/79 94 O2 Del Method O2 Flow Rate 04/03/25 17:10 Nasal Cannula 2 04/03/25 17:00 Nasal Cannula 2 04/03/25 16:50 Nasal Cannula 2 04/03/25 16:40 Oxymask 1 04/03/25 16:30 Oxymask 6 04/03/25 16:20 Oxymask 10 04/03/25 15:02 Room Air 04/03/25 13:41 04/03/25 09:49 Room Air 04/03/25 07:56 Room Air 04/03/25 07:00 04/03/25 03:43 Room Air 04/02/25 22:32 Room Air 04/02/25 22:04 04/02/25 19:28 Room Air Pain Intensity Left Leg: Pain Intensity: 1 Transfer of Care Handoff Completed per policy Notes Mental Status: alert / awake / arousable Patient Amnestic to Procedure: Yes Nausea / Vomiting: adequately controlled Pain: adequately controlled Airway Patency, RR, SpO2: stable & adequate BP & HR: stable & adequate Hydration State: stable & adequate Anesthetic Complications: no major complications apparent and Pt Satisfied with anesthetic care Notes: Patient with uneventful PACU course. Did have some pain and was provided with IV hydromorphone per order. Awake alert and oriented x 3 and personally seen prior to discharge from PACU. He denies any chest pain arm pain epigastric pain or shortness of breath at this time. He is eager for dinner and wishes to go back to his room.
[2025-04-04] MEDS: ACETAMINOPHEN 325 MG TAB PO PRN (02:23)
--- NOTE | 2025-04-04 08:08 | Orthopedic Progress Note ---
Date of Service April 04, 2025 Assessment & Plan (1) Intractable back pain: Plan: Patient is status post irrigation debridement. Cultures at this time are pending. Will initiate physical therapy today and see how he tolerates this. He may ultimately need revision surgery to address the sacral fracture pending his progress. Admission and Anticipated Discharge Date Admission Date: March 31, 2025 Subjective Patient's back pain is controlled. He is noting some intermittent soreness in his legs. He has not been out of bed yet. Physical Exam Physical Exam: On exam he is sitting up. He is comfortable. Good strength testing. Results & Data Vital Signs (Past 12 Hours) Vital Signs Temp Pulse Pulse Resp BP Pulse Ox O2 Del Method 04/04/25 07:34 85 04/04/25 03:13 36.7 C 83 18 128/72 94 Room Air 04/04/25 00:12 89 04/03/25 22:24 37.0 C 95 H 20 126/70 94 Nasal Cannula 04/03/25 20:50 37.0 C 90 18 132/79 93 Room Air O2 Flow Rate 04/04/25 07:34 04/04/25 03:13 04/04/25 00:12 04/03/25 22:24 2 04/03/25 20:50
[2025-04-04] MEDS: CETIRIZINE HCL 10 MG TABLET PO PRN (08:38)
[2025-04-04 08:46] LABS: Hematocrit (blood only) 34.0 % (42.0-52.0); Hemoglobin 11.7 g/dl (14.0-18.0); Mean Corpuscular Hemoglobin 31.7 pg (25.0-34.0); Mean Corpuscular Volume 92.1 fL (80.0-100.0); Platelet Count 258 K/uL (130-400); RDW Standard Deviation 42.3 fL (36.4-46.3); Red Blood Count 3.69 M/uL (4.70-6.10); White Blood Count 9.62 K/ul (4.8-10.8)
[2025-04-04 09:03] LABS: Anion Gap 7.0 (3-11); Blood Urea Nitrogen 15.0 mg/dl (6-23); Calcium 9.1 mg/dl (8.6-10.3); Carbon Dioxide 30.0 mmol/L (21-32); Chloride 97.0 mmol/L (98-107); Creatinine Clr Calc Pharmacy 80.7 ml/min; Glucose 155.0 mg/dl (70-99(Fasting)); Magnesium 2.1 mg/dl (1.7-2.4); Potassium 4.0 mmol/L (3.5-5.1); Sodium 134.0 mmol/L (136-145)
[2025-04-04] MEDS: TROLAMINE SALICYLATE 10% CRM 255 APPLN/85 GM TUBE EXT SCH (11:51)
--- NOTE | 2025-04-04 14:05 | Hospitalist Progress Note ---
Date of Service April 04, 2025 Assessment & Plan (1) Intractable back pain: (2) Lumbar radiculopathy: (3) History of lumbar surgery: (4) Fracture of lumbar spine: (5) CAD (coronary artery disease): (6) Hyperlipidemia: (7) GERD (gastroesophageal reflux disease): (8) HTN (hypertension): Plan: Mr. Marrero is an 79 year old male with PMH significant for history of guillain-barre syndrome, history of prostate cancer, history of MD, and multilevel lumbosacral spondylosis with radiculopathy who underwent L3-S1 decompression and fusion on 03/01/2025 c/b postoperative abscess s/p ID 03/[id number], admitted with fall and worsening back pain. Imaging revealed acute superior endplate fracture of S1 as well as posterior fluid collection. Patient s/p I& D which revealed hematoma. Cultures pending. #Fluid collection suspicious for hematoma #Acute S1 fracture # Lumbar radiculopathy s/p recent L3-S1 decompression fusion 03/01 #s/p I&D epidural abscess on 03.11 Gram stain and culture revealed Streptococcus dysgalactiae continued on intravenous ceftriaxone 2 g daily to be continued total 8 weeks (~may 06) s/p I& D on 04/03 Operative report reviewed: no purulence noted, loosening of s1 pedicle screws, RESHMA drain placed, fluid under pressure noted s/p dissection into fascial layer Follow cultures Possible repeat intervention for sacral fracture scheduled and prn analgesia ordered Resumed low dose gabapentin 100mg tid PT/OT when able #Acute encephalopathy #cognitive impairment history of delirium post operative, some agitation noted multifactorial iso pain optimize analgesia delirium precautions #CAD Anesthesiology: <[address] elevation, perhaps 2/2 lead placement versus periop hypotension continue atenolol No cardiac symptoms monitor on tele #Hyperlipidemia: Continue statin and asa #GERD (gastroesophageal reflux disease): Continue PPI and no issues #HTN (hypertension): Blood pressure is controlled DVT prophylaxis Subcu heparin held 2/2 procedure, SCDs ordered CODE STATUS Full Admission and Anticipated Discharge Date Admission Date: March 31, 2025 Subjective patient worked with PT today, but doesn't recall by time of eval 2/2 delirium at bedside and states current confusion consistent with prior hospitalizations Denies chest pain or palpitations reports radiating pain in legs consistent with prior radiculopathy-- to bring in formal med list from home, but states patient previously on gabapentin Physical Exam Constitutional: WD/WN, vitals as above Respiratory: normal respiratory effort, lungs clear to auscultation Cardiovascular: RRR, no murmur, no edema Neurologic: PERRL, EOMI, accommodation nl, no face palsy, no dysarthria Results & Data Results & Data Vital Signs (Past 12 Hours) Vital Signs Temp Pulse Pulse Resp BP Pulse Ox O2 Del Method 04/04/25 12:40 36.6 C 81 16 125/72 94 Room Air 04/04/25 08:07 36.9 C 76 16 121/58 L 95 Room Air 04/04/25 07:34 85 04/04/25 03:13 36.7 C 83 18 128/72 94 Room Air Laboratory Results Short CBC 04/04/25 Range/Units 07:49 WBC 9.62 (4.8-10.8) K/ul Hgb 11.7 L (14.0-18.0) g/dl Hct 34.0 L (42.0-52.0) % Plt Count 258 (130-400) K/uL BMP 04/04/25 07:49 Sodium 134 L Potassium 4.0 Chloride 97 L Carbon Dioxide 30 BUN 15 Creatinine 0.73 Glucose 155 H Calcium 9.1 Medications Administered Home Medications Medication Instructions Recorded Confirmed Last Taken ascorbic acid (vitamin C) 500 mg 500 mg PO QAM 07/07/19 03/10/25 03/10/25 08:00 tablet (Vitamin C) aspirin 81 mg tablet,delayed 81 mg PO QPM 07/07/19 03/10/25 03/09/25 20:00 release (Gen Low Dose Aspirin) atenolol 25 mg tablet 25 mg PO QAM 07/07/19 03/10/25 03/10/25 08:00 citalopram 20 mg tablet 20 mg PO QPM 07/07/19 03/10/25 03/09/25 20:00 magnesium 250 mg tablet 250 mg PO BID 07/07/19 03/10/25 03/09/25 20:00 omega 6-qcx-skf-fish oil 1,000 mg 1 cap PO QPM 07/07/19 03/10/25 02/20/25 08:00 (120 mg-180 mg) capsule (Fish Oil) omeprazole 20 mg tablet,delayed 20 mg PO QAM 07/07/19 03/10/25 03/09/25 08:00 release simvastatin 20 mg tablet 20 mg PO QPM 07/07/19 03/10/25 03/09/25 20:00 vitamin B complex 1 tab PO WK 07/07/19 03/10/25 02/24/25 08:00 acetaminophen 500 mg tablet 1,000 mg PO TID PRN Pain 01/30/25 03/10/25 Unknown calcium 600 mg (as 1 tab PO BID 01/30/25 03/10/25 03/10/25 20:00 carbonate)-vitamin D3 5 mcg (200 unit) tablet cholecalciferol (vitamin D3) 25 25 mcg PO QAM 01/30/25 03/10/25 03/10/25 08:00 mcg (1,000 unit) tablet (Vitamin D3) fluticasone propionate 50 1 spray intranasal QA 01/30/25 03/10/25 03/09/25 09:00 mcg/actuation nasal spray,suspension ibandronate 150 mg tablet 150 mg PO MONTHLY 01/30/25 03/10/25 02/11/25 08:00 lutein 20 mg tablet 20 mg PO QAM 01/30/25 03/10/25 03/10/25 08:00 meloxicam 15 mg tablet 15 mg PO QAM 01/30/25 03/10/25 03/10/25 08:00 cetirizine 10 mg tablet 10 mg PO DAILY PRN allergies 03/02/25 03/10/25 Unknown oxycodone 5 mg tablet 5 mg PO Q6H PRN pain #30 tabs 03/02/25 03/10/25 Unknown tramadol 50 mg tablet 50 mg PO Q6H PRN pain, moderate 03/02/25 03/10/25 Unknown #30 tabs ceftriaxone 2 gram intravenous 2 g IV DAILY 6 weeks 03/17/25 Unknown solution Active Medications Generic Name Dose Route Start Last Admin Trade Name Freq PRN Reason Stop Dose Admin Acetaminophen 1,000 mg 04/04/25 15:30 04/04/25 16:39 Acetaminophen 500 Mg Tab PO 05/04/25 15:29 1,000 mg Q8H KARLIE Administration Ascorbic Acid 500 mg 04/01/25 09:00 04/04/25 08:38 Ascorbic Acid 500 Mg Tab PO 05/01/25 08:59 500 mg QAM KARLIE Administration Aspirin 81 mg 03/31/25 21:53 04/02/25 21:05 Aspirin 81 Mg Ectab PO 04/30/25 21:52 81 mg QPM KARLIE Administration Atenolol 25 mg 04/01/25 09:00 04/04/25 08:38 Atenolol 25 Mg Tablet PO 05/01/25 08:59 25 mg QAM KARLIE Administration Calcium/Vitamin D 1 tab 03/31/25 22:00 04/04/25 08:38 Calcium 600mg + Vit D 400 Iu Tab PO 04/30/25 21:59 1 tab BID KARLIE Administration Cetirizine HCl 10 mg 03/31/25 21:53 04/04/25 08:38 Cetirizine Hcl 10 Mg Tablet PO 04/30/25 21:52 10 mg DAILY PRN Administration allergies Citalopram Hydrobromide 20 mg 03/31/25 21:53 04/03/25 19:53 Citalopram 20 Mg Tab PO 04/30/25 21:52 20 mg QPM KARLIE Administration Diclofenac Sodium 2 gm 04/04/25 15:15 04/04/25 16:40 Diclofenac Sod 1% Gel 100 Gm Tube EXT 05/04/25 15:14 2 gm Q8H KARLIE Administration Protocol Fish Oil 1 cap 03/31/25 22:00 04/03/25 19:53 [place]-3 (Purified Fish Oil) 1 Gm Cap PO 04/30/25 21:59 1 cap QPM KARLIE Administration Fluticasone Propionate 1 sprays 04/01/25 09:00 04/04/25 08:39 Fluticasone Propionate Na Spr 16 Gm Btl NA 05/01/25 08:59 1 sprays QAM KARLIE Administration Gabapentin 100 mg 04/04/25 15:30 04/04/25 16:40 Gabapentin 100 Mg Cap PO 05/04/25 15:29 100 mg TID KARLIE Administration Heparin Sodium (Beef Lung) 5 ml 04/02/25 22:49 04/03/25 19:54 Heparin 10 Unit/Ml 5 Ml Flush FLUSH 05/02/25 22:48 5 ml PRN PRN Administration Flush Heparin Sodium (Porcine) 5,000 units 03/31/25 21:00 04/03/25 09:56 Heparin Sod 5,000 Unit/0.5 Ml Vial SQ 04/30/25 20:59 Not Given Q12 KARLIE Hydromorphone HCl 0.5 mg 03/31/25 19:25 04/03/25 08:05 Hydromorphone Inj 0.5 Mg/0.5 Ml Syr IV 04/14/25 19:24 0.5 mg Q6H PRN Administration Pain Ceftriaxone Sodium 2,000 mg in 50 mls @ 100 mls/hr 04/01/25 09:00 04/04/25 10:26 Rocephin IV 05/13/25 08:59 Infused Q24H KARLIE Infusion Magnesium Oxide 400 mg 03/31/25 22:00 04/04/25 08:38 Magnesium Oxide 400 Mg Tab PO 04/30/25 21:59 400 mg BID KARLIE Administration Pantoprazole Sodium 40 mg 04/01/25 09:00 04/04/25 08:38 Pantoprazole 40 Mg Tab PO 05/01/25 08:59 40 mg QAM KARLIE Administration Simvastatin 20 mg 03/31/25 21:53 04/03/25 19:52 Simvastatin 20 Mg Tab PO 04/30/25 21:52 20 mg QPM KARLIE Administration Trolamine Salicylate 1 appln 04/04/25 08:45 04/04/25 16:42 Trolamine Salicylate 10% Crm 255 Appln/85 Gm Tube EXT 05/04/25 08:44 1 appln Q8 KARLIE Administration Vitamin D 25 mcg 04/01/25 09:00 04/04/25 08:39 Cholecalciferol 25 Mcg (1000 Units) Tab PO 05/01/25 08:59 25 mcg QAM KARLIE Administration (4) Fracture of lumbar spine Encounter type: initial encounter Fracture morphology: unspecified fracture morphology Fracture type: closed Lumbar vertebra fracture level: unspecified lumbar vertebra Qualified Code(s): S32.009A - Unspecified fracture of unspecified lumbar vertebra, initial encounter for closed fracture
[2025-04-04] MEDS: ACETAMINOPHEN 500 MG TAB PO SCH (16:39)
[2025-04-04] MEDS: DICLOFENAC SOD 1% GEL 100 GM TUBE EXT SCH (16:40)
[2025-04-04] MEDS: GABAPENTIN 100 MG CAP PO SCH (16:40)
[2025-04-04] MEDS ORDERED: PHA DELIRIUM CONSULT PRN (21:54)
[2025-04-05 06:31] LABS: Hematocrit (blood only) 33.4 % (42.0-52.0); Hemoglobin 10.9 g/dl (14.0-18.0); Mean Corpuscular Hemoglobin 30.0 pg (25.0-34.0); Mean Corpuscular Volume 92.0 fL (80.0-100.0); Platelet Count 231 K/uL (130-400); RDW Standard Deviation 43.2 fL (36.4-46.3); Red Blood Count 3.63 M/uL (4.70-6.10); White Blood Count 7.29 K/ul (4.8-10.8)
[2025-04-05 07:04] LABS: Anion Gap 6.0 (3-11); Blood Urea Nitrogen 12.0 mg/dl (6-23); Calcium 8.8 mg/dl (8.6-10.3); Carbon Dioxide 31.0 mmol/L (21-32); Chloride 101.0 mmol/L (98-107); Creatinine Clr Calc Pharmacy 84.8 ml/min; Glucose 141.0 mg/dl (70-99(Fasting)); Magnesium 2.1 mg/dl (1.7-2.4); Potassium 3.9 mmol/L (3.5-5.1); Sodium 138.0 mmol/L (136-145)
--- NOTE | 2025-04-05 09:51 | Orthopedic Progress Note ---
Date of Service April 05, 2025 Assessment & Plan (1) Lumbar radiculopathy: Plan: At this time cultures continue to be negative. Will continue with physical therapy. Plan for rehab in the next few days. Admission and Anticipated Discharge Date Admission Date: March 31, 2025 Subjective Patient's back pain is improved since surgery. He is tolerating physical therapy. He is noting some IT band tenderness on the left. He does have weakness to the left dorsiflexion of his foot. Physical Exam Physical Exam: On exam patient is now in chair. He is reasonable comfortable. There is definitely tenderness palpation of left troches and IT band. There is weakness to dorsiflexion on the left compared to the right. Results & Data Vital Signs (Past 12 Hours) Vital Signs Temp Pulse Pulse Resp BP Pulse Ox O2 Del Method 04/05/25 08:36 36.9 C 86 16 155/70 H 93 Room Air 04/05/25 07:11 97 H 04/05/25 03:31 36.8 C 96 H 18 135/69 93 Room Air 04/04/25 23:05 36.6 C 78 18 117/67 94 Room Air 04/04/25 22:00 90
--- NOTE | 2025-04-05 12:14 | Hospitalist Progress Note ---
Date of Service April 05, 2025 Assessment & Plan (1) Intractable back pain: (2) Lumbar radiculopathy: (3) History of lumbar surgery: (4) Fracture of lumbar spine: (5) CAD (coronary artery disease): (6) Hyperlipidemia: (7) GERD (gastroesophageal reflux disease): (8) HTN (hypertension): Plan: Mr. Marrero is an 79 year old male with PMH significant for history of guillain-barre syndrome, history of prostate cancer, history of [place], and multilevel lumbosacral spondylosis with radiculopathy who underwent L3-S1 decompression and fusion on 03/01/2025 c/b postoperative abscess s/p ID 03/11, admitted with fall and worsening back pain. Imaging revealed acute superior endplate fracture of S1 as well as posterior fluid collection. Patient s/p I& D which revealed hematoma. Cultures NGTD #Fluid collection suspicious for hematoma #Acute S1 fracture # Lumbar radiculopathy s/p recent L3-S1 decompression fusion 03/01 #s/p I&D epidural abscess on 03.11 Gram stain and culture revealed Streptococcus dysgalactiae continued on intravenous ceftriaxone 2 g daily to be continued total 8 weeks (~may 06) s/p I& D on 04/03-->hematoma Operative report reviewed: no purulence noted, loosening of s1 pedicle screws, RESHMA drain placed, fluid under pressure noted s/p dissection into fascial layer Plan -OR cultures NGTD -Continue CTX through 05/06, then begin lifelong amoxicillin per prior ID recommendations -Appreciate ortho input, no immediate surgical plans -For DC to SNF vs IPR. CM assisting #Acute encephalopathy #cognitive impairment Due to hospital acquired delirium delirium precautions AOx3 today #CAD Anesthesiology: <[address] elevation, perhaps 2/2 lead placement versus periop hypotension continue atenolol No cardiac symptoms No need for cardiac cath tech #Hyperlipidemia: Continue statin and asa #GERD (gastroesophageal reflux disease): Continue PPI and no issues #HTN (hypertension): Blood pressure is controlled #Anemia -POA. No s/s acute blood loss anemia -Hgb stable -Monitor counts -Transfuse as needed -F/u OP with PCP DVT prophylaxis Subcu heparin held 2/2 procedure, SCDs ordered CODE STATUS Full I spent a total of 38 minutes coordinating, documenting, and providing care for this patient excluding time spent in the performance of separately billed services. This included personally reviewing all current laboratories and imaging studies, medical reconciliation, outpatient chart review and discussion with specialists Admission and Anticipated Discharge Date Admission Date: March 31, 2025 Subjective Feeling well today. denies any complaints. Patient denies F/C, CP, palpitations, SOB, dyspnea, abd pain, N/V/D. moving bowels. urinating without issue. d/w at bedside Physical Exam Physical Exam: Vitals and labs reviewed General: Well appearing, NAD HEENT: EOMI, PERRLA Neck: Supple Cardiac: RRR no rubs gallops or murmurs Lungs: CTA no rhonchi wheezing or rales Abd: S NT ND BS positive MSK: Full ROM. No obvious deformities Ext: No Edema cyanosis Skin: Warm, Dry Neuro: AOx3 No focal deficits. Psych: Normal Mood Results & Data Results & Data Vital Signs (Past 12 Hours) Vital Signs Temp Pulse Pulse Resp BP Pulse Ox O2 Del Method 04/05/25 11:30 36.3 C L 79 20 120/73 91 Room Air 04/05/25 10:05 Room Air 04/05/25 08:36 36.9 C 86 16 155/70 H 93 Room Air 04/05/25 07:11 97 H 04/05/25 03:31 36.8 C 96 H 18 135/69 93 Room Air Laboratory Results Abnormal lab results 04/05/25 Range/Units 06:14 RBC 3.63 L (4.70-6.10) M/uL Hgb 10.9 L (14.0-18.0) g/dl Hct 33.4 L (42.0-52.0) % Glucose 141 H (70-99(Fasting)) mg/dl (4) Fracture of lumbar spine Encounter type: initial encounter Fracture morphology: unspecified fracture morphology Fracture type: closed Lumbar vertebra fracture level: unspecified lumbar vertebra Qualified Code(s): S32.009A - Unspecified fracture of unspecified lumbar vertebra, initial encounter for closed fracture
[2025-04-06 07:25] LABS: Hematocrit (blood only) 36.5 % (42.0-52.0); Hemoglobin 11.8 g/dl (14.0-18.0); Mean Corpuscular Hemoglobin 30.3 pg (25.0-34.0); Mean Corpuscular Volume 93.8 fL (80.0-100.0); Platelet Count 248 K/uL (130-400); RDW Standard Deviation 44.7 fL (36.4-46.3); Red Blood Count 3.89 M/uL (4.70-6.10); White Blood Count 8.73 K/ul (4.8-10.8)
--- NOTE | 2025-04-06 08:51 | Orthopedic Progress Note ---
Date of Service April 06, 2025 Assessment & Plan (1) Intractable back pain: Plan: Hi status post his second I&D lumbar spine. Cultures are no growth to date. Pain is greatly improved in his back and his lower extremities. Will continue with physical therapy. Continue pain control. Maintain RESHMA drain. Consider discharge to rehab. Admission and Anticipated Discharge Date Admission Date: March 31, 2025 Subjective Hi status post I&D (second 1) with Dr. Christopher. Cultures are still no growth to date. He has a little bit of back pain but is controlled. His preoperative lower extremity pain has resolved. RESHMA drain output last shift was 30 cc. Yesterday in physical therapy ambulate 35 feet and states he feels pretty good when he is up and ambulatory. Review of Systems Review of Systems: All systems reviewed & are unremarkable except as noted in HPI & below Physical Exam Physical Exam: He is laying in bed resting in no acute distress, easily arousable and cooperative He is in no acute distress He does have weakness of the left leg mostly dorsiflexion and plantarflexion. Strength intact right leg Results & Data Vital Signs (Past 12 Hours) Vital Signs Temp Pulse Resp BP Pulse Ox O2 Del Method 04/06/25 07:29 36.5 C 83 18 119/72 Room Air 04/05/25 22:27 36.2 C L 70 16 127/75 95 Room Air
--- NOTE | 2025-04-06 10:43 | Hospitalist Progress Note ---
Date of Service April 06, 2025 Assessment & Plan (1) Intractable back pain: (2) Lumbar radiculopathy: (3) History of lumbar surgery: (4) Fracture of lumbar spine: (5) CAD (coronary artery disease): (6) Hyperlipidemia: (7) GERD (gastroesophageal reflux disease): (8) HTN (hypertension): Plan: Mr. Marrero is an 79 year old male with PMH significant for history of guillain-barre syndrome, history of prostate cancer, history of [place], and multilevel lumbosacral spondylosis with radiculopathy who underwent L3-S1 decompression and fusion on 03/01/2025 c/b postoperative abscess s/p ID 03/11, admitted with fall and worsening back pain. Imaging revealed acute superior endplate fracture of S1 as well as posterior fluid collection. Patient s/p I& D which revealed hematoma. Cultures NGTD #Fluid collection suspicious for hematoma #Acute S1 fracture # Lumbar radiculopathy s/p recent L3-S1 decompression fusion 03/01 #s/p I&D epidural abscess on 03.11 Gram stain and culture revealed Streptococcus dysgalactiae continued on intravenous ceftriaxone 2 g daily to be continued total 8 weeks (~may 06) s/p I& D on 04/03-->hematoma Operative report reviewed: no purulence noted, loosening of s1 pedicle screws, RESHMA drain placed, fluid under pressure noted s/p dissection into fascial layer Plan -OR cultures NGTD -Continue CTX through 05/06, then begin lifelong amoxicillin per prior ID recommendations -Appreciate ortho input, no immediate surgical plans -Anticipate DC to IPR tomorrow -RESHMA drain to be removed tomorrow prior to DC #Acute encephalopathy #cognitive impairment Due to hospital acquired delirium delirium precautions Gabapentin DC as he gets confused/drowsy on it AOx3 today #CAD Anesthesiology: <[address] elevation, perhaps 2/2 lead placement versus periop hypotension continue atenolol No cardiac symptoms No need for cardiac technologist #Hyperlipidemia: Continue statin and asa #GERD (gastroesophageal reflux disease): Continue PPI and no issues #HTN (hypertension): Blood pressure is controlled #Anemia -POA. No s/s acute blood loss anemia -Hgb stable -Monitor counts -Transfuse as needed -F/u OP with PCP DVT prophylaxis Subcu heparin held 2/2 procedure, SCDs ordered CODE STATUS Full I spent a total of 41 minutes coordinating, documenting, and providing care for this patient excluding time spent in the performance of separately billed services. This included personally reviewing all current laboratories and imaging studies, medical reconciliation, outpatient chart review and discussion with specialists Admission and Anticipated Discharge Date Admission Date: March 31, 2025 Subjective Feeling well today. no complaints. eager to get out of the hospital. Patient denies F/C, CP, palpitations, SOB, dyspnea, abd pain, N/V/D. d/w at bedside Physical Exam Physical Exam: Vitals and labs reviewed General: Well appearing, NAD HEENT: EOMI, PERRLA Neck: Supple Cardiac: RRR no rubs gallops or murmurs Lungs: CTA no rhonchi wheezing or rales Abd: S NT ND BS positive MSK: Full ROM. No obvious deformities RESHMA drain Ext: No Edema cyanosis Skin: Warm, Dry Neuro: AOx3 No focal deficits. Psych: Normal Mood Results & Data Results & Data Vital Signs (Past 12 Hours) Vital Signs Temp Pulse Resp BP O2 Del Method 04/06/25 07:29 36.5 C 83 18 119/72 Room Air Laboratory Results Abnormal lab results 04/06/25 Range/Units 06:11 RBC 3.89 L (4.70-6.10) M/uL Hgb 11.8 L (14.0-18.0) g/dl Hct 36.5 L (42.0-52.0) % (4) Fracture of lumbar spine Encounter type: initial encounter Fracture morphology: unspecified fracture morphology Fracture type: closed Lumbar vertebra fracture level: unspecified lumbar vertebra Qualified Code(s): S32.009A - Unspecified fracture of unspecified lumbar vertebra, initial encounter for closed fracture
--- NOTE | 2025-04-06 15:25 | Electrocardiogram Report ---
Test Reason : Blood Pressure : */* mmHG Vent. Rate : 101 BPM Atrial Rate : 101 BPM P-R Int : 190 ms QRS Dur : 78 ms QT Int : 362 ms P-R-T Axes : 26 23 17 degrees QTcB Int : 469 ms Sinus tachycardia Otherwise normal ECG When compared with ECG of 10-Mar-2025 16:37, No significant change was found Confirmed by Mikal Hearn ([id number]) on 04/06/2025 3:25:27 PM Referred By: REFERRED SELF Confirmed By: Mikal Hearn
--- NOTE | 2025-04-07 11:10 | Hospitalist Progress Note ---
Date of Service April 07, 2025 Assessment & Plan (1) Intractable back pain: (2) Lumbar radiculopathy: (3) History of lumbar surgery: (4) Fracture of lumbar spine: (5) CAD (coronary artery disease): (6) Hyperlipidemia: (7) GERD (gastroesophageal reflux disease): (8) HTN (hypertension): Plan: Mr. Marrero is an 79 year old male with PMH significant for history of guillain-barre syndrome, history of prostate cancer, history of [place], and multilevel lumbosacral spondylosis with radiculopathy who underwent L3-S1 decompression and fusion on 03/01/2025 c/b postoperative abscess s/p ID 03/11, admitted with fall and worsening back pain. Imaging revealed acute superior endplate fracture of S1 as well as posterior fluid collection. Patient s/p I& D which revealed hematoma. Cultures NGTD #Fluid collection suspicious for hematoma #Acute S1 fracture # Lumbar radiculopathy s/p recent L3-S1 decompression fusion 03/01 #s/p I&D epidural abscess on 03.11 Gram stain and culture revealed Streptococcus dysgalactiae continued on intravenous ceftriaxone 2 g daily to be continued total 8 weeks (~may 06) s/p I& D on 04/03-->hematoma Operative report reviewed: no purulence noted, loosening of s1 pedicle screws, RESHMA drain placed, fluid under pressure noted s/p dissection into fascial layer Plan -OR cultures NGTD -Continue CTX through 05/06, then begin lifelong amoxicillin per prior ID recommendations -Appreciate ortho input, no immediate surgical plans -Anticipate DC to IPR thursday -RESHMA drain to be removed today by surgery #Acute encephalopathy #cognitive impairment Due to hospital acquired delirium delirium precautions Gabapentin DC as he gets confused/drowsy on it AOx3 today #CAD Anesthesiology: <[address] elevation, perhaps 2/2 lead placement versus periop hypotension continue atenolol No cardiac symptoms No need for cafeteria monitor #Hyperlipidemia: Continue statin and asa #GERD (gastroesophageal reflux disease): Continue PPI and no issues #HTN (hypertension): Blood pressure is controlled #Anemia -POA. No s/s acute blood loss anemia -Hgb stable -Monitor counts -Transfuse as needed -F/u OP with PCP DVT prophylaxis Subcu heparin held 2/2 procedure, SCDs ordered CODE STATUS Full I spent a total of 39 minutes coordinating, documenting, and providing care for this patient excluding time spent in the performance of separately billed services. This included personally reviewing all current laboratories and imaging studies, medical reconciliation, outpatient chart review and discussion with specialists Admission and Anticipated Discharge Date Admission Date: March 31, 2025 Subjective Feeling well today. no complaints. eager to get out of the hospital. Patient de nies F/C, CP, palpitations, SOB, dyspnea, abd pain, N/V/D. d/w at bedside Physical Exam Physical Exam: Vitals and labs reviewed General: Well appearing, NAD HEENT: EOMI, PERRLA Neck: Supple Cardiac: RRR no rubs gallops or murmurs Lungs: CTA no rhonchi wheezing or rales Abd: S NT ND BS positive MSK: Full ROM. No obvious deformities RESHMA drain Ext: No Edema cyanosis Skin: Warm, Dry Neuro: AOx3 No focal deficits. Psych: Normal Mood Results & Data Results & Data Vital Signs (Past 12 Hours) Vital Signs Temp Pulse Resp BP Pulse Ox O2 Del Method 04/07/25 07:46 36.8 C 78 18 128/78 96 Room Air (4) Fracture of lumbar spine Encounter type: initial encounter Fracture morphology: unspecified fracture morphology Fracture type: closed Lumbar vertebra fracture level: unspecified lumbar vertebra Qualified Code(s): S32.009A - Unspecified fracture of unspecified lumbar vertebra, initial encounter for closed fracture
--- NOTE | 2025-04-08 07:56 | Orthopedic Progress Note ---
Date of Service April 08, 2025 Assessment & Plan (1) Multilevel lumbosacral spondylosis with radiculopathy: Plan: At this time we will continue physical therapy. He possibly will be discharged to rehab tomorrow. Will discontinue drain change dressing today. At this point we will continue with observation regarding a revision procedure. Admission and Anticipated Discharge Date Admission Date: March 31, 2025 Subjective Patient's back pain is controlled. He feels his ambulation is improving. He feels his left leg strength is also improving. Physical Exam Physical Exam: Patient has reasonable strength testing lower extremities. Sensory is intact. Appears comfortable. Results & Data Vital Signs (Past 12 Hours) Vital Signs Temp Pulse Resp BP Pulse Ox O2 Del Method 04/08/25 07:32 36.6 C 88 18 137/66 96 Room Air 04/07/25 22:50 37 C 80 16 129/70 95 Room Air
--- NOTE | 2025-04-08 10:01 | Hospitalist Progress Note ---
Date of Service April 08, 2025 Assessment & Plan (1) Intractable back pain: (2) Lumbar radiculopathy: (3) History of lumbar surgery: (4) Fracture of lumbar spine: (5) CAD (coronary artery disease): (6) Hyperlipidemia: (7) GERD (gastroesophageal reflux disease): (8) HTN (hypertension): Plan: Mr. Marrero is an 79 year old male with PMH significant for history of guillain-barre syndrome, history of prostate cancer, history of [place], and multilevel lumbosacral spondylosis with radiculopathy who underwent L3-S1 decompression and fusion on 03/01/2025 c/b postoperative abscess s/p ID 03/11, admitted with fall and worsening back pain. Imaging revealed acute superior endplate fracture of S1 as well as posterior fluid collection. Patient s/p I& D which revealed hematoma. Cultures NGTD #Fluid collection suspicious for hematoma #Acute S1 fracture # Lumbar radiculopathy s/p recent L3-S1 decompression fusion 03/01 #s/p I&D epidural abscess on 03.11 Gram stain and culture revealed Streptococcus dysgalactiae continued on intravenous ceftriaxone 2 g daily to be continued total 8 weeks (~may 06) s/p I& D on 04/03-->hematoma Operative report reviewed: no purulence noted, loosening of s1 pedicle screws, RESHMA drain placed, fluid under pressure noted s/p dissection into fascial layer Plan -OR cultures NGTD -Continue CTX through 05/06, then begin lifelong amoxicillin per prior ID recommendations -Appreciate ortho input, no immediate surgical plans -Anticipate DC to IPR thursday -RESHMA drain to be removed 04/08 by surgery -Will reach out to ortho regarding his home ASA #Acute encephalopathy #cognitive impairment Due to hospital acquired delirium delirium precautions Gabapentin DC as he gets confused/drowsy on it AOx3 today #CAD Anesthesiology: <[address] elevation, perhaps 2/2 lead placement versus periop hypotension continue atenolol No cardiac symptoms No need for district plant engineer #Hyperlipidemia: Continue statin and asa #GERD (gastroesophageal reflux disease): Continue PPI and no issues #HTN (hypertension): Blood pressure is controlled #Anemia -POA. No s/s acute blood loss anemia -Hgb stable -Monitor counts -Transfuse as needed -F/u OP with PCP DVT prophylaxis Subcu heparin held 2/2 procedure, SCDs ordered CODE STATUS Full I spent a total of 35 minutes coordinating, documenting, and providing care for this patient excluding time spent in the performance of separately billed services. This included personally reviewing all current laboratories and imaging studies, medical reconciliation, outpatient chart review and discussion with specialists Admission and Anticipated Discharge Date Admission Date: March 31, 2025 Subjective Feeling well this AM. had a BM this morning. Patient denies F/C, CP, palpitations, SOB, dyspnea, abd pain, N/V/D Physical Exam Physical Exam: Vitals and labs reviewed General: Well appearing, NAD HEENT: EOMI, PERRLA Neck: Supple Cardiac: RRR no rubs gallops or murmurs Lungs: CTA no rhonchi wheezing or rales Abd: S NT ND BS positive MSK: Full ROM. No obvious deformities RESHMA drain Ext: No Edema cyanosis Skin: Warm, Dry Neuro: AOx3 No focal deficits. Psych: Normal Mood Results & Data Results & Data Vital Signs (Past 12 Hours) Vital Signs Temp Pulse Resp BP Pulse Ox O2 Del Method 04/08/25 07:32 36.6 C 88 18 137/66 96 Room Air 04/07/25 22:50 37 C 80 16 129/70 95 Room Air (4) Fracture of lumbar spine Encounter type: initial encounter Fracture morphology: unspecified fracture morphology Fracture type: closed Lumbar vertebra fracture level: unspecified lumbar vertebra Qualified Code(s): S32.009A - Unspecified fracture of unspecified lumbar vertebra, initial encounter for closed fracture
[2025-04-09 08:20] VITALS: BP 155/83; RESP 18; TEMP 97.7; O2SAT 95
--- NOTE | 2025-04-09 09:32 | Discharge Summary ---
Discharge Summary Date of Service April 09, 2025 Principal Dx & Hospital Course #1 = Principal Diagnosis (1) Intractable back pain: (2) Lumbar radiculopathy: (3) History of lumbar surgery: (4) Fracture of lumbar spine: (5) CAD (coronary artery disease): (6) Hyperlipidemia: (7) GERD (gastroesophageal reflux disease): (8) HTN (hypertension): Mr. Marrero is an 79 year old male with PMH significant for history of guillain-barre syndrome, history of prostate cancer, history of AK, and multilevel lumbosacral spondylosis with radiculopathy who underwent L3-S1 decompression and fusion on 03/01/2025 c/b postoperative abscess s/p ID 03/11, admitted with fall and worsening back pain. Imaging revealed acute superior endplate fracture of S1 as well as posterior fluid collection. Patient s/p I& D which revealed hematoma. Cultures negative. He was maintained on CTX as previously prescribed. [facility]. he feels well and has no specific complaints. vitals stable for DC. #Fluid collection suspicious for hematoma #Acute S1 fracture # Lumbar radiculopathy s/p recent L3-S1 decompression fusion 03/01 #s/p I&D epidural abscess on 03.11 Gram stain and culture revealed Streptococcus dysgalactiae continued on intravenous ceftriaxone 2 g daily to be continued total 8 weeks (~may 06) s/p I& D on 04/03-->hematoma Operative report reviewed: no purulence noted, loosening of s1 pedicle screws, RESHMA drain placed, fluid under pressure noted s/p dissection into fascial layer Plan -OR cultures NGTD -Continue CTX through 05/06, then begin lifelong amoxicillin per prior ID recommendations -Appreciate ortho input, no immediate surgical plans -Anticipate DC to IPR thursday -RESHMA drain to be removed 04/08 by surgery -Will reach out to ortho regarding his home ASA #Acute encephalopathy #cognitive impairment Due to hospital acquired delirium delirium precautions Gabapentin DC as he gets confused/drowsy on it AOx3 today #CAD Anesthesiology: <[address] elevation, perhaps 2/2 lead placement versus periop hypotension continue atenolol No cardiac symptoms No need for lunchroom monitor #Hyperlipidemia: Continue statin and asa #GERD (gastroesophageal reflux disease): Continue PPI and no issues #HTN (hypertension): Blood pressure is controlled #Anemia -POA. No s/s acute blood loss anemia -Hgb stable -Monitor counts -Transfuse as needed -F/u OP with PCP DVT prophylaxis Subcu heparin held / procedure, SCDs ordered CODE STATUS Full I spent a total of 38 minutes coordinating, documenting, and providing care for this patient excluding time spent in the performance of separately billed services. This included personally reviewing all current laboratories and imaging studies, medical reconciliation, outpatient chart review and discussion with specialists Notes For Next Care Provider Medication Changes From Visit Tramadol and oxy for pain CTX through 05/06 then amoxicillin indefinitely Admission HPI Per Admitting Provider He is a-year-old male with significant past medical history of status post L3-S1 decompression fusion on of last month and was discharged to inpatient rehab facility on of last month. He has had fever and a fall on 10 March and was brought back to emergency room. He was noted to have sacral fracture and collection of fluid. The fluid was drained on 11 March and underwent irrigation with debridement. Subsequent culture came back positive and he was sent on intravenous ceftriaxone 2 g daily to be continued for 8 weeks in total. He went back to rehab facility on of previous month and from there he went home. He has been complaining of increasing pain for the last day or 2 with radiculopathy involving the left lower extremity and getting weakness in the left lower extremity as well. The ER physician did contact Dr. Christopher and was advised to get an MRI and he will be evaluated later on. He denies any fever and/or chills and denies any other significant symptoms. Takes time to any kind of Discharge Exam Vitals and labs reviewed General: Well appearing, NAD HEENT: EOMI, PERRLA Neck: Supple Cardiac: RRR no rubs gallops or murmurs Lungs: CTA no rhonchi wheezing or rales Abd: S NT ND BS positive : Deffered MSK: Full ROM. No obvious deformities No drain Ext: No Edema cyanosis Skin: Warm, Dry Neuro: AOx3 No focal deficits. Psych: Normal Mood Updated Medication List Medication Instructions Recorded Confirmed Type ascorbic acid (vitamin C) 500 mg 500 mg PO QAM 07/07/19 03/10/25 History tablet (Vitamin C) aspirin 81 mg tablet,delayed 81 mg PO QPM 07/07/19 03/10/25 History release (Gen Low Dose Aspirin) atenolol 25 mg tablet 25 mg PO QAM 07/07/19 03/10/25 History citalopram 20 mg tablet 20 mg PO QPM 07/07/19 03/10/25 History magnesium 250 mg tablet 250 mg PO BID 07/07/19 03/10/25 History omega 3-fkj-uyp-fish oil 1,000 mg 1 cap PO QPM 07/07/19 03/10/25 History (120 mg-180 mg) capsule (Fish Oil) omeprazole 20 mg tablet,delayed 20 mg PO QAM 07/07/19 03/10/25 History release simvastatin 20 mg tablet 20 mg PO QPM 07/07/19 03/10/25 History vitamin B complex 1 tab PO WK 07/07/19 03/10/25 History acetaminophen 500 mg tablet 1,000 mg PO TID PRN Pain 01/30/25 03/10/25 History calcium 600 mg (as 1 tab PO BID 01/30/25 03/10/25 History carbonate)-vitamin D3 5 mcg (200 unit) tablet cholecalciferol (vitamin D3) 25 25 mcg PO QAM 01/30/25 03/10/25 History mcg (1,000 unit) tablet (Vitamin D3) fluticasone propionate 50 1 spray intranasal QAM 01/30/25 03/10/25 History mcg/actuation nasal spray,suspension ibandronate 150 mg tablet 150 mg PO MONTHLY 01/30/25 03/10/25 History lutein 20 mg tablet 20 mg PO QAM 01/30/25 03/10/25 History meloxicam 15 mg tablet 15 mg PO QAM 01/30/25 03/10/25 History cetirizine 10 mg tablet 10 mg PO DAILY PRN allergies 03/02/25 03/10/25 History oxycodone 5 mg tablet 5 mg PO Q6H PRN pain #30 tabs 03/02/25 03/10/25 Rx tramadol 50 mg tablet 50 mg PO Q6H PRN pain, moderate 03/02/25 03/10/25 Rx #30 tabs ceftriaxone 2 gram intravenous 2 g IV DAILY 6 weeks 03/17/25 Rx solution oxycodone 5 mg tablet 5 mg PO Q6H PRN pain #30 tabs 04/05/25 Rx tramadol 50 mg tablet 50 mg PO Q6H PRN pain, moderate 04/05/25 Rx #30 tabs Hospital Stay Data Consultations 03/31/25 19:08 ED Decision to Admit Stat 03/31/25 23:08 Consult Orthopedic Spine Surgery Routine Procedures Performed Operation Date: 04/03/25 08:10 Actual Procedures p Incision and Drainage Lumbar Spine(Not Applicable) - Fidencio Christopher, Diagnostic Imagining Performed 03/31/25 18:17 MRI Lumbar Spine [MR lumbar spine wo/w con] Stat 04/02/25 09:31 CT lumbar spine wo con Routine Pending Results Patient Have Any Pending Studies at Discharge: No Discharge Instructions Given to Patient (Per Discharging Provider) ACTIVITY RECOMMENDATIONS: SELF CARE INSTRUCTIONS AFTER THORACIC/LUMBAR FUSIONS 1. You may walk to your tolerance. It is good exercise for your legs and back. Expect some back and intermittent leg aches and pains. 2. You may perform "counter-top" level activities (make a sandwich, elliott with a project, etc.). 3. No bending or lifting of more than 10 pounds or back twisting of any nature (roll like a log when turning in bed). 4. You may ride in a car for 20-30 minutes at a time. No driving until after your first visit with your doctor. 5. Frequent changes of position and restricting sitting to 30 minutes at a time will help limit the amount of back spasms and stiffness you may experience. 6. You may discontinue the use of ambulatory aids (cane, crutches, etc.) once your strength and confidence allow. 7. You may pig machine operator helper the shower and let water strike your incision when you arrive home at least once daily. Do not take a tub bath, sit in a hot tub or go into a swimming pool until after your first recheck in the office. 8. You may resume previous diet. SPECIAL CARE INSTRUCTIONS: VERY IMPORTANT TO READ AND REVIEW A. Your surgical incision has been closed with a cosmetic suture under the skin that will dissolve in about 6 weeks. In 14 days, you can use a pair of clean scissors and cut the suture that is left outside of the skin at the ends of your incision. 1. The small skin tapes can be removed 7 days after surgery if they have not fallen off by that point. 2. You may keep the wound open to air as much as possible to promote healing after post-op day number 5 unless told otherwise by your doctor. 3. If you think the wound looks like it is becoming infected (redness or worsening drainage) and/or you are experiencing fever, chill or worsening back pain and muscle spasms, contact the office so that we may evaluate you as soon as possible. B. Complications are uncommon, but please contact us if you have any signs or symptoms of: 1. wound infection (fever higher than 102.5 degrees F, redness, separation of wound, drainage, or increasing pain from the incision) 2. blood clots in legs (pain, swelling, redness and warmth in legs) 3. urinary tract infection (fever higher than 102.5 degrees F, burning upon urination or increased frequency of urination) 4. nerve problems (inability to walk on your toes or heels, numbness, loss of bowel or bladder control) 5. any other symptoms that concern you C. Please call the office at if you have any concerns or questions about your operation or recovery. D. No smoking! Smoking drastically decreases the chance of a solid fusion. E. Do not take any anti-inflammatory medications (Indocin, Advil, Motrin, Aspirin, Naprosyn, etc.) as these may inhibit the chance of a solid fusion. Tylenol is okay to take for pain. MANAGING PAIN AFTER SPINAL SURGERY 1. Narcotic medication is intended for short-term use and will be provided for surgical pain. Surgical pain usually lasts for a period of 4-6 weeks. Narcotic medication includes Percocet, Vicodin, Darvocet, Tylenol #3 or Lortab. 2. Longer-term pain is more appropriately treated with non-narcotic medication such as Tylenol ES. 3. Muscle spasm is not appropriately treated with narcotics. Muscle relaxers such as Soma, Flexeril or Skelaxin can be used along with Tylenol ES. 4. Remember that we all live with some "aches and pains". This is not unusual or uncommon after an injury or as we get older. a. Back pain is expected and may include muscle spasms for 4 to 6 weeks after surgery. The pain should gradually improve. If the pain worsens for no apparent reason, please contact the office. b. Intermittent leg pain may also be experienced and should not be concerned about unless it worsens for no apparent reason. If so, please contact the office. 5. We will provide appropriate medication within the normal guidelines of their prescribed use. We will also be very cautious and aware of potential abuse and extended duration of patients' medication needs. a. Pain medications are for your comfort and to assist with sleep and rest so that the tissue can heal. They are not provided in order to return to normal activity and should not be used through the day. To do so or worsening pain at night can result from ongoing tissue damage and development of tolerance to the prescribed medicine. 6. Please allow 2-3 days to process refills. Prescriptions will not be mailed but must be picked up at the office. FOLLOW UP VISIT: Keep your scheduled follow-up appointment. Any questions, please call the office at . Total Time Total Time Spent Total Time Spent (In Minutes): 38
--- NOTE | 2025-04-09 09:54 | Orthopedic Progress Note ---
Date of Service April 09, 2025 Assessment & Plan (1) Lumbar radiculopathy: Plan: I will initiate a course of anti-inflammatory medication this morning and see if this helps with his symptoms. If he is able to tolerate therapy and has improved to reasonable for him to discharge to rehab later today. Admission and Anticipated Discharge Date Admission Date: March 31, 2025 Subjective Patient did very nicely yesterday and therapy however this morning is noting significant achiness in his legs. Physical Exam Physical Exam: On exam is currently in bed. He is neurologically intact. There is tenderness palpation of the gluteal musculature and IT band. Results & Data Vital Signs (Past 12 Hours) Vital Signs Temp Pulse Resp BP Pulse Ox O2 Del Method 04/09/25 08:19 36.5 C 83 18 155/83 H 95 Room Air
[2025-04-09] MEDS: KETOROLAC TROMETHAMINE 15 MG/ML VIAL IV ONE (10:16)
[2025-04-09] MEDS: dexAMETHasone 8 MG in SYRINGE 0 ML IV STA (11:30)
[2025-04-09 13:57] VITALS: PULSE 96
== END 2025-04-09 12:05 | DRG 920 ==
LOC: ED 17:20 → 2N 19:08 → SUATTDRO 19:08 → 2N 21:20 → 3E 04-08 21:43

== ENCOUNTER 2025-05-02 08:08 | Inpatient (IN) ==
--- NOTE | 2025-04-27 14:40 | Anesthesiology Consultation ---
Date of Service April 27, 2025 Assessment & Plan (1) Encounter for pre-operative examination: - discharge summary 03/31/25 [facility]: "...underwent L3-S1 decompression and fusion on 03/01/2025 c/b postoperative abscess s/p ID 03/11, admitted with fall and worsening back pain. Imaging revealed acute superior endplate fracture of S1 as well as posterior fluid collection. Patient s/p I& D which revealed hematoma. Cultures negative...maintained on CTX as previously prescribed. [facility]...s/p I& D on 04/03-->hematoma Operative report reviewed: no purulence noted, loosening of s1 pedicle screws, RESHMA drain placed, fluid under pressure noted s/p dissection into fascial layer... RESHMA drain to be removed 04/08 by surgery. Acute encephalopathy...hospital acquired delirium...CAD. Anesthesiology: <[address] elevation, perhaps 2/2 lead placement versus periop hypotension continue atenolol. No cardiac symptoms. No need for extension service specialist...Anemia...Hgb stable..." - Case discussed in detail with Dr. Mcneil who advised patient is acceptable to proceed at current status given indication for surgery, ultimate determination to assigned anesthesiologist evaluation of patient am DOS. - Per emt/paramedic on 04/27/25: No known infectious disease contacts, current infectious disease symptoms in past 10 days or COVID positive test result in the past 30 days. Chart Review Chart Review: Acceptable Risk for Surgery and Patient NOT seen in Pre Admission Testing History Surgery Operation Date: 05/02/25 12:00 Proposed Procedures p L4-S1 Hardware Removal, L4-S1 Revision Decompression and Fusion with Bilateral Iliac Bolts - Fidencio Christopher DO Height/Weight Height: 5 ft 9 in Weight: 77.111 kg Allergies Allergy/AdvReac Type Severity Reaction Status Date / Time No Known Allergies Allergy Verified 04/27/25 13:21 Medications Home Medications Medication Instructions Recorded Confirmed Last Taken ascorbic acid (vitamin C) 500 mg 500 mg PO QAM 07/07/19 04/27/25 03/10/25 08:00 tablet (Vitamin C) atenolol 25 mg tablet 25 mg PO QAM 07/07/19 04/27/25 03/10/25 08:00 citalopram 20 mg tablet 20 mg PO QPM 12/04/27/25 03/09/25 20:00 magnesium 250 mg tablet 250 mg PO BID 07/07/19 04/27/25 03/09/25 20:00 omega 8-pyq-lfu-fish oil 1,000 mg 1 cap PO QPM 07/07/19 04/27/25 02/20/25 08:00 (120 mg-180 mg) capsule (Fish Oil) omeprazole 20 mg tablet,delayed 20 mg PO QAM 07/07/19 04/27/25 03/09/25 08:00 release simvastatin 20 mg tablet 20 mg PO QPM 07/07/19 04/27/25 03/09/25 20:00 vitamin B complex 1 tab PO WK 07/07/19 04/27/25 02/24/25 08:00 acetaminophen 500 mg tablet 1,000 mg PO TID PRN Pain 01/30/25 04/27/25 Unknown calcium 600 mg (as 1 tab PO BID 01/30/25 04/27/25 03/10/25 20:00 carbonate)-vitamin D3 5 mcg (200 unit) tablet cholecalciferol (vitamin D3) 25 25 mcg PO QAM 01/30/25 04/27/25 03/10/25 08:00 mcg (1,000 unit) tablet (Vitamin D3) fluticasone propionate 50 1 spray intranasal QAM 01/30/25 04/27/25 03/09/25 09:00 mcg/actuation nasal spray,suspension ibandronate 150 mg tablet 150 mg PO MONTHLY 01/30/25 04/27/25 02/11/25 08:00 lutein 20 mg tablet 20 mg PO QAM 01/30/25 04/27/25 03/10/25 08:00 cetirizine 10 mg tablet 10 mg PO DAILY PRN allergies 03/02/25 04/27/25 Unknown tramadol 50 mg tablet 50 mg PO Q6H PRN pain, moderate 03/02/25 04/27/25 Unknown #30 tabs ceftriaxone 2 gram intravenous 2 g IV DAILY 6 weeks 03/17/25 04/27/25 Unknown solution baclofen 10 mg tablet 10 mg PO TID 04/27/25 04/27/25 Unknown duloxetine 30 mg capsule,delayed 30 mg PO QAM 04/27/25 04/27/25 Unknown release Past Medical History Medical History (Updated 04/27/25 @ 14:31 by Marilee Mortensen PA-C) Anxiety CAD (coronary artery disease) s/p angioplasty 1995 Cervical stenosis of spinal canal Depression GERD (gastroesophageal reflux disease) well controlled and stable History of prostate cancer 2004, S/P PROSTATECTOMY, no chemo/XRT History of recent hospitalization -[facility] 03/31-04/09/25: presented to ED c/o intractable pain and LLE weakness. I&D hematoma 04/03/25; pt D/C to rehab on IV abx (which he continues on presently) -[facility] 03/10-03/19/25: pt had undergone L3-S1 decompr/fusion 03/01/25 and was in rehab facility and had a fall; pt presented to ED with pain and confusion; s/p I&D 03/11/25 and cultures +; pt placed on PO and IV abx; tx back to rehab. [place] (hard of hearing) Bilateral hearing aids HTN (hypertension) Per PCP records Hx of Guillain-[place] syndrome 2014, muscle weakness in bilateral arms and legs, treated at [facility] (on life support for 4-5 days) then transferred to [facility] for rehab (~1-2 months); pt's states that after about 3-4months at home and with PT/OT pt physical status back to normal Hx of myocardial infarction 1995 at [facility], angioplasty, no stents - no longer follows with Cardiology. *started on Atenolol after MT - denies having hypertension* Hyperlipidemia Hyperlipidemia Osteoporosis Sleep apnea no longer uses cpap ( reports patient does not snore anymore, has a bed t hat raises the head of bed and does well now) Spinal stenosis, lumbar region with neurogenic claudication per pt's , pt can 'barely' move LLE at present. pt's states that has instructed pt that he should only be lying flat and cannot sit for any extended period of time; pt D/C from Rehab 04/27/25 and having home care until surgery date Past Family History Family History Brother Family history of diabetes mellitus Sister Family history of diabetes mellitus Sister Family history of diabetes mellitus Mother Family history of diabetes mellitus Other No family history of adverse response to anesthesia Past Surgical History Surgical History (Updated 04/27/25 @ 14:31 by Marilee Mortensen PA-C) History of appendectomy History of cardiac cath 1995 at [facility], angioplasty, no stents - no longer follows with Cardiology. History of colonoscopy History of incision and drainage lumbar x 2 [facility] (03/11/25, 04/03/25) History of lumbar surgery 1985 [facility] Lumbar surgery 2001 in [place] (unsure of levels) 2003 in [place] (unsure of levels) 07/27/[address] Christopher T11-L2, L4-S1 Decompression, T11-S1 Fusion with peek cage at L1-L2 at [facility] L3-L5 decompression/fusion 03/01/25: MAC#3, ETT#7.5, Gr view 1 Hx of cervical spine surgery ~2015 Dr. Christopher at [facility] -- ACDF (unsure of levels) reports having full ROM Hx of left cataract extraction Hx of prostatectomy (2004) s/p prostate cancer Hx of right cataract extraction Social History Smoking Status: Former smoker Do You Dip or Chew Tobacco: No Smoking End Date: quit ~1984 Hx Alcohol Use: No Hx Substance Use: No substance use type: does not use Lab Results Anesthesia Preop Results Results Anesthesia Widget: WBC 8.73 K/ul (4.8-10.8) 04/06/25 Hgb 11.8 g/dl (14.0-18.0) L 04/06/25 Hct 36.5 % (42.0-52.0) L 04/06/25 Plt 248 K/uL (130-400) 04/06/25 Na 138 mmol/L (136-145) 04/05/25 K 3.9 mmol/L (3.5-5.1) 04/05/25 Cl 101 mmol/L (98-107) 04/05/25 CO2 31 mmol/L (21-32) 04/05/25 BUN 12 mg/dl (6-23) 04/05/25 Creat 0.68 mg/dl (0.6-1.4) 04/05/25 Glucose Level 141 mg/dl (70-99(Fasting)) H 04/05/25 POC Glucose 191 mg/dl (70-99) H 03/02/25 PT 12.4 Seconds (9.0-12.0) H 03/10/25 PTT 27 Seconds (21-31) 03/10/25 INR 1.2 (0.9-1.1) H 03/10/25 Urine Color Yellow 03/10/25 Urine Appearance Clear (Clear) 03/10/25 Urine pH 6.0 (4.5-7.5) 03/10/25 Urine Specific [place] 1.034 (1.000-1.030) H 03/10/25 Urine Protein Negative (Negative) 03/10/25 Urine Glucose (UA) Negative (Negative) 03/10/25 Urine Ketones Negative (Negative) 03/10/25 Urine Blood Negative (Negative) 03/10/25 Urine Nitrite Negative (Negative) 03/10/25 Urine Bilirubin Negative (Negative) 03/10/25 Urine Urobilinogen Negative (Negative) 03/10/25 Urine Leukocyte Esterase Negative (Negative) 03/10/25 Coronavirus OC43 (PCR) Not Detected (NotDetected) 03/10/25 Coronavirus HKU1 (PCR) Not Detected (NotDetected) 03/10/25 Coronavirus 229E (PCR) Not Detected (NotDetected) 03/10/25 COVID-19 PCR Not Detected (NotDetected) 03/10/25 Coronavirus NL63 (PCR) Not Detected (NotDetected) 03/10/25 Testing Electrocardiogram Date: 04/03/25 Sinus tachycardia, rate 101 bpm Chest X-Ray Date: 03/12/25 *1 view* 1. Cardiomegaly with pulmonary vascular congestion. Radiographic follow-up to resolution is recommended. 2. Mild left basilar opacities likely represent atelectasis. Correlate clinically. Echocardiogram Date: 03/13/25 LVEF 55-60% No regional wall motion abnormalities Mild cLVH Poorly visualized valvular anatomy without significant stenosis or regurgitation Other Testing Lumbar spine CT 04/17/25 1. Extensive postoperative findings within the spine redemonstrated as described above. 2. Subacute fractures are again noted involving the superior endplate of S1, left pedicle and transverse process of L5. There is progressive endplate irregularity at L5-S1 which may be secondary to the healing subacute fractures, however discitis/osteomyelitis could appear similarly. Follow-up is needed. 3. Evidence of hardware loosening again noted involving the S1 screws.. 4. Decreased size of the postoperative fluid collection, better assessed on the prior MRI exam. Head CT 03/10/25 No acute intracranial pathology.
[2025-05-02] MEDS ORDERED: MIDAZOLAM HCL 1 MG/ML 2ML VIAL ONE (08:56)
[2025-05-02] MEDS ORDERED: KETAMINE HCL 10MG/ML SYR ONE (08:56)
[2025-05-02] MEDS ORDERED: DEXAMETHASONE SOD INJ 4 MG/ML VIAL ONE (08:57)
[2025-05-02] MEDS ORDERED: ROCURONIUM BROMIDE 10 MG/ML 5 ML VIAL IV ONE (08:57)
[2025-05-02] MEDS ORDERED: ONDANSETRON INJ 2 MG/ML 2 ML VIAL ONE (08:57)
[2025-05-02] MEDS ORDERED: PROPOFOL IV EMULSION 10 MG/ML 20 ML VIAL IV ONE (08:57)
[2025-05-02] MEDS: GABAPENTIN 300 MG CAP PO SCH (09:04)
[2025-05-02] MEDS: ACETAMINOPHEN 500 MG TAB PO SCH (09:04)
[2025-05-02] MEDS: CeleBREX 200 MG CAP PO SCH (09:05)
[2025-05-02] MEDS ORDERED: ONDANSETRON INJ 2 MG/ML 2 ML VIAL IV PRN ×2 (09:06→14:23)
[2025-05-02] MEDS ORDERED: ATROPINE SULFATE 0.1 MG/ML 10ML SYR IV PRN (09:06)
[2025-05-02] MEDS: LR 60ML/HR IV SCH (09:07)
[2025-05-02] MEDS: LR 15ML/HR IV SCH (09:07)
--- NOTE | 2025-05-02 09:42 | History & Physical Bridge Note ---
Date of Service May 02, 2025 History & Physical Bridge Note I have examined the patient, reviewed the History & Physical and in the interval since the performance of the History & Physical I have noted the following changes of clinical significance: no changes noted
--- NOTE | 2025-05-02 09:44 | History & Physical Report ---
Date of Service May 02, 2025 Assessment & Plan (1) Lumbar radiculopathy: Plan: L4-S1 hardware removal, L4-S1 revision decompression and fusion, placement of bilateral iliac bolts History of Present Illness Chief Complaint: Back and leg pain Primary Care Provider: Leonardo Layton This is an 79-year-old male who presents with persistent back and leg pain known sacral fracture and radiculopathy. He is here for surgical intervention. Allergies Allergy/AdvReac Type Severity Reaction Status Date / Time gabapentin AdvReac Hallucinati Verified 05/02/25 09:20 ng Home Medications Medication Instructions Recorded Confirmed Type ascorbic acid (vitamin C) 500 mg 500 mg PO QAM 07/07/19 05/02/25 History tablet (Vitamin C) atenolol 25 mg tablet 25 mg PO QAM 07/07/19 05/02/25 History citalopram 20 mg tablet 20 mg PO QPM 07/07/19 05/02/25 History magnesium 250 mg tablet 250 mg PO BID 07/07/19 05/02/25 History omega 8-fhy-osd-fish oil 1,000 mg 1 cap PO QPM 07/07/19 05/02/25 History (120 mg-180 mg) capsule (Fish Oil) omeprazole 20 mg tablet,delayed 20 mg PO QAM 07/07/19 05/02/25 History release simvastatin 20 mg tablet 20 mg PO QPM 07/07/19 05/02/25 History vitamin B complex 1 tab PO WK 07/07/19 05/02/25 History acetaminophen 500 mg tablet 1,000 mg PO TID PRN Pain 01/30/25 05/02/25 History calcium 600 mg (as 1 tab PO BID 01/30/25 05/02/25 History carbonate)-vitamin D3 5 mcg (200 unit) tablet cholecalciferol (vitamin D3) 25 25 mcg PO QAM 01/30/25 05/02/25 History mcg (1,000 unit) tablet (Vitamin D3) fluticasone propionate 50 1 spray intranasal QAM 01/30/25 05/02/25 History mcg/actuation nasal spray,suspension ibandronate 150 mg tablet 150 mg PO MONTHLY 01/30/25 05/02/25 History lutein 20 mg tablet 20 mg PO QAM 01/30/25 05/02/25 History cetirizine 10 mg tablet 10 mg PO DAILY PRN allergies 03/02/25 05/02/25 History tramadol 50 mg tablet 50 mg PO Q6H PRN pain, moderate 03/02/25 05/02/25 Rx #30 tabs baclofen 10 mg tablet 10 mg PO TID 04/27/25 05/02/25 History duloxetine 30 mg capsule,delayed 30 mg PO QAM 04/27/25 05/02/25 History release Past Med/Surg History Problem List Encounter for pre-operative examination Lumbar radiculopathy Intractable back pain Fracture of lumbar spine (Acute) Fall (Acute) Hypotension (Acute) Acute blood loss anemia Multilevel lumbosacral spondylosis with radiculopathy Medical History History of recent hospitalization -[facility] 03/31-04/09/25: presented to ED c/o intractable pain and LLE weakness. I&D hematoma 04/03/25; pt D/C to rehab on IV abx (which he continues on presently) -[facility] 03/10-03/19/25: pt had undergone L3-S1 decompr/fusion 03/01/25 and was in rehab facility and had a fall; pt presented to ED with pain and confusion; s/p I&D 03/11/25 and cultures +; pt placed on PO and IV abx; tx back to rehab. Hyperlipidemia Cervical stenosis of spinal canal History of prostate cancer 2004, S/P PROSTATECTOMY, no chemo/XRT Spinal stenosis, lumbar region with neurogenic claudication per pt's , pt can 'barely' move LLE at present. 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 *started on Atenolol after [place] - denies having hypertension* Sleep apnea no longer uses cpap ( reports patient does not snore anymore, has a bed that raises the head of bed and does well now) Surgical History History of incision and drainage lumbar x 2 [facility] (03/11/25, 04/03/25) History of appendectomy History of cardiac cath 1995 at [facility], angioplasty, no stents - no longer follows with Cardiology. History of lumbar surgery 1985 [facility] Lumbar surgery 2001 in [place] (unsure of levels) 2003 in [place] (unsure of levels) 07/27/[address] Christopher T11-L2, L4-S1 Decompression, T11-S1 Fusion with peek cage at L1-L2 at [facility] L3-L5 decompression/fusion 03/01/25: MAC#3, ETT#7.5, Gr view 1 Hx of prostatectomy (2004) s/p prostate cancer History of colonoscopy Hx of left cataract extraction Hx of right cataract extraction Hx of cervical spine surgery ~2015 Dr. Christopher at [facility] -- [facility]CD[facility] (unsure of levels) reports having full ROM Family History Brother Family history of diabetes mellitus Sister Family history of diabetes mellitus Sister Family history of diabetes mellitus Mother Family history of diabetes mellitus Other No family history of adverse response to anesthesia Social History Smoking Status: Former smoker Tobacco Type: Smokeless Tobacco (Dip or Chew) Smoking End Date: quit ~1984; Second Hand Exposure: No; Do You Dip or Chew Tobacco: No; Tobacco Cessation Education Requested by Patient: No Hx Alcohol Use: No Hx Substance Use: No Preferred Language: Yakut Communication Ability: Effective Gunnery/Ordnance Officer Required: No Beliefs That Will Affect Care: None marital status: Current Living Situation: Spouse Other Information That Helps Us Care for You: No Feels Safe at Home: Yes Safety Concerns: Feels Safe At This Time Assistive Devices: Denture - Upper, Denture - Lower, Glasses and Hearing Aid - Bilateral Physical Exam Physical Exam: Patient is alert and oriented Heart regular rhythm Lungs clear Results & Data Results & Data Vital Signs (Past 12 Hours) Vital Signs Temp Pulse Resp BP Pulse Ox O2 Del Method 05/02/25 08:21 36.6 C 88 20 160/98 H 96 Room Air
[2025-05-02] MEDS ORDERED: MAG SULFATE 50% 1GM/2ML VIAL IV ONE (10:04)
[2025-05-02] MEDS ORDERED: PHENYLEPHRINE 100MCG/ML 5ML SYR ONE (10:48)
[2025-05-02] MEDS: BUPIVACAINE/EPINEPHRINE 0.25% 1:200,000 30 ML VIAL ONE (11:06)
[2025-05-02] MEDS: ceFAZolin 330 MG/ML 1 GM VIAL ONE ×3 (11:06→11:21)
[2025-05-02] MEDS ORDERED: SUGAMMADEX SODIUM 200 MG/2 ML VIAL IV ONE (11:24)
[2025-05-02] MEDS ORDERED: PHENYLEPHRINE HCL 10 MG/ML VIAL ONE (11:31)
[2025-05-02] MEDS: FLOSEAL HEMOSTATIC MATRIX 10ML TOP ONE (12:12)
[2025-05-02] MEDS: IOPAMIDOL INJ 61% 15 ML VIAL INSTIL ONE (12:13)
--- NOTE | 2025-05-02 12:22 | Operative Report ---
Post Operative Report Pre & Post Diagnosis Operation Date: 05/02/25 10:05 Pre-Op Diagnosis: #1 sacral fracture. #2 loss of fixation L5-S1 with loose instrumentation. Post-Op Diagnosis: Same I identified the patient and participated in the time-out.: Yes Procedure Operation Date: 05/02/25 10:05 Actual Procedures #1 removal of posterior instrumentation L4-S1 including connectors. #2 lumbar pelvic fusion. #3 kyphoplasty S1 vertebral body. #4 bilateral open sacroiliac joint fusions. #5 placed a posterior instrumentation L4-S1 with bilateral iliac bolts. Surgeon Fidencio Christopher, DO Veterinary Attendant Radha Milton Estimated Blood Loss 200 Findings Consistent with Post-Op Diagnosis Specimens None Indications This is a 79-year-old male who presents with above-mentioned diagnosis. Patient was struggling with severe lumbar and radicular pain secondary to his instrumentation and sacral fracture. Subsequently is here for stabilization. He has completed his 6-week course of IV antibiotics. Description of Procedure Patient was met with identified informed consent obtained. Patient was then taken to the operative suite underwent ablation placed in a prone position on the Jose table atop the Samir frame. All bony promises well-padded eyes inspected to ensure no external pressure placed upon them. This point the lumbar spine was prepped and draped in a sterile fashion. Sharp dissection with the assistance of Bovie cautery from down to and exposing the instrumentation and connectors from L4-S1's including the bilateral SI joints and iliac crests. Tissue is quite healthy no evidence of any fluid collection or purulence. Several liters of antibiotic solution were then irrigated at this time. I then proceeded with the hardware noting complete loss of fixation of the bilateral S1 screws. I then performed a kyphoplasty of the S1 vertebral body with 20 mm Kyphon balloons. This was followed by placement of approximately 6 cc of Kyphon cement followed by placement of two 8.5 x 15 mm pedicle screws. Bilateral iliac bolts were placed with the assistance of fluoroscopy followed by new screws in the L4 and L5 levels. Appropriate size rods were then contoured and placed and connectors again utilized to attach to the proximal instrumentation. I then drilled and curetted out the bilateral SI joints packing them with Proteus and Koros bone graft. This included the read grafting of the L5-S1 level. Again several liters of antibiotic solution were then irrigated throughout the incision. 15 round RESHMA drain inserted. Incision was then closed with 1 Vicryl and fascia 2-0 Vicryl subcutaneously and 4 Monocryl for final skin closure. Steri-Strips sterile dressing placed. Patient waken taken to PACU in stable condition. Please note Radha Milton was present at the entire procedure and on the patient positioning complex portion of the surgery and final skin closure. I attest to the content of the Intraoperative Record and any orders documented therein. Any exceptions are noted below.
[2025-05-02] MEDS: HYDROmorphone INJ 1 MG/ML SYRINGE IV PRN (13:15)
--- NOTE | 2025-05-02 13:24 | Fluoroscopy Report ---
FL lumbar spine 2-3V CLINICAL HISTORY: L4-S1 HARDWARE REMOVAL, BILATERAL ILIAC BOLTS COMPARISON STUDY: 03/01/2025 FLUOROSCOPY TIME: 1 minute 11 seconds FLUOROSCOPY IMAGES: 5 EXPOSURE DOSE: 67 mGy FINDINGS: Fluoroscopy was provided for lower lumbar surgery. IMPRESSION: Intraoperative fluoroscopy. ACT 112: Negative or not required by law. Electronically signed by: Heath Westbrook M.D. 05/02/2025 1:23 PM
[2025-05-02] MEDS ORDERED: DO NOT ADMINISTER PNEUMOCOCCAL VACCINE PRN (14:23)
[2025-05-02] MEDS ORDERED: HYDROmorphone INJ 1 MG/ML SYRINGE IV PRN (14:23)
[2025-05-02] MEDS ORDERED: NALOXONE HCL 0.4 MG/1 ML VIAL/CARP IV PRN (14:23)
[2025-05-02] MEDS ORDERED: ACETAMINOPHEN 1,000 MG/100 ML VIAL IV PRN (14:23)
[2025-05-02] MEDS ORDERED: diphenhydrAMINE Capsule 25 MG CAP PO PRN (14:23)
[2025-05-02] MEDS ORDERED: PROMETHAZINE 12.5 MG/50.5 ML BAG IV PRN (14:23)
[2025-05-02] MEDS ORDERED: METOCLOPRAMIDE HCL INJ 5 MG/ML 2 ML VIAL IV PRN (14:23)
[2025-05-02] MEDS ORDERED: HYDROmorphone INJ 0.5 MG/0.5 ML SYR IV PRN (14:23)
[2025-05-02] MEDS ORDERED: LORazepam Inj 0.5 MG in SYRINGE 0.25 ML IV PRN (14:23)
[2025-05-02] MEDS ORDERED: MAGNESIUM HYDROXIDE SUSP 30 ML UDC PO PRN (14:23)
[2025-05-02] MEDS ORDERED: ALUMINUM/MAGNESIUM SUSP 30 ML UDC PO PRN (14:23)
[2025-05-02] MEDS ORDERED: LORazepam 0.5 MG TAB PO PRN (14:23)
[2025-05-02] MEDS ORDERED: DO NOT ADMINISTER FLU VACCINE PRN (14:23)
[2025-05-02] MEDS ORDERED: ONDANSETRON 4 MG OD TAB PO PRN (14:23)
[2025-05-02] MEDS ORDERED: SOD PHOSPHATE/SOD BIPHOSPHATE ENEMA 132 ML BTL PR PRN (14:23)
--- NOTE | 2025-05-02 14:35 | Hospitalist Consultation ---
Date of Consultation May 02, 2025 Assessment & Plan (1) Lumbar radiculopathy: (2) S/P spinal surgery: (3) Postoperative abscess: Plan Patient is an 79y/o M with PMHx significant for Guillain-[place] syndrome, CAD, history of AL, history of prostate cancer, cognitive impairment, HLD, GERD and HTN who is being seen in consultation for postoperative medical management s/p L4-S1 hardware removal, L4-S1 revision decompression and fusion and placement of bilateral iliac bolts performed by Dr. Christopher earlier today. Lumbar radiculopathy S/p L4-S1 hardware removal, L4-S1 revision decompression and fusion and placement of bilateral iliac bolts on 05/02/25 Per primary service for pain control, wound care, anticoagulation and activities Continue incentive spirometry, PT/OT when appropriate as per primary service RELASTER baclofen discontinued per pt and his 's request as this causes his to be confused, lethargic Pt's also inquiring about the discontinuation of Cymbalta -Pt started on this several weeks ago for neuropathy, was previously int olerant to gabapentin -Will discontinue this now, pt was on 30mg daily Postop labs with reactive leukocytosis, will continue to monitor History of L3-S1 decompression and fusion on 03/01/25 c/b postoperative abscess s/p I&D on 03/11/25 Gram stain and culture revealed Streptococcus dysgalactiae Per ID: IV ceftriaxone 2g daily for 8 weeks total with EOT on 05/06/25 (order updated) Then to begin indefinite suppression with po amoxicillin 500mg TID on 05/07/25 -- will need to order Will need to ensure patient has ID outpatient follow-up on discharge History of acute superior endplate fracture of S1 Readmitted 03/31/25-04/09/25 with worsening back pain after sustaining a fall Imaging revealed an acute superior endplate fracture of S1 as well as a posterior fluid collection S/p I&D on 04/03/25 which revealed a hematoma, Gram stain and culture NGTD Anemia H/H grossly stable when compared to prior Continue to monitor and transfuse PRN CAD History of AL Continue statin HTN Continue atenolol Depression Continue Celexa GERD Continue PPI DVT Prophylaxis: As per primary service Code Status: FULL CODE PCP: Leonardo Layton MD Disposition: Routine DC planning as per primary service Patient seen in collaboration with Dr. Perez. Please see addendum. I spent a total of 60 minutes coordinating, documenting, and providing care for this patient excluding time spent in the performance of separately billed services or time spent by another provider/QHP. This included personally reviewing all current laboratories and imaging studies, medical reconciliation, outpatient chart review and discussion with specialists. This chart was completed in part utilizing Speech Voice Recognition Software. Grammatical errors, random word insertions, pronoun errors, and incomplete sentences are an occasional consequence of this system due to software limitations, ambient noise, and hardware issues. Any formal questions or concerns about the content, text, or information contained within the body of this dictation should be directly addressed to the provider for clarification. Supervising Physician Co-Signing Physician Notes Patient tolerated procedure well. Post op labs with reactive leukocytosis, creatinine at baseline, Hgb above baseline. Patient presenting for lumbar fusion and bolting in setting of instrumentation and sacral fracture. No immediate post op complications. Patient at high risk for post operative delirium give cognitive impairement and high anticholinergic burden. Stopped repetitive/anticholinergic prn medications to reduce polypharmacy and decrease delirium risk. Will monitor Hgb, creatinine, leukocytosis post operatively. IS to reduce atelectasis chance. I have seen and discussed the case with the collaborating advanced practitioner. I agree with the above H&P. I have reviewed and confirmed the patients medical history, the findings on physical examination, and the patients diagnosis and treatment plan with [facility] and agree with the information documented. I spent a total of 15 minutes coordinating, documenting, and providing care for this patient excluding time spent in the performance of separately billed services. All of the aforementioned completed outside of collaborating with the assigned advanced practitioner for a full treatment plan. I have reviewed the advanced practitioner's documentation, and I agree with, and take responsibility for the plan of care History of Present Illness Reason for Consultation: Postoperative medical management Requesting Physician: Fidencio Christopher DO Attending Physician: Fidencio Christopher DO History of Present Illness Patient is an 79y/o M with PMHx significant for Guillain-[place] syndrome, CAD, history of AL, history of prostate cancer, cognitive impairment, HLD, GERD and HTN who is being seen in consultation for postoperative medical management s/p L4-S1 hardware removal, L4-S1 revision decompression and fusion and placement of bilateral iliac bolts performed by Dr. Christopher earlier today. History obtained from the patient, patient's at bedside and associated chart review. Previously underwent L3-S1 decompression and fusion on 03/01/25 c/b postoperative abscess s/p I&D on 03/11/25. Gram stain and culture revealed Streptococcus dysgalactiae. ID recommended IV ceftriaxone 2g daily for 8 weeks total with EOT on 05/06/25 and then to begin indefinite suppression with po amoxicillin 500mg TID. Was readmitted 03/31/25-04/09/25 with worsening back pain after sustaining a fall. Imaging revealed an acute superior endplate fracture of S1 as well as a posterior fluid collection. S/p I&D on 04/03/25 which revealed a hematoma. Gram stain and culture NGTD. Reports pain well-controlled postoperatively. Was not previously able to move LLE much preoperatively. Now able to lift LLE off the bed which was previously not doable secondary to excruciating pain. Has not yet been out of bed. Passing gas. No postoperative BM yet. Tolerating sips of fluid. A&Ox3 with orientation questioning. Experiencing some transient forgetfulness postoperatively which is mentions happened after his most recent surgery prior to today. Allergies Allergy/AdvReac Type Severity Reaction Status Date / Time gabapentin AdvReac Hallucinati Verified 05/02/25 09:20 ng Home Medications Medication Instructions Recorded Confirmed Type ascorbic acid (vitamin C) 500 mg 500 mg PO QAM 07/07/19 05/02/25 History tablet (Vitamin C) atenolol 25 mg tablet 25 mg PO QAM 07/07/19 05/02/25 History citalopram 20 mg tablet 20 mg PO QPM 07/07/19 05/02/25 History magnesium 250 mg tablet 250 mg PO BID 07/07/19 05/02/25 History omega 0-qwc-wkt-fish oil 1,000 mg 1 cap PO QPM 07/07/19 05/02/25 History (120 mg-180 mg) capsule (Fish Oil) omeprazole 20 mg tablet,delayed 20 mg PO QAM 07/07/19 05/02/25 History release simvastatin 20 mg tablet 20 mg PO QPM 07/07/19 05/02/25 History vitamin B complex 1 tab PO WK 07/07/19 05/02/25 History acetaminophen 500 mg tablet 1,000 mg PO TID PRN Pain 01/30/25 05/02/25 History calcium 600 mg (as 1 tab PO BID 01/30/25 05/02/25 History carbonate)-vitamin D3 5 mcg (200 unit) tablet cholecalciferol (vitamin D3) 25 25 mcg PO QAM 01/30/25 05/02/25 History mcg (1,000 unit) tablet (Vitamin D3) fluticasone propionate 50 1 spray intranasal QAM 01/30/25 05/02/25 History mcg/actuation nasal spray,suspension ibandronate 150 mg tablet 150 mg PO MONTHLY 01/30/25 05/02/25 History lutein 20 mg tablet 20 mg PO QAM 01/30/25 05/02/25 History cetirizine 10 mg tablet 10 mg PO DAILY PRN allergies 03/02/25 05/02/25 History tramadol 50 mg tablet 50 mg PO Q6H PRN pain, moderate 03/02/25 05/02/25 Rx #30 tabs baclofen 10 mg tablet 10 mg PO TID 04/27/25 05/02/25 History duloxetine 30 mg capsule,delayed 30 mg PO QAM 04/27/25 05/02/25 History release Patient History Medical History History of recent hospitalization -[facility] 03/31-04/09/25: presented to ED c/o intractable pain and LLE weakness. I&D hematoma 04/03/25; pt D/C to rehab on IV abx (which he continues on presently) -[facility] 03/10-03/19/25: pt had undergone L3-S1 decompr/fusion 03/01/25 and was in rehab facility and had a fall; pt presented to ED with pain and confusion; s/p I&D 03/11/25 and cultures +; pt placed on PO and IV abx; tx back to rehab. Hyperlipidemia Cervical stenosis of spinal canal History of prostate cancer 2004, S/P PROSTATECTOMY, no chemo/XRT Spinal stenosis, lumbar region with neurogenic claudication per pt's , pt can 'barely' move LLE at present. pt's states that Dr. 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 *started on Atenolol after [place] - denies having hypertension* Sleep apnea no longer uses cpap ( reports patient does not snore anymore, has a bed that raises the head of bed and does well now) Surgical History History of incision and drainage lumbar x 2 [facility] (03/11/25, 04/03/25) History of appendectomy History of cardiac cath 1995 at [facility], angioplasty, no stents - no longer follows with Cardiology. History of lumbar surgery 1985 [facility] Lumbar surgery 2001 in [place] (unsure of levels) 2004 in [place] (unsure of levels) 07/27/[address] Christopher T11-L2, L4-S1 Decompression, T11-S1 Fusion with peek cage at L1-L2 at [facility] L3-L5 decompression/fusion 03/01/25: MAC#3, ETT#7.5, Gr view 1 Hx of prostatectomy (2004) s/p prostate cancer History of colonoscopy Hx of left cataract extraction Hx of right cataract extraction Hx of cervical spine surgery ~2015 Dr. Christopher at [facility] -- [facility]CD[facility] (unsure of levels) reports having full ROM Family History Brother Family history of diabetes mellitus Sister Family history of diabetes mellitus Sister Family history of diabetes mellitus Mother Family history of diabetes mellitus Other No family history of adverse response to anesthesia Social History Smoking Status: Former smoker Tobacco Type: Smokeless Tobacco (Dip or Chew) Smoking End Date: quit ~1984; Second Hand Exposure: No; Do You Dip or Chew Tobacco: No; Tobacco Cessation Education Requested by Patient: No Hx Alcohol Use: No Hx Substance Use: No Preferred Language: French Communication Ability: Effective Superintendent Sales Required: No Beliefs That Will Affect Care: None marital status: Current Living Situation: Spouse Other Information That Helps Us Care for You: No Feels Safe at Home: Yes Safety Concerns: Feels Safe At This Time Assistive Devices: Denture - Upper, Denture - Lower, Glasses and Hearing Aid - Bilateral Review of Systems Review of Systems: At least ten systems reviewed and negative, except as noted in the HPI. Physical Exam Physical Exam: General: Elderly M, NAD, laying down in bed, A&Ox3 with some transient forgetfulness but easily reoriented, patient's at bedside Respiratory: Normal respiratory effort, CTAB, on 2L NC and saturating at 98% Cardiovascular: Mildly tachycardic (HR 96), regular rhythm, no BLE edema Abdomen/GI: Normal bowel sounds, soft, nontender to palpation in all quadrants Extremities/Musculoskeletal: No cyanosis or clubbing, able to lift BLE off bed and flex at knee, surgical site not directly visualized, RESHMA drain x 1 with bloody output Neurologic: No overt focal deficits, CN's II-XI not formally tested but appear grossly intact bilaterally Results & Data Results & Data Vital Signs (Past 12 Hours) Vital Signs Temp Pulse Pulse Resp BP BP Pulse Ox 05/02/25 14:17 36.6 C 98 H 16 116/78 96 05/02/25 13:45 36.6 C 99 H 18 139/98 98 05/02/25 13:35 100 H 16 134/100 96 05/02/25 13:25 102 H 16 169/102 H 96 05/02/25 13:15 100 H 18 159/102 H 98 05/02/25 13:05 96 H 16 155/95 H 99 05/02/25 12:55 95 H 16 133/103 H 96 05/02/25 12:45 91 H 18 150/95 H 99 05/02/25 12:35 36.4 C L 90 16 98 05/02/25 08:21 36.6 C 88 20 160/98 H 96 O2 Del Method O2 Flow Rate 05/02/25 14:17 Nasal Cannula 2 05/02/25 13:45 Nasal Cannula 2 05/02/25 13:35 Nasal Cannula 2 05/02/25 13:25 Nasal Cannula 2 05/02/25 13:15 Nasal Cannula 2 05/02/25 13:05 Oxymask 3 05/02/25 12:55 Oxymask 3 05/02/25 12:45 Oxymask 6 05/02/25 12:35 Oxymask 6 05/02/25 08:21 Room Air Laboratory Results Short CBC 05/02/25 Range/Units 15:14 WBC 11.40 H (4.8-10.8) K/ul Hgb 13.4 L (14.0-18.0) g/dl Hct 39.4 L (42.0-52.0) % Plt Count 245 (130-400) K/uL BMP 05/02/25 15:14 Sodium 134 L Potassium 4.8 Chloride 100 Carbon Dioxide 27 BUN 19 Creatinine 0.76 Glucose 177 H Calcium 9.0 Diagnostic Findings Lumbar Spine X-Ray 05/02/25 10:05 FL lumbar spine 2-3V CLINICAL HISTORY: L4-S1 HARDWARE REMOVAL, BILATERAL ILIAC BOLTS COMPARISON STUDY: 03/01/2025 FLUOROSCOPY TIME: 1 minute 11 seconds FLUOROSCOPY IMAGES: 5 EXPOSURE DOSE: 67 mGy FINDINGS: Fluoroscopy was provided for lower lumbar surgery. IMPRESSION: Intraoperative fluoroscopy. ACT 112: Negative or not required by law. Electronically signed by: Heath Westbrook M.D. 05/02/2025 1:23 PM
[2025-05-02] MEDS: cefTRIAXone SODIUM 2,000 MG/50 ML BAG IV SCH (15:14)
[2025-05-02] MEDS: BACLOFEN 10 MG TAB PO SCH (15:15)
[2025-05-02 15:28] LABS: Hematocrit (blood only) 39.4 % (42.0-52.0); Hemoglobin 13.4 g/dl (14.0-18.0); Mean Corpuscular Hemoglobin 30.7 pg (25.0-34.0); Mean Corpuscular Volume 90.2 fL (80.0-100.0); Platelet Count 245 K/uL (130-400); RDW Standard Deviation 44.0 fL (36.4-46.3); Red Blood Count 4.37 M/uL (4.70-6.10); White Blood Count 11.40 K/ul (4.8-10.8)
[2025-05-02 15:46] LABS: Anion Gap 7.0 (3-11); Blood Urea Nitrogen 19.0 mg/dl (6-23); Calcium 9.0 mg/dl (8.6-10.3); Carbon Dioxide 27.0 mmol/L (21-32); Chloride 100.0 mmol/L (98-107); Creatinine Clr Calc Pharmacy 72.0 ml/min; Glucose 177.0 mg/dl (70-99(Fasting)); Potassium 4.8 mmol/L (3.5-5.1); Sodium 134.0 mmol/L (136-145)
--- NOTE | 2025-05-02 16:20 | Anesthesiology Progress Note ---
Date of Service May 02, 2025 Anesthesia Post Procedure Vital Signs Vital Signs: Temp Pulse Pulse Resp BP BP Pulse Ox 05/02/25 16:05 36.5 C 97 H 16 114/76 97 05/02/25 15:18 36.6 C 100 H 15 124/82 98 05/02/25 14:43 36.4 C L 99 H 17 142/87 H 97 05/02/25 14:17 36.6 C 98 H 16 116/78 96 05/02/25 13:45 36.6 C 99 H 18 139/98 98 05/02/25 13:35 100 H 16 134/100 96 05/02/25 13:25 102 H 16 169/102 H 96 05/02/25 13:15 100 H 18 159/102 H 98 05/02/25 13:05 96 H 16 155/95 H 99 05/02/25 12:55 95 H 16 133/103 H 96 05/02/25 12:45 91 H 18 150/95 H 99 05/02/25 12:35 36.4 C L 90 16 98 05/02/25 08:21 36.6 C 88 20 160/98 H 96 O2 Del Method O2 Flow Rate 05/02/25 16:05 Nasal Cannula 2 05/02/25 15:18 Nasal Cannula 2 05/02/25 14:43 Nasal Cannula 2 05/02/25 14:17 Nasal Cannula 2 05/02/25 13:45 Nasal Cannula 2 05/02/25 13:35 Nasal Cannula 2 05/02/25 13:25 Nasal Cannula 2 05/02/25 13:15 Nasal Cannula 2 05/02/25 13:05 Oxymask 3 05/02/25 12:55 Oxymask 3 05/02/25 12:45 Oxymask 6 05/02/25 12:35 Oxymask 6 05/02/25 08:21 Room Air Pain Intensity Bilateral Lower Back: Pain Intensity: 1 Left Hip: Pain Intensity: 1 Transfer of Care Handoff Completed per policy Notes Mental Status: alert / awake / arousable and participated in evaluation Patient Amnestic to Procedure: Yes Nausea / Vomiting: adequately controlled Pain: adequately controlled Airway Patency, RR, SpO2: stable & adequate BP & HR: stable & adequate Hydration State: stable & adequate Anesthetic Complications: no major complications apparent and Pt Satisfied with anesthetic care
[2025-05-02] MEDS: LACTATED RINGER'S 1,000 ML IV SCH (18:02)
[2025-05-02] MEDS: ACETAMINOPHEN 500 MG TAB PO PRN (20:01)
[2025-05-02] MEDS: CALCIUM 600MG + VIT D 400 IU TAB PO SCH (20:02)
[2025-05-02] MEDS: CITALOPRAM 20 MG TAB PO SCH (20:02)
[2025-05-02] MEDS: SIMVASTATIN 20 MG TAB PO SCH (20:03)
[2025-05-02] MEDS: DOCUSATE SODIUM/SENNA 50/8.6MG TAB PO SCH (20:09)
[2025-05-02] MEDS ORDERED: MAGNESIUM OXIDE 400 MG TAB PO SCH (21:00)
[2025-05-03] MEDS: POLYETHYLENE (MIRALAX) 17 GM PACK PO SCH (06:07)
[2025-05-03 08:07] LABS: Hematocrit (blood only) 38.2 % (42.0-52.0); Hemoglobin 12.7 g/dl (14.0-18.0); Immature Granulocytes # (auto) 0.07 K/uL (0.01-0.20); Immature Granulocytes % (auto) 0.6 %; Mean Corpuscular Hemoglobin 30.3 pg (25.0-34.0); Mean Corpuscular Volume 91.2 fL (80.0-100.0); Platelet Count 251 K/uL (130-400); RDW Standard Deviation 45.1 fL (36.4-46.3); Red Blood Count 4.19 M/uL (4.70-6.10); White Blood Count 11.75 K/ul (4.8-10.8)
--- NOTE | 2025-05-03 08:20 | Orthopedic Progress Note ---
Date of Service May 03, 2025 Assessment & Plan (1) Fracture of lumbar spine: Plan: At this time we will initiate physical therapy. Hopefully ambulate and tolerate sitting in a chair. Plan for rehab towards the end of the week. Admission and Anticipated Discharge Date Admission Date: May 02, 2025 Subjective Patient's back pain has improved. Still struggling with left sciatica. Physical Exam Physical Exam: On exam he does exhibit bilateral foot drop. Sensory is intact. He is able to move about the bed with less discomfort. Results & Data Vital Signs (Past 12 Hours) Vital Signs Temp Pulse Pulse Resp BP Pulse Ox O2 Del Method 05/03/25 07:38 36.5 C 104 H 16 129/77 95 Room Air 05/03/25 03:22 36.7 C 100 H 18 100/65 95 Room Air 05/03/25 00:07 36.7 C 99 H 18 102/68 92 Room Air Queries Orthopedic Spine Vertebral Fracture Secondary to Osteoporosis: Yes (1) Fracture of lumbar spine Encounter type: initial encounter Fracture morphology: unspecified fracture morphology Fracture type: closed Lumbar vertebra fracture level: unspecified lumbar vertebra Qualified Code(s): S32.009A - Unspecified fracture of unspecified lumbar vertebra, initial encounter for closed fracture
[2025-05-03 08:27] LABS: Anion Gap 4.0 (3-11); Blood Urea Nitrogen 15.0 mg/dl (6-23); Calcium 9.2 mg/dl (8.6-10.3); Carbon Dioxide 33.0 mmol/L (21-32); Chloride 99.0 mmol/L (98-107); Creatinine Clr Calc Pharmacy 79.3 ml/min; Glucose 137.0 mg/dl (70-99(Fasting)); Potassium 4.2 mmol/L (3.5-5.1); Sodium 136.0 mmol/L (136-145)
[2025-05-03] MEDS ORDERED: ASCORBIC ACID 500 MG TAB PO SCH (09:00)
[2025-05-03] MEDS: dexAMETHasone 6 MG in SYRINGE 0 ML IV SCH (09:22)
[2025-05-03] MEDS: ATENOLOL 25 MG TABLET PO SCH (09:23)
[2025-05-03] MEDS: CHOLECALCIFEROL 25 MCG (1000 UNITS) TAB PO SCH (09:24)
[2025-05-03] MEDS: FLUTICASONE PROPIONATE NA SPR 16 GM BTL SCH (09:25)
[2025-05-03] MEDS: PREGABALIN 50 MG CAP PO SCH (11:10)
--- NOTE | 2025-05-03 11:43 | Hospitalist Progress Note ---
Date of Service May 03, 2025 Assessment & Plan (1) Lumbar radiculopathy: (2) S/P spinal surgery: (3) Postoperative abscess: Plan Patient is an 79y/o M with PMHx significant for Guillain-[place] syndrome, CAD, history of [place], history of prostate cancer, cognitive impairment, HLD, GERD and HTN who is being seen in consultation for postoperative medical management s/p L4-S1 hardware removal, L4-S1 revision decompression and fusion and placement of bilateral iliac bolts performed by Dr. Christopher earlier today. Lumbar radiculopathy S/p L4-S1 hardware removal, L4-S1 revision decompression and fusion and placement of bilateral iliac bolts on 05/02/25 Per primary service for pain control, wound care, anticoagulation and activities Mackey and RESHMA drain management per primary PT/OT IS Bowel regimen VTE prophylaxis History of L3-S1 decompression and fusion on 03/01/25 c/b postoperative abscess s/p I&D on 03/11/25 Gram stain and culture revealed Streptococcus dysgalactiae Per ID: IV ceftriaxone 2g daily for 8 weeks total with EOT on 05/06/25 (order updated) Then to begin indefinite suppression with po amoxicillin 500mg TID on 05/07/25 -- will need to order Will need to ensure patient has ID outpatient follow-up on discharge History of acute superior endplate fracture of S1 Readmitted 03/31/25-04/09/25 with worsening back pain after sustaining a fall Imaging revealed an acute superior endplate fracture of S1 as well as a posterior fluid collection S/p I&D on 04/03/25 which revealed a hematoma, Gram stain and culture NGTD Anemia Chronic at baseline No s/s acute blood loss CAD History of [place] Continue statin HTN Continue atenolol Depression Continue Celexa GERD Continue PPI DVT Prophylaxis: As per primary service Code Status: FULL CODE PCP: Leonardo Layton MD I spent a total of 39 minutes coordinating, documenting, and providing care for this patient excluding time spent in the performance of separately billed services. This included personally reviewing all current laboratories and imaging studies, medical reconciliation, outpatient chart review and discussion with specialists Admission and Anticipated Discharge Date Admission Date: May 02, 2025 Subjective Feeling ok today. his only complaint is L Leg paresthesia. Patient denies F/C, CP, palpitations, SOB, dyspnea, abd pain, N/V/D Physical Exam Physical Exam: Vitals and labs reviewed General: Well appearing, NAD HEENT: EOMI, PERRLA Neck: Supple Cardiac: RRR no rubs gallops or murmurs Lungs: CTA no rhonchi wheezing or rales Abd: S NT ND BS positive : mackey MSK: Full ROM. No obvious deformities RESHMA drain Ext: No Edema cyanosis Skin: Warm, Dry Neuro: AOx3 No focal deficits. Psych: Normal Mood Results & Data Results & Data Vital Signs (Past 12 Hours) Vital Signs Temp Pulse Pulse Resp BP Pulse Ox O2 Del Method 05/03/25 11:27 36.7 C 104 H 16 107/70 95 Room Air 05/03/25 07:38 36.5 C 104 H 16 129/77 95 Room Air 05/03/25 03:22 36.7 C 100 H 18 100/65 95 Room Air 05/03/25 00:07 36.7 C 99 H 18 102/68 92 Room Air Laboratory Results Abnormal lab results 05/02/25 05/03/25 Range/Units 15:14 07:54 WBC 11.40 H 11.75 H (4.8-10.8) K/ul RBC 4.37 L 4.19 L (4.70-6.10) M/uL Hgb 13.4 L 12.7 L (14.0-18.0) g/dl Hct 39.4 L 38.2 L (42.0-52.0) % Neut # (Auto) 8.54 H (1.40-6.50) K/uL [place] # (Auto) 0.92 H (0.11-0.59) K/uL Sodium 134 L (136-145) mmol/L Carbon Dioxide 33 H (21-32) mmol/L BUN/Creatinine Ratio 25.0 H 21.7 H (10-20) Glucose 177 H 137 H (70-99(Fasting)) mg/dl
--- NOTE | 2025-05-03 22:30 | Ultrasound Report ---
Exam(s): US VENOUS LEFT LOWER EXTREMITY EXAM: US Duplex Left Lower Extremity Veins CLINICAL HISTORY: Reason for exam: R/o DVT. TECHNIQUE: Real-time duplex ultrasound scan of the left lower extremity veins integrating B-mode two-dimensional vascular structure, Doppler spectral analysis, color flow Doppler imaging and compression. COMPARISON: No relevant prior studies available. FINDINGS: Deep veins: Unremarkable. No DVT in the visualized common femoral, femoral, proximal deep femoral or popliteal veins. The veins demonstrate normal color flow, are normally compressible, with normal phasic flow and/or augmentation response. Superficial veins: Unremarkable. No thrombus in the visualized great saphenous vein. Soft tissues: No acute findings. No popliteal cyst. IMPRESSION: Normal left lower extremity duplex venous ultrasound. Electronically signed by: Roverto Rivers MD 05/03/25 22:29 PM
[2025-05-03] MEDS: FAMOTIDINE 20 MG TAB PO PRN (23:31)
--- NOTE | 2025-05-04 08:39 | Orthopedic Progress Note ---
Date of Service May 04, 2025 Assessment & Plan (1) Lumbar radiculopathy: Plan: Will continue with physical therapy today. Maintain RESHMA drain. Ultimate plan is for discharge back to [facility]. Earliest would be tomorrow. Continue with antibiotic therapy. DVT prophylaxis is in the form teds and SCDs. Continue with aggressive bowel regimen. Admission and Anticipated Discharge Date Admission Date: May 02, 2025 Subjective Hi is postoperative day 2 status post hard removal L4-S1 with addition of iliac bolts and revision fusion. RESHMA drain output last shift is 25 cc. Still has left leg pain. RESHMA drain output last shift is 15 cc. He had a Doppler of the left lower extremity last evening which is negative for DVT. He is still on IV ceftriaxone due to epidural abscess with discontinuation date slated for May 06 and then move onto oral amoxicillin for suppression Review of Systems Review of Systems: All systems reviewed & are unremarkable except as noted in HPI & below Physical Exam Physical Exam: He is laying in bed eating breakfast and talking on the phone no acute distress alert and oriented x 3 he has a left foot drop which is established and unchanged Strength is intact right lower extremity Results & Data Vital Signs (Past 12 Hours) Vital Signs Temp Pulse Resp BP Pulse Ox O2 Del Method 05/04/25 07:57 36.6 C 83 18 122/70 98 Room Air 05/03/25 22:50 36.5 C 87 17 122/74 95 Room Air 05/03/25 20:59 36.7 C 83 16 131/80 96 Room Air Queries Orthopedic Spine Vertebral Fracture Secondary to Osteoporosis: Yes
[2025-05-04] MEDS: VITAMIN B COMPLEX TAB PO SCH (10:15)
[2025-05-04 10:24] LABS: Hematocrit (blood only) 35.2 % (42.0-52.0); Hemoglobin 11.9 g/dl (14.0-18.0); Immature Granulocytes # (auto) 0.06 K/uL (0.01-0.20); Immature Granulocytes % (auto) 0.5 %; Mean Corpuscular Hemoglobin 31.1 pg (25.0-34.0); Mean Corpuscular Volume 91.9 fL (80.0-100.0); Platelet Count 237 K/uL (130-400); RDW Standard Deviation 45.4 fL (36.4-46.3); Red Blood Count 3.83 M/uL (4.70-6.10); White Blood Count 11.11 K/ul (4.8-10.8)
--- NOTE | 2025-05-04 11:25 | Ultrasound Report ---
US venous doppler LE RT HISTORY: now c/o R knee pain, warmth COMPARISON: None TECHNIQUE: Multiple real-time sonographic images of the right lower extremity deep venous structures were obtained assessing grayscale appearance, color and spectral flow. FINDINGS: No evidence of DVT seen in the right lower extremity. IMPRESSION: No DVT seen. ACT 112: Negative or not required by law. The above report was generated using voice recognition software. It may contain grammatical, syntax o r spelling errors. Electronically signed by: Heath Westbrook M.D. 05/04/2025 11:24 AM
--- NOTE | 2025-05-04 11:58 | Hospitalist Progress Note ---
Date of Service May 04, 2025 Assessment & Plan (1) Lumbar radiculopathy: (2) S/P spinal surgery: (3) Postoperative abscess: Plan Patient is an 79y/o M with PMHx significant for Guillain-[place] syndrome, CAD, history of [place], history of prostate cancer, cognitive impairment, HLD, GERD and HTN who is being seen in consultation for postoperative medical management s/p L4-S1 hardware removal, L4-S1 revision decompression and fusion and placement of bilateral iliac bolts performed by Dr. Christopher earlier today. Lumbar radiculopathy S/p L4-S1 hardware removal, L4-S1 revision decompression and fusion and placement of bilateral iliac bolts on 05/02/25 Per primary service for pain control, wound care, anticoagulation and activities Mackey and RESHMA drain management per primary PT/OT IS Bowel regimen VTE prophylaxis #Knee pain -R knee pain after physical therapy on 05/03 -R knee was warm compared to c/l knee -Afebrile. WBC stable at 11 -B/l Dopplers negative -Appreciate ortho input History of L3-S1 decompression and fusion on 03/01/25 c/b postoperative abscess s/p I&D on 03/11/25 Gram stain and culture revealed Streptococcus dysgalactiae Per ID: IV ceftriaxone 2g daily for 8 weeks total with EOT on 05/06/25 (order updated) Then to begin indefinite suppression with po amoxicillin 500mg TID on 05/07/25 -- will need to order Will need to ensure patient has ID outpatient follow-up on discharge History of acute superior endplate fracture of S1 Readmitted 03/31/25-04/09/25 with worsening back pain after sustaining a fall Imaging revealed an acute superior endplate fracture of S1 as well as a posterior fluid collection S/p I&D on 04/03/25 which revealed a hematoma, Gram stain and culture NGTD Anemia Chronic at baseline No s/s acute blood loss CAD History of [place] Continue statin HTN Continue atenolol Depression Continue Celexa GERD Continue PPI DVT Prophylaxis: As per primary service Code Status: FULL CODE PCP: Leonardo Layton MD I spent a total of 55 minutes coordinating, documenting, and providing care for this patient excluding time spent in the performance of separately billed services. This included personally reviewing all current laboratories and imaging studies, medical reconciliation, outpatient chart review and discussion with specialists Admission and Anticipated Discharge Date Admission Date: May 02, 2025 Subjective C/o knee pain last evening, now resolved. his main complaint today is his L sciatica which is a longstanding issue for him. d/w at bedside last evening Physical Exam Physical Exam: Vitals and labs reviewed General: Well appearing, NAD HEENT: EOMI, PERRLA Neck: Supple Cardiac: RRR no rubs gallops or murmurs Lungs: CTA no rhonchi wheezing or rales Abd: S NT ND BS positive : mackey MSK: Full ROM. No obvious deformities RESHMA drain Ext: No Edema cyanosis Skin: Warm, Dry Neuro: AOx3 No focal deficits. Psych: Normal Mood Results & Data Results & Data Vital Signs (Past 12 Hours) Vital Signs Temp Pulse Resp BP Pulse Ox O2 Del Method 05/04/25 10:45 94 H 17 128/80 95 Room Air 05/04/25 07:57 36.6 C 83 18 122/70 98 Room Air Laboratory Results Abnormal lab results 05/02/25 05/04/25 Range/Units 08:09 09:59 WBC 11.11 H (4.8-10.8) K/ul RBC 3.83 L (4.70-6.10) M/uL Hgb 11.9 L (14.0-18.0) g/dl Hct 35.2 L (42.0-52.0) % Neut # (Auto) 7.07 H (1.40-6.50) K/uL [place] # (Auto) 1.05 H (0.11-0.59) K/uL Crossmatch See Detail
--- NOTE | 2025-05-05 09:26 | Discharge Summary ---
Date of Service May 05, 2025 Admission HPI Per Admitting Provider This is an 79-year-old male who presents with persistent back and leg pain known sacral fracture and radiculopathy. He is here for surgical intervention. Principal Diagnosis Lumbar radiculopathy with osteoporotic sacral fracture Discharge Data Allergies Allergy/AdvReac Type Severity Reaction Status Date / Time gabapentin AdvReac Hallucinati Verified 05/02/25 09:20 ng Consultations 05/02/25 14:23 Consult Hospitalist Routine Procedures Performed Operation Date: 05/02/25 10:05 Actual Procedures p L4-S1 Revision Decompression and Fusion with Bilateral Iliac Bolts, (Not Applicable) - Fidencio Christopher DO s L4-S1 Hardware Removal,(Not Applicable) - DO obdulio Mariee Kyphoplasty(Not Applicable) - Fidencio Christopher DO Ordered Studies 05/02/25 10:05 FL lumbar spine 2-3V Routine 05/03/25 18:18 US venous doppler LE LT Routine 05/04/25 08:52 US venous doppler LE RT Urgent Hospital Course (1) Lumbar radiculopathy: Patient underwent revision stabilization with lumbopelvic fusion. Patient tolerates well was improving with physical therapy. RESHMA drain decreasing. Improved function overall. Subsidy discharged to rehab. Discharge orders instructions from the chart for further review. Total Time Total Time Spent Total Time Spent (In Minutes): 20 minutes Discharge Plan Discharge Items Patient Disposition: Transfer Inpatient Rehab Fac Reason For Visit: Lumbar Disc Disease Radiculopathy, Lumbar Spondylo Discharge Diagnosis: Sacral fracture with radiculopathy Activity: As commented below Non-emergency contact: Primary Care Provider Call non-emergency contact if: you have any medication questions Follow-up/Referrals: Leonardo Layton [Primary Care Provider] - Diet: Regular Addtl Attending Provider Instructions: ACTIVITY RECOMMENDATIONS: SELF CARE INSTRUCTIONS AFTER THORACIC/LUMBAR FUSIONS 1. You may walk to your tolerance. It is good exercise for your legs and back. Expect some back and intermittent leg aches and pains. 2. You may perform "counter-top" level activities (make a sandwich, elliott with a project, etc.). 3. No bending or lifting of more than 10 pounds or back twisting of any nature (roll like a log when turning in bed). 4. You may ride in a car for 20-30 minutes at a time. No driving until after your first visit with your doctor. 5. Frequent changes of position and restricting sitting to 30 minutes at a time will help limit the amount of back spasms and stiffness you may experience. 6. You may discontinue the use of ambulatory aids (cane, crutches, etc.) once your strength and confidence allow. 7. You may route sales trainee the shower and let water strike your incision when you arrive home at least once daily. Do not take a tub bath, sit in a hot tub or go into a swimming pool until after your first recheck in the office. 8. You may resume previous diet. SPECIAL CARE INSTRUCTIONS: VERY IMPORTANT TO READ AND REVIEW A. Your surgical incision has been closed with a cosmetic suture under the skin that will dissolve in about 6 weeks. In 14 days, you can use a pair of clean scissors and cut the suture that is left outside of the skin at the ends of your incision. 1. The small skin tapes can be removed 7 days after surgery if they have not fallen off by that point. 2. You may keep the wound open to air as much as possible to promote healing after post-op day number 5 unless told otherwise by your doctor. 3. If you think the wound looks like it is becoming infected (redness or worsening drainage) and/or you are experiencing fever, chill or worsening back pain and muscle spasms, contact the office so that we may evaluate you as soon as possible. B. Complications are uncommon, but please contact us if you have any signs or symptoms of: 1. wound infection (fever higher than 102.5 degrees F, redness, separation of wound, drainage, or increasing pain from the incision) 2. blood clots in legs (pain, swelling, redness and warmth in legs) 3. urinary tract infection (fever higher than 102.5 degrees F, burning upon urination or increased frequency of urination) 4. nerve problems (inability to walk on your toes or heels, numbness, loss of bowel or bladder control) 5. any other symptoms that concern you C. Please call the office at if you have any concerns or questions about your operation or recovery. D. No smoking! Smoking drastically decreases the chance of a solid fusion. E. Do not take any anti-inflammatory medications (Indocin, Advil, Motrin, Aspirin, Naprosyn, etc.) as these may inhibit the chance of a solid fusion. Tylenol is okay to take for pain. MANAGING PAIN AFTER SPINAL SURGERY 1. Narcotic medication is intended for short-term use and will be provided for surgical pain. Surgical pain usually lasts for a period of 4-6 weeks. Narcotic medication includes Percocet, Vicodin, Darvocet, Tylenol #3 or Lortab. 2. Longer-term pain is more appropriately treated with non-narcotic medication such as Tylenol ES. 3. Muscle spasm is not appropriately treated with narcotics. Muscle relaxers such as Soma, Flexeril or Skelaxin can be used along with Tylenol ES. 4. Remember that we all live with some "aches and pains". This is not unusual or uncommon after an injury or as we get older. a. Back pain is expected and may include muscle spasms for 4 to 6 weeks after surgery. The pain should gradually improve. If the pain worsens for no apparent reason, please contact the office. b. Intermittent leg pain may also be experienced and should not be concerned about unless it worsens for no apparent reason. If so, please contact the office. 5. We will provide appropriate medication within the normal guidelines of their prescribed use. We will also be very cautious and aware of potential abuse and extended duration of patients' medication needs. a. Pain medications are for your comfort and to assist with sleep and rest so that the tissue can heal. They are not provided in order to return to normal activity and should not be used through the day. To do so or worsening pain at night can result from ongoing tissue damage and development of tolerance to the prescribed medicine. 6. Please allow 2-3 days to process refills. Prescriptions will not be mailed but must be picked up at the office. FOLLOW UP VISIT: Keep your scheduled follow-up appointment. Any questions, please call the office at . Pending Studies at Discharge: No Stand-Alone Forms: My [facility] Skilled Items Patient informed of condition?: Yes DNR: No Discharge Level of Care: Acute rehab Communicable Disease: No Discharge Prognosis: Improving Lines: None Urinary Catheter: No Medications and DC Order Prescriptions: New oxycodone 5 mg tablet 5 mg PO Q6H PRN (Reason: pain) Qty: 30 0RF Continued atenolol 25 mg Tablet 25 mg PO QAM citalopram 20 mg Tablet 20 mg PO QPM ascorbic acid (vitamin C) [Vitamin C] 500 mg Tablet 500 mg PO QAM simvastatin 20 mg Tablet 20 mg PO QPM vitamin B complex Tablet 1 tab PO WK magnesium 250 mg Tablet 250 mg PO BID omeprazole 20 mg Tablet,Delayed Release (Dr/Ec) 20 mg PO QAM omega 9-mgz-gta-fish oil [Fish Oil] 1,000 mg (120 mg-180 mg) Capsule 1 cap PO QPM cholecalciferol (vitamin D3) [Vitamin D3] 25 mcg (1,000 unit) Tablet 25 mcg PO QAM lutein 20 mg Tablet 20 mg PO QAM calcium carbonate-vitamin D3 600 mg-5 mcg (200 unit) Tablet 1 tab PO BID ibandronate 150 mg Tablet 150 mg PO MONTHLY Patient Comments: takes the last Thursday in the month fluticasone propionate 50 mcg/actuation [place],Suspension 1 spray INTRANASAL QAM Rx Instructions: administer into each nostril acetaminophen 500 mg Tablet 1,000 mg PO TID PRN (Reason: Pain) Patient Comments: has not taken tramadol 50 mg tablet 50 mg PO Q6H PRN (Reason: pain, moderate) Qty: 30 0RF cetirizine 10 mg Tablet 10 mg PO DAILY PRN (Reason: allergies) baclofen 10 mg tablet 10 mg PO TID duloxetine 30 mg Capsule,Delayed Release(Dr/Ec) 30 mg PO QAM Discharge Orders: Discharge Order (Routine); Ordered 05/05/25 Ordered By: Fidencio Christopher Admission Data Admit Date/Time: 05/02/25 12:28 Attending Provider: Fidencio Christopher Admit Provider: Fidencio Christopher Primary Care Provider: Leonardo Layton Other Providers: Josee Harrell; [facility]; [facility]
--- NOTE | 2025-05-05 11:02 | Hospitalist Progress Note ---
Date of Service May 05, 2025 Assessment & Plan (1) Lumbar radiculopathy: (2) S/P spinal surgery: (3) Postoperative abscess: Plan Patient is an 79y/o M with PMHx significant for Guillain-[place] syndrome, CAD, history of [place], history of prostate cancer, cognitive impairment, HLD, GERD and HTN who is being seen in consultation for postoperative medical management s/p L4-S1 hardware removal, L4-S1 revision decompression and fusion and placement of bilateral iliac bolts performed by Dr. Christopher earlier today. Lumbar radiculopathy S/p L4-S1 hardware removal, L4-S1 revision decompression and fusion and placement of bilateral iliac bolts on 05/02/25 Per primary service for pain control, wound care, anticoagulation and activities Mackey and RESHMA drain management per primary PT/OT IS Bowel regimen VTE prophylaxis #Knee pain -R knee pain after physical therapy on 05/03 -R knee was warm compared to c/l knee--resolved today -Remains Afebrile. WBC stable at 11 -B/l Dopplers negative -Appreciate ortho input History of L3-S1 decompression and fusion on 03/01/25 c/b postoperative abscess s/p I&D on 03/11/25 Gram stain and culture revealed Streptococcus dysgalactiae Per ID: IV ceftriaxone 2g daily for 8 weeks total with EOT on 05/06/25 (order u pdated) Then to begin indefinite suppression with po amoxicillin 500mg TID on 05/07/25 -- will need to order Will need to ensure patient has ID outpatient follow-up on discharge History of acute superior endplate fracture of S1 Readmitted 03/31/25-04/09/25 with worsening back pain after sustaining a fall Imaging revealed an acute superior endplate fracture of S1 as well as a posterior fluid collection S/p I&D on 04/03/25 which revealed a hematoma, Gram stain and culture NGTD Will update med rec 05/05 Anemia Chronic at baseline No s/s acute blood loss CAD History of [place] Continue statin HTN Continue atenolol Depression Continue Celexa GERD Continue PPI DVT Prophylaxis: As per primary service Code Status: FULL CODE PCP: Leonardo Layton MD I spent a total of 52 minutes coordinating, documenting, and providing care for this patient excluding time spent in the performance of separately billed services. This included personally reviewing all current laboratories and imaging studies, medical reconciliation, outpatient chart review and discussion with specialists Admission and Anticipated Discharge Date Admission Date: May 02, 2025 Subjective Feeling well today. he has no complaints other than his sciatic. he has no knee pain or warmth today. had a bowel movement this AM Physical Exam Physical Exam: Vitals and labs reviewed General: Well appearing, NAD HEENT: EOMI, PERRLA Neck: Supple Cardiac: RRR no rubs gallops or murmurs Lungs: CTA no rhonchi wheezing or rales Abd: S NT ND BS positive : mackey MSK: Full ROM. No obvious deformities Ext: No Edema cyanosis Skin: Warm, Dry Neuro: AOx3 No focal deficits. Psych: Normal Mood Results & Data Results & Data Vital Signs (Past 12 Hours) Vital Signs Temp Pulse Resp BP BP Pulse Ox O2 Del Method 05/05/25 09:31 36.3 C L 88 20 165/82 H 139/98 99 05/05/25 07:48 36.3 C L 88 20 165/82 H 99 Room Air 05/04/25 23:14 36.7 C 84 16 115/65 94 Room Air
[2025-05-06 07:19] VITALS: BP 136/70; PULSE 82; RESP 17; TEMP 98.1; O2SAT 95
--- NOTE | 2025-05-06 09:34 | Orthopedic Progress Note ---
Date of Service May 06, 2025 Assessment & Plan (1) Lumbar radiculopathy: Plan: At this time we will continue physical therapy and Occupational Therapy in the hospital. He is cleared for discharge to rehab when bed available. Today is his last day of IV antibiotics. He will transition to orals tomorrow. Admission and Anticipated Discharge Date Admission Date: May 02, 2025 Subjective Patient's back pain is controlled leg symptoms improved Physical Exam Physical Exam: Patient is currently bed. He is comfortable. Results & Data Vital Signs (Past 12 Hours) Vital Signs Temp Pulse Resp BP Pulse Ox O2 Del Method 05/06/25 07:18 36.7 C 82 17 136/70 95 Room Air 05/05/25 23:34 36.5 C 88 16 125/79 97 Room Air Queries Orthopedic Spine Vertebral Fracture Secondary to Osteoporosis: Yes
--- NOTE | 2025-05-06 10:56 | Hospitalist Progress Note ---
Date of Service May 06, 2025 Assessment & Plan (1) Lumbar radiculopathy: (2) S/P spinal surgery: (3) Postoperative abscess: Plan Patient is an 79y/o M with PMHx significant for Guillain-[place] syndrome, CAD, history of [place], history of prostate cancer, cognitive impairment, HLD, GERD and HTN who is being seen in consultation for postoperative medical management s/p L4-S1 hardware removal, L4-S1 revision decompression and fusion and placement of bilateral iliac bolts performed by Dr. Christopher earlier today. Lumbar radiculopathy S/p L4-S1 hardware removal, L4-S1 revision decompression and fusion and placement of bilateral iliac bolts on 05/02/25 Per primary service for pain control, wound care, anticoagulation and activities Mackey and RESHMA drain removed PT/OT IS Bowel regimen VTE prophylaxis #Knee pain resolved History of L3-S1 decompression and fusion on 03/01/25 c/b postoperative abscess s/p I&D on 03/11/25 Gram stain and culture revealed Streptococcus dysgalactiae Per ID: IV ceftriaxone 2g daily for 8 weeks total with EOT on 05/06/25 (order updated) Then to begin indefinite suppression with po amoxicillin 500mg TID on 05/07/25 -- will order tomorrow 05/07 if he is still here Will need to ensure patient has ID outpatient follow-up on discharge History of acute superior endplate fracture of S1 Readmitted 03/31/25-04/09/25 with worsening back pain after sustaining a fall Imaging revealed an acute superior endplate fracture of S1 as well as a posterior fluid collection S/p I&D on 04/03/25 which revealed a hematoma, Gram stain and culture NGTD Will update med rec 05/05 Anemia Chronic at baseline No s/s acute blood loss CAD History of [place] Continue statin HTN Continue atenolol Depression Continue Celexa GERD Continue PPI DVT Prophylaxis: As per primary service Code Status: FULL CODE PCP: Leonardo Layton MD I spent a total of 45 minutes coordinating, documenting, and providing care for this patient excluding time spent in the performance of separately billed services. This included personally reviewing all current laboratories and imaging studies, medical reconciliation, outpatient chart review and discussion with specialists Admission and Anticipated Discharge Date Admission Date: May 02, 2025 Subjective Patient was to be discharged yesterday but wanted to talk to surgery about his pain so he lost his bed. he feels well today and denies any complaints to author this AM except for sciatic pain which is better today. Patient denies F/C, CP, palpitations, SOB, dyspnea, abd pain, N/V/D Physical Exam Physical Exam: Vitals and labs reviewed General: Well appearing, NAD HEENT: EOMI, PERRLA Neck: Supple Cardiac: RRR no rubs gallops or murmurs Lungs: CTA no rhonchi wheezing or rales Abd: S NT ND BS positive : no mackey MSK: Full ROM. No obvious deformities Ext: No Edema cyanosis Skin: Warm, Dry Neuro: AOx3 No focal deficits. Psych: Normal Mood Results & Data Results & Data Vital Signs (Past 12 Hours) Vital Signs Temp Pulse Resp BP Pulse Ox O2 Del Method 05/06/25 07:18 36.7 C 82 17 136/70 95 Room Air 05/05/25 23:34 36.5 C 88 16 125/79 97 Room Air
== END 2025-05-06 13:51 | DRG 447 ==
LOC: ASU 08:08 → 3E 12:28